=== PATIENT | male | born 1955 | race Caucasian/White ===

== ENCOUNTER → 2016-12-24 | Outpatient (CLI) | payer OTHER | END | disposition home or self-care (01) | LOC: RADECHMAIN 12:26 | PROVIDERS: ATTEND Internal Medicine | DX: I49.3 Ventricular premature depolarization (principal); I47.1 Supraventricular tachycardia | CPT/HCPCS: 93225; 93226 ==

== ENCOUNTER 2017-03-15 09:31 | Day surgery (SDC) | payer OTHER ==
[2017-03-10 15:21] VITALS: BMI 36.6
[~2017-03-15 09:31] MED LIST: LACTATED RINGERS 1,000 ML IV SCH; LIDOCAINE 1% 20 ML VIAL (10MG/ML) FOR IV START INTRADERMA PRN
[2017-03-15 09:58] VITALS: TEMP 99.8
[2017-03-15] MEDS ORDERED: LIDOCAINE 1% INJ 10MG/ML (20 ML MDV) ONE (11:00)
[2017-03-15] MEDS ORDERED: PROPOFOL 10 MG/ML 20 ML VIAL IV ONE (11:00)
[2017-03-15] MEDS ORDERED: GLYCOPYRROLATE 0.2 MG/ML 2 ML VIAL ONE (11:00)
--- NOTE | 2017-03-15 11:32 | P.PCN ---
Date of Procedure: 03/15/17 Preoperative Diagnosis: Postoperative Diagnosis: Procedure(s) Performed: Procedure: Esophagogastroduodenoscopy and biopsy. Preoperative diagnosis: Indigestion, reflux symptoms and dysphagia. Postoperative diagnosis: Small hiatal hernia with no obvious esophagitis or complicated reflux disease. Mild antral gastritis. Multiple biopsies obtained. Preparation and sedation: Was provided by anesthesia. Brief clinical history: The patient is a 61-year-old male who is referred for this evaluation because of reflux and indigestion type symptoms as well as intermittent dysphagia. Apparently, he is symptomatic at night and the reflux is interfering with his CPAP treatment which he wears for obstructive sleep apnea. No other alarm symptoms or anemia. This evaluation was requested to assess for peptic ulcer disease, complicated reflux disease or other pathology. Procedure: With the patient on his left lateral decubitus position and after informed consent and adequate sedation, I passed the Olympus-GIF 160 video upper endoscope through the cricopharyngeus down the esophagus. GE junction was around 38-39 cm from the incisors and there was a small sliding hiatal hernia. The esophagus did not show any erosions or ulcers. There were no strictures or Morris's esophagus. The stomach was then insufflated with air and inspected in detail including the retroflex view in the cardia. There was some mottling and erythema in the antrum but no ulcers or erosions. Pyloric channel, duodenal bulb, post bulbar area and descending duodenum appeared within normal limits. I obtained multiple biopsies from the antrum and esophagus then the endoscope was withdrawn. Disposition: The patient tolerated the procedure well. Plan: The patient was reassured. Will await pathology results. He will follow up with you as planned and further plans can be made based on his course. We would be happy to see in the office of his symptoms persist. Implants: Indications for Procedure: Operative Findings: Description of Procedure:
[2017-03-15 11:51] VITALS: BP 125/86; PULSE 70; RESP 18
== END 2017-03-15 12:02 | disposition home or self-care (01) ==
LOC: ORWHC2ENDO 09:31
DX: K21.0 Gastro-esophageal reflux disease with esophagitis (principal); K29.50 Unspecified chronic gastritis without bleeding; K44.9 Diaphragmatic hernia without obstruction or gangrene; I25.10 Atherosclerotic heart disease of native coronary artery without angina pectoris; I10 Essential (primary) hypertension; Z87.891 Personal history of nicotine dependence; E78.5 Hyperlipidemia, unspecified; G47.33 Obstructive sleep apnea (adult) (pediatric); Z99.89 Dependence on other enabling machines and devices; M19.90 Unspecified osteoarthritis, unspecified site; Z79.82 Long term (current) use of aspirin; Z79.899 Other long term (current) drug therapy; Z91.09 Other allergy status, other than to drugs and biological substances
CPT/HCPCS: 88305; 88342; 43239; J2001; J2704

== ENCOUNTER 2017-06-08 12:42 | Emergency (ER) | payer OTHER ==
[2017-06-08 13:01] VITALS: BP 120/66; PULSE 82; RESP 16; TEMP 98.7
--- NOTE | 2017-06-08 13:22 | ED ---
General Adult HPI - General Chief complaint: Extremity Injury, Upper Stated complaint: LEFT SHOULDER AND RIGHT HIP INJURY Time Seen by Provider: 06/08/17 13:06 Source: patient, RN notes reviewed, old records reviewed Mode of arrival: ambulatory Limitations: no limitations - History of Present Illness Initial comments: 61-year-old male presents emergency Department after a slip, and trying to catch himself. He reports he try to grab the wall and cause some pain over his left shoulder. He felt a ripping sensation. Patient also complains of some right hip pain. Recently had right hip replacement surgery, and requests an MRI further evaluation. He has been able to ambulate and bear weight on it. His orthopedically impaired teacher is working. Him, in [place]. Patient reports is also seeing orthopedically impaired teacher and [facility] Associates in this area. Patient states that he has occasional numbness and tingling down left hand. Denies any neck pain. Denies any head injuries associated with the fall. Patient reports this occurred while he was in a car wash, and slipped over the water at the car wash. - Related Data Home Medications Medication Instructions Recorded Confirmed Spironolactone [Aldactone] 25 mg PO DAILY 09/26/14 06/08/17 Atorvastatin [Lipitor] 40 mg PO HS 07/24/15 06/08/17 Aspirin [Adult Low Dose Aspirin EC] 81 mg PO DAILY 09/19/15 06/08/17 Ranitidine HCl [Zantac] 300 mg PO DAILY PRN 09/19/15 06/08/17 Celecoxib [CeleBREX] 200 mg PO DAILY 03/10/17 06/08/17 Lisinopril [Prinivil] 20 mg PO QAM 03/10/17 06/08/17 Magnesium 200 mg PO DAILY 03/10/17 06/08/17 Metoprolol Succinate (ER) [Toprol 25 mg PO QAM 03/10/17 06/08/17 Xl] [place]-3 Fatty Acids [[place]-3] 1,000 mg PO DAILY 03/10/17 06/08/17 Omeprazole [PriLOSEC] 40 mg PO DAILY 03/10/17 06/08/17 Vitamin K1 And Vitamin D3 1 tab PO DAILY 03/10/17 06/08/17 Vitamin Mk7 1 tab PO DAILY 03/10/17 06/08/17 Previous Rx's Medication Instructions Recorded traMADol HCl [Ultram] 50 mg PO Q6H PRN #15 tab 06/08/17 Allergies Allergy/AdvReac Type Severity Reaction Status Date / Time adhesive Allergy Rash/Hives Verified 06/08/17 13:00 Review of Systems ROS Statement: Those systems with pertinent positive or pertinent negative responses have been documented in the HPI. ROS Other: All systems not noted in ROS Statement are negative. Past Medical History Past Medical History: Coronary Artery Disease (CAD), Eye Disorder, GERD/Reflux, Hyperlipidemia, Hypertension, Osteoarthritis (OA), Skin Disorder, Sleep Apnea/ CPAP/BIPAP Additional Past Medical History / Comment(s): slight glaucoma janet eyes, no CPAP use, HX kidney stones, R great toe bunion, psoriasis, cervical disc ruptured, pt also needs a total L knee. left elbow sx History of Any Multi-Drug Resistant Organisms: None Reported Past Surgical History: Appendectomy, Back Surgery, Heart Catheterization With Stent, Orthopedic Surgery Additional Past Surgical History / Comment(s): PTCA with one stent in 2011, EGD and colonoscopy, L knee arthroscopy, lithrotripsy, SX TO REMOVE KIDNEY STONE, laminectomy low back 1984, has had laser sx to janet eyes Past Anesthesia/Blood Transfusion Reactions: No Reported Reaction Additional Past Anesthesia/Blood Transfusion Reaction / Comment(s): Pt has not recieved any blood transfusion. Date of Last Stent Placement:: 2011 Past Psychological History: Depression Smoking Status: Former smoker Past Alcohol Use History: None Reported Past Drug Use History: Marijuana - Past Family History Father Family Medical History: COPD, Coronary Artery Disease (CAD), Myocardial Infarction (IA) Mother Family Medical History: Coronary Artery Disease (CAD) General Exam - General Exam Comments Initial Comments: 61-year-old male. No distress. Limitations: no limitations General appearance: alert, in no apparent distress Head exam: Present: atraumatic, normocephalic, normal inspection Eye exam: Present: normal appearance, PERRL, EOMI. Absent: scleral icterus, conjunctival injection, periorbital swelling ENT exam: Present: normal exam, mucous membranes moist Neck exam: Present: normal inspection. Absent: tenderness, meningismus, lymphadenopathy Respiratory exam: Present: normal lung sounds bilaterally. Absent: respiratory distress, wheezes, rales, rhonchi, stridor Cardiovascular Exam: Present: regular rate, normal rhythm, normal heart sounds. Absent: systolic murmur, diastolic murmur, rubs, gallop, clicks GI/Abdominal exam: Present: soft, normal bowel sounds. Absent: distended, tenderness, guarding, rebound, rigid Extremities exam: Present: normal inspection, full ROM, normal capillary refill. Absent: tenderness, pedal edema, joint swelling, calf tenderness Left Shoulder Exam: Present: normal inspection, tenderness. Absent: full ROM ( Patient presented limited abduction and flexion and extension of the shoulder. He is wearing a arm sling.), swelling Upper Arm exam: Present: normal inspection, full ROM Elbow exam: Present: normal inspection, full ROM Forearm Wrist exam: Present: normal inspection, full ROM Hand Wrist exam: Present: normal inspection, full ROM Neuro motor exam: Present: wrist extension intact, thumb opposition intact, thumb IP flexion intact, thumb adduction intact, fingers 2-5 abduction intact Vascular: Present: normal capillary refill Back exam: Present: normal inspection Neurological exam: Present: alert, oriented X3, CN II-XII intact Psychiatric exam: Present: normal affect, normal mood Skin exam: Present: warm, dry, intact, normal color. Absent: rash Course Vital Signs 06/08/17 12:56 Temperature 98.7 F Pulse Rate 82 Respiratory 16 Rate Blood Pressure 120/66 O2 Sat by Pulse 99 Oximetry Medical Decision Making - Medical Decision Making 61-year-old male presents emergency Department complaining of left shoulder pain and right hip pain. Request an MRI of the shoulder and hip, we will complete x-rays at this time, follow-up with orthopedically impaired teacher. X-rays obtained show no acute abnormalities. Patient does have some limited range of motion of his left shoulder, pain with abduction, flexion. Normal pulse and normal sensation distally. He also has no shortening of his leg, no tenderness to palpation over the right hip. He does have full range of motion. X-rays of hip should not milliseconds hardware. Patient will be discharged at this time with a shoulder sling, as well as pain medicine. Discussed following up with orthopedically impaired teacher call them. Patient is history plan will comply. Return parameters were discussed. - Radiology Data Radiology results: report reviewed No acute fracture dislocation is evident. Total right hip prosthesis intact. Oropharynx soft tissue appears unremarkable. No fracture dislocation of the right hip. Left shoulder x-ray shows no acute abdomen including she dislocation or fractures. Disposition Clinical Impression: Left shoulder strain, Strain of right hip Disposition: HOME SELF-CARE Condition: Good Instructions: Rotator Cuff Injury (ED) Additional Instructions: Patient has a follow-up with orthopedically impaired teacher. He'll take the pain medicine as directed as well as anti-inflammatory medicine. Patient should return to emergency department if any alarming signs or symptoms occur. Prescriptions: traMADol HCl [Ultram] 50 mg PO Q6H PRN #15 tab PRN Reason: Pain Referrals: Jenny Perez MD [Primary Care Provider] - 1-2 days Madhav Livingston MD [STAFF PHYSICIAN] - 1-2 days Time of Disposition: 13:57
--- NOTE | 2017-06-08 13:38 | XR ---
EXAMINATION TYPE: XR Hip Complete RT DATE OF EXAM: 06/08/2017 CLINICAL HISTORY: pain TECHNIQUE: AP and frogleg views of the right hip are obtained. COMPARISON: None. FINDINGS: There is no acute fracture/dislocation evident. Total right hip prosthesis is intact. The overlying soft tissue appears unremarkable. IMPRESSION: 1. There is no acute fracture or dislocation. ICD 10 NO FRACTURE, INITIAL EVALUATION
--- NOTE | 2017-06-08 13:38 | XR ---
EXAMINATION TYPE: XR shoulder complete LT DATE OF EXAM: 06/08/2017 CLINICAL HISTORY: Pain after injury last night. TECHNIQUE: Three views of the left shoulder are obtained. COMPARISON: Prior left shoulder x-ray September 26, 2014. FINDINGS: Osseous structures are demineralized. There is no acute fracture/dislocation evident in th e left shoulder. The there is joint space loss glenohumeral and acromioclavicular joints. There is h igh riding left humeral head suggesting chronic rotator cuff tear. The visualized ribs are intact an d unremarkable. IMPRESSION: There is no acute fracture or dislocation in the left shoulder. No significant change fr om prior.
== END 2017-06-08 14:12 | disposition home or self-care (01) ==
LOC: EC 12:42
DX: S46.912A Strain of unspecified muscle, fascia and tendon at shoulder and upper arm level, left arm, initial encounter (principal); S76.011A Strain of muscle, fascia and tendon of right hip, initial encounter; I25.10 Atherosclerotic heart disease of native coronary artery without angina pectoris; K21.9 Gastro-esophageal reflux disease without esophagitis; E78.5 Hyperlipidemia, unspecified; I10 Essential (primary) hypertension; M19.90 Unspecified osteoarthritis, unspecified site; G47.30 Sleep apnea, unspecified; Z99.89 Dependence on other enabling machines and devices; F32.9 Major depressive disorder, single episode, unspecified; Z87.891 Personal history of nicotine dependence; Z79.82 Long term (current) use of aspirin; Z79.899 Other long term (current) drug therapy; Z91.048 Other nonmedicinal substance allergy status; Z98.890 Other specified postprocedural states; W01.0XXA Fall on same level from slipping, tripping and stumbling without subsequent striking against object, initial encounter
CPT/HCPCS: 73502; 99284

== ENCOUNTER → 2017-07-25 | Outpatient (CLI) | payer OTHER ==
--- NOTE | 2017-07-25 13:45 | XR ---
EXAMINATION TYPE: XR shoulder limited LT DATE OF EXAM: 07/25/2017 CLINICAL HISTORY: pain COMPARISON: 06/08/2017 TECHNIQUE: Three views of the left shoulder are obtained. FINDINGS: There is no acute fracture/dislocation evident. The acromioclavicular and glenohumeral dave int spaces appear mildly narrowed. Lateral downsloping of the acromion may result in impingement. Co rrelate clinically. The visualized ribs are intact and unremarkable. IMPRESSION: 1. There is no acute fracture or dislocation. ICD 10 NO FRACTURE, INITIAL EVALUATION
== END | disposition home or self-care (01) ==
LOC: RADXRMAIN 13:25
PROVIDERS: ATTEND Family Medicine
DX: M75.42 Impingement syndrome of left shoulder (principal)

== ENCOUNTER → 2017-08-15 | Outpatient (CLI) | payer OTHER ==
--- NOTE | 2017-08-15 19:48 | XR ---
EXAMINATION TYPE: XR Hip Complete RT DATE OF EXAM: 08/15/2017 CLINICAL HISTORY: Right hip pain TECHNIQUE: AP and frogleg views of the right hip are obtained. COMPARISON: None. FINDINGS: Right hip prosthesis is intact without evidence of dislocation. Overall this appears simila r to the prior exam of 06/08/2017. No periprosthetic lucency is seen. No malalignment. No focal soft tissue swelling. [place] osseous structures appear intact. IMPRESSION: No evidence of hardware fracture, [place] bone fracture, or surrounding lucency to suggest loosening.
== END | disposition home or self-care (01) ==
LOC: RADXRMAIN 15:50
PROVIDERS: ATTEND Family Medicine
DX: M25.551 Pain in right hip (principal)
CPT/HCPCS: 73502

== ENCOUNTER → 2017-08-23 | Outpatient (CLI) | payer OTHER ==
--- NOTE | 2017-08-23 11:20 | MR ---
EXAMINATION TYPE: MR shoulder LT wo con DATE OF EXAM: 08/23/2017 COMPARISON: Plain film 07/25/2017 HISTORY: Left shoulder pain TECHNIQUE: Multiplanar, multisequence imaging of the left shoulder is performed without contrast. FINDINGS: There are foci of susceptibility artifact suggestive of prior surgery or instrumentation ab out the humeral head. Rotator Cuff: There is a tear of the supraspinatus and infraspinatus tendon with retraction of the leary praspinatus tendon to the level of the bony glenoid. Some minimal residual fibers of the infraspinatu s tendon are markedly attenuated towards the insertion on the humeral head. Acromioclavicular Joint: Hypertrophic changes present at the acromioclavicular joint. Glenohumeral Joint: There is arthropathy change, spurring present in the humeral head. Labrum: Some increased signal present within the labrum could be related to degenerative change, diff icult to exclude fraying or partial tear Biceps Tendon: Long head of biceps tendon shows abnormal increased signal and thickening, some fluid signal is present along the tendon, difficult to exclude a tear Bone marrow signal: Pseudocysts are present within the humeral head as well as some probable reactive marrow signal change. Other: There is a distal acromial spur. There is a joint effusion. There may be ganglion cyst along t he subscapularis tendon. Difficult to exclude some small loose bodies. IMPRESSION: Rotator cuff tear with retraction. Osteoarthritic changes. Findings suggest long head of biceps tendo n tear. Additional findings above.
== END | disposition home or self-care (01) ==
LOC: RADMRIMAIN 09:04
PROVIDERS: ATTEND Family Medicine
DX: M75.102 Unspecified rotator cuff tear or rupture of left shoulder, not specified as traumatic (principal); M19.012 Primary osteoarthritis, left shoulder

== ENCOUNTER → 2017-11-11 | Outpatient (CLI) | payer OTHER ==
--- NOTE | 2017-11-12 11:08 | XR ---
EXAMINATION TYPE: XR abdomen 2V DATE OF EXAM: 11/11/2017 HISTORY: Pain. Technique: 4 views of the abdomen are submitted. Comparison: None. Findings: There is no convincing evidence of pneumoperitoneum. The Bowel gas pattern is nonspecific and nonobstructive. No sizable air-fluid levels are seen. No mass effects are noted. No renal calcifications are identified. Severe scoliotic curvature of the lumbar spine. IMPRESSION: 1. Nonspecific nonobstructive bowel gas pattern
== END | disposition home or self-care (01) ==
LOC: RADXRMAIN 17:15
PROVIDERS: ATTEND Family Medicine
DX: K56.41 Fecal impaction (principal)
CPT/HCPCS: 74019

== ENCOUNTER → 2018-01-09 | Outpatient (CLI) | payer OTHER ==
--- NOTE | 2018-01-09 08:40 | US ---
EXAMINATION TYPE: US kidneys/renal and bladder DATE OF EXAM: 01/09/2018 COMPARISON: NONE CLINICAL HISTORY: 62-year-old male I72.3 Iliac Aneurysm,M54.5 Low back pain. TECHNIQUE: Multiple sonographic images of the kidneys and bladder are obtained. FINDINGS: EXAM MEASUREMENTS: Right Kidney: 13.4 x 6.9 x 6.5 cm without hydronephrosis. Left Kidney: 11.6 x 7.2 x 7.2 cm with mild pelvicaliectasis. Post Void Residual Volume: 26.0 mL Right Kidney: 2 cysts seen: Medial, upper = 2.5 x 2.2 x 2.2 cm Lower pole = 5.6 x 3.5 x 4.0 cm Left Kidney: Cyst with internal septation Mid pole = 7.4 x 7.1 x 7.1 cm. There is an 8 mm echogenic f ocus in the lower pole, possible renal calculus. Bladder: No gross abnormality. Bilateral Jets seen: Yes Normal Post Void Residual: Increased but within acceptable limits Dental Professional notes: Sub optimal visualization due to patient's large body habitus and large amounts of bowel gas. IMPRESSION: 1. Limited study due to bowel gas and patient body habitus. 2. Mild left-sided pelvicaliectasis which may be transient. Short interval follow-up can be considere d. 3. Bilateral renal cysts. Largest on the right measures 5.6 cm. Largest on the left is 7.4 cm and con tains an internal septation. This is a Bosniak category 2F cyst and a 6 month follow-up ultrasound ca n be performed. 4. Possibly 8mm nonobstructive left renal calculus. 5. Increased post void bladder volume of 26 mL still falls within acceptable limits.
--- NOTE | 2018-01-09 08:45 | US ---
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 TECHNIQUE: Multiple sonographic images of the abdominal aorta are obtained. FINDINGS: EXHAUST TENDER NOTES: Suboptimal exam overall due to patient's large body habitus and large amounts of bowel gas. EXAM MEASUREMENTS: Abdominal Aorta: Proximal: 2.9 x 2.8 cm Mid: 2.5 x 2.4 cm Distal: 2.2 x 2.1 cm Bifurcation: 2.0 cm 1.9cm IMPRESSION: 1. Suboptimal exam due to patient body habitus and bowel gas. 2. 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
== END | disposition home or self-care (01) ==
LOC: RADUSWWP 06:57
PROVIDERS: ATTEND Family Medicine
DX: I72.3 Aneurysm of iliac artery (principal); N28.1 Cyst of kidney, acquired; N28.89 Other specified disorders of kidney and ureter
CPT/HCPCS: 76770; 93979

== ENCOUNTER 2018-05-31 13:16 | Observation (INO) | payer OTHER ==
[2018-05-31 13:22] VITALS: RESP 18; TEMP 98.5
[2018-05-31] MEDS ORDERED: SODIUM CHLORIDE 0.9% 1,000 ML IV ONE ×2 (14:22→16:39)
--- NOTE | 2018-05-31 14:26 | ED ---
General Adult HPI - General Chief complaint: Recheck/Abnormal Lab/Rx Stated complaint: Low BP Sent by Time Seen by Provider: 05/31/18 13:20 Source: patient, RN notes reviewed Mode of arrival: ambulatory Limitations: no limitations - History of Present Illness Initial comments: This is a 62-year-old male who presents emergency department after having a near syncopal episode. Patient states she was at home felt lightheaded got up and went and looked in the meter and almost passed out at that time. Patient states because of this he decided to go to his doctor's office and be evaluated. Patient went to the doctor's office and they told him his blood pressure was low and his heart and decided he needed to go to the emergency department. Patient denied any chest pain patient stated he felt as though his heart rate was very fast. Patient states the doctor indicated to him his heart rate was very fast and wanted him to take any of his hospital but he refused. She states she was mildly short of breath when he felt like he was going to pass out. Patient states currently is not short of breath. Patient denies any fever chills or cough. Patient does complain of a headache for the last 2 weeks and states he thought was related to his sinuses. Patient states is in the center of his head. Patient denies any lightheadedness dizziness or near syncopal episode. Patient has just got back from [place] be a plane flight. Patient denies any swelling to his legs or calf tenderness. - Related Data Home Medications Medication Instructions Recorded Confirmed Spironolactone [Aldactone] 37.5 mg PO DAILY 09/26/14 05/31/18 Aspirin [Adult Low Dose Aspirin EC] 81 mg PO DAILY 09/19/15 05/31/18 Celecoxib [CeleBREX] 200 mg PO DAILY PRN 03/10/17 05/31/18 Magnesium 200 mg PO DAILY 03/10/17 05/31/18 Metoprolol Succinate (ER) [Toprol 25 mg PO QAM 03/10/17 05/31/18 Xl] [place]-3 Fatty Acids [[place]-3] 1,000 mg PO DAILY 03/10/17 05/31/18 Vitamin K1 And Vitamin D3 1 tab PO DAILY 03/10/17 05/31/18 Vitamin Mk7 1 tab PO DAILY 03/10/17 05/31/18 Atorvastatin [Lipitor] 20 mg PO DAILY 05/31/18 05/31/18 Lisinopril [Zestril] 10 mg PO DAILY 05/31/18 05/31/18 Magnesium l-Lactate [Magbid ER] 84 mg PO DAILY 05/31/18 05/31/18 Multivitamins, Thera [Multivitamin 1 tab PO DAILY 05/31/18 05/31/18 (formulary)] Vitamin B Complex 1 tab PO DAILY 05/31/18 05/31/18 Allergies Allergy/AdvReac Type Severity Reaction Status Date / Time adhesive Allergy Rash/Hives Verified 05/31/18 14:09 Review of Systems ROS Statement: Those systems with pertinent positive or pertinent negative responses have been documented in the HPI. ROS Other: All systems not noted in ROS Statement are negative. Past Medical History Past Medical History: Coronary Artery Disease (CAD), Eye Disorder, GERD/Reflux, Hyperlipidemia, Hypertension, Osteoarthritis (OA), Skin Disorder, Sleep Apnea/ CPAP/BIPAP Additional Past Medical History / Comment(s): slight glaucoma janet eyes, no CPAP use, HX kidney stones, R great toe bunion, psoriasis, cervical disc ruptured, pt also needs a total L knee. left elbow sx History of Any Multi-Drug Resistant Organisms: None Reported Past Surgical History: Appendectomy, Back Surgery, Heart Catheterization With Stent, Orthopedic Surgery Additional Past Surgical History / Comment(s): PTCA with one stent in 2011, EGD and colonoscopy, L knee arthroscopy, lithrotripsy, SX TO REMOVE KIDNEY STONE, laminectomy low back 1984, has had laser sx to janet eyes Past Anesthesia/Blood Transfusion Reactions: No Reported Reaction Additional Past Anesthesia/Blood Transfusion Reaction / Comment(s): Pt has not recieved any blood transfusion. Date of Last Stent Placement:: 2011 Past Psychological History: Depression Smoking Status: Former smoker Past Alcohol Use History: None Reported Past Drug Use History: Marijuana - Past Family History Father Family Medical History: COPD, Coronary Artery Disease (CAD), Myocardial Infarction ([place]) Mother Family Medical History: Coronary Artery Disease (CAD) General Exam - General Exam Comments Initial Comments: GENERAL: Patient is well-developed and well-nourished. Patient is nontoxic and well- hydrated and is in mild distress. ENT: Neck is soft and supple. No significant lymphadenopathy is noted. Oropharynx is clear. Moist mucous membranes. Neck has full range of motion without eliciting any pain. EYES: The sclera were anicteric and conjunctiva were pink and moist. Extraocular movements were intact and pupils were equal round and reactive to light. Eyelids were unremarkable. PULMONARY: Unlabored respirations. Good breath sounds bilaterally. No audible rales rhonchi or wheezing was noted. CARDIOVASCULAR: There is a regular rate and rhythm without any murmurs gallops or rubs. ABDOMEN: Soft and nontender with normal bowel sounds. No palpable organomegaly was noted. There is no palpable pulsatile mass. SKIN: Skin is clear with no lesions or rashes and otherwise unremarkable. NEUROLOGIC: Patient is alert and oriented x3. Cranial nerves II through XII are grossly intact. Motor and sensory are also intact. Normal speech, volume and content. Symmetrical smile. MUSCULOSKELETAL: Normal extremities with adequate strength and full range of motion. No lower extremity swelling or edema. No calf tenderness. LYMPHATICS: No significant lymphadenopathy is noted PSYCHIATRIC: Normal psychiatric evaluation. Limitations: no limitations Course Vital Signs 05/31/18 05/31/18 05/31/18 13:18 14:30 15:30 Temperature 98.5 F Pulse Rate 85 82 73 Respiratory 18 11 L 18 Rate Blood Pressure 110/75 100/74 101/63 O2 Sat by Pulse 98 95 95 Oximetry 05/31/18 16:15 Temperature Pulse Rate 87 Respiratory 18 Rate Blood Pressure 125/83 O2 Sat by Pulse 99 Oximetry Medical Decision Making - Medical Decision Making EKG shows normal sinus rhythm at 81 bpm NV interval is 176 QRS is 90 QT interval 372 QTC is 432. Patient's EKG shows no ST segment elevation or depression or T wave abnormalities are noted. CT of the chest showed no acute abnormality. CT of the head showed no acute abnormality. Patient did have a soft tissue abnormality in the scalp but when I reexamined the patient there was no redness or swelling and no abscess or medication. I spoke with Dr. Francois he agreed to admit the patient admitted the patient I consult cardiology. - Lab Data Result diagrams: 05/31/18 14:12 05/31/18 14:51 Lab Results 05/31/18 05/31/18 05/31/18 Range/Units 14:12 14:51 14:51 WBC 9.6 (3.8-10.6) k/uL RBC 4.71 (4.30-5.90) m/uL Hgb 14.3 (13.0-17.5) gm/dL Hct 44.8 (39.0-53.0) % MCV 95.0 (80.0-100.0) fL MCH 30.4 (25.0-35.0) pg MCHC 32.0 (31.0-37.0) g/dL RDW 13.9 (11.5-15.5) % Plt Count 213 (150-450) k/uL Neutrophils % 77 % Lymphocytes % 15 % Monocytes % 4 % Eosinophils % 2 % Basophils % 0 % Neutrophils # 7.4 (1.3-7.7) k/uL Lymphocytes # 1.5 (1.0-4.8) k/uL Monocytes # 0.4 (0-1.0) k/uL Eosinophils # 0.2 (0-0.7) k/uL Basophils # 0.0 (0-0.2) k/uL PT (9.0-12.0) sec INR (<1.2) APTT (22.0-30.0) sec D-Dimer (<0.60) mg/L FEU Sodium 140 (137-145) mmol/L Potassium 4.4 (3.5-5.1) mmol/L Chloride 110 H (98-107) mmol/L Carbon Dioxide 23 (22-30) mmol/L Anion Gap 7 mmol/L BUN 24 H (9-20) mg/dL Creatinine 0.74 (0.66-1.25) mg/dL Est GFR (CKD-EPI)AfAm >90 (>60 ml/min/1.73 sqM) Est GFR (CKD-EPI)NonAf >90 (>60 ml/min/1.73 sqM) Glucose 80 (74-99) mg/dL Calcium 9.2 (8.4-10.2) mg/dL Total Bilirubin 0.6 (0.2-1.3) mg/dL AST 25 (17-59) U/L ALT 29 (21-72) U/L Alkaline Phosphatase 60 (38-126) U/L Total Creatine Kinase 121 (55-170) U/L CK-MB (CK-2) 2.0 (0.0-2.4) ng/mL CK-MB (CK-2) Rel Index 1.7 Troponin I <0.012 (0.000-0.034) ng/mL Total Protein 6.4 (6.3-8.2) g/dL Albumin 3.7 (3.5-5.0) g/dL 05/31/18 Range/Units 15:22 WBC (3.8-10.6) k/uL RBC (4.30-5.90) m/uL Hgb (13.0-17.5) gm/dL Hct (39.0-53.0) % MCV (80.0-100.0) fL MCH (25.0-35.0) pg MCHC (31.0-37.0) g/dL RDW (11.5-15.5) % Plt Count (150-450) k/uL Neutrophils % % Lymphocytes % % Monocytes % % Eosinophils % % Basophils % % Neutrophils # (1.3-7.7) k/uL Lymphocytes # (1.0-4.8) k/uL Monocytes # (0-1.0) k/uL Eosinophils # (0-0.7) k/uL Basophils # (0-0.2) k/uL PT 9.7 (9.0-12.0) sec INR 1.0 (<1.2) APTT 24.8 (22.0-30.0) sec D-Dimer 1.30 H (<0.60) mg/L FEU Sodium (137-145) mmol/L Potassium (3.5-5.1) mmol/L Chloride (98-107) mmol/L Carbon Dioxide (22-30) mmol/L Anion Gap mmol/L BUN (9-20) mg/dL Creatinine (0.66-1.25) mg/dL Est GFR (CKD-EPI)AfAm (>60 ml/min/1.73 sqM) Est GFR (CKD-EPI)NonAf (>60 ml/min/1.73 sqM) Glucose (74-99) mg/dL Calcium (8.4-10.2) mg/dL Total Bilirubin (0.2-1.3) mg/dL AST (17-59) U/L ALT (21-72) U/L Alkaline Phosphatase (38-126) U/L Total Creatine Kinase (55-170) U/L CK-MB (CK-2) (0.0-2.4) ng/mL CK-MB (CK-2) Rel Index Troponin I (0.000-0.034) ng/mL Total Protein (6.3-8.2) g/dL Albumin (3.5-5.0) g/dL Disposition Clinical Impression: Near syncope, Palpitation, Sinusitis Disposition: ADMITTED IP TO THIS HOSP Referrals: Jenny Perez MD [Primary Care Provider] - 1-2 days Time of Disposition: 16:37
[2018-05-31 14:46] LABS: Basophils % (A) 0 %; Eosinophils # (A) 0.2 k/uL (0-0.7); Eosinophils % (A) 2 %; HCT 44.8 % (39.0-53.0); HGB 14.3 gm/dL (13.0-17.5); Lymphocytes # (A) 1.5 k/uL (1.0-4.8); Lymphocytes % (A) 15 %; MCH 30.4 pg (25.0-35.0); Mean Platelet Volume 7.2; Monocytes # (A) 0.4 k/uL (0-1.0); Monocytes % (A) 4 %; Neutrophils # (A) 7.4 k/uL (1.3-7.7); Neutrophils % (A) 77 %; Platelet Count 213 k/uL (150-450); RBC 4.71 m/uL (4.30-5.90); RDW 13.9 % (11.5-15.5); WBC 9.6 k/uL (3.8-10.6)
[2018-05-31 15:18] LABS: ALT 29 U/L (21-72); AST 25 U/L (17-59); Albumin 3.7 g/dL (3.5-5.0); Alkaline Phosphatase 60 U/L (38-126); Anion Gap 7 mmol/L; Blood Urea Nitrogen 24 mg/dL (9-20); Calcium 9.2 mg/dL (8.4-10.2); Carbon Dioxide 23 mmol/L (22-30); Chloride 110 mmol/L (98-107); Glucose 80 mg/dL (74-99); Potassium 4.4 mmol/L (3.5-5.1); Sodium 140 mmol/L (137-145); Total Bilirubin 0.6 mg/dL (0.2-1.3); Total Protein 6.4 g/dL (6.3-8.2)
[2018-05-31 15:20] LABS: Creatine Kinase 121 U/L (55-170)
[2018-05-31 15:32] LABS: Troponin I <0.012 ng/mL (0.000-0.034)
[2018-05-31 15:37] LABS: Partial Thromboplastin Time 24.8 sec (22.0-30.0); Prothrombin Time 9.7 sec (9.0-12.0)
[2018-05-31 15:53] LABS: D-Dimer 1.3 mg/L FEU (<0.60)
[2018-05-31] MEDS ORDERED: HYDROmorphone 1 MG/ML 1 ML SYRINGE IVP STA (15:57)
[2018-05-31 16:16] VITALS: BP 125/83; PULSE 87
--- NOTE | 2018-05-31 16:26 | CT ---
EXAMINATION TYPE: CT brain wo con DATE OF EXAM: 05/31/2018 COMPARISON: None INDICATION: Low blood pressure, headache x1 week DLP: 1031.4 mGycm, Automated exposure control for dose reduction was used. CONTRAST: None CT of the brain is performed utilizing 3 mm thick sections through the posterior fossa and 3 mm thick sections through the remaining calvarium. Study is performed within 24 hours of arrival to the hosp ital. No abnormal hyperdensity is present to suggest an acute intracranial hemorrhage. No mass lesion is evident. No acute infarcts are evident. Ventricles and sulci are appropriate for the patient age. There is an air-fluid level within the right maxillary sinus. Mucosal thickenings within ethmoid air cells. Remaining paranasal sinuses and mastoid air cells are clear. No fracture is evident. Soft tissue swelling is over the right occipital region. IMPRESSIONS: 1. Soft tissue swelling right occipital region. 2. No acute intracranial process. 3. Clinical correlation recommended for acute right maxillary sinusitis.
--- NOTE | 2018-05-31 16:30 | CT ---
CT CHEST FOR PULMONARY EMBOLISM. EXAMINATION TYPE: CT chest angio for PE DATE OF EXAM: 05/31/2018 INDICATION: low bp, headaches CT DLP: 746.8 mGycm, Automated exposure control for dose reduction was used. CONTRAST: Patient injected with 100 mL of Isovue 370. COMPARISON: None TECHNIQUE: CT of the chest is performed on a spiral scan at 2 mm thick sections. Study is performed with intravenous contrast timed for evaluation for pulmonary embolism. This will limit additional po rtions of the evaluation. 3-D MIP images reconstructed by the technologist are reviewed on the compu ter in the coronal and sagittal planes. Contrast timing is suboptimal. This limits evaluation for pul monary embolism. FINDINGS: No persistent filling defects are evident to suggest a central acute pulmonary embolism. Due to poor contrast timing peripheral smaller emboli may not be visualized. No change suggest right heart strain are evident. No aortic dissection is identified on these images. No mediastinal or hilar adenopathy enlarged by CT criteria is evident. The ascending aorta diameter at the level of the main pulmonary artery is 3.3 cm. The main pulmonary artery diameter at the bifur cation is 2.7 cm. Moderate coronary artery calcification is present. Lung windows are clear. Limited CT section through the upper abdomen are unremarkable. IMPRESSIONS: 1. No acute pulmonary embolism. Study is suboptimal. 2. No acute pulmonary process.
[2018-05-31] MEDS ORDERED: AMPICILLIN-SULBACTAM 3 GM in SODIUM CHLORIDE 0.9% 100 ML IVPB STA (16:48)
[2018-06-01] MEDS ORDERED: AMPICILLIN-SULBACTAM 3 GM in SODIUM CHLORIDE 0.9% 100 ML IVPB SCH ×2
== END 2018-05-31 17:45 | disposition left against medical advice (07) ==
LOC: EC 13:16 → 1SOBS 16:48
PROVIDERS: ADMIT Internal Medicine; ATTEND Internal Medicine
DX: R55 Syncope and collapse (principal); R06.02 Shortness of breath; R00.2 Palpitations; R03.1 Nonspecific low blood-pressure reading; J32.9 Chronic sinusitis, unspecified; Z79.899 Other long term (current) drug therapy; Z79.82 Long term (current) use of aspirin; Z91.048 Other nonmedicinal substance allergy status; I25.10 Atherosclerotic heart disease of native coronary artery without angina pectoris; E78.5 Hyperlipidemia, unspecified; I10 Essential (primary) hypertension; L40.9 Psoriasis, unspecified; M19.90 Unspecified osteoarthritis, unspecified site; G47.30 Sleep apnea, unspecified; Z87.442 Personal history of urinary calculi; Z95.5 Presence of coronary angioplasty implant and graft; Z87.891 Personal history of nicotine dependence; Z82.5 Family history of asthma and other chronic lower respiratory diseases; Z82.49 Family history of ischemic heart disease and other diseases of the circulatory system; Z53.21 Procedure and treatment not carried out due to patient leaving prior to being seen by health care provider
CPT/HCPCS: 96361; 96374; 99284; 36415; 93005; 85379; 80053; 82550; 82553; 84484; 85025; 85610; 85730; 70450; 71275; G0378; J1170; Q9967

== ENCOUNTER 2018-06-03 22:05 | Inpatient (IN) | payer OTHER ==
--- NOTE | 2018-06-03 22:40 | ED ---
Arrhythmia/Palpitations HPI - General Chief Complaint: Chest Pain Stated Complaint: Chest pain Time Seen by Provider: 06/03/18 22:18 Source: patient Mode of arrival: ambulatory Limitations: no limitations - History of Present Illness MD Complaint: "skipped beats", palpitations -: days(s) Context: occurred during rest Associated Symptoms: denies other symptoms - Related Data Home Medications Medication Instructions Recorded Confirmed Spironolactone [Aldactone] 37.5 mg PO DAILY 09/26/14 05/31/18 Aspirin [Adult Low Dose Aspirin EC] 81 mg PO DAILY 09/19/15 05/31/18 Celecoxib [CeleBREX] 200 mg PO DAILY PRN 03/10/17 05/31/18 Magnesium 200 mg PO DAILY 03/10/17 05/31/18 Metoprolol Succinate (ER) [Toprol 25 mg PO QAM 03/10/17 05/31/18 Xl] [place]-3 Fatty Acids [[place]-3] 1,000 mg PO DAILY 03/10/17 05/31/18 Vitamin K1 And Vitamin D3 1 tab PO DAILY 03/10/17 05/31/18 Vitamin Mk7 1 tab PO DAILY 03/10/17 05/31/18 Atorvastatin [Lipitor] 20 mg PO DAILY 05/31/18 05/31/18 Lisinopril [Zestril] 10 mg PO DAILY 05/31/18 05/31/18 Magnesium l-Lactate [Magbid ER] 84 mg PO DAILY 05/31/18 05/31/18 Multivitamins, Thera [Multivitamin 1 tab PO DAILY 05/31/18 05/31/18 (formulary)] Vitamin B Complex 1 tab PO DAILY 05/31/18 05/31/18 Allergies Allergy/AdvReac Type Severity Reaction Status Date / Time adhesive Allergy Rash/Hives Verified 06/03/18 22:18 Review of Systems ROS Statement: Those systems with pertinent positive or pertinent negative responses have been documented in the HPI. ROS Other: All systems not noted in ROS Statement are negative. Constitutional: Denies: fever, chills, weakness Respiratory: Denies: cough, dyspnea Cardiovascular: Reports: palpitations. Denies: chest pain, dyspnea on exertion , orthopnea, edema, syncope Gastrointestinal: Denies: abdominal pain, nausea, vomiting Genitourinary: Denies: dysuria Musculoskeletal: Denies: back pain Skin: Denies: rash Neurological: Denies: headache, weakness, numbness Past Medical History Past Medical History: Coronary Artery Disease (CAD), Eye Disorder, GERD/Reflux, Hyperlipidemia, Hypertension, Osteoarthritis (OA), Skin Disorder, Sleep Apnea/ CPAP/BIPAP Additional Past Medical History / Comment(s): slight glaucoma janet eyes, no CPAP use, HX kidney stones, R great toe bunion, psoriasis, cervical disc ruptured, pt also needs a total L knee. left elbow sx History of Any Multi-Drug Resistant Organisms: None Reported Past Surgical History: Appendectomy, Back Surgery, Heart Catheterization With Stent, Orthopedic Surgery Additional Past Surgical History / Comment(s): PTCA with one stent in 2011, EGD and colonoscopy, L knee arthroscopy, lithrotripsy, SX TO REMOVE KIDNEY STONE, laminectomy low back 1984, has had laser sx to janet eyes Past Anesthesia/Blood Transfusion Reactions: No Reported Reaction Additional Past Anesthesia/Blood Transfusion Reaction / Comment(s): Pt has not recieved any blood transfusion. Date of Last Stent Placement:: 2011 Past Psychological History: Depression Smoking Status: Former smoker Past Alcohol Use History: None Reported Past Drug Use History: Marijuana - Past Family History Father Family Medical History: COPD, Coronary Artery Disease (CAD), Myocardial Infarction ([place]) Mother Family Medical History: Coronary Artery Disease (CAD) General Exam Limitations: no limitations General appearance: alert, in no apparent distress Head exam: Present: atraumatic, normocephalic Eye exam: Present: normal appearance. Absent: scleral icterus, conjunctival injection ENT exam: Present: normal oropharynx Neck exam: Present: normal inspection Respiratory exam: Present: normal lung sounds bilaterally. Absent: respiratory distress, wheezes, rales, rhonchi, stridor Cardiovascular Exam: Present: regular rate, normal rhythm, normal heart sounds. Absent: systolic murmur, diastolic murmur, rubs, gallop GI/Abdominal exam: Present: soft. Absent: distended, tenderness, guarding, rebound, rigid, mass Extremities exam: Present: normal inspection, normal capillary refill. Absent: pedal edema, calf tenderness Back exam: Present: normal inspection. Absent: CVA tenderness (R), CVA tenderness (L) Neurological exam: Present: alert Skin exam: Present: warm, dry, intact, normal color. Absent: rash Course Vital Signs 06/03/18 06/03/18 06/03/18 22:15 22:24 22:30 Temperature 98.5 F Pulse Rate 95 95 Respiratory 20 14 Rate Blood Pressure 113/72 131/81 131/81 O2 Sat by Pulse 97 92 L 96 Oximetry 06/03/18 06/03/18 23:00 23:30 Temperature Pulse Rate 85 81 Respiratory 21 18 Rate Blood Pressure 133/92 112/69 O2 Sat by Pulse 93 L 93 L Oximetry - Reevaluation(s) Reevaluation #1: 06/04/18 01:12 I paged admitting physician EKG Findings - EKG Results: EKG: interpreted by TARIK, WNL, sinus rhythm (Rate 87 bpm, PVC noted), normal axis, normal QRS, normal ST/T, no acute changes Medical Decision Making - Lab Data Result diagrams: 06/03/18 22:37 06/03/18 22:37 Lab Results 06/03/18 06/03/18 06/03/18 Range/Units 22:37 22:37 22:37 WBC 9.9 (3.8-10.6) k/uL RBC 4.61 (4.30-5.90) m/uL Hgb 13.6 (13.0-17.5) gm/dL Hct 43.3 (39.0-53.0) % MCV 93.8 (80.0-100.0) fL MCH 29.5 (25.0-35.0) pg MCHC 31.4 (31.0-37.0) g/dL RDW 13.8 (11.5-15.5) % Plt Count 238 (150-450) k/uL Neutrophils % 62 % Lymphocytes % 27 % Monocytes % 5 % Eosinophils % 4 % Basophils % 0 % Neutrophils # 6.1 (1.3-7.7) k/uL Lymphocytes # 2.7 (1.0-4.8) k/uL Monocytes # 0.5 (0-1.0) k/uL Eosinophils # 0.4 (0-0.7) k/uL Basophils # 0.0 (0-0.2) k/uL Sodium 137 (137-145) mmol/L Potassium 4.4 (3.5-5.1) mmol/L Chloride 103 (98-107) mmol/L Carbon Dioxide 24 (22-30) mmol/L Anion Gap 10 mmol/L BUN 32 H (9-20) mg/dL Creatinine 0.72 (0.66-1.25) mg/dL Est GFR (CKD-EPI)AfAm >90 (>60 ml/min/1.73 sqM) Est GFR (CKD-EPI)NonAf >90 (>60 ml/min/1.73 sqM) Glucose 86 (74-99) mg/dL Calcium 9.8 (8.4-10.2) mg/dL Magnesium 1.7 (1.6-2.3) mg/dL Total Bilirubin 0.3 (0.2-1.3) mg/dL AST 30 (17-59) U/L ALT 38 (21-72) U/L Alkaline Phosphatase 79 (38-126) U/L Troponin I <0.012 (0.000-0.034) ng/mL Total Protein 7.1 (6.3-8.2) g/dL Albumin 4.2 (3.5-5.0) g/dL Disposition Clinical Impression: Palpitation, Chest pain Disposition: ADMITTED IP TO THIS [facility] Condition: Fair
--- NOTE | 2018-06-03 22:52 | XR ---
EXAMINATION TYPE: XR chest 1V portable DATE OF EXAM: 06/03/2018 COMPARISON: 07/24/2015 HISTORY: Chest pain TECHNIQUE: Single frontal view of the chest is obtained. FINDINGS: There is no heart failure. Heart size is normal. Costophrenic angles are clear. There is a 3 cm patch of minimal infiltrate in the right lower lobe. The other lung [place] are clear. There are chest leads. 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 IMPRESSION: New small infiltrate in the right lower lobe compared to old exam. No heart failure. Nor mal heart.
[2018-06-03 22:56] LABS: Basophils % (A) 0 %; Eosinophils # (A) 0.4 k/uL (0-0.7); Eosinophils % (A) 4 %; HCT 43.3 % (39.0-53.0); HGB 13.6 gm/dL (13.0-17.5); Lymphocytes # (A) 2.7 k/uL (1.0-4.8); Lymphocytes % (A) 27 %; MCH 29.5 pg (25.0-35.0); MCHC 31.4 g/dL (31.0-37.0); MCV 93.8 fL (80.0-100.0); Mean Platelet Volume 6.8; Monocytes # (A) 0.5 k/uL (0-1.0); Monocytes % (A) 5 %; Neutrophils # (A) 6.1 k/uL (1.3-7.7); Neutrophils % (A) 62 %; Platelet Count 238 k/uL (150-450); RBC 4.61 m/uL (4.30-5.90); RDW 13.8 % (11.5-15.5); WBC 9.9 k/uL (3.8-10.6)
[2018-06-03 23:05] LABS: ALT 38 U/L (21-72); AST 30 U/L (17-59); Albumin 4.2 g/dL (3.5-5.0); Alkaline Phosphatase 79 U/L (38-126); Anion Gap 10 mmol/L; Blood Urea Nitrogen 32 mg/dL (9-20); Calcium 9.8 mg/dL (8.4-10.2); Carbon Dioxide 24 mmol/L (22-30); Chloride 103 mmol/L (98-107); Glucose 86 mg/dL (74-99); Magnesium 1.7 mg/dL (1.6-2.3); Potassium 4.4 mmol/L (3.5-5.1); Sodium 137 mmol/L (137-145); Total Bilirubin 0.3 mg/dL (0.2-1.3); Total Protein 7.1 g/dL (6.3-8.2)
[2018-06-03] MEDS ORDERED: IBUPROFEN 400 MG TAB PO STA (23:14)
--- NOTE | 2018-06-04 00:42 | CT ---
EXAMINATION TYPE: CT chest angio for PE DATE OF EXAM: 06/04/2018 COMPARISON: 05/31/2018 HISTORY: EUGEN[place] CT DLP: 624.3 mGycm Automated exposure control for dose reduction was used. CONTRAST: CT Chest for pulmonary embolism performed with with IV Contrast, patient injected with 100 mL of Isov ue 370. There are 3-D post processed images. FINDINGS: There is some patchy subsegmental atelectasis in the lower lung [place]. There is no evidence of a pul monary mass. There is no pleural effusion. There is no mediastinal adenopathy. There are no hilar mas ses. There is normal contrast opacification of the pulmonary arteries. There are no filling defects. Thoracic aorta shows no evidence of aneurysm or dissection. There is no pericardial effusion. There are multiple cysts on both kidneys there is a large left renal cyst that measures 7 cm. There i s spurring in the thoracic spine.. IMPRESSION: No evidence of pulmonary embolism. Mild subsegmental atelectasis at the lung bases. This appears incr eased compared to old exam.
[2018-06-04] MEDS ORDERED: NITROGLYCERIN SL TABS 0.4 MG TAB SUBLINGUAL PRN (00:53)
[2018-06-04] MEDS ORDERED: METOCLOPRAMIDE 5 MG/ML 2 ML VIAL IVP STA (00:57)
[2018-06-04 01:51] VITALS: BMI 34.2
[2018-06-04 07:04] LABS: Creatine Kinase 92 U/L (55-170)
[2018-06-04 07:15] LABS: Creatine Kinase MB 1.7 ng/mL (0.0-2.4); Troponin I <0.012 ng/mL (0.000-0.034)
--- NOTE | 2018-06-04 08:23 | CONS ---
CONSULTATION HISTORY: Mr. Hdez is a 62-year-old male with a known history of coronary artery disease, hypertension, hyperlipidemia, and a history of smoking which he stopped 2 years ago, who presented with symptoms of palpitation. He underwent percutaneous revascularization with stenting about [address] [facility]. He follows on a regular basis by Dr. Coats at [facility]. For the last week or so he has been having palpitations with symptoms of dizziness but no associated chest discomfort. He has not been very active physically because of recent hip surgery. He denies any syncope. No chest pain. He has occasional peripheral edema. He has no PND, no orthopnea. His breathing is stable. He has not had any recent cardiac workup. His coronary risk factors are remarkable for hypertension and hyperlipidemia and a prior history of smoking. MEDICATION: 1. Aldactone 37.5 mg daily. 2. Metoprolol succinate 25 mg daily. 3. Lisinopril 10 mg daily. 4. Lipitor 20 mg daily. 5. Magnesium. 6. Aspirin once a day. PHYSICAL EXAMINATION: Blood pressure 100/60 with a heart in the 70s. LUNGS: Clear. HEART: Regular rhythm S1, S2. No S3. No rub or gallop. ABDOMEN: Soft nontender. EXTREMITIES: No edema. LAB DATA: Troponin less than 0.012 for 2 samples. BUN and creatinine 38 and 1.72. Potassium 4.4, hemoglobin 13.6. EKG revealed a sinus mechanism, normal axis, rare PVCs. On the monitor he is in sinus mechanism. IMPRESSION: 1. Palpitations with single PVCs on the monitor. No evidence of malignant arrhythmia. 2. History of coronary artery disease with prior percutaneous revascularization. 3. History off reported poor LV function according to the patient. He is not quite sure about the ejection fraction, but he was not told that it was severely impaired. 4. Hypertension. 5. Hyperlipidemia. 6. Prior history of smoking. RECOMMENDATIONS: I will obtain echocardiogram with Doppler to evaluate left ventricular systolic function. I will also schedule him to undergo a Lexiscan Cardiolite tomorrow. The patient has underwent a CT angiogram of the chest revealed no evidence of pulmonary embolism. I have discussed with the patient those findings and he is in full understanding and agreement. Thank you for this consult. We will follow with you. MMODL / IJN: [id number] /
[2018-06-04] MEDS ORDERED: LACTATE PO SCH (09:00)
[2018-06-04] MEDS ORDERED: MAGNESIUM PO SCH (09:00)
[2018-06-04] MEDS ORDERED: ATORVASTATIN 20 MG TAB PO SCH (09:00)
[2018-06-04] MEDS ORDERED: METOPROLOL SUCCINATE (ER) 25 MG TAB.ER.24H PO SCH (09:00)
[2018-06-04] MEDS: ATORVASTATIN 20 MG TAB PO SCH (09:14)
[2018-06-04] MEDS: LISINOPRIL 10 MG TAB PO SCH (09:15)
[2018-06-04] MEDS: METOPROLOL SUCCINATE (ER) 25 MG TAB.ER.24H PO SCH ×2 (09:19→19:58)
[2018-06-04] MEDS: MAGNESIUM OXIDE 400 MG TAB PO SCH (09:20)
[2018-06-04] MEDS: SPIRONOLACTONE 25 MG TAB PO SCH (09:20)
[2018-06-04] MEDS: HEPARIN SODIUM,PORCINE 5,000 UNIT/ML 1 ML VIAL SQ SCH ×3 (09:22→23:54)
[2018-06-04 12:07] LABS: Creatine Kinase 93 U/L (55-170)
[2018-06-04 12:20] LABS: Creatine Kinase MB 1.7 ng/mL (0.0-2.4); Troponin I <0.012 ng/mL (0.000-0.034)
--- NOTE | 2018-06-04 12:54 | P.HPIM ---
History of Present Illness H&P Date: 06/04/18 Lasha Hdez is a 62-year-old patient of Dr. Perez who presented to [facility] emergency room was a chief complaint of palpitation, lightheadedness, and chest tightness he was evaluated in emergency room and was admitted to telemetry floor for further evaluation first EKG and first set of cardiac enzymes were negative. Patient stated that his symptoms started 3 days prior to presentation he states he was in [place] on the run out of his blood pressure medication there when he came back he took his blood pressure medications and had lightheadedness and palpitation, he was seen at Dr. Perez' s office on Tuesday and was sent to [facility] emergency room , at that time patient was evaluated and was discharged home, he returned again on Tuesday evening with similar symptoms, now he is admitted for 24-hour observation, cardiology consultation was requested. Patient blood pressure is normal at 118/80, he has refused to take his blood pressure medications since presentation. Patient was evaluated in the emergency room EKG first set of cardiac enzymes and chest CT angiogram were negative. Patient states that he has been on the Keto diet for about 6 months he has lost a significant amount of weight Past Medical History Past Medical History: Coronary Artery Disease (CAD), Eye Disorder, GERD/Reflux, Hyperlipidemia, Hypertension, Osteoarthritis (OA), Skin Disorder, Sleep Apnea/ CPAP/BIPAP Additional Past Medical History / Comment(s): slight glaucoma janet eyes, no CPAP use, HX kidney stones, R great toe bunion, psoriasis, cervical disc ruptured, pt also needs a total L knee. left elbow sx History of Any Multi-Drug Resistant Organisms: None Reported Past Surgical History: Appendectomy, Back Surgery, Heart Catheterization With Stent, Orthopedic Surgery Additional Past Surgical History / Comment(s): PTCA with one stent in 2011, EGD and colonoscopy, L knee arthroscopy, lithrotripsy, SX TO REMOVE KIDNEY STONE, laminectomy low back 1984, has had laser sx to janet eyes Past Anesthesia/Blood Transfusion Reactions: No Reported Reaction Additional Past Anesthesia/Blood Transfusion Reaction / Comment(s): Pt has not recieved any blood transfusion. Date of Last Stent Placement:: 2011 Past Psychological History: Depression Additional Psychological History / Comment(s): STATES SOME R/T HEALTH ISSUES Smoking Status: Former smoker Past Alcohol Use History: None Reported Additional Past Alcohol Use History / Comment(s): QUIT SMOKING CIGARETTES, 2015, SMOKED 1 AND 1/2 PPD Past Drug Use History: Marijuana Additional Drug Use History / Comment(s): DAILY USE, INSTRUCTED TO HOLD 24 HRS PRIOR - Past Family History Father Family Medical History: COPD, Coronary Artery Disease (CAD), Myocardial Infarction ([place]) Mother Family Medical History: Coronary Artery Disease (CAD) Medications and Allergies Home Medications Medication Instructions Recorded Confirmed Type Spironolactone [Aldactone] 37.5 mg PO DAILY 09/26/14 06/04/18 History Aspirin [Adult Low Dose Aspirin EC] 81 mg PO DAILY 09/19/15 06/04/18 History Celecoxib [CeleBREX] 200 mg PO DAILY PRN 03/10/17 06/04/18 History Magnesium 200 mg PO DAILY 03/10/17 06/04/18 History Metoprolol Succinate (ER) [Toprol 25 mg PO QAM 03/10/17 06/04/18 History Xl] Randolph-3 Fatty Acids [Randolph-3] 1,000 mg PO DAILY 03/10/17 06/04/18 History Vitamin K1 And Vitamin D3 1 tab PO DAILY 03/10/17 06/04/18 History Vitamin Mk7 1 tab PO DAILY 03/10/17 06/04/18 History Atorvastatin [Lipitor] 20 mg PO DAILY 05/31/18 06/04/18 History Lisinopril [Zestril] 10 mg PO DAILY 05/31/18 06/04/18 History Magnesium l-Lactate [Magbid ER] 84 mg PO DAILY 05/31/18 06/04/18 History Multivitamins, Thera [Multivitamin 1 tab PO DAILY 05/31/18 06/04/18 History (formulary)] Vitamin B Complex 1 tab PO DAILY 05/31/18 06/04/18 History Allergies Allergy/AdvReac Type Severity Reaction Status Date / Time adhesive Allergy Rash/Hives Verified 06/04/18 08:35 Physical Exam Vitals: Vital Signs Temp Pulse Pulse Resp BP BP Pulse Ox 06/04/18 12:00 98.6 F 74 16 119/74 94 L 06/04/18 08:00 97.8 F 69 16 95/61 94 L 06/04/18 04:00 97.3 F L 79 18 100/61 93 L 06/04/18 03:44 18 06/04/18 01:51 97.6 F 85 18 117/77 94 L 06/03/18 23:30 81 18 112/69 93 L 06/03/18 23:00 85 21 133/92 93 L 06/03/18 22:30 95 14 131/81 96 06/03/18 22:24 131/81 92 L 06/03/18 22:15 98.5 F 95 20 113/72 97 Intake and Output 06/03/18 06/04/18 06/04/18 22:59 06:59 14:59 Other: Voiding Method Toilet # Voids 2 Weight 117.934 kg 117.9 kg In general patient is alert and oriented 3 in no apparent distress HEENT head normocephalic and atraumatic Neck is supple no JVD no goiter no lymphadenopathy Chest exam reveals a few scattered rhonchi no wheezing Cardiac exam is regular heart sounds S1 and S2 no gallops no murmurs Abdomen is soft nontender no organomegaly with normal bowel sounds extremity exam reveals no edema no cyanosis or clubbing Neurological examination reveals no gross focal deficits Results CBC & Chem 7: 06/03/18 22:37 06/03/18 22:37 Labs: Abnormal Lab Results - Last 24 Hours (Table) 06/03/18 Range/Units 22:37 BUN 32 H (9-20) mg/dL Thrombosis Risk Factor Assmnt - Choose All That Apply Each Factor Represents 1 point: Age 41-60 years, Obesity (BMI >25) Thrombosis Risk Factor Assessment Total Risk Factor Score: 2 Thrombosis Risk Factor Assessment Level: Low Risk Assessment and Plan Plan: #1 episodes of palpitations and lightheadedness and chest tightness serial cardiac enzymes are negative patient was evaluated by cardiology and plan for stress test and echocardiogram in a.m. #2 underlying history of hypertension patient is maintained on lisinopril and Toprol however he has lost significant amount of weight in the last 6 months his blood pressure is on the low side despite not taking any of his medications will monitor closely and adjust medications during this admission #3 underlying history of hyperlipidemia maintained on Lipitor #4 underlying history of coronary artery disease. Patient had a previous history of cardiac catheterization with stent placement in 2011 #5 underlying history of sleep apnea patient is maintained on CPAP at home At this time will continue to monitor on telemetry patient will have a stress test and an echocardiogram in a.m. tomorrow Further treatment steps will depend on test results and clinical picture
[2018-06-04] MEDS: ACETAMINOPHEN TAB 500 MG TAB PO PRN (16:10)
[2018-06-05] MEDS ORDERED: REGADENOSON 0.4 MG/5 ML SYRINGE IV ONE (07:00)
[2018-06-05 07:56] LABS: Cholesterol 161 mg/dL (<200); HDL Cholesterol 41 mg/dL (40-60); LDL Cholesterol,Calculated 101 mg/dL (0-99); Triglycerides 95 mg/dL (<150)
[2018-06-05] MEDS ORDERED: CAFFEINE CITRATE 60 MG/3 ML VIAL IV PRN (08:00)
[2018-06-05] MEDS ORDERED: ASPIRIN 81 MG PO SCH (09:00)
[2018-06-05] MEDS ORDERED: ASPIRIN 325 MG TAB PO SCH (09:00)
[2018-06-05 09:07] LABS: ALT 36 U/L (21-72); AST 23 U/L (17-59); Alkaline Phosphatase 66 U/L (38-126); Anion Gap 6 mmol/L; Blood Urea Nitrogen 25 mg/dL (9-20); Calcium 9.2 mg/dL (8.4-10.2); Carbon Dioxide 27 mmol/L (22-30); Chloride 109 mmol/L (98-107); Glucose 101 mg/dL (74-99); Potassium 4.4 mmol/L (3.5-5.1); Sodium 142 mmol/L (137-145); Total Bilirubin 0.3 mg/dL (0.2-1.3); Total Protein 7.2 g/dL (6.3-8.2)
[2018-06-05 09:14] LABS: Basophils % (A) 1 %; Eosinophils # (A) 0.3 k/uL (0-0.7); Eosinophils % (A) 4 %; HCT 43.1 % (39.0-53.0); HGB 14.3 gm/dL (13.0-17.5); Lymphocytes # (A) 1.8 k/uL (1.0-4.8); Lymphocytes % (A) 27 %; MCHC 33.1 g/dL (31.0-37.0); MCV 93.7 fL (80.0-100.0); Mean Platelet Volume 7.1; Monocytes # (A) 0.3 k/uL (0-1.0); Monocytes % (A) 5 %; Neutrophils # (A) 4.1 k/uL (1.3-7.7); Neutrophils % (A) 61 %; Platelet Count 235 k/uL (150-450); RDW 13.8 % (11.5-15.5); WBC 6.8 k/uL (3.8-10.6)
--- NOTE | 2018-06-05 09:37 | PN ---
PROGRESS NOTE Mr. Hdez is a 62-year-old male, history of coronary artery disease, who presented with symptoms of palpitations. He is doing well this morning. He has no chest pain. His breathing has been stable. He denies any dizziness or palpitation. He denies any nausea. On the monitor, he is in sinus mechanism. He is ambulating without difficulty. He continues to be at this time on aspirin once a day, Lipitor 40 mg daily, lisinopril 10 mg daily, metoprolol succinate 25 mg twice a day and spironolactone 37.5 mg daily. PHYSICAL EXAMINATION: Blood pressure 120/70 with the heart rate in the 70s. LUNGS: Clear. HEART: Regular rate and rhythm. S1, S2. No S3. No rub. ABDOMEN: Soft, nontender. EXTREMITIES: No edema. LAB DATA: Lab data revealed troponin less than 0.012. LDL of 101. IMPRESSION: 1. Palpitation in a patient with history of coronary artery disease and cardiomyopathy. 2. Status post stenting. 3. History of hyperlipidemia. 4. Hypertension. RECOMMENDATION: I will proceed with an echocardiogram and myocardial perfusion imaging today. 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 MMODL / IJN: [id number] /
--- NOTE | 2018-06-05 09:59 | ECHOF ---
Referral Reason:cad MEASUREMENTS -------- HEIGHT: 180.3 cm WEIGHT: 117.5 kg BP: 120/78 IVSd: 1.3 cm (0.6 - 1.1) LVIDd: 4.0 cm (3.9 - 5.3) LVPWd: 1.2 cm (0.6 - 1.1) IVSs: 1.9 cm LVIDs: 2.6 cm LVPWs: 2.0 cm Ao Diam: 3.8 cm (2.0 - 3.7) AV Cusp: 1.7 cm (1.5 - 2.6) LA Diam: 3.7 cm (2.7 - 3.8) MV EXCURSION: 16.074 mm (> 18.000) MV EF SLOPE: 107 mm/s (70 - 150) EPSS: 1.5 cm MV E Jese: 0.55 m/s MV DecT: 182 ms MV A Jese: 0.61 m/s MV E/A Ratio: 0.89 RAP: 5.00 mmHg RVSP: 14.10 mmHg FINDINGS -------- Sinus rhythm. This was a technically difficult study with suboptimal views. The left ventricular size is normal. There is mild concentric left ventricular hypertrophy. Overa ll left ventricular systolic function is normal with, an EF between 55 - 60 %. The right ventricle is normal in size and function. The left atrium is normal in size. The right atrium is normal in size. Lumason used The aortic valve is trileaflet, and appears structurally normal. No aortic stenosis or regurgitation. The mitral valve is normal. Mild mitral regurgitation is present. Mild tricuspid regurgitation present. There is no evidence of pulmonary hypertension. The right v entricular systolic pressure, as measured by Doppler, is 14.10mmHg. There is no pulmonic regurgitation present. The aortic root size is normal. Normal inferior vena cava with normal inspiratory collapse consistent with estimated right atrial pre ssure of 5 mmHg. There is no pericardial effusion. CONCLUSIONS -------- 1. Sinus rhythm. 2. This was a technically difficult study with suboptimal views. 3. The left ventricular size is normal. 4. There is mild concentric left ventricular hypertrophy. 5. Overall left ventricular systolic function is normal with, an EF between 55 - 60 %. 6. The left atrium is normal in size. 7. Lumason used 8. The aortic valve is trileaflet, and appears structurally normal. No aortic stenosis or regurgitati on. 9. Mild mitral regurgitation is present. 10. Mild tricuspid regurgitation present. 11. There is no evidence of pulmonary hypertension. 12. There is no pulmonic regurgitation present. 13. The aortic root size is normal. 14. Normal inferior vena cava with normal inspiratory collapse consistent with estimated right atrial pressure of 5 mmHg. 15. There is no pericardial effusion. BUSINESS LIAISON MANAGER: Tasha Michaud RDCS
--- NOTE | 2018-06-05 12:49 | EST ---
EXERCISE STRESS DATE OF SERVICE: 06/05/2018 AGE: 62 SEX: Male HT: 6'1" WT: 259 PROTOCOL: Lexiscan Cardiolite STAGE: DURATION OF EXERCISE: HEART RATE REST: 68 BLOOD PRESSURE REST: 118/74 MAXIMUM HEART RATE ACHIEVED: 96 MAXIMUM BLOOD PRESSURE: 118/74 85% MPHR: 100% MPHR: METS: INDICATIONS: Chest pain. CLINICAL INFORMATION: Baseline rhythm sinus mechanism, rate 68, normal axis and intervals, poor R progression. Baseline blood pressure 118/74 mmHg. Patient received injection of Lexiscan. Electrocardiographic monitoring revealed no evidence of diagnostic ischemic ST deviation. Cardiolite was injected per protocol. CONCLUSION: 1. Nondiagnostic electrocardiograph stress testing. 2. Nuclear images will be reported separately. MMODL / IJN: [id number] /
--- NOTE | 2018-06-05 13:21 | NM ---
EXAMINATION TYPE: NM stress lexiscan cardiolite DATE OF EXAM: 06/05/2018 COMPARISON: 09/12/2014 HISTORY: 62-year-old male with chest pain TECHNIQUE: After the intravenous administration of 9.49 mCi Tc 99m Sestamibi - Cardiolite resting SP ECT images acquired 50 minutes post injection. The patient received 0.4mg Lexiscan, 25 mCi Tc 99m Sestamibi - Stress images obtained 30 minutes post injection FINDINGS: Review of stress and rest SPECT images demonstrates an area of reversibility along the mid inferior a nd inferoseptal mcwilliams. Some attenuation artifact along the anteroseptal wall given that the abnormali ty is only seen on rest imaging. No distinct perfusion abnormality. Gated analysis shows estimated l eft ventricular ejection fraction of 55 %.TID is elevated at 1.21. IMPRESSION: 1. Unable to exclude an area of reversibility along the mid inferior and inferoseptal mcwilliams. 2. In addition, TID is elevated at 1.21. This can be seen in the setting of multivessel balanced isch emia. Further clinical correlation and workup recommended. 3. LVEF estimated at 55%.
[2018-06-05] MEDS: HEPARIN SODIUM,PORCINE 5,000 UNIT/ML 1 ML VIAL SQ SCH ×2 (13:22→17:14)
[2018-06-05] MEDS: SPIRONOLACTONE 25 MG TAB PO SCH (13:22)
[2018-06-05] MEDS: MAGNESIUM OXIDE 400 MG TAB PO SCH (13:37)
[2018-06-05] MEDS: LISINOPRIL 10 MG TAB PO SCH (13:37)
[2018-06-05] MEDS: METOPROLOL SUCCINATE (ER) 25 MG TAB.ER.24H PO SCH ×2 (13:37→20:23)
[2018-06-05] MEDS ORDERED: ALPRAZolam 0.25 MG TAB PO PRN (14:13)
[2018-06-05] MEDS ORDERED: ALPRAZolam 0.5 MG TAB PO PRN (14:13)
[2018-06-05] MEDS ORDERED: SODIUM CHLORIDE 0.9% 1,000 ML in EMPTY BAG 1 BAG IV ONE (14:13)
--- NOTE | 2018-06-05 14:15 | P.PN ---
Progress Note - Text Stress test reveals possibility of small area of reversibility. Recommend proceeding with cardiac catheterization to further assess his coronary arteries. I have discussed the risks, benefits and alternative therapies for the above-mentioned procedure and for both sedation/analgesia as well as necessary blood product administration, if indicated, as they pertain to this patient. The patient has indicated understanding and acceptance of the risks and procedures discussed. Questions have been answered appropriately and he is agreeable to move forward with the above stated procedure. This has been boarded for tomorrow morning. Orders have been placed and he will be nothing by mouth after midnight tonight.
--- NOTE | 2018-06-05 14:38 | P.PN ---
Subjective Progress Note Date: 06/05/18 Lasha Hdez is a 62-year-old patient of Dr. Perez who presented to [facility] emergency room was a chief complaint of palpitation, lightheadedness, and chest tightness he was evaluated in emergency room and was admitted to telemetry floor for further evaluation first EKG and first set of cardiac enzymes were negative. Patient stated that his symptoms started 3 days prior to presentation he states he was in [place] on the run out of his blood pressure medication there when he came back he took his blood pressure medications and had lightheadedness and palpitation, he was seen at Dr. Perez' s office on Tuesday and was sent to [facility] emergency room , at that time patient was evaluated and was discharged home, he returned again on Tuesday evening with similar symptoms, now he is admitted for 24-hour observation, cardiology consultation was requested. Patient blood pressure is normal at 118/80, he has refused to take his blood pressure medications since presentation. Patient was evaluated in the emergency room EKG first set of cardiac enzymes and chest CT angiogram were negative. Patient states that he has been on the Keto diet for about 6 months he has lost a significant amount of weight On 06/05/2018 patient is currently resting in bed. Patient is undergoing stress test today per cardiology. At this time patient denies chest pain or shortness of breath. Patient denies nausea vomiting or diarrhea. Patient denies any urinary burning or frequency Objective - Vital Signs Vital signs: Vital Signs Temp 98.0 F 06/05/18 11:11 Pulse 65 06/05/18 12:00 Resp 14 06/05/18 12:00 BP 129/86 06/05/18 11:11 Pulse Ox 96 06/05/18 11:11 Intake & Output 06/04/18 06/05/18 06/05/18 18:59 06:59 18:59 Intake Total 0 Balance 0 Weight 117.9 kg Intake: Oral 0 Other: Voiding Method Toilet Toilet # Voids 1 2 - Exam In general patient is alert and oriented 3 in no apparent distress HEENT head normocephalic and atraumatic Neck is supple no JVD no goiter no lymphadenopathy Chest exam reveals a few scattered rhonchi no wheezing Cardiac exam is regular heart sounds S1 and S2 no gallops no murmurs Abdomen is soft nontender no organomegaly with normal bowel sounds extremity exam reveals no edema no cyanosis or clubbing Neurological examination reveals no gross focal deficits - Labs CBC & Chem 7: 06/05/18 08:29 06/05/18 08:29 Labs: Abnormal Lab Results - Last 24 Hours (Table) 06/04/18 06/05/18 Range/Units 11:02 08:29 Chloride 109 H (98-107) mmol/L BUN 25 H (9-20) mg/dL Glucose 101 H (74-99) mg/dL LDL Cholesterol, Calc 101 H (0-99) mg/dL Assessment and Plan Assessment: #1 episodes of palpitations and lightheadedness and chest tightness serial cardiac enzymes are negative patient was evaluated by cardiology and plan for stress test and echocardiogram in a.m. 2-D echo completed showing an EF between 55 and 60%. Stress test completed showing inability to exclude an area of reversibility along the mid inferior and 18. Dr. mcwilliams. In addition, 3 times a day is elevated at 1.21 year this can be seen in the setting of multivessel balanced ischemia. Discussed case with Debo AGUILERA per cardiology services decision was made for patient to receive cardiac catheterization here tomorrow with Dr. Olivera #2 underlying history of hypertension patient is maintained on lisinopril and Toprol however he has lost significant amount of weight in the last 6 months his blood pressure is on the low side despite not taking any of his medications will monitor closely and adjust medications during this admission #3 underlying history of hyperlipidemia maintained on Lipitor #4 underlying history of coronary artery disease. Patient had a previous history of cardiac catheterization with stent placement in 2011 #5 underlying history of sleep apnea patient is maintained on CPAP at home #6 chest x-ray completed showing new small infiltrate in the right lower lobe compared to old exam. Normal heart failure. Normal heart. Patient currently on Rocephin DVT prophylaxis heparin. GI prophylaxis Pepcid I performed an examination of the patient and discussed their management with the Nurse Practitioner. I have reviewed the Nurse Practitioner's notes and agree with the documented findings and plan of care
[2018-06-05 16:07] VITALS: RESP 18
[2018-06-05] MEDS: ATORVASTATIN 20 MG TAB PO SCH (16:30)
[2018-06-05] MEDS: ACETAMINOPHEN TAB 500 MG TAB PO PRN (18:35)
[2018-06-06] MEDS: MORPHINE SULFATE 2 MG/ML SYRINGE IVP PRN ×2 (00:22→14:04)
[2018-06-06] MEDS: HEPARIN SODIUM,PORCINE 5,000 UNIT/ML 1 ML VIAL SQ SCH ×3 (00:22→17:11)
[2018-06-06] MEDS ORDERED: ASPIRIN 325 MG TAB PO ONE (06:00)
[2018-06-06] MEDS: LISINOPRIL 10 MG TAB PO SCH (06:51)
[2018-06-06] MEDS: METOPROLOL SUCCINATE (ER) 25 MG TAB.ER.24H PO SCH (06:51)
[2018-06-06] MEDS: MAGNESIUM OXIDE 400 MG TAB PO SCH (06:52)
[2018-06-06] MEDS: SPIRONOLACTONE 25 MG TAB PO SCH (06:52)
[2018-06-06 07:54] VITALS: TEMP 98.5
[2018-06-06] MEDS ORDERED: FAMOTIDINE 20 MG TAB PO SCH (09:00)
[2018-06-06] MEDS ORDERED: ATORVASTATIN 80 MG TAB PO SCH (09:00)
[2018-06-06 09:33] LABS: Basophils % (A) 0 %; Eosinophils # (A) 0.2 k/uL (0-0.7); Eosinophils % (A) 3 %; HGB 13.9 gm/dL (13.0-17.5); Lymphocytes % (A) 32 %; MCH 31.1 pg (25.0-35.0); Mean Platelet Volume 7.1; Monocytes # (A) 0.3 k/uL (0-1.0); Monocytes % (A) 5 %; Neutrophils # (A) 3.7 k/uL (1.3-7.7); Neutrophils % (A) 57 %; Platelet Count 229 k/uL (150-450); RBC 4.46 m/uL (4.30-5.90); RDW 13.9 % (11.5-15.5); WBC 6.4 k/uL (3.8-10.6)
[2018-06-06 09:45] LABS: ALT 36 U/L (21-72); AST 22 U/L (17-59); Albumin 3.7 g/dL (3.5-5.0); Alkaline Phosphatase 64 U/L (38-126); Anion Gap 6 mmol/L; Blood Urea Nitrogen 25 mg/dL (9-20); Calcium 9.1 mg/dL (8.4-10.2); Carbon Dioxide 25 mmol/L (22-30); Chloride 109 mmol/L (98-107); Glucose 90 mg/dL (74-99); Potassium 4.7 mmol/L (3.5-5.1); Sodium 140 mmol/L (137-145); Total Bilirubin 0.3 mg/dL (0.2-1.3); Total Protein 6.6 g/dL (6.3-8.2)
--- NOTE | 2018-06-06 09:52 | P.PN ---
Subjective Progress Note Date: 06/06/18 Lasha Hdez is a 62-year-old patient of Dr. Perez who presented to [facility] emergency room was a chief complaint of palpitation, lightheadedness, and chest tightness he was evaluated in emergency room and was admitted to telemetry floor for further evaluation first EKG and first set of cardiac enzymes were negative. Patient stated that his symptoms started 3 days prior to presentation he states he was in [place] on the run out of his blood pressure medication there when he came back he took his blood pressure medications and had lightheadedness and palpitation, he was seen at Dr. Perez' s office on Tuesday and was sent to [facility] emergency room , at that time patient was evaluated and was discharged home, he returned again on Tuesday evening with similar symptoms, now he is admitted for 24-hour observation, cardiology consultation was requested. Patient blood pressure is normal at 118/80, he has refused to take his blood pressure medications since presentation. Patient was evaluated in the emergency room EKG first set of cardiac enzymes and chest CT angiogram were negative. Patient states that he has been on the Keto diet for about 6 months he has lost a significant amount of weight On 06/05/2018 patient is currently resting in bed. Patient is undergoing stress test today per cardiology. At this time patient denies chest pain or shortness of breath. Patient denies nausea vomiting or diarrhea. Patient denies any urinary burning or frequency On 06/06/2018 patient is currently resting comfortably bed. Patient is having cardiac catheterization today. At this time patient denies chest pain or shortness breath. Patient denies nausea vomiting or diarrhea. Denies any urinary burning or frequency. Objective - Vital Signs Vital signs: Vital Signs Temp 98.5 F 06/06/18 07:53 Pulse 73 06/06/18 07:53 Resp 18 06/06/18 07:53 BP 113/65 06/06/18 07:53 Pulse Ox 95 06/06/18 07:53 Intake & Output 06/05/18 06/06/18 06/06/18 18:59 06:59 18:59 Weight 117.9 kg Other: Voiding Method Toilet Toilet Toilet # Voids 2 1 - Exam In general patient is alert and oriented 3 in no apparent distress HEENT head normocephalic and atraumatic Neck is supple no JVD no goiter no lymphadenopathy Chest exam reveals a few scattered rhonchi no wheezing Cardiac exam is regular heart sounds S1 and S2 no gallops no murmurs Abdomen is soft nontender no organomegaly with normal bowel sounds extremity exam reveals no edema no cyanosis or clubbing Neurological examination reveals no gross focal deficits - Labs CBC & Chem 7: 06/06/18 08:50 06/06/18 08:50 Labs: Abnormal Lab Results - Last 24 Hours (Table) 06/06/18 Range/Units 08:50 Chloride 109 H (98-107) mmol/L BUN 25 H (9-20) mg/dL Assessment and Plan Assessment: #1 episodes of palpitations and lightheadedness and chest tightness serial cardiac enzymes are negative patient was evaluated by cardiology and plan for stress test and echocardiogram in a.m. 2-D echo completed showing an EF between 55 and 60%. Stress test completed showing inability to exclude an area of reversibility along the mid inferior and 18. Dr. mcwilliams. In addition, 3 times a day is elevated at 1.21 year this can be seen in the setting of multivessel balanced ischemia. Discussed case with Debo AGUILERA per cardiology services decision was made for patient to receive cardiac catheterization here today with Dr. Olivera #2 underlying history of hypertension patient is maintained on lisinopril and Toprol however he has lost significant amount of weight in the last 6 months his blood pressure is on the low side despite not taking any of his medications will monitor closely and adjust medications during this admission #3 underlying history of hyperlipidemia maintained on Lipitor #4 underlying history of coronary artery disease. Patient had a previous history of cardiac catheterization with stent placement in 2011 #5 underlying history of sleep apnea patient is maintained on CPAP at home #6 chest x-ray completed showing new small infiltrate in the right lower lobe compared to old exam. Normal heart failure. Normal heart. Patient currently on Rocephin DVT prophylaxis heparin. GI prophylaxis Pepcid I performed an examination of the patient and discussed their management with the Nurse Practitioner. I have reviewed the Nurse Practitioner's notes and agree with the documented findings and plan of care
[2018-06-06] MEDS ORDERED: LIDOCAINE 1% INJ 10MG/ML (20 ML MDV) ONE (11:38)
[2018-06-06] MEDS ORDERED: VERAPAMIL 2.5 MG/ML 2 ML AMP ONE (11:38)
[2018-06-06] MEDS ORDERED: HEPARIN SODIUM 1,000 UN/ML (10ML VL) ONE (11:39)
[2018-06-06] MEDS ORDERED: fentaNYL (PF) 50 MCG/ML 2 ML AMP ONE (11:39)
[2018-06-06] MEDS ORDERED: IV FLUID CONTINUATION 800 ML IV ONE (11:47)
[2018-06-06] MEDS ORDERED: fentaNYL (PF) 50 MCG/ML 2 ML AMP IV ONE (11:47)
[2018-06-06] MEDS ORDERED: MIDAZOLAM 2 MG/2 ML VIAL ONE (11:49)
[2018-06-06] MEDS ORDERED: LIDOCAINE 1% INJ 10MG/ML (20 ML MDV) SQ ONE (11:51)
[2018-06-06] MEDS ORDERED: VERAPAMIL SYRINGE (5 MG/10 ML) INTRAARTER ONE (11:53)
[2018-06-06] MEDS ORDERED: MIDAZOLAM 2 MG/2 ML VIAL IV ONE (11:55)
[2018-06-06] MEDS ORDERED: SODIUM CHLORIDE 0.9% 500 ML 500 ML IV ONE (12:00)
[2018-06-06] MEDS ORDERED: IOPAMIDOL-370 125ML BTL INJ ONE (12:07)
[2018-06-06] MEDS ORDERED: RX INFO: IV CONTRAST WAS GIVEN 1 EACH MISC MISCELLANE PRN (12:18)
[2018-06-06] MEDS ORDERED: SODIUM CHLORIDE 0.9% 1,000 ML IV SCH (12:30)
[2018-06-06] MEDS: ACETAMINOPHEN TAB 500 MG TAB PO PRN (12:55)
--- NOTE | 2018-06-06 13:23 | CC ---
CARDIAC CATHETERIZATION REPORT Mr. Hdez is a 62-year-old male with a known history of coronary artery disease status post percutaneous revascularization done 7 years ago in [facility], who presented with symptoms of palpitation and chest discomfort, had no evidence of myocardial infarction, underwent a myocardial perfusion imaging that was reported showing evidence of stress-induced ischemia. In view of that, recommendation was made regarding cardiac catheterization. The procedure as well as the risks and complications were discussed with the patient who is in full understanding and agreement. 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 Using Xylocaine anesthesia in the Seldinger technique, a 6-Senegalese sheath was introduced in the right radial artery. Selective right and left coronary angiography was performed using 5- Senegalese 3.5 bend right and left Heri catheter. Multiple views of the coronary artery including hemiaxial views obtained. Following that 5-Senegalese tight pigtail catheter was introduced in the left ventricle and a 30-degree MCMAHAN view of the left ventricle was obtained. Following that, catheter and sheaths were removed hemostasis was obtained with deployment of TR band. There was no immediate complication. Patient was returned to his room in stable condition. Of note, the patient received 5000 units of intravenous heparin as well as intra-arterial verapamil. FINDINGS: LEFT MAIN: This is a large-sized vessel, trifurcates in the left circumflex, left anterior descending artery, left main coronary artery has no evidence of high-grade stenosis. LEFT ANTERIOR DESCENDING ARTERY: This is a large-sized vessel reaching toward the apex with a wraparound apex segment tapering the distal third. The stent is [ proximal LAD is patent. There is a 20% to 30% plaque in the mid segment. The rest of the vessel has no high-grade stenosis. LEFT CIRCUMFLEX: This is a nondominant vessel giving rise to a large obtuse marginal branch that has mild intimal disease of 10% to 20% without any evidence of high-grade stenosis. RAMUS INTERMEDIUS: This is a large-sized vessel reaching to the apical lateral wall that has no evidence of high-grade stenosis. RIGHT CORONARY ARTERY: This is a large dominant vessel bifurcating distally in PDA and posterolateral segment and branches. The right coronary artery throughout its course has mild intimal disease of 20% to 30% without any evidence of high-grade stenosis. LEFT VENTRICULOGRAM: Left ventriculogram was performed in 30-degree MCMAHAN view and revealed normal left ventricular size and systolic function. There was no significant mitral regurgitation. HEMODYNAMICS: There was no gradient across the aortic valve. The left ventricular end- diastolic pressure was 16 to 20 mmHg. CONCLUSION: 1. Mild triple-vessel coronary artery disease. 2. Patent stent in the left anterior descending artery. 3. Normal left ventricular size and systolic function. RECOMMENDATION: In view of finding anatomy, I recommend continue medical therapy with the aggressive coronary risk modifications that have been initiated. Those findings and recommendations were discussed with the patient and he is in full understanding and agreement. DURATION OF PROCEDURE: 21 minutes. MMVERÓNICAL / HILARYN: [id number] /
--- NOTE | 2018-06-06 13:33 | P.DS ---
<Karishma Wang P - Last Filed: 06/06/18 13:29> Providers Date of admission: 06/05/18 21:05 Expected date of discharge: 06/06/18 Attending physician: Aleisha Francois Consults: 06/04/18 00:53 Consult Physician Routine Consulting Provider: Frank Loera Consult Reason/Comments: chest pain Do you want consulting provider notified?: Yes Primary care physician: Jenny Perez Hospital Course: Discharge diagnosis #1 episodes of palpitations and lightheadedness and chest tightness serial cardiac enzymes are negative patient was evaluated by cardiology and plan for stress test and echocardiogram in a.m. 2-D echo completed showing an EF between 55 and 60%. Stress test completed showing inability to exclude an area of reversibility along the mid inferior and anteroseptal wall. In addition,TID is elevated at 1.21 year this can be seen in the setting of multivessel balanced ischemia. Cardiac Complete showing mild triple-vessel coronary artery disease. Patent stent in the left anterior descending artery. Normal left ventricular size and systolic function Discussed case with Debo AGUILERA per cardiology services patient is cleared for discharge from cardiology standpoint. #2 underlying history of hypertension patient is maintained on lisinopril and Toprol however he has lost significant amount of weight in the last 6 months his blood pressure is on the low side despite not taking any of his medications will monitor closely and adjust medications during this admission. Patient's blood pressure remains on the higher side at 150s. Discussed case with Debo per cardiology patient's Lopressor has been increased to twice a day #3 underlying history of hyperlipidemia maintained on Lipitor #4 underlying history of coronary artery disease. Patient had a previous history of cardiac catheterization with stent placement in 2011 #5 underlying history of sleep apnea patient is maintained on CPAP at home #6 chest x-ray completed showing new small infiltrate in the right lower lobe compared to old exam. Normal heart failure. Normal heart. Patient currently on Rocephin. Patient will be DC'd home on Ceftin 500 twice a day for 10 days. Recommend follow-up chest x-ray with PCP. Hospital course Lasha Hdez is a 62-year-old patient of Dr. Perez who presented to [facility] emergency room was a chief complaint of palpitation, lightheadedness, and chest tightness he was evaluated in emergency room and was admitted to telemetry floor for further evaluation first EKG and first set of cardiac enzymes were negative. Patient stated that his symptoms started 3 days prior to presentation he states he was in [place] on the run out of his blood pressure medication there when he came back he took his blood pressure medications and had lightheadedness and palpitation, he was seen at Dr. Perez' s office on Tuesday and was sent to [facility] emergency room , at that time patient was evaluated and was discharged home, he returned again on Tuesday evening with similar symptoms, now he is admitted for 24-hour observation, cardiology consultation was requested. Patient blood pressure is normal at 118/80, he has refused to take his blood pressure medications since presentation. Patient was evaluated in the emergency room EKG first set of cardiac enzymes and chest CT angiogram were negative. Patient states that he has been on the Keto diet for about 6 months he has lost a significant amount of weight On 06/05/2018 patient is currently resting in bed. Patient is undergoing stress test today per cardiology. At this time patient denies chest pain or shortness of breath. Patient denies nausea vomiting or diarrhea. Patient denies any urinary burning or frequency On 06/06/2018 patient is currently resting comfortably bed. Patient is having cardiac catheterization today. At this time patient denies chest pain or shortness breath. Patient denies nausea vomiting or diarrhea. Denies any urinary burning or frequency. Discussed case with Debo AGUILERA per cardiology services. Patient did have clean cardiac catheterization today. Patient has been cleared for discharge from cardiology standpoint. Patient denies any chest pain or shortness of breath. Patient denies nausea vomiting or diarrhea. Patient denies any urinary burning or frequency. Initial chest x-ray on admission did show small infiltrate in right lower lobe. Patient will be DC'd home on Ceftin 500 twice a day for 10 days. Recommend follow-up chest x-ray recommended with PCP. I performed an examination of the patient and discussed their management with the Nurse Practitioner. I have reviewed the Nurse Practitioner's notes and agree with the documented findings and plan of care Patient Condition at Discharge: Stable Plan - Discharge Summary New Discharge Prescriptions: New Cefuroxime Axetil [Ceftin] 500 mg PO BID 10 Days #20 tab Metoprolol Succinate (ER) [Toprol XL] 25 mg PO BID 30 Days #60 tab.er.24h Continue Spironolactone [Aldactone] 37.5 mg PO DAILY Aspirin [Adult Low Dose Aspirin EC] 81 mg PO DAILY Celecoxib [CeleBREX] 200 mg PO DAILY PRN PRN Reason: Pain Vitamin Mk7 1 tab PO DAILY Vitamin K1 And Vitamin D3 1 tab PO DAILY [place]-3 Fatty Acids [[place]-3] 1,000 mg PO DAILY Magnesium 200 mg PO DAILY Vitamin B Complex 1 tab PO DAILY Multivitamins, Thera [Multivitamin (formulary)] 1 tab PO DAILY Lisinopril [Zestril] 10 mg PO DAILY Atorvastatin [Lipitor] 20 mg PO DAILY Magnesium l-Lactate [Magbid ER] 84 mg PO DAILY Discontinued Metoprolol Succinate (ER) [Toprol Xl] 25 mg PO QAM Discharge Medication List Spironolactone [Aldactone] 37.5 mg PO DAILY 09/26/14 [History] Aspirin [Adult Low Dose Aspirin EC] 81 mg PO DAILY 09/19/15 [History] Celecoxib [CeleBREX] 200 mg PO DAILY PRN 03/10/17 [History] Magnesium 200 mg PO DAILY 03/10/17 [History] [place]-3 Fatty Acids [[place]-3] 1,000 mg PO DAILY 03/10/17 [History] Vitamin K1 And Vitamin D3 1 tab PO DAILY 03/10/17 [History] Vitamin Mk7 1 tab PO DAILY 03/10/17 [History] Atorvastatin [Lipitor] 20 mg PO DAILY 05/31/18 [History] Lisinopril [Zestril] 10 mg PO DAILY 05/31/18 [History] Magnesium l-Lactate [Magbid ER] 84 mg PO DAILY 05/31/18 [History] Multivitamins, Thera [Multivitamin (formulary)] 1 tab PO DAILY 05/31/18 [History ] Vitamin B Complex 1 tab PO DAILY 05/31/18 [History] Cefuroxime Axetil [Ceftin] 500 mg PO BID 10 Days #20 tab 06/06/18 [Rx] Metoprolol Succinate (ER) [Toprol XL] 25 mg PO BID 30 Days #60 tab.er.24h [Rx] Follow up Appointment(s)/Referral(s): Abby Olivera MD [STAFF PHYSICIAN] - 1 Week (Office will call you with appointment.) Jenny Perez MD [Primary Care Provider] - 1-2 days Patient Instructions/Handouts: *Surgery [facility] - After Heart Catheterization - Early Childhood Associate Instructions Activity/Diet/Wound Care/Special Instructions: Diet heart healthy Activity as tolerated Patient discharged on Ceftin antibiotic recommend follow-up chest x-ray per PCP See Activity Restriction Instructions Discharge Disposition: HOME SELF-CARE <Aleisha Francois - Last Filed: 06/16/18 15:55> Hospital Course: Possible community acquired pneumonia of the Right lower lobe. discharge on ceftin
[2018-06-06 14:24] VITALS: BP 116/68; PULSE 83
[2018-06-07] MEDS ORDERED: ASPIRIN 81 MG PO SCH (09:00)
--- NOTE | 2018-06-07 16:26 | CDI ---
Documentation Clarification Form Date: 06/07/18 From: VICK Rockwell Phone: If you have question, contact Elsie Garcia at [phone] M-F 8:30 am to 6pm Admit Date: 06/05/2018 9:05:00 PM Patient Name: Lasha Hdez Visit Number: [id number] Discharge Date: 06/06/18 ATTENTION: The Clinical Documentation Specialists (CDI) and [facility] Coding Staff appreciate your assistance in clarifying documentation. Please respond to the clarification below the line at the bottom and electronically sign. The CDI & [facility] Coding staff will review the response and follow-up if needed. Please note: Queries are made part of the Legal Health Record. If you have any questions, please contact the author of this message via ITS. Aleisha Pradhan MD According to the discharge summary the initial chest X-ray on admission showed a small infiltrate in the right lower lobe. The patient was discharged on Ceftin 500 BID for 10 days with a recommendation for a follow up chest X-ray. Further clarification regarding this infiltrate is needed for proper reporting purposes. Please clarify if RLL infiltrate can be clarified. *RLL pneumonia *unknown etiology of infiltrate *Other (please specify right lower lobe pneumonia, likely community aquired MTDD
== END 2018-06-06 16:47 | disposition home or self-care (01) | DRG 286 ==
LOC: EC 22:05 → 1SOBS 06-04 00:58 → OBSVTOIN 06-05 21:05
PROVIDERS: ADMIT Internal Medicine; ATTEND Internal Medicine
PROC: 4A023N7 Measurement of Cardiac Sampling and Pressure, Left Heart, Percutaneous Approach (ICD-10-PCS; principal; 2018-06-05)
PROC: B2111ZZ Fluoroscopy of Multiple Coronary Arteries using Low Osmolar Contrast (ICD-10-PCS; 2018-06-05)
PROC: B2151ZZ Fluoroscopy of Left Heart using Low Osmolar Contrast (ICD-10-PCS; 2018-06-05)
DX: R00.2 Palpitations (principal); J18.9 Pneumonia, unspecified organism; I49.3 Ventricular premature depolarization; K21.9 Gastro-esophageal reflux disease without esophagitis; G47.30 Sleep apnea, unspecified; F32.9 Major depressive disorder, single episode, unspecified; E78.5 Hyperlipidemia, unspecified; I10 Essential (primary) hypertension; I25.10 Atherosclerotic heart disease of native coronary artery without angina pectoris; Z87.891 Personal history of nicotine dependence; Z82.49 Family history of ischemic heart disease and other diseases of the circulatory system; Z95.5 Presence of coronary angioplasty implant and graft; Z87.442 Personal history of urinary calculi; Z79.82 Long term (current) use of aspirin; Z79.899 Other long term (current) drug therapy; Z82.5 Family history of asthma and other chronic lower respiratory diseases
CPT/HCPCS: 36415; 71045; 71275; 78452; 80053; 80061; 82550; 82553; 83735; 84484; 85025; 93005; 93017; 93306; 93458; 96374; 99285

== ENCOUNTER → 2018-07-12 | Outpatient (CLI) | payer OTHER ==
--- NOTE | 2018-07-12 10:19 | US ---
EXAMINATION TYPE: US duplex aorta DATE OF EXAM: 07/12/2018 COMPARISON: NONE CLINICAL HISTORY: 62-year-old male I72.3 ANEURYSM, M54.5 LOW BACK PAIN. Patient states iliac aneurys m TECHNIQUE: Multiple sonographic images of the abdominal aorta are obtained. FINDINGS: EXAM MEASUREMENTS: Abdominal Aorta: Proximal: 2.2 x 2.4cm Mid: 2.4 x 2.6cm, ectatic Distal: 2.2 x 2.7cm, ectatic Bifurcation: Rt = 2.2cm, aneurysmal; Lt = 1.3cm Atherosclerotic changes seen. Increase in diameter seem mid, dist and extending into right iliac riri ry. IMPRESSION: Current ultrasound imaging suggests ectatic mid and distal abdominal aorta measuring up to 2.7 cm and aneurysmal right common iliac artery at 2.2 cm.
== END ==
LOC: RADUSWWP 08:55
PROVIDERS: ATTEND Family Medicine
DX: M54.5 Low back pain (principal); I72.3 Aneurysm of iliac artery
CPT/HCPCS: 93979

== ENCOUNTER 2018-10-19 14:45 | Emergency (ER) | payer OTHER ==
--- NOTE | 2018-10-19 17:11 | ED ---
Extremity Problem HPI - General Chief complaint: Extremity Problem,Nontraumatic Stated complaint: poss blood clot in leg, foot pain Time Seen by Provider: 10/19/18 16:23 Source: patient, RN notes reviewed, old records reviewed Mode of arrival: ambulatory Limitations: no limitations - History of Present Illness Initial comments: Patient is a 63-year-old male who presents or urgency department today with complaints of left posterior leg pain. Symptoms started 2 days ago. Patient denies any fevers or chills. Denies any shortness breath or chest pain. He was sent in by piece P to rule out blood clot. Patient states that he's had no other symptoms. - Related Data Home Medications Medication Instructions Recorded Confirmed Spironolactone [Aldactone] 37.5 mg PO DAILY 09/26/14 10/19/18 Aspirin [Adult Low Dose Aspirin EC] 81 mg PO DAILY 09/19/15 10/19/18 Celecoxib [CeleBREX] 200 mg PO DAILY PRN 03/10/17 10/19/18 Magnesium 200 mg PO DAILY 03/10/17 10/19/18 [place]-3 Fatty Acids [[place]-3] 1,000 mg PO DAILY 03/10/17 10/19/18 Atorvastatin [Lipitor] 20 mg PO DAILY 05/31/18 10/19/18 Lisinopril [Zestril] 10 mg PO DAILY 05/31/18 10/19/18 Magnesium l-Lactate [Magbid ER] 84 mg PO DAILY 05/31/18 10/19/18 Multivitamins, Thera [Multivitamin 1 tab PO DAILY 05/31/18 10/19/18 (formulary)] Vitamin B Complex 1 tab PO DAILY 05/31/18 10/19/18 Calcium/Potassium/Magnesium 1 tab PO DAILY 10/19/18 10/19/18 Collagen 1 tab PO DAILY 10/19/18 10/19/18 Loratadine 10 mg PO DAILY 10/19/18 10/19/18 Metoprolol Succinate (ER) [Toprol 50 mg PO DAILY 10/19/18 10/19/18 Xl] Allergies Allergy/AdvReac Type Severity Reaction Status Date / Time adhesive Allergy Rash/Hives Verified 10/19/18 17:31 Review of Systems ROS Statement: Those systems with pertinent positive or pertinent negative responses have been documented in the HPI. ROS Other: All systems not noted in ROS Statement are negative. Past Medical History Past Medical History: Coronary Artery Disease (CAD), Eye Disorder, GERD/Reflux, Hyperlipidemia, Hypertension, Osteoarthritis (OA), Skin Disorder, Sleep Apnea/CPAP/BIPAP Additional Past Medical History / Comment(s): slight glaucoma janet eyes, no CPAP use, HX kidney stones, R great toe bunion, psoriasis, cervical disc ruptured, pt also needs a total L knee. left elbow sx History of Any Multi-Drug Resistant Organisms: None Reported Past Surgical History: Appendectomy, Back Surgery, Heart Catheterization With Stent, Orthopedic Surgery Additional Past Surgical History / Comment(s): PTCA with one stent in 2011, EGD and colonoscopy, L knee arthroscopy, lithrotripsy, SX TO REMOVE KIDNEY STONE, laminectomy low back 1984, has had laser sx to janet eyes Past Anesthesia/Blood Transfusion Reactions: No Reported Reaction Additional Past Anesthesia/Blood Transfusion Reaction / Comment(s): Pt has not recieved any blood transfusion. Date of Last Stent Placement:: 2011 Past Psychological History: Depression Smoking Status: Former smoker Past Alcohol Use History: None Reported Past Drug Use History: Marijuana - Past Family History Father Family Medical History: COPD, Coronary Artery Disease (CAD), Myocardial Infarction ([place]) Mother Family Medical History: Coronary Artery Disease (CAD) General Exam - General Exam Comments Initial Comments: 63-year-old male. Alert and oriented 3. No significant distress. Limitations: no limitations General appearance: alert, in no apparent distress Head exam: Present: atraumatic, normocephalic, normal inspection Eye exam: Present: normal appearance, PERRL, EOMI. Absent: scleral icterus, conjunctival injection, periorbital swelling ENT exam: Present: normal exam, mucous membranes moist Neck exam: Present: normal inspection. Absent: tenderness, meningismus, lymphadenopathy Respiratory exam: Present: normal lung sounds bilaterally. Absent: respiratory distress, wheezes, rales, rhonchi, stridor Cardiovascular Exam: Present: regular rate, normal rhythm, normal heart sounds. Absent: systolic murmur, diastolic murmur, rubs, gallop, clicks GI/Abdominal exam: Present: soft, normal bowel sounds. Absent: distended, tenderness, guarding, rebound, rigid Extremities exam: Present: normal inspection, full ROM, normal capillary refill, calf tenderness (L calf tenderness ). Absent: tenderness, pedal edema, joint swelling Back exam: Present: normal inspection Neurological exam: Present: alert, oriented X3, CN II-XII intact Psychiatric exam: Present: normal affect, normal mood Course Vital Signs 10/19/18 10/19/18 14:50 19:13 Temperature 99.4 F 98.1 F Pulse Rate 86 87 Respiratory 20 18 Rate Blood Pressure 127/76 124/87 O2 Sat by Pulse 96 Oximetry Medical Decision Making - Medical Decision Making Patient's a 63-year-old male presents raise or stiff of posterior calf pain for the past 2 days. Patient was sent in by PCP to rule out blood clot. Patient had ER stay due to long wait times any alarming capacity. On examination he does have some tenderness to the calf. No palpable cord. No surrounding erythema. Full range of motion of the leg and knee. He denies any trauma to the leg. Peripheral pulses and sensation were noted distally. Ultrasound was completed today and is negative for DVT. I discussed with Patient that make sure follow- up with her primary care doctor. Discussed applying warm compresses over the area. Discussed with the leg was red and swollen or any worsening symptoms to return for reevaluation. All questions answered. - Radiology Data Radiology results: report reviewed Ultrasound is negative for DVT. Disposition Clinical Impression: Posterior left knee pain Disposition: HOME SELF-CARE Condition: Good Instructions (If sedation given, give patient instructions): Knee Pain (ED) Additional Instructions: Follow-up with primary care doctor. Return to emergency department if any alarming signs or symptoms occur. Is patient prescribed a controlled substance at d/c from ED?: No Referrals: Jenny Perez MD [Primary Care Provider] - 1-2 days Time of Disposition: 18:58
--- NOTE | 2018-10-19 18:50 | US ---
EXAMINATION TYPE: US venous doppler duplex LE LT DATE OF EXAM: 10/19/2018 6:40 PM COMPARISON: NONE CLINICAL HISTORY: Pain. Left leg pain. SIDE PERFORMED: TECHNIQUE: The lower extremity deep venous system is examined utilizing real time linear array sonog ke with graded compression, doppler sonography and color-flow sonography. VESSELS IMAGED: External Iliac Vein (EIV) Common Femoral Vein Deep Femoral Vein Greater Saphenous Vein * Femoral Vein Popliteal Vein Small Saphenous Vein * Proximal Calf Veins (* superficial vessels) Left Leg: Negative for DVT No evidence of DVT left leg. IMPRESSION: Normal left leg duplex venous sonogram.
[2018-10-19 19:15] VITALS: BP 124/87; PULSE 87; RESP 18; TEMP 98.1
== END 2018-10-19 19:14 | disposition home or self-care (01) ==
LOC: EC 14:45
DX: M25.562 Pain in left knee (principal); I25.10 Atherosclerotic heart disease of native coronary artery without angina pectoris; E78.5 Hyperlipidemia, unspecified; I10 Essential (primary) hypertension; G47.30 Sleep apnea, unspecified; M19.90 Unspecified osteoarthritis, unspecified site; Z79.1 Long term (current) use of non-steroidal anti-inflammatories (NSAID); Z79.899 Other long term (current) drug therapy; Z91.048 Other nonmedicinal substance allergy status; Z87.891 Personal history of nicotine dependence; Z95.5 Presence of coronary angioplasty implant and graft
CPT/HCPCS: 99284

== ENCOUNTER 2019-01-13 20:20 | Observation (INO) | payer OTHER ==
[2019-01-13 21:03] LABS: Basophils % (A) 0 %; Eosinophils # (A) 0.3 k/uL (0-0.7); Eosinophils % (A) 4 %; HCT 40.8 % (39.0-53.0); HGB 13.4 gm/dL (13.0-17.5); Lymphocytes # (A) 2.1 k/uL (1.0-4.8); Lymphocytes % (A) 27 %; MCH 30.8 pg (25.0-35.0); MCHC 32.9 g/dL (31.0-37.0); MCV 93.7 fL (80.0-100.0); Mean Platelet Volume 7.1; Monocytes # (A) 0.4 k/uL (0-1.0); Monocytes % (A) 5 %; Neutrophils # (A) 4.9 k/uL (1.3-7.7); Neutrophils % (A) 62 %; Platelet Count 188 k/uL (150-450); RBC 4.35 m/uL (4.30-5.90); RDW 13.7 % (11.5-15.5); WBC 7.9 k/uL (3.8-10.6)
--- NOTE | 2019-01-13 21:07 | XR ---
EXAMINATION TYPE: XR chest 2V DATE OF EXAM: 01/13/2019 COMPARISON: 06/03/2018 HISTORY: Chest pain TECHNIQUE: Frontal and lateral views of the chest are obtained. FINDINGS: Heart is normal. Lungs are clear of consolidation. There is no pleural effusion. Bony thor ax is intact. There is spurring in the thoracic spine. IMPRESSION: No active cardiopulmonary disease. No change.
[2019-01-13 21:11] LABS: INR 0.9 (<1.2); Partial Thromboplastin Time 25.3 sec (22.0-30.0); Prothrombin Time 9.8 sec (9.0-12.0)
[2019-01-13 21:12] LABS: ALT 32 U/L (21-72); AST 27 U/L (17-59); African American GFR (CKD) >90 (>60 ml/min/1.73 sqM); Albumin 4.3 g/dL (3.5-5.0); Alkaline Phosphatase 57 U/L (38-126); Anion Gap 9 mmol/L; Blood Urea Nitrogen 29 mg/dL (9-20); Calcium 9.4 mg/dL (8.4-10.2); Carbon Dioxide 25 mmol/L (22-30); Chloride 108 mmol/L (98-107); Glucose 71 mg/dL (74-99); Magnesium 1.9 mg/dL (1.6-2.3); Potassium 4.5 mmol/L (3.5-5.1); Sodium 142 mmol/L (137-145); Total Bilirubin 0.3 mg/dL (0.2-1.3); Total Protein 6.9 g/dL (6.3-8.2)
--- NOTE | 2019-01-13 21:43 | ED ---
General Adult HPI - General Chief complaint: Chest Pain Stated complaint: Chest pain Time Seen by Provider: 01/13/19 20:42 Source: patient, RN notes reviewed, old records reviewed Mode of arrival: ambulatory - History of Present Illness Initial comments: 63-year-old male presented for evaluation of palpitations and chest pain. Patient has had intermittent episodic chest pain over the past 3 days. He has previous history of palpitations and is currently wearing a Holter monitor. He states he has been dealing with some issues with his CPAP machine which is for sleep apnea. He's had episodes of dyspnea associated with this. He has no central radiating chest pain. His chest pain is episodic left-sided chest that lasts seconds. No vomiting. No abdominal pain. Mild dyspnea and fatigue. - Related Data Home Medications Medication Instructions Recorded Confirmed Spironolactone [Aldactone] 37.5 mg PO DAILY 09/26/14 01/13/19 Aspirin [Adult Low Dose Aspirin EC] 81 mg PO DAILY 09/19/15 01/13/19 Celecoxib [CeleBREX] 200 mg PO DAILY PRN 03/10/17 01/13/19 [place]-3 Fatty Acids [[place]-3] 1,000 mg PO DAILY 03/10/17 01/13/19 Atorvastatin [Lipitor] 20 mg PO DAILY 05/31/18 01/13/19 Lisinopril [Zestril] 10 mg PO DAILY 05/31/18 01/13/19 Multivitamins, Thera [Multivitamin 1 tab PO DAILY 05/31/18 01/13/19 (formulary)] Loratadine 10 mg PO DAILY 10/19/18 01/13/19 Metoprolol Succinate (ER) [Toprol 50 mg PO DAILY 10/19/18 01/13/19 Xl] Magnesium/Potassium/Calcium 1 tab PO DAILY 01/13/19 01/13/19 Vitamin D3(Unknown Dose) 1 tab PO DAILY 01/13/19 01/13/19 Allergies Allergy/AdvReac Type Severity Reaction Status Date / Time adhesive Allergy Rash/Hives Verified 01/13/19 21:00 Review of Systems ROS Statement: Those systems with pertinent positive or pertinent negative responses have been documented in the HPI. ROS Other: All systems not noted in ROS Statement are negative. Past Medical History Past Medical History: Coronary Artery Disease (CAD), Eye Disorder, GERD/Reflux, Hyperlipidemia, Hypertension, Osteoarthritis (OA), Skin Disorder, Sleep Apnea/CPAP/BIPAP Additional Past Medical History / Comment(s): slight glaucoma janet eyes, no CPAP use, HX kidney stones, R great toe bunion, psoriasis, cervical disc ruptured, pt also needs a total L knee. left elbow sx History of Any Multi-Drug Resistant Organisms: None Reported Past Surgical History: Appendectomy, Back Surgery, Heart Catheterization With Stent, Orthopedic Surgery Additional Past Surgical History / Comment(s): PTCA with one stent in 2011, EGD and colonoscopy, L knee arthroscopy, lithrotripsy, SX TO REMOVE KIDNEY STONE, laminectomy low back 1984, has had laser sx to janet eyes Past Anesthesia/Blood Transfusion Reactions: No Reported Reaction Additional Past Anesthesia/Blood Transfusion Reaction / Comment(s): Pt has not recieved any blood transfusion. Date of Last Stent Placement:: 2011 Past Psychological History: Depression Smoking Status: Former smoker Past Alcohol Use History: None Reported Past Drug Use History: Marijuana - Past Family History Father Family Medical History: COPD, Coronary Artery Disease (CAD), Myocardial Infarction ([place]) Mother Family Medical History: Coronary Artery Disease (CAD) General Exam General appearance: alert, in no apparent distress Head exam: Present: atraumatic, normocephalic Eye exam: Present: normal appearance, PERRL ENT exam: Present: normal exam Neck exam: Present: normal inspection. Absent: tenderness, meningismus Respiratory exam: Present: normal lung sounds bilaterally. Absent: respiratory distress, wheezes Cardiovascular Exam: Present: regular rate, normal rhythm GI/Abdominal exam: Present: soft. Absent: distended, tenderness Extremities exam: Present: normal inspection, normal capillary refill. Absent: pedal edema, calf tenderness Neurological exam: Present: alert, oriented X3, CN II-XII intact. Absent: motor sensory deficit Psychiatric exam: Present: normal affect, normal mood Skin exam: Present: warm, dry, intact. Absent: cyanosis, diaphoretic Course Vital Signs 01/13/19 01/13/19 01/13/19 20:27 20:39 20:50 Temperature 98.7 F Pulse Rate 80 82 80 Respiratory 19 11 L 11 L Rate Blood Pressure 131/74 108/65 O2 Sat by Pulse 95 96 97 Oximetry 01/13/19 21:10 Temperature Pulse Rate 77 Respiratory 18 Rate Blood Pressure 103/59 O2 Sat by Pulse 99 Oximetry EKG Findings - EKG Comments: EKG Findings:: EKG: Normal sinus rhythm, rate 78, LA interval 184, QRS duration 74, QTC 392, no ST segment elevation or depression. Medical Decision Making - Medical Decision Making 63-year-old male with chest pain and palpitations. Initial workup reveals EKG sinus rhythm with no ST segment elevation. He has normal CBC, normal CMP, initial troponin is negative. Chest x-ray negative for acute cortical varices. Patient will be placed in observation for serial cardiac enzymes, telemetry, and cardiology consultation. Case is discussed with admitting physician Dr. Francois - Lab Data Result diagrams: 01/13/19 20:45 01/13/19 20:45 Lab Results 01/13/19 01/13/19 01/13/19 Range/Units 20:45 20:45 20:45 WBC 7.9 (3.8-10.6) k/uL RBC 4.35 (4.30-5.90) m/uL Hgb 13.4 (13.0-17.5) gm/dL Hct 40.8 (39.0-53.0) % MCV 93.7 (80.0-100.0) fL MCH 30.8 (25.0-35.0) pg MCHC 32.9 (31.0-37.0) g/dL RDW 13.7 (11.5-15.5) % Plt Count 188 (150-450) k/uL Neutrophils % 62 % Lymphocytes % 27 % Monocytes % 5 % Eosinophils % 4 % Basophils % 0 % Neutrophils # 4.9 (1.3-7.7) k/uL Lymphocytes # 2.1 (1.0-4.8) k/uL Monocytes # 0.4 (0-1.0) k/uL Eosinophils # 0.3 (0-0.7) k/uL Basophils # 0.0 (0-0.2) k/uL PT (9.0-12.0) sec INR (<1.2) APTT (22.0-30.0) sec Sodium 142 (137-145) mmol/L Potassium 4.5 (3.5-5.1) mmol/L Chloride 108 H (98-107) mmol/L Carbon Dioxide 25 (22-30) mmol/L Anion Gap 9 mmol/L BUN 29 H (9-20) mg/dL Creatinine 0.99 (0.66-1.25) mg/dL Est GFR (CKD-EPI)AfAm >90 (>60 ml/min/1.73 sqM) Est GFR (CKD-EPI)NonAf 82 (>60 ml/min/1.73 sqM) Glucose 71 L (74-99) mg/dL Calcium 9.4 (8.4-10.2) mg/dL Magnesium 1.9 (1.6-2.3) mg/dL Total Bilirubin 0.3 (0.2-1.3) mg/dL AST 27 (17-59) U/L ALT 32 (21-72) U/L Alkaline Phosphatase 57 (38-126) U/L Troponin I (0.000-0.034) ng/mL NT-Pro-B Natriuret Pep 95 pg/mL Total Protein 6.9 (6.3-8.2) g/dL Albumin 4.3 (3.5-5.0) g/dL 01/13/19 01/13/19 Range/Units 20:45 20:45 WBC (3.8-10.6) k/uL RBC (4.30-5.90) m/uL Hgb (13.0-17.5) gm/dL Hct (39.0-53.0) % MCV (80.0-100.0) fL MCH (25.0-35.0) pg MCHC (31.0-37.0) g/dL RDW (11.5-15.5) % Plt Count (150-450) k/uL Neutrophils % % Lymphocytes % % Monocytes % % Eosinophils % % Basophils % % Neutrophils # (1.3-7.7) k/uL Lymphocytes # (1.0-4.8) k/uL Monocytes # (0-1.0) k/uL Eosinophils # (0-0.7) k/uL Basophils # (0-0.2) k/uL PT 9.8 (9.0-12.0) sec INR 0.9 (<1.2) APTT 25.3 (22.0-30.0) sec Sodium (137-145) mmol/L Potassium (3.5-5.1) mmol/L Chloride (98-107) mmol/L Carbon Dioxide (22-30) mmol/L Anion Gap mmol/L BUN (9-20) mg/dL Creatinine (0.66-1.25) mg/dL Est GFR (CKD-EPI)AfAm (>60 ml/min/1.73 sqM) Est GFR (CKD-EPI)NonAf (>60 ml/min/1.73 sqM) Glucose (74-99) mg/dL Calcium (8.4-10.2) mg/dL Magnesium (1.6-2.3) mg/dL Total Bilirubin (0.2-1.3) mg/dL AST (17-59) U/L ALT (21-72) U/L Alkaline Phosphatase (38-126) U/L Troponin I <0.012 (0.000-0.034) ng/mL NT-Pro-B Natriuret Pep pg/mL Total Protein (6.3-8.2) g/dL Albumin (3.5-5.0) g/dL Disposition Clinical Impression: Chest pain Disposition: ADMITTED IP TO THIS HOSP Condition: Stable Is patient prescribed a controlled substance at d/c from ED?: No Referrals: Jenny Perez MD [Primary Care Provider] - 1-2 days Decision to Admit Reason: Admit from EC Decision Date: 01/13/19 Decision Time: 22:53
[2019-01-13] MEDS ORDERED: ASPIRIN 325 MG TAB PO STA (22:48)
[2019-01-13] MEDS ORDERED: NALOXONE 0.4 MG/ML 1 ML VIAL IV PRN (22:49)
[2019-01-13] MEDS ORDERED: SODIUM CHLORIDE 0.9% 1,000 ML IV SCH (23:00)
[2019-01-14] MEDS ORDERED: MELOXICAM 7.5 MG TAB PO PRN (00:09)
[2019-01-14] MEDS ORDERED: HYDROcodone/APAP 5-325MG 1 EACH TAB PO PRN (00:09)
[2019-01-14 08:10] VITALS: PULSE 60
--- NOTE | 2019-01-14 08:13 | P.CRDCN ---
History of Present Illness Consult date: 01/14/19 History of present illness: This is a 63-year-old gentleman with history of ischemic heart disease with a previous stent placement of the left anterior descending coronary artery done several years ago. He follows with Dr. Coats at [facility] and also with the Dr. Olivera locally. He was seen by Dr. Olivera, about 10 days ago. He was complaining of palpitations and the patient was put on event monitor. Apparently he was noted to have short runs of cardiac arrhythmia either SVT or nonsustained V. tach consisting of about 3 to 4 beats. Continued observation is recommended. Patient came to the hospital with complaints of chest pains, palpitations and weakness and fatigue and not feeling well. The chest pains are felt in the upper chest and sharp in nature, lasting only a few seconds. The pains are nonexertional and not associated with any nausea vomiting or sweating. Since admission patient hasn't been noted to have any cardiac arrhythmias of significance. His cardiac enzymes have been negative. He had a admission in May 2018 for chest pains and palpitations. Patient had a stress test which was suggestive of ischemia. Patient had a cardiac catheterization and was found to have patent stent in the LAD and mild diffuse disease. Patient was advised maximum medical therapy. At this point the chest pains appear to be atypical and patient hasn't been noted to have any significant arrhythmias. From Cardec standpoint patient could be discharged home and be followed with the Dr. Olivera as an outpatient. If necessary outpatient stress test could be considered by Dr. Olivera. Review of Systems As per the chart Past Medical History Past Medical History: Coronary Artery Disease (CAD), Eye Disorder, GERD/Reflux, Hyperlipidemia, Hypertension, Osteoarthritis (OA), Skin Disorder, Sleep Apnea/CPAP/BIPAP Additional Past Medical History / Comment(s): slight glaucoma janet eyes, HX kidney stones, R great toe bunion, psoriasis, cervical disc ruptured, pt also needs a total L knee. left elbow sx History of Any Multi-Drug Resistant Organisms: None Reported Past Surgical History: Appendectomy, Back Surgery, Heart Catheterization With Stent, Orthopedic Surgery Additional Past Surgical History / Comment(s): PTCA with one stent in 2011, EGD and colonoscopy, L knee arthroscopy, lithrotripsy, SX TO REMOVE KIDNEY STONE, laminectomy low back 1984, has had laser sx to janet eyes Past Anesthesia/Blood Transfusion Reactions: No Reported Reaction Additional Past Anesthesia/Blood Transfusion Reaction / Comment(s): Pt has not recieved any blood transfusion. Date of Last Stent Placement:: 2011 Past Psychological History: No Psychological Hx Reported Smoking Status: Former smoker Past Alcohol Use History: None Reported Past Drug Use History: Marijuana - Past Family History Father Family Medical History: COPD, Coronary Artery Disease (CAD), Myocardial Infarction ([place]) Mother Family Medical History: Coronary Artery Disease (CAD) Medications and Allergies Home Medications Medication Instructions Recorded Confirmed Type Spironolactone [Aldactone] 37.5 mg PO DAILY 09/26/14 01/13/19 History Aspirin [Adult Low Dose Aspirin EC] 81 mg PO DAILY 09/19/15 01/13/19 History Celecoxib [CeleBREX] 200 mg PO DAILY PRN 03/10/17 01/13/19 History [place]-3 Fatty Acids [[place]-3] 1,000 mg PO DAILY 03/10/17 01/13/19 History Atorvastatin [Lipitor] 20 mg PO DAILY 05/31/18 01/13/19 History Lisinopril [Zestril] 10 mg PO DAILY 05/31/18 01/13/19 History Multivitamins, Thera [Multivitamin 1 tab PO DAILY 05/31/18 01/13/19 History (formulary)] Loratadine 10 mg PO DAILY 10/19/18 01/13/19 History Metoprolol Succinate (ER) [Toprol 50 mg PO DAILY 10/19/18 01/13/19 History Xl] Magnesium/Potassium/Calcium 1 tab PO DAILY 01/13/19 01/13/19 History Vitamin D3(Unknown Dose) 1 tab PO DAILY 01/13/19 01/13/19 History HYDROcodone/APAP 5-325MG [[place] 1 tab PO Q6HR PRN 01/14/19 01/14/19 History 5-325] Allergies Allergy/AdvReac Type Severity Reaction Status Date / Time adhesive Allergy Rash/Hives Verified 01/13/19 23:34 Physical Exam Vitals: Vital Signs Temp Pulse Pulse Resp BP BP Pulse Ox 01/14/19 03:29 98.2 F 72 18 101/61 94 L 01/13/19 23:35 98.6 F 74 16 115/72 95 01/13/19 22:30 67 19 107/63 98 01/13/19 22:00 72 15 97/61 97 01/13/19 21:30 71 18 103/59 99 01/13/19 21:10 77 18 103/59 99 01/13/19 20:50 80 11 L 108/65 97 01/13/19 20:39 82 11 L 96 01/13/19 20:27 98.7 F 80 19 131/74 95 Intake and Output 01/13/19 01/14/19 01/14/19 22:59 06:59 14:59 Other: Voiding Method Toilet Weight 118.841 kg GENERAL EXAM: Patient is alert and oriented and doesn't appear to be in any acute distress HEENT: Normocephalic. Normal reaction of pupils, equal size, normal range of extraocular motion. No erythema or exudates in the throat. NECK: No masses, no nuchal rigidity. CHEST: No chest wall deformity. LUNGS: Equal air entry with no crackles or wheeze. HEART: S1 and S2 normal with no audible mumurs or gallops. Regular rhythm, femorals equal on both sides.. ABDOMEN: No hepatosplenomegaly, normal bowel sounds, no guarding or rigidity. SKIN: No rashes CENTRAL NERVOUS SYSTEM: No focal deficits. EXTREMITIES: No cyanosis, clubbing or edema. Results 01/13/19 20:45 01/13/19 20:45 Cardiac Enzymes 01/13/19 01/13/19 01/14/19 Range/Units 20:45 20:45 03:13 AST 27 (17-59) U/L Troponin I <0.012 <0.012 (0.000-0.034) ng/mL Coagulation 01/13/19 Range/Units 20:45 PT 9.8 (9.0-12.0) sec APTT 25.3 (22.0-30.0) sec CBC 01/13/19 Range/Units 20:45 WBC 7.9 (3.8-10.6) k/uL RBC 4.35 (4.30-5.90) m/uL Hgb 13.4 (13.0-17.5) gm/dL Hct 40.8 (39.0-53.0) % Plt Count 188 (150-450) k/uL Comprehensive Metabolic Panel 01/13/19 Range/Units 20:45 Sodium 142 (137-145) mmol/L Potassium 4.5 (3.5-5.1) mmol/L Chloride 108 H (98-107) mmol/L Carbon Dioxide 25 (22-30) mmol/L BUN 29 H (9-20) mg/dL Creatinine 0.99 (0.66-1.25) mg/dL Glucose 71 L (74-99) mg/dL Calcium 9.4 (8.4-10.2) mg/dL AST 27 (17-59) U/L ALT 32 (21-72) U/L Alkaline Phosphatase 57 (38-126) U/L Total Protein 6.9 (6.3-8.2) g/dL Albumin 4.3 (3.5-5.0) g/dL Current Medications Generic Name Dose Route Start Last Admin Trade Name Freq PRN Reason Stop Dose Admin Hydrocodone Bitart/Acetaminophen 1 each 01/14/19 00:09 01/14/19 00:39 [place] 5-325 PO 1 each Q6HR PRN Administration Pain Aspirin 325 mg 01/14/19 09:00 Aspirin PO DAILY [facility] Atorvastatin Calcium 20 mg 01/14/19 09:00 Lipitor PO DAILY GENA Sodium Chloride 1,000 mls @ 20 mls/hr 01/13/19 23:00 01/13/19 23:12 Saline 0.9% IV 20 mls/hr .Q24H GENA Administration Lisinopril 10 mg 01/14/19 09:00 Zestril PO DAILY GENA Loratadine 10 mg 01/14/19 09:00 Claritin PO DAILY GENA Meloxicam 7.5 mg 01/14/19 00:09 Mobic PO DAILY PRN Pain Metoprolol Succinate 50 mg 01/14/19 09:00 Toprol Xl PO DAILY GENA Multivitamins 1 each 01/14/19 09:00 Theragran PO DAILY GENA Naloxone HCl 0.2 mg 01/13/19 22:49 Narcan IV Q2M PRN Opioid Reversal Spironolactone 37.5 mg 01/14/19 09:00 Aldactone PO DAILY GNEA Intake and Output 01/13/19 01/14/19 01/14/19 22:59 06:59 14:59 Other: Voiding Method Toilet Weight 118.841 kg 01/13/19 20:45 01/13/19 20:45 EKG Interpretations (text) Sinus rhythm Assessment and Plan (1) Chest pain Current Visit: Yes Status: Acute Code(s): R07.9 - CHEST PAIN, UNSPECIFIED SNOMED Code(s): 85385019 (2) Coronary artery disease Current Visit: No Status: Acute Code(s): I25.10 - ATHSCL HEART DISEASE OF [place] CORONARY ARTERY W/O ANG PCTRS SNOMED Code(s): 83949374 (3) History of coronary artery stent placement Current Visit: No Status: Acute Code(s): Z95.5 - PRESENCE OF CORONARY ANGIOPLASTY IMPLANT AND GRAFT SNOMED Code(s): 731214898 (4) Palpitation Current Visit: No Status: Acute Code(s): R00.2 - PALPITATIONS SNOMED Code(s): 88882401 Plan: No significant arrhythmias are documented so far. Patient has had event monitor on. His cardiac enzymes are negative and a recent cardiac catheterization in May of last year did not reveal any Sigmund obstructive disease. From cardiac standpoint, patient could be discharged home. He could follow with the Dr. Olivera as an outpatient for further evaluation
[2019-01-14] MEDS ORDERED: NON-FORMULARY DRUG (Omega-3 Fatty Acids [Omega-3] 1,000 MG) PO SCH (09:00)
[2019-01-14] MEDS ORDERED: CALCIUM PO SCH (09:00)
[2019-01-14] MEDS ORDERED: LISINOPRIL 10 MG TAB PO SCH (09:00)
[2019-01-14] MEDS ORDERED: MAGNESIUM PO SCH (09:00)
[2019-01-14] MEDS ORDERED: MULTIVITAMINS, THERA 1 EACH TAB PO SCH (09:00)
[2019-01-14] MEDS ORDERED: POTASSIUM PO SCH (09:00)
[2019-01-14] MEDS ORDERED: METOPROLOL SUCCINATE (ER) 50 MG TAB.ER.24H PO SCH (09:00)
[2019-01-14] MEDS ORDERED: ASPIRIN 325 MG TAB PO SCH (09:00)
[2019-01-14] MEDS ORDERED: LORATADINE 10 MG TAB PO SCH (09:00)
[2019-01-14] MEDS ORDERED: SPIRONOLACTONE 25 MG TAB PO SCH (09:00)
[2019-01-14] MEDS ORDERED: ATORVASTATIN 20 MG TAB PO SCH (09:00)
[2019-01-14] MEDS ORDERED: VITAMIN D3 PO SCH (09:00)
[2019-01-14] MEDS ORDERED: SODIUM CHLORIDE 0.9% 1,000 ML IV STA (10:52)
[2019-01-14 12:02] VITALS: BP 161/74; RESP 18; TEMP 98.4
--- NOTE | 2019-01-14 12:04 | CT ---
EXAMINATION TYPE: CT angio thor/abd pel aorta DATE OF EXAM: 01/14/2019 COMPARISON: 06/03/2018 HISTORY: chest pain, known aortic aneurysm CT DLP: 2180.8 mGycm. Automated Exposure Control for Dose Reduction was Utilized. CONTRAST: CT scan of the thorax, abdomen and pelvis is performed without and with IV Contrast, patient injected with 100 mL of Isovue 370. FINDINGS: LUNGS: Subsegmental changes are seen bilaterally most typical of atelectasis. Pleural-based nodule ri ght lower lobe measures 5 mm likely postinflammatory. No pneumothorax or sizable pleural effusion. Mi ld changes of COPD. MEDIASTINUM: There are no greater than 1 cm hilar or mediastinal lymph nodes. No pericardial effusi on is seen. Coronary artery calcification is noted. Thoracic aorta of normal caliber. There is ather osclerotic change. LIVER/GB: No significant abnormality is appreciated. PANCREAS: No significant abnormality is seen. SPLEEN: No significant abnormality is seen. ADRENALS: Stable 8 mm right adrenal nodule.. KIDNEYS: Bilateral simple appearing renal cysts are noted.. There are multiple punctate calcification s overlying the right kidney single punctate calcification overlying the left kidney. No hydronephros is. Previous surgery is seen along the inferior margin of the left kidney should be correlated clinic ally BOWEL: No significant abnormality is seen. LYMPH NODES: No greater than 1cm abdominal or pelvic lymph nodes are appreciated. OSSEOUS STRUCTURES: Multilevel severe degenerative disc disease noted. OTHER: There is a 3.2 x 3 point cm infrarenal abdominal aortic aneurysm extending into the proximal i liac vasculature bilaterally greater on the right. Largest dimension iliac artery measures 2.5 cm. Note is made there is limited assessment of the pelvis due to artifact from bilateral hip prostheses. . IMPRESSION: 1. Infrarenal abdominal aortic aneurysm measuring 3.2 x 3.2 cm with extension into the proximal iliac vasculature. 2. Coronary artery calcification. 3. Multiple less than 5 mm bilateral renal calculi with no evidence of obstruction. 4. COPD. 5. benign-appearing simple bilateral renal cysts. 6. Stable right adrenal nodule measuring 8 mm too small to characterize.
--- NOTE | 2019-01-14 14:20 | P.HPIM ---
History of Present Illness H&P Date: 01/14/19 Lasha Hdez is a 63-year-old male who presented to [facility] emergency room with a chief complaint of chest pain and palpitation. Patient was describing episodes of acute sharp pain in the upper part of the chest lasting a few seconds patient stated that in the last 2 days he had about 20 of those episodes, he was complaining of palpitations and he was put on event monitor as outpatient. He was noted to have short runs of cardiac arrhythmia either SVT or nonsustained V. tach consisting of about 3 to 4 beats. Continued observation is recommended. He was evaluated in the emergency room first EKG and first set of cardiac enzymes were negative he was admitted to the observation unit etiology consultation was requested. Patient has a known history of abdominal aortic aneurysm. Past Medical History Past Medical History: Coronary Artery Disease (CAD), Eye Disorder, GERD/Reflux, Hyperlipidemia, Hypertension, Osteoarthritis (OA), Skin Disorder, Sleep Apnea/CPAP/BIPAP Additional Past Medical History / Comment(s): slight glaucoma janet eyes, HX kidney stones, R great toe bunion, psoriasis, cervical disc ruptured, pt also needs a total L knee. left elbow sx History of Any Multi-Drug Resistant Organisms: None Reported Past Surgical History: Appendectomy, Back Surgery, Heart Catheterization With Stent, Orthopedic Surgery Additional Past Surgical History / Comment(s): PTCA with one stent in 2011, EGD and colonoscopy, L knee arthroscopy, lithrotripsy, SX TO REMOVE KIDNEY STONE, laminectomy low back 1984, has had laser sx to janet eyes Past Anesthesia/Blood Transfusion Reactions: No Reported Reaction Additional Past Anesthesia/Blood Transfusion Reaction / Comment(s): Pt has not recieved any blood transfusion. Date of Last Stent Placement:: 2011 Past Psychological History: No Psychological Hx Reported Smoking Status: Former smoker Past Alcohol Use History: None Reported Past Drug Use History: Marijuana - Past Family History Father Family Medical History: COPD, Coronary Artery Disease (CAD), Myocardial Infarction ([place]) Mother Family Medical History: Coronary Artery Disease (CAD) Medications and Allergies Home Medications Medication Instructions Recorded Confirmed Type Spironolactone [Aldactone] 37.5 mg PO DAILY 09/26/14 01/13/19 History Aspirin [Adult Low Dose Aspirin EC] 81 mg PO DAILY 09/19/15 01/13/19 History Celecoxib [CeleBREX] 200 mg PO DAILY PRN 03/10/17 01/13/19 History [place]-3 Fatty Acids [[place]-3] 1,000 mg PO DAILY 03/10/17 01/13/19 History Atorvastatin [Lipitor] 20 mg PO DAILY 05/31/18 01/13/19 History Lisinopril [Zestril] 10 mg PO DAILY 05/31/18 01/13/19 History Multivitamins, Thera [Multivitamin 1 tab PO DAILY 05/31/18 01/13/19 History (formulary)] Loratadine 10 mg PO DAILY 10/19/18 01/13/19 History Metoprolol Succinate (ER) [Toprol 50 mg PO DAILY 10/19/18 01/13/19 History XL] Magnesium/Potassium/Calcium 1 tab PO DAILY 01/13/19 01/13/19 History Vitamin D3(Unknown Dose) 1 tab PO DAILY 01/13/19 01/13/19 History HYDROcodone/APAP 5-325MG [[place] 1 tab PO Q6HR PRN 01/14/19 01/14/19 History 5-325] Allergies Allergy/AdvReac Type Severity Reaction Status Date / Time adhesive Allergy Rash/Hives Verified 01/13/19 23:34 Physical Exam Vitals: Vital Signs Temp Pulse Pulse Resp BP BP BP 01/14/19 12:00 98.4 F 60 18 161/74 01/14/19 08:00 98.3 F 60 16 94/58 01/14/19 03:29 98.2 F 72 18 101/61 01/13/19 23:35 98.6 F 74 16 115/72 01/13/19 22:30 67 19 107/63 01/13/19 22:00 72 15 97/61 01/13/19 21:30 71 18 103/59 01/13/19 21:10 77 18 103/59 01/13/19 20:50 80 11 L 108/65 01/13/19 20:39 82 11 L 01/13/19 20:27 98.7 F 80 19 131/74 Pulse Ox 01/14/19 12:00 97 01/14/19 08:00 97 01/14/19 03:29 94 L 01/13/19 23:35 95 01/13/19 22:30 98 01/13/19 22:00 97 01/13/19 21:30 99 01/13/19 21:10 99 01/13/19 20:50 97 01/13/19 20:39 96 01/13/19 20:27 95 Intake and Output 01/13/19 01/14/19 01/14/19 22:59 06:59 14:59 Other: Voiding Method Toilet Toilet Weight 118.841 kg HEENT head normocephalic and atraumatic Neck is supple no JVD no goiter no lymphadenopathy Chest exam reveals a few scattered rhonchi no wheezing Cardiac exam reveals regular heart sounds S1 and S2 no gallops no murmurs Abdomen is soft nontender no organomegaly with normal bowel sounds Extremity exam reveals no edema no cyanosis or clubbing Neurological examination reveals no gross focal deficit Results CBC & Chem 7: 01/13/19 20:45 01/13/19 20:45 Labs: Abnormal Lab Results - Last 24 Hours (Table) 01/13/19 Range/Units 20:45 Chloride 108 H (98-107) mmol/L BUN 29 H (9-20) mg/dL Glucose 71 L (74-99) mg/dL Thrombosis Risk Factor Assmnt - Choose All That Apply Any of the Below Risk Factors Present?: Yes Each Factor Represents 1 point: Obesity (BMI >25) Other Risk Factors: Yes Each Risk Factor Represents 2 Points: Age 61-74 years Other congenital or acquired thrombophilia - If yes, enter type in comment: No Thrombosis Risk Factor Assessment Total Risk Factor Score: 3 Thrombosis Risk Factor Assessment Level: Moderate Risk Assessment and Plan Plan: #1 recurrent episodes of chest pain #2 palpitation with evidence of cardiac arrhythmia #3 underlying history of coronary artery disease with previous history of stent placement in the LAD #4 underlying history of abdominal aortic aneurysm #5 underlying history of hypertension #6 underlying history of hyperlipidemia #7 underlying history of osteoarthritis At this point patient is admitted to observation unit serial EKG and cardiac enzymes are negative patient was evaluated by cardiology Patient has a known history of abdominal aortic aneurysm and was worried because his mother of an aneurysm Computed tomography scan angiogram of the chest abdomen and pelvis, was ordered if negative patient will be discharged home.
--- NOTE | 2019-01-14 14:24 | P.DS ---
Providers Date of admission: 01/13/19 22:50 Expected date of discharge: 01/14/19 Attending physician: Aleisha Francois Consults: 01/13/19 22:50 Consult Physician Routine Consulting Provider: Abby Olivera Consult Reason/Comments: CP Do you want consulting provider notified?: Yes Primary care physician: Jenny Perez Hospital Course: Diagnosis on discharge: #1 recurrent episodes of chest pain #2 palpitation with evidence of cardiac arrhythmia #3 underlying history of coronary artery disease with previous history of stent placement in the LAD #4 underlying history of abdominal aortic aneurysm #5 underlying history of hypertension #6 underlying history of hyperlipidemia #7 underlying history of osteoarthritis Hospital course: Lasha Hdez is a 63-year-old male who presented to [facility] emergency room with a chief complaint of chest pain and palpitation. Patient was describing episodes of acute sharp pain in the upper part of the chest lasting a few seconds patient stated that in the last 2 days he had about 20 of those episodes, he was complaining of palpitations and he was put on jesu nt monitor as outpatient. He was noted to have short runs of cardiac arrhythmia either SVT or nonsustained V. tach consisting of about 3 to 4 beats. Continued observation is recommended. He was evaluated in the emergency room first EKG and first set of cardiac enzymes were negative he was admitted to the observation unit etiology consultation was requested. Patient has a known history of abdominal aortic aneurysm. Patient was seen and examined in the observation unit, 3 sets of troponins were negative EKG was negative, due to history of abdominal aortic aneurysm and history of mother dying with an aneurysm, patient underwent CT angiogram of the chest abdomen and pelvis, there was no evidence of thoracic involvement in the aneurysm. Patient had an infrarenal abdominal aortic aneurysm measuring 3.2 cm extending into the proximal iliac arteries bilaterally and greater on the right. Patient was discharged home on 01/14/2019 he will follow-up with his primary care physician Dr. Perez he will also follow-up with his honey producer Dr. Olivera Patient Condition at Discharge: Stable Plan - Discharge Summary Discharge Rx Participant: No New Discharge Prescriptions: Continue Spironolactone [Aldactone] 37.5 mg PO DAILY Aspirin [Adult Low Dose Aspirin EC] 81 mg PO DAILY Celecoxib [CeleBREX] 200 mg PO DAILY PRN PRN Reason: Pain [place]-3 Fatty Acids [[place]-3] 1,000 mg PO DAILY Multivitamins, Thera [Multivitamin (formulary)] 1 tab PO DAILY Lisinopril [Zestril] 10 mg PO DAILY Atorvastatin [Lipitor] 20 mg PO DAILY Metoprolol Succinate (ER) [Toprol XL] 50 mg PO DAILY Loratadine 10 mg PO DAILY Vitamin D3(Unknown Dose) 1 tab PO DAILY Magnesium/Potassium/Calcium 1 tab PO DAILY HYDROcodone/APAP 5-325MG [[place] 5-325] 1 tab PO Q6HR PRN PRN Reason: Pain Discharge Medication List Spironolactone [Aldactone] 37.5 mg PO DAILY 09/26/14 [History] Aspirin [Adult Low Dose Aspirin EC] 81 mg PO DAILY 09/19/15 [History] Celecoxib [CeleBREX] 200 mg PO DAILY PRN 03/10/17 [History] [place]-3 Fatty Acids [[place]-3] 1,000 mg PO DAILY 03/10/17 [History] Atorvastatin [Lipitor] 20 mg PO DAILY 05/31/18 [History] Lisinopril [Zestril] 10 mg PO DAILY 05/31/18 [History] Multivitamins, Thera [Multivitamin (formulary)] 1 tab PO DAILY 05/31/18 [His tory] Loratadine 10 mg PO DAILY 10/19/18 [History] Metoprolol Succinate (ER) [Toprol XL] 50 mg PO DAILY 10/19/18 [History] Magnesium/Potassium/Calcium 1 tab PO DAILY 01/13/19 [History] Vitamin D3(Unknown Dose) 1 tab PO DAILY 01/13/19 [History] HYDROcodone/APAP 5-325MG [[place] 5-325] 1 tab PO Q6HR PRN 01/14/19 [History] Follow up Appointment(s)/Referral(s): Abby Olivera MD [STAFF PHYSICIAN] - 1 Week Jenny Perez MD [Primary Care Provider] - 1-2 days
== END 2019-01-14 13:52 | disposition home or self-care (01) ==
LOC: EC 20:20 → 1SOBS 22:50
PROVIDERS: ADMIT Internal Medicine; ATTEND Internal Medicine
DX: R07.9 Chest pain, unspecified (principal); R00.2 Palpitations; R53.1 Weakness; I49.9 Cardiac arrhythmia, unspecified; R53.83 Other fatigue; R06.00 Dyspnea, unspecified; I25.10 Atherosclerotic heart disease of native coronary artery without angina pectoris; Z95.5 Presence of coronary angioplasty implant and graft; I10 Essential (primary) hypertension; E78.5 Hyperlipidemia, unspecified; M19.90 Unspecified osteoarthritis, unspecified site; I71.4 Abdominal aortic aneurysm, without rupture; K21.9 Gastro-esophageal reflux disease without esophagitis; G47.30 Sleep apnea, unspecified; Z99.89 Dependence on other enabling machines and devices; E66.9 Obesity, unspecified; Z68.33 Body mass index [BMI] 33.0-33.9, adult; H40.9 Unspecified glaucoma; L40.9 Psoriasis, unspecified; Z87.442 Personal history of urinary calculi; Z87.891 Personal history of nicotine dependence; Z79.82 Long term (current) use of aspirin; Z79.1 Long term (current) use of non-steroidal anti-inflammatories (NSAID); Z79.899 Other long term (current) drug therapy; Z91.048 Other nonmedicinal substance allergy status; Z79.891 Long term (current) use of opiate analgesic; Z82.49 Family history of ischemic heart disease and other diseases of the circulatory system; Z82.5 Family history of asthma and other chronic lower respiratory diseases
CPT/HCPCS: 99285; 36415; 83880; 80053; 83735; 84484 ×2; 85025; 85610; 85730; 71046; 71275; 74174; G0378 ×2; Q9967

== ENCOUNTER 2019-06-04 20:32 | Observation (INO) | payer OTHER ==
--- NOTE | 2019-06-04 21:10 | ED ---
Chest Pain HPI - General Chief Complaint: Chest Pain Stated Complaint: Chest Pain Time Seen by Provider: 06/04/19 21:01 Source: patient, RN notes reviewed, old records reviewed Mode of arrival: wheelchair Limitations: no limitations - History of Present Illness Initial Comments: This is a 63-year-old here for evaluation of multiple complaints and 1 chest pain. Patient also complains of developing leukemia of recurrent effusions and hernia mild nausea no vomiting. No trauma no adrenal recent travel history. No fevers. No diarrhea. Patient has had history of similar pain both in his chest and his abdomen. MD Complaint: chest pain, other (Abdominal pain LLQ) -: days(s) Onset: during rest, during exertion Pain Location: epigastric Severity: moderate Severity scale (1-10): 4 Quality: tightness, aching Consistency: intermittent Improves With: nothing Worsens With: nothing Anginal Symptoms: nausea, vomiting Treatments Prior to Arrival: none - Related Data Home Medications Medication Instructions Recorded Confirmed Spironolactone [Aldactone] 37.5 mg PO DAILY 09/26/14 06/05/19 Aspirin [Adult Low Dose Aspirin EC] 81 mg PO DAILY 09/19/15 06/05/19 Celecoxib [CeleBREX] 200 mg PO DAILY PRN 03/10/17 06/05/19 [place]-3 Fatty Acids [[place]-3] 1,000 mg PO DAILY 03/10/17 06/05/19 Atorvastatin [Lipitor] 20 mg PO HS 05/31/18 06/05/19 Lisinopril [Zestril] 10 mg PO HS 05/31/18 06/05/19 Multivitamins, Thera [Multivitamin 1 tab PO DAILY 05/31/18 06/05/19 (formulary)] Loratadine 10 mg PO DAILY 10/19/18 06/05/19 Metoprolol Succinate (ER) [Toprol 50 mg PO BID 10/19/18 06/05/19 XL] Vitamin D3(Unknown Dose) 1 tab PO DAILY 01/13/19 06/05/19 Amoxic-Pot Clav 875-125Mg 1 tab PO Q12HR 06/05/19 06/05/19 [Augmentin 875-125] Calcium Carbonate [Calcium] 600 mg PO DAILY 06/05/19 06/05/19 Fluticasone Nasal [place] [Flonase 2 spr EA NOSTRIL DAILY 06/05/19 06/05/19 Nasal Felt] Ipratropium [place] 0.06%Nasal 1 - 2 sprays EA NOSTRIL TID PRN 06/05/19 06/05/19 [Atrovent Nasal 0.06%] Vitamin Mk7 1 tab PO DAILY 06/05/19 06/05/19 Previous Rx's Medication Instructions Recorded Pantoprazole Sodium [Protonix] 40 mg PO DAILY 30 Days #30 06/05/19 tablet. Allergies Allergy/AdvReac Type Severity Reaction Status Date / Time adhesive Allergy Rash/Hives Verified 06/04/19 20:36 Review of Systems ROS Statement: Those systems with pertinent positive or pertinent negative responses have been documented in the HPI. ROS Other: All systems not noted in ROS Statement are negative. EKG Findings - EKG Comments: EKG Findings:: EKG shows nsr rate of 80 [place] 176 QRS 90 QTc 417 Past Medical History Past Medical History: Coronary Artery Disease (CAD), Eye Disorder, GERD/Reflux, Hyperlipidemia, Hypertension, Osteoarthritis (OA), Skin Disorder, Sleep Apnea/CPAP/BIPAP Additional Past Medical History / Comment(s): slight glaucoma janet eyes, HX kidney stones, R great toe bunion, psoriasis, cervical disc ruptured, pt also needs a total L knee. left elbow sx History of Any Multi-Drug Resistant Organisms: None Reported Past Surgical History: Appendectomy, Back Surgery, Heart Catheterization With Stent, Orthopedic Surgery Additional Past Surgical History / Comment(s): PTCA with one stent in 2011, EGD and colonoscopy, L knee arthroscopy, lithrotripsy, SX TO REMOVE KIDNEY STONE, laminectomy low back 1984, has had laser sx to janet eyes Past Anesthesia/Blood Transfusion Reactions: No Reported Reaction Additional Past Anesthesia/Blood Transfusion Reaction / Comment(s): Pt has not recieved any blood transfusion. Date of Last Stent Placement:: 2011 Past Psychological History: No Psychological Hx Reported Smoking Status: Former smoker Past Alcohol Use History: None Reported Past Drug Use History: Marijuana - Past Family History Father Family Medical History: COPD, Coronary Artery Disease (CAD), Myocardial Infar ction ([place]) Mother Family Medical History: Coronary Artery Disease (CAD) General Exam Limitations: no limitations General appearance: alert, in no apparent distress Head exam: Present: atraumatic, normocephalic, normal inspection Eye exam: Present: normal appearance, PERRL, EOMI. Absent: scleral icterus, conjunctival injection, periorbital swelling ENT exam: Present: normal exam, mucous membranes moist Neck exam: Present: normal inspection. Absent: tenderness, meningismus, lymphadenopathy Respiratory exam: Present: normal lung sounds bilaterally. Absent: respiratory distress, wheezes, rales, rhonchi, stridor Cardiovascular Exam: Present: regular rate, normal rhythm, normal heart sounds. Absent: systolic murmur, diastolic murmur, rubs, gallop, clicks GI/Abdominal exam: Present: soft, normal bowel sounds, other (Left lower quadrant tenderness). Absent: distended, tenderness, guarding, rebound, rigid Extremities exam: Present: normal inspection, full ROM, normal capillary refill. Absent: tenderness, pedal edema, joint swelling, calf tenderness Back exam: Present: normal inspection Neurological exam: Present: alert, oriented X3, CN II-XII intact Psychiatric exam: Present: normal affect, normal mood Skin exam: Present: warm, dry, intact, normal color. Absent: rash Course Vital Signs 06/04/19 06/04/19 06/04/19 20:33 20:51 22:11 Temperature 98.7 F 98.6 F Pulse Rate 87 80 72 Respiratory 20 18 18 Rate Blood Pressure 120/71 123/80 118/72 O2 Sat by Pulse 96 96 97 Oximetry 06/04/19 22:58 Temperature 98.4 F Pulse Rate 76 Respiratory 18 Rate Blood Pressure 121/72 O2 Sat by Pulse 100 Oximetry - Reevaluation(s) Reevaluation #1: 06/04/19 22:42 Medical records reviewed Reevaluation #2: 06/04/19 22:42 Patient with both chest pain and current abdominal pain [facility] 63 [facility] seen for chest pain, history of heart disease, patient be admitted for chest pain observation treatment, chest x-ray is negative for acute disease Critical Care Time Critical Care Time: Yes Total Critical Care Time: 31 Disposition Clinical Impression: Chest pain, Atypical chest pain Disposition: ADMITTED IP TO THIS [facility] Condition: Stable Is patient prescribed a controlled substance at d/c from ED?: No
--- NOTE | 2019-06-04 21:26 | XR ---
EXAMINATION TYPE: XR chest 2V DATE OF EXAM: 06/04/2019 COMPARISON: 01/13/2019 HISTORY: Chest pain TECHNIQUE: Frontal and lateral views of the chest are obtained. FINDINGS: Heart and mediastinum are normal. Lungs are clear. Diaphragm is normal. Bony thorax appear s normal. IMPRESSION: Normal chest. No change.
[2019-06-04 21:51] LABS: Basophils % (A) 1 %; Eosinophils # (A) 0.4 k/uL (0-0.7); Eosinophils % (A) 5 %; HGB 13.1 gm/dL (13.0-17.5); Lymphocytes # (A) 2.6 k/uL (1.0-4.8); Lymphocytes % (A) 30 %; MCH 32.2 pg (25.0-35.0); MCHC 33.7 g/dL (31.0-37.0); MCV 95.5 fL (80.0-100.0); Mean Platelet Volume 6.5; Monocytes # (A) 0.4 k/uL (0-1.0); Monocytes % (A) 5 %; Neutrophils # (A) 4.9 k/uL (1.3-7.7); Neutrophils % (A) 58 %; Platelet Count 204 k/uL (150-450); RBC 4.08 m/uL (4.30-5.90); RDW 12.8 % (11.5-15.5); WBC 8.5 k/uL (3.8-10.6)
[2019-06-04 21:55] LABS: ALT 31 U/L (21-72); AST 29 U/L (17-59); African American GFR (CKD) >90 (>60 ml/min/1.73 sqM); Albumin 4.4 g/dL (3.5-5.0); Alkaline Phosphatase 61 U/L (38-126); Anion Gap 11 mmol/L; Blood Urea Nitrogen 28 mg/dL (9-20); Calcium 9.5 mg/dL (8.4-10.2); Carbon Dioxide 24 mmol/L (22-30); Chloride 103 mmol/L (98-107); Creatine Kinase 204 U/L (55-170); Glucose 132 mg/dL (74-99); Magnesium 1.7 mg/dL (1.6-2.3); Non-African American GFR(CKD) 90 (>60 ml/min/1.73 sqM); Potassium 3.9 mmol/L (3.5-5.1); Sodium 138 mmol/L (137-145); Total Bilirubin 0.3 mg/dL (0.2-1.3)
[2019-06-04 22:00] LABS: INR 0.9 (<1.2); Partial Thromboplastin Time 24.1 sec (22.0-30.0); Prothrombin Time 9.5 sec (9.0-12.0)
[2019-06-04] MEDS ORDERED: ASPIRIN 81 MG PO STA (22:41)
[2019-06-04] MEDS ORDERED: NITROGLYCERIN SL TABS 0.4 MG TAB SUBLINGUAL PRN (22:41)
--- NOTE | 2019-06-05 05:10 | CT ---
EXAM: CT Angiography Chest With Intravenous Contrast CLINICAL HISTORY: pain TECHNIQUE: Axial computed tomographic angiography images of the chest with intravenous contrast. CTDI is 30.5 mGy and DLP is 3374.3 mGy-cm. This CT exam was performed using one or more of the following dose reduction techniques: automated exposure control, adjustment of the mA and/or kV according to patient size, and/or use of iterative reconstruction technique. MIP reconstructed images were created and reviewed. COMPARISON: 01/14/19 FINDINGS: Pulmonary arteries: No pulmonary embolism. Aorta: Aortic plaque. No dissection or other acute syndrome.. No thoracic aortic aneurysm. Lungs: Mild upper lobe-predominant emphysema. Mild bronchial wall thickening. Pleural space: Unremarkable. No significant effusion. No pneumothorax. Heart: Coronary atherosclerosis. Bones/joints: No acute fracture. No dislocation. Soft tissues: Unremarkable. Lymph nodes: Unremarkable. No enlarged lymph nodes. IMPRESSION: No PE or aortic dissection. Mild emphysema and bronchial wall thickening/bronchitis. CAD. EXAM: CT Abdomen and Pelvis With Intravenous Contrast CLINICAL HISTORY: pain TECHNIQUE: Axial computed tomography images of the abdomen and pelvis with intravenous contrast. CTDI is 30.5 mGy and DLP is 3374.3 mGy-cm. This CT exam was performed using one or more of the following dose reduction techniques: automated exposure control, adjustment of the mA and/or kV according to patient size, and/or use of iterative reconstruction technique. COMPARISON: 01/14/19 FINDINGS: Lung bases: Unremarkable. No mass. No consolidation. ABDOMEN: There are bilateral renal cysts. Largest to the left kidney measures 8.3 cm and to the right kidney measures 5.8 cm. There are also bilateral hypodensities that are too small to characterize. Mild left hydronephrosis is a stable finding. Operative changes near the left ureteropelvic junction. Ureter beyond this point is normal caliber. 5 mm lower pole left renal calculus. The liver, biliary tree, pancreas, and spleen are unremarkable. 1.3 cm left adrenal nodule is again noted. Density on prior noncontrast study was consistent with lipid rich adenoma. There is no bowel obstruction or perforation. The appendix is not clearly visualized. No inflammation about the cecal tip. Aortoiliac atherosclerosis. Infrarenal abdominal aortic ectasia, 2.9 cm in maximal diameter, stable. Bilateral common iliac ectasia, unchanged as well. Lumbar levocurvature, apex at L3 with advanced multilevel spondylosis. Bilateral hip prostheses. No acute fracture. IMPRESSION: Mild left hydronephrosis is a stable finding. Redemonstrated operative changes near the UPJ. Lower pole left intrarenal stone. Bilateral renal cysts, some fairly large. Other hypodensities that are too small to characterize. Aortoiliac atherosclerosis with ectasia. Incidental findings as detailed above.
[2019-06-05 05:36] LABS: Cholesterol 110 mg/dL (<200); HDL Cholesterol 39 mg/dL (40-60); LDL Cholesterol,Calculated 55 mg/dL (0-99); Triglycerides 78 mg/dL (<150)
[2019-06-05] MEDS ORDERED: ACETAMINOPHEN TAB 325 MG TAB PO PRN (06:06)
[2019-06-05] MEDS ORDERED: SPIRONOLACTONE 25 MG TAB PO SCH (09:00)
[2019-06-05] MEDS ORDERED: PANTOPRAZOLE 40 MG/10 ML VIAL IVP SCH (09:00)
[2019-06-05] MEDS ORDERED: METOPROLOL SUCCINATE (ER) 50 MG TAB.ER.24H PO SCH (09:00)
[2019-06-05] MEDS ORDERED: ATORVASTATIN 20 MG TAB PO SCH (09:00)
[2019-06-05] MEDS ORDERED: ASPIRIN 325 MG TAB PO SCH (09:00)
[2019-06-05] MEDS ORDERED: LISINOPRIL 10 MG TAB PO SCH (09:00)
[2019-06-05] MEDS ORDERED: ASPIRIN 81 MG PO SCH (09:00)
[2019-06-05] MEDS ORDERED: DOBUTamine DRIP for NUC MED 500 MG in DEXTROSE/WATER 1 250ML.BAG IV ONE (09:46)
[2019-06-05] MEDS ORDERED: IPRATROPIUM BROMIDE 0.06% NASAL SPRAY (15 ML) EA NOSTRIL PRN (10:24)
[2019-06-05] MEDS ORDERED: MELOXICAM 7.5 MG TAB PO PRN (10:24)
--- NOTE | 2019-06-05 10:56 | P.HPIM ---
History of Present Illness H&P Date: 06/05/19 Chief Complaint: Epigastric pain This is 63-year-old male patient of Dr. Perez. Patient presented with complaints of epigastric chest pain. Patient reports that the pain started in the middle of the night and described as a tight aching intermittent pain. Patient states that he does believe this could be related to has known hiatal hernia in which she has an appointment with GI services on 06/14/2019. Patient reports that he has been recently treated for upper respiratory infection by his PCP currently on Augmentin. Additional medical history includes coronary artery disease, high disorder, GERD, hyperlipidemia, hypertension, osteoporosis, sleep apnea, glaucoma, previous heart cath with stents in 2011 and ex-smoker. Chest x-ray completed showing normal chest. No change. EKG showing normal sinus rhythm minimal voltage criteria for LVH may be normal variant. Abdominal pelvis CT completed showing no PE or aortic dissection. Mild left hydronephrosis is a stable finding. Redemonstrated operative changes near the UPJ. . Lower pole left intrarenal stone. Bilateral renal cysts him fairly large other hypodensities are too small to characterize. Aortic iliac atherosclerosis with ectasia. Troponins negative 2. Reality services have been consulted. At this time patient denies chest pain or shortness breath. Patient denies nausea vomiting or diarrhea. Patient denies any urinary burning or frequency. Review of Systems Please refer to HPI otherwise unremarkable Past Medical History Past Medical History: Coronary Artery Disease (CAD), Eye Disorder, GERD/Reflux, Hyperlipidemia, Hypertension, Osteoarthritis (OA), Skin Disorder, Sleep Apnea/CPAP/BIPAP Additional Past Medical History / Comment(s): slight glaucoma janet eyes, HX kidney stones, R great toe bunion, psoriasis, cervical disc ruptured, pt also needs a total L knee. left elbow sx History of Any Multi-Drug Resistant Organisms: None Reported Past Surgical History: Appendectomy, Back Surgery, Heart Catheterization With Stent, Orthopedic Surgery Additional Past Surgical History / Comment(s): PTCA with one stent in 2011, EGD and colonoscopy, L knee arthroscopy, lithrotripsy, SX TO REMOVE KIDNEY STONE, laminectomy low back 1984, has had laser sx to janet eyes Past Anesthesia/Blood Transfusion Reactions: No Reported Reaction Additional Past Anesthesia/Blood Transfusion Reaction / Comment(s): Pt has not recieved any blood transfusion. Date of Last Stent Placement:: 2011 Past Psychological History: No Psychological Hx Reported Smoking Status: Former smoker Past Alcohol Use History: None Reported Past Drug Use History: Marijuana - Past Family History Father Family Medical History: COPD, Coronary Artery Disease (CAD), Myocardial Infarction ([place]) Mother Family Medical History: Coronary Artery Disease (CAD) Medications and Allergies Home Medications Medication Instructions Recorded Confirmed Type Spironolactone [Aldactone] 37.5 mg PO DAILY 09/26/14 06/05/19 History Aspirin [Adult Low Dose Aspirin EC] 81 mg PO DAILY 09/19/15 06/05/19 History Celecoxib [CeleBREX] 200 mg PO DAILY PRN 03/10/17 06/05/19 History [place]-3 Fatty Acids [[place]-3] 1,000 mg PO DAILY 03/10/17 06/05/19 History Atorvastatin [Lipitor] 20 mg PO HS 05/31/18 06/05/19 History Lisinopril [Zestril] 10 mg PO HS 05/31/18 06/05/19 History Multivitamins, Thera [Multivitamin 1 tab PO DAILY 05/31/18 06/05/19 History (formulary)] Loratadine 10 mg PO DAILY 10/19/18 06/05/19 History Metoprolol Succinate (ER) [Toprol 50 mg PO BID 10/19/18 06/05/19 History XL] Vitamin D3(Unknown Dose) 1 tab PO DAILY 01/13/19 06/05/19 History Amoxic-Pot Clav 875-125Mg 1 tab PO Q12HR 06/05/19 06/05/19 History [Augmentin 875-125] Calcium Carbonate [Calcium] 600 mg PO DAILY 06/05/19 06/05/19 History Fluticasone Nasal [place] [Flonase 2 spr EA NOSTRIL DAILY 06/05/19 06/05/19 History Nasal [place]] Ipratropium [place] 0.06%Nasal 1 - 2 sprays EA NOSTRIL TID PRN 06/05/19 06/05/19 History [Atrovent Nasal 0.06%] Vitamin Mk7 1 tab PO DAILY 06/05/19 06/05/19 History Allergies Allergy/AdvReac Type Severity Reaction Status Date / Time adhesive Allergy Rash/Hives Verified 06/04/19 20:36 Physical Exam Vitals: Vital Signs Temp Pulse Pulse Resp BP BP Pulse Ox 06/05/19 08:00 80 17 06/05/19 07:21 98.2 F 80 17 92/60 97 06/05/19 04:30 18 06/05/19 04:00 98 F 67 18 128/79 96 06/04/19 22:58 98.4 F 76 18 121/72 100 06/04/19 22:11 98.6 F 72 18 118/72 97 06/04/19 20:51 80 18 123/80 96 06/04/19 20:33 98.7 F 87 20 120/71 96 Intake and Output 06/04/19 06/05/19 06/05/19 22:59 06:59 14:59 Other: Voiding Method Toilet Weight 122.47 kg Head normocephalic Neck supple Lungs clear to auscultation bilaterally no wheezing or crackles Heart regular rate and rhythm S1-S2, no rub or gallop Abdomen is soft nontender nondistended positive bowel sounds no hepatosplenomegaly Extremities no edema Neuro alert and orientated to 3 Results CBC & Chem 7: 06/04/19 21:09 06/04/19 21:09 Labs: Abnormal Lab Results - Last 24 Hours (Table) 06/04/19 06/04/19 06/05/19 Range/Units 21:09 21:09 04:00 RBC 4.08 L (4.30-5.90) m/uL BUN 28 H (9-20) mg/dL Glucose 132 H (74-99) mg/dL Creatine Kinase 204 H (55-170) U/L HDL Cholesterol 39 L (40-60) mg/dL Assessment and Plan Assessment: 1. Epigastric chest pain. Troponins negative. Chest x-ray completed showing normal chest no change. CT of chest and abdomen and pelvis completed showing mild left hydronephrosis is a stable finding redemonstrated operative changes near the UPJ. Lower pole left intrarenal stone. Bilateral renal cysts in fairly large. Other hypodensities that are too small to characterize. Aortic iliac atherosclerosis with ectasia. No PE or aortic dissection. Cardiology services have been consulted. Planning stress test and 2-D echo ordered 2. History of hital hernia. Patient reports he has a follow-up appointment with GI services on 06/14/2019 3. Recent upper respiratory infection currently on Augmentin per PCP 4. Circumflex coronary artery disease with previous stent placement to the LAD in 2012 5. History of GERD 6. History of essential hypertension 7. History of hyperlipidemia. I performed an examination of the patient and discussed their management with the Nurse Practitioner. I have reviewed the Nurse Practitioner's notes and agree with the documented findings and plan of care 8. History of sleep apnea maintained on CPAP machine DVT prophylaxis Lovenox. GI prophylaxis Protonix Time with Patient: Greater than 30 (Greater than 60% of the total time spent in counseling and coordination of care. I performed an examination of the patient and discussed their management with the Nurse Practitioner. I have reviewed the Nurse Practitioner's notes and agree with the documented findings and plan of care)
[2019-06-05 11:03] LABS: Basophils % (A) 1 %; Eosinophils # (A) 0.3 k/uL (0-0.7); Eosinophils % (A) 5 %; HGB 14.5 gm/dL (13.0-17.5); Lymphocytes # (A) 1.8 k/uL (1.0-4.8); Lymphocytes % (A) 31 %; MCH 31.6 pg (25.0-35.0); MCHC 33.1 g/dL (31.0-37.0); MCV 95.4 fL (80.0-100.0); Mean Platelet Volume 6.9; Monocytes # (A) 0.4 k/uL (0-1.0); Monocytes % (A) 7 %; Neutrophils % (A) 54 %; Platelet Count 209 k/uL (150-450); RBC 4.61 m/uL (4.30-5.90); RDW 12.9 % (11.5-15.5); WBC 5.7 k/uL (3.8-10.6)
--- NOTE | 2019-06-05 11:16 | ECHOF ---
Referral Reason:cp MEASUREMENTS -------- HEIGHT: 182.9 cm WEIGHT: 122.5 kg BP: RVIDd: 3.8 cm (< 3.3) IVSd: 1.4 cm (0.6 - 1.1) LVIDd: 3.4 cm (3.9 - 5.3) LVPWd: 1.5 cm (0.6 - 1.1) IVSs: 1.8 cm LVIDs: 2.7 cm LVPWs: 1.3 cm LA Diam: 3.7 cm (2.7 - 3.8) Ao Diam: 3.8 cm (2.0 - 3.7) AV Cusp: 2.1 cm (1.5 - 2.6) LA Diam: 3.9 cm (2.7 - 3.8) MV EXCURSION: 12.104 mm (> 18.000) MV EF SLOPE: 58 mm/s (70 - 150) EPSS: 1.2 cm MV E Jese: 0.40 m/s MV DecT: 191 ms MV A Jese: 0.69 m/s MV E/A Ratio: 0.58 RAP: 5.00 mmHg RVSP: 13.83 mmHg FINDINGS -------- Sinus rhythm. This was a technically adequate study. The left ventricular size is normal. There is mild concentric left ventricular hypertrophy. Overa ll left ventricular systolic function is normal with, an EF between 55 - 60 %. The diastolic fillin g pattern is normal for the age of the patient 6.55. The right ventricle is normal in size. The left atrial size is normal. The right atrial size is normal. There is mild aortic valve sclerosis. There is no evidence of aortic regurgitation. Mild mitral annular calcification present. Mild mitral regurgitation is present. Mild tricuspid regurgitation present. Right ventricular systolic pressure is normal at < 35 mmHg. There is no evidence of pulmonary hypertension. The pulmonic valve was not well visualized. The aortic root size is normal. There is no pericardial effusion. CONCLUSIONS -------- 1. Sinus rhythm. 2. This was a technically adequate study. 3. The left ventricular size is normal. 4. There is mild concentric left ventricular hypertrophy. 5. Overall left ventricular systolic function is normal with, an EF between 55 - 60 %. 6. The diastolic filling pattern is normal for the age of the patient 6.55 7. The right ventricle is normal in size. 8. The left atrial size is normal. 9. The right atrial size is normal. 10. There is mild aortic valve sclerosis. 11. Mild mitral annular calcification present. 12. Mild mitral regurgitation is present. 13. Mild tricuspid regurgitation present. 14. Right ventricular systolic pressure is normal at < 35 mmHg. 15. There is no evidence of pulmonary hypertension. 16. The pulmonic valve was not well visualized. 17. The aortic root size is normal. 18. There is no pericardial effusion. MASTER CARPENTER: Lashon Monge RDCS
[2019-06-05 11:24] LABS: ALT 36 U/L (21-72); AST 27 U/L (17-59); African American GFR (CKD) >90 (>60 ml/min/1.73 sqM); Albumin 4.3 g/dL (3.5-5.0); Alkaline Phosphatase 60 U/L (38-126); Anion Gap 8 mmol/L; Blood Urea Nitrogen 19 mg/dL (9-20); Calcium 9.3 mg/dL (8.4-10.2); Carbon Dioxide 25 mmol/L (22-30); Chloride 106 mmol/L (98-107); Glucose 89 mg/dL (74-99); Non-African American GFR(CKD) >90 (>60 ml/min/1.73 sqM); Potassium 4.4 mmol/L (3.5-5.1); Sodium 139 mmol/L (137-145); Total Bilirubin 0.8 mg/dL (0.2-1.3)
[2019-06-05 11:47] VITALS: BP 122/79; PULSE 64; RESP 18; TEMP 98
--- NOTE | 2019-06-05 12:13 | P.CRDCN ---
History of Present Illness History of present illness: HISTORY OF PRESENTING ILLNESS This is a pleasant 63-year-old male past medical history significant for artery disease status post PCI of the LAD, dyslipidemia, hypertension, obstructive sleep apnea, former nicotine dependence gastroesophageal reflux disease. He presented with chest pain. He follows in the office with Dr. Olivera. We have been asked to see him in consultation for chest pain. He states for the previous one week he has been having intermittent sharp pains in her chest midsternal region sometimes in the right anterior chest wall. There is some ideation at times to the left arm. He denies shortness of breath, dizziness or palpitations. His symptoms are not associated with activity or exertion. Not associated with oral intake. Telemetry tracings have been unremarkable. DIAGNOSTICS EKG reveals sinus mechanism with no acute ST or T wave abnormalities noted. Chest xray negative for an acute cardiopulmonary process. Laboratory reviewed, CBC unremarkable, sodium 139, potassium 4.4, creatinine 0.71, cardiac enzymes negative 2, LDL 55, TSH 1.1. Current cardiac medications include aspirin 81 mg daily, atorvastatin 20 mg daily, lisinopril 10 mg daily, Toprol 50 mg twice a day, Aldactone 37.5 mg daily. Most recent cardiac catheterization performed May 2018 revealed LM - normal; LAD - patent proximal stent, 20-30% mid plague; cx - 10-20% mild intimal ds; RI - normal; RCA - 20-30% mild intimal ds; normal LV. REVIEW OF SYSTEMS At the time of my exam: CONSTITUTIONAL: Denies fever or chills. CARDIOVASCULAR: Denies chest pain, shortness of breath, orthopnea, PND or palpitations. RESPIRATORY: Denies cough. GASTROINTESTINAL: Denies abdominal pain, diarrhea, constipation, nausea or vomiting. MUSCULOSKELETAL: Denies myalgias. NEUROLOGIC: Denies numbness, tingling or weakness. ENDOCRINE: Denies fatigue, weight change, polydipsia or polyurina. GENITOURINARY: Denies burning, hematuria or urgency with micturation. HEMATOLOGIC: Denies history of anemia or bleeding. PHYSICAL EXAMINATION Blood pressure 122/79 heart rate 64 afebrile and maintaining oxygen saturaiton on room air. CONSTITUTIONAL: No apparent distress. HEENT: Head is normocephalic. Pupils are equal, round. Sclerae anicteric. Mucous membranes of the mouth are moist. No JVD. No carotid bruit. CHEST EXAMINATION: Lungs are clear to auscultation. No chest wall tenderness is noted on palpation or with deep breathing. HEART EXAMINATION: Regular rate and rhythm. S1, S2 heard. No murmurs, gallops or rub. ABDOMEN: Soft, nontender. Positive bowel sounds. EXTREMITIES: 2+ peripheral pulses, no lower extremity edema and no calf tenderness. NEUROLOGIC EXAMINATION: Patient is awake, alert and oriented x3. ASSESSMENT Chest pain, atypical for angina. An acute coronary event has been ruled out. Hypertension Dyslipidemia History of coronary artery disease status post PCI Former nicotine dependence Gastroesophageal reflux disease Obstructive sleep apnea Obesity, BMI 35 PLAN An acute coronary event has been ruled out. Obtain 2-D echocardiogram and Doppler study to assess cardiac structure and function. Perform dobutamine stress echocardiogram to assess for stress-induced ischemic changes. If stress test is normal he is stable from a cardiac perspective. Symptoms are atypical to be related to angina, may be related to underlying hiatal hernia. Thank you kindly for this consultation. Nurse Practitioner note has been reviewed, I agree with a documented findings and plan of care. Patient was seen and examined. Past Medical History Past Medical History: Coronary Artery Disease (CAD), Eye Disorder, GERD/Reflux, Hyperlipidemia, Hypertension, Osteoarthritis (OA), Skin Disorder, Sleep Apnea/CPAP/BIPAP Additional Past Medical History / Comment(s): slight glaucoma janet eyes, HX kidney stones, R great toe bunion, psoriasis, cervical disc ruptured, pt also needs a total L knee. left elbow sx History of Any Multi-Drug Resistant Organisms: None Reported Past Surgical History: Appendectomy, Back Surgery, Heart Catheterization With Stent, Orthopedic Surgery Additional Past Surgical History / Comment(s): PTCA with one stent in 2011, EGD and colonoscopy, L knee arthroscopy, lithrotripsy, SX TO REMOVE KIDNEY STONE, laminectomy low back 1984, has had laser sx to janet eyes Past Anesthesia/Blood Transfusion Reactions: No Reported Reaction Additional Past Anesthesia/Blood Transfusion Reaction / Comment(s): Pt has not recieved any blood transfusion. Date of Last Stent Placement:: 2011 Past Psychological History: No Psychological Hx Reported Smoking Status: Former smoker Past Alcohol Use History: None Reported Past Drug Use History: Marijuana - Past Family History Father Family Medical History: COPD, Coronary Artery Disease (CAD), Myocardial Infarction ([place]) Mother Family Medical History: Coronary Artery Disease (CAD) Medications and Allergies Home Medications Medication Instructions Recorded Confirmed Type Spironolactone [Aldactone] 37.5 mg PO DAILY 09/26/14 06/05/19 History Aspirin [Adult Low Dose Aspirin EC] 81 mg PO DAILY 09/19/15 06/05/19 History Celecoxib [CeleBREX] 200 mg PO DAILY PRN 03/10/17 06/05/19 History [place]-3 Fatty Acids [[place]-3] 1,000 mg PO DAILY 03/10/17 06/05/19 History Atorvastatin [Lipitor] 20 mg PO HS 05/31/18 06/05/19 History Lisinopril [Zestril] 10 mg PO HS 05/31/18 06/05/19 History Multivitamins, Thera [Multivitamin 1 tab PO DAILY 05/31/18 06/05/19 History (formulary)] Loratadine 10 mg PO DAILY 10/19/18 06/05/19 History Metoprolol Succinate (ER) [Toprol 50 mg PO BID 10/19/18 06/05/19 History XL] Vitamin D3(Unknown Dose) 1 tab PO DAILY 01/13/19 06/05/19 History Amoxic-Pot Clav 875-125Mg 1 tab PO Q12HR 06/05/19 06/05/19 History [Augmentin 875-125] Calcium Carbonate [Calcium] 600 mg PO DAILY 06/05/19 06/05/19 History Fluticasone Nasal [place] [Flonase 2 spr EA NOSTRIL DAILY 06/05/19 06/05/19 History Nasal [place]] Ipratropium [place] 0.06%Nasal 1 - 2 sprays EA NOSTRIL TID PRN 06/05/19 06/05/19 History [Atrovent Nasal 0.06%] Vitamin Mk7 1 tab PO DAILY 06/05/19 06/05/19 History Allergies Allergy/AdvReac Type Severity Reaction Status Date / Time adhesive Allergy Rash/Hives Verified 06/04/19 20:36 Physical Exam Vitals: Vital Signs Temp Pulse Pulse Resp BP BP Pulse Ox 06/05/19 07:21 98.2 F 80 17 92/60 97 06/05/19 04:30 18 06/05/19 04:00 98 F 67 18 128/79 96 06/04/19 22:58 98.4 F 76 18 121/72 100 06/04/19 22:11 98.6 F 72 18 118/72 97 06/04/19 20:51 80 18 123/80 96 06/04/19 20:33 98.7 F 87 20 120/71 96 Intake and Output 06/04/19 06/05/19 06/05/19 22:59 06:59 14:59 Other: Weight 122.47 kg Results 06/05/19 10:12 06/05/19 10:12 Cardiac Enzymes 06/04/19 06/04/19 06/05/19 Range/Units 21:09 21:09 04:00 AST 29 (17-59) U/L Troponin I <0.012 <0.012 (0.000-0.034) ng/mL Coagulation 06/04/19 Range/Units 21:09 PT 9.5 (9.0-12.0) sec APTT 24.1 (22.0-30.0) sec Lipids 06/05/19 Range/Units 04:00 Triglycerides 78 (<150) mg/dL Cholesterol 110 (<200) mg/dL HDL Cholesterol 39 L (40-60) mg/dL CBC 06/04/19 Range/Units 21:09 WBC 8.5 (3.8-10.6) k/uL RBC 4.08 L (4.30-5.90) m/uL Hgb 13.1 (13.0-17.5) gm/dL Hct 39.0 (39.0-53.0) % Plt Count 204 (150-450) k/uL Comprehensive Metabolic Panel 06/04/19 Range/Units 21:09 Sodium 138 (137-145) mmol/L Potassium 3.9 (3.5-5.1) mmol/L Chloride 103 (98-107) mmol/L Carbon Dioxide 24 (22-30) mmol/L BUN 28 H (9-20) mg/dL Creatinine 0.92 (0.66-1.25) mg/dL Glucose 132 H (74-99) mg/dL Calcium 9.5 (8.4-10.2) mg/dL AST 29 (17-59) U/L ALT 31 (21-72) U/L Alkaline Phosphatase 61 (38-126) U/L Total Protein 7.0 (6.3-8.2) g/dL Albumin 4.4 (3.5-5.0) g/dL Current Medications Generic Name Dose Route Start Last Admin Trade Name Freq PRN Reason Stop Dose Admin Acetaminophen 650 mg 06/05/19 06:06 Tylenol Tab PO Q6HR PRN Fever and/ or Pain Aspirin 325 mg 06/05/19 09:00 Aspirin PO DAILY GENA Nitroglycerin 0.4 mg 06/04/19 22:41 Nitrostat SUBLINGUAL Q5M PRN Chest Pain Pantoprazole Sodium 40 mg 06/05/19 09:00 06/05/19 06:26 Protonix IVP 40 mg DAILY [facility] Administration Intake and Output 06/04/19 06/05/19 06/05/19 22:59 06:59 14:59 Other: Weight 122.47 kg 06/04/19 21:09 06/04/19 21:09
--- NOTE | 2019-06-05 13:19 | P.DS ---
Providers Date of admission: 06/04/19 22:41 Expected date of discharge: 06/05/19 Attending physician: Aleisha Francois Consults: 06/04/19 22:41 Consult Physician Urgent Consulting Provider: Abby Olivera Consult Reason/Comments: cp Do you want consulting provider notified?: Yes Primary care physician: Jenny Perez Hospital Course: Discharge diagnosis 1. Epigastric chest pain. Troponins negative. Chest x-ray completed showing normal chest no change. CT of chest and abdomen and pelvis completed showing mild left hydronephrosis is a stable finding redemonstrated operative changes near the UPJ. Lower pole left intrarenal stone. Bilateral renal cysts in fairly large. Other hypodensities that are too small to characterize. Aortic iliac atherosclerosis with ectasia. No PE or aortic dissection. 2-D echo completed showing an EF of 55-60%. Per cardiology stress test completed which showed normal with no evidence of stress-induced ischemia. Patient has been cleared for discharge from cardiology standpoint 2. History of hital hernia. Patient reports he has a follow-up appointment with GI services on 06/14/2019. Patient to follow-up with planned outpatient appointment with GI services 3. Recent upper respiratory infection currently on Augmentin per PCP 4. Circumflex coronary artery disease with previous stent placement to the LAD in 2011 5. History of GERD 6. History of essential hypertension 7. History of hyperlipidemia. I performed an examination of the patient and discussed their management with the Nurse Practitioner. I have reviewed the Nurse Practitioner's notes and agree with the documented findings and plan of care 8. History of sleep apnea maintained on CPAP machine Hospital course This is 63-year-old male patient of Dr. Perez. Patient presented with complaints of epigastric chest pain. Patient reports that the pain started in the middle of the night and described as a tight aching intermittent pain. Patient states that he does believe this could be related to has known hiatal hernia in which she has an appointment with GI services on 06/14/2019. Patient reports that he has been recently treated for upper respiratory infection by his PCP currently on Augmentin. Additional medical history includes coronary artery disease, high disorder, GERD, hyperlipidemia, hypertension, osteoporosis, sleep apnea, glaucoma, previous heart cath with stents in 2011 and ex-smoker. Chest x-ray completed showing normal chest. No change. EKG showing normal sinus rhythm minimal voltage criteria for LVH may be normal variant. Abdominal pelvis CT completed showing no PE or aortic dissection. Mild left hydronephrosis is a stable finding. Redemonstrated operative changes near the UPJ. . Lower pole left intrarenal stone. Bilateral renal cysts him fairly large other hypodensities are too small to characterize. Aortic iliac atherosclerosis with ectasia. Troponins negative 2. [facility] services have been consulted. At this time patient denies chest pain or shortness breath. Patient denies nausea vomiting or diarrhea. Patient denies any urinary burning or frequency. On 06/05/2019 patient's alert and oriented 3. Patient underwent stress test and 2-D echo. Stress test completed showing no evidence of the induced ischemia. Patient has been cleared for discharge from cardiology standpoint. Patient to follow-up with GI services for planned follow-up appointment for hiatal hernia. At this time patient denies chest pain or shortness breath. Denies nausea vomiting or diarrhea. Neck denies any urinary burning or frequency. Patient follow-up with PCP for further management. We'll discharge patient on Protonix I performed an examination of the patient and discussed their management with the Nurse Practitioner. I have reviewed the Nurse Practitioner's notes and agree with the documented findings and plan of care Patient Condition at Discharge: Stable Plan - Discharge Summary New Discharge Prescriptions: New Pantoprazole Sodium [Protonix] 40 mg PO DAILY 30 Days #30 tablet. Continue Spironolactone [Aldactone] 37.5 mg PO DAILY Aspirin [Adult Low Dose Aspirin EC] 81 mg PO DAILY Celecoxib [CeleBREX] 200 mg PO DAILY PRN PRN Reason: Pain [place]-3 Fatty Acids [[place]-3] 1,000 mg PO DAILY Multivitamins, Thera [Multivitamin (formulary)] 1 tab PO DAILY Lisinopril [Zestril] 10 mg PO HS Atorvastatin [Lipitor] 20 mg PO HS Metoprolol Succinate (ER) [Toprol XL] 50 mg PO BID Loratadine 10 mg PO DAILY Vitamin D3(Unknown Dose) 1 tab PO DAILY Calcium Carbonate [Calcium] 600 mg PO DAILY Amoxic-Pot Clav 875-125Mg [Augmentin 875-125] 1 tab PO Q12HR Vitamin Mk7 1 tab PO DAILY Fluticasone Nasal [place] [Flonase Nasal [place]] 2 spr EA NOSTRIL DAILY Ipratropium [place] 0.06%Nasal [Atrovent Nasal 0.06%] 1 - 2 sprays EA NOSTRIL TID PRN PRN Reason: Allergy Symptoms Discharge Medication List Spironolactone [Aldactone] 37.5 mg PO DAILY 09/26/14 [History] Aspirin [Adult Low Dose Aspirin EC] 81 mg PO DAILY 09/19/15 [History] Celecoxib [CeleBREX] 200 mg PO DAILY PRN 03/10/17 [History] [place]-3 Fatty Acids [[place]-3] 1,000 mg PO DAILY 03/10/17 [History] Atorvastatin [Lipitor] 20 mg PO HS 05/31/18 [History] Lisinopril [Zestril] 10 mg PO HS 05/31/18 [History] Multivitamins, Thera [Multivitamin (formulary)] 1 tab PO DAILY 05/31/18 [History] Loratadine 10 mg PO DAILY 10/19/18 [History] Metoprolol Succinate (ER) [Toprol XL] 50 mg PO BID 10/19/18 [History] Vitamin D3(Unknown Dose) 1 tab PO DAILY 01/13/19 [History] Amoxic-Pot Clav 875-125Mg [Augmentin 875-125] 1 tab PO Q12HR 06/05/19 [History] Calcium Carbonate [Calcium] 600 mg PO DAILY 06/05/19 [History] Fluticasone Nasal [place] [Flonase Nasal [place]] 2 spr EA NOSTRIL DAILY 06/05/19 [History] Ipratropium [place] 0.06%Nasal [Atrovent Nasal 0.06%] 1 - 2 sprays EA NOSTRIL TID PRN 06/05/19 [History] Pantoprazole Sodium [Protonix] 40 mg PO DAILY 30 Days #30 tablet. 06/05/19 [Rx] Vitamin Mk7 1 tab PO DAILY 06/05/19 [History] Follow up Appointment(s)/Referral(s): Jenny Perez MD [Primary Care Provider] - 1-2 days Activity/Diet/Wound Care/Special Instructions: Activity as tolerated Diet heart healthy Discharge Disposition: HOME SELF-CARE
--- NOTE | 2019-06-05 18:30 | ECHOS ---
STRESS ECHOCARDIOGRAM INDICATIONS: Chest pain. MEDICATIONS: BASELINE HEART RATE: 66 BASELINE BLOOD PRESSURE: 95/51 MAXIMUM HEART RATE: 150 MAXIMUM BLOOD PRESSURE: 134/59 85% MPHR: 135 100% MPHR: 159 METS: MAXIMUM STAGE REACHED: TOTAL EXERCISE TIME: CLINICAL INFORMATION: Baseline EKG shows sinus rhythm, normal axis, normal intervals. Patient was given intravenous dobutamine for 9 minutes as per protocol, did not have chest pain or diagnostic ST-segment depression. Frequent PVCs were noted throughout the study. Baseline echo shows normal left ventricular size, wall motion, systolic function. Post dobutamine infusion, there is normal hyperdynamic response of all segments of myocardium noted. The patient had poor echo windows and endocardial visualization was enhanced by contrast. CONCLUSIONS: 1. Negative stress test by EKG criteria. 2. Negative dobutamine echo. MMODL / IJN: [id number] /
[2019-06-06] MEDS ORDERED: LORATADINE 10 MG TAB PO SCH (09:00)
[2019-06-06] MEDS ORDERED: ENOXAPARIN 40 MG/0.4 ML SYRINGE SQ SCH (09:00)
[2019-06-06] MEDS ORDERED: FLUTICASONE 50MCG/SPRAY NASAL 16GM EA NOSTRIL SCH (09:00)
== END 2019-06-05 14:16 | disposition home or self-care (01) ==
LOC: EC 20:32 → 1SOBS 22:41
PROVIDERS: ADMIT Internal Medicine; ATTEND Internal Medicine
DX: R07.89 Other chest pain (principal); R10.13 Epigastric pain; K44.9 Diaphragmatic hernia without obstruction or gangrene; J06.9 Acute upper respiratory infection, unspecified; I25.10 Atherosclerotic heart disease of native coronary artery without angina pectoris; K21.9 Gastro-esophageal reflux disease without esophagitis; I10 Essential (primary) hypertension; E78.5 Hyperlipidemia, unspecified; G47.33 Obstructive sleep apnea (adult) (pediatric); N13.2 Hydronephrosis with renal and ureteral calculous obstruction; N28.1 Cyst of kidney, acquired; I77.811 Abdominal aortic ectasia; I70.0 Atherosclerosis of aorta; I70.8 Atherosclerosis of other arteries; I77.89 Other specified disorders of arteries and arterioles; C95.90 Leukemia, unspecified not having achieved remission; K46.9 Unspecified abdominal hernia without obstruction or gangrene; R11.0 Nausea; H40.9 Unspecified glaucoma; M19.90 Unspecified osteoarthritis, unspecified site; L40.9 Psoriasis, unspecified; M81.0 Age-related osteoporosis without current pathological fracture; E66.9 Obesity, unspecified; Z68.35 Body mass index [BMI] 35.0-35.9, adult; Z79.899 Other long term (current) drug therapy; Z79.82 Long term (current) use of aspirin; Z91.09 Other allergy status, other than to drugs and biological substances; Z87.39 Personal history of other diseases of the musculoskeletal system and connective tissue; Z98.890 Other specified postprocedural states; Z90.49 Acquired absence of other specified parts of digestive tract; Z95.5 Presence of coronary angioplasty implant and graft; Z87.891 Personal history of nicotine dependence; Z82.5 Family history of asthma and other chronic lower respiratory diseases; Z99.89 Dependence on other enabling machines and devices; Z82.49 Family history of ischemic heart disease and other diseases of the circulatory system
CPT/HCPCS: 93005 ×2; 96374; 99291; 36415; 93306; 83880; 80061; 80053 ×2; 84443; 82550; 83690; 83735; 84484 ×2; 85025 ×2; 85610; 85730; 71046; 71275; 74177; G0378 ×2; C8930; J1250; C9113; Q9950; Q9967; 93351

== ENCOUNTER 2019-06-19 16:53 | Emergency (ER) | payer OTHER ==
[2019-06-19] MEDS ORDERED: HYDROcodone/APAP 5-325MG 1 EACH TAB PO STA (19:09)
--- NOTE | 2019-06-19 19:13 | ED ---
Extremity Problem HPI - General Chief complaint: Extremity Problem,Nontraumatic Stated complaint: Leg pain/swelling Time Seen by Provider: 06/19/19 18:49 Source: patient Mode of arrival: wheelchair Limitations: no limitations - History of Present Illness Initial comments: 63-year-old male patient presents to the emergency department today for evaluation of left leg pain and swelling. Patient states her last week he has been having discomfort to the left posterior thigh and to the posterior proximal calf. Patient states he's had generalized swelling to the leg. He states he has been doing physical therapy for strengthening prior to surgery. States that this pain in his leg is unusual for him. Patient states that occasionally the foot or become discolored, he describes it as a purple color. Pain worsens with walking. Denies numbness or tingling to the lower extremity. Denies any known injury. Denies history of DVT. Patient denies any recent rash, fever, chills, shortness breath, chest pain, abdominal pain, nausea, vomiting, diarrhea, constipation, back pain, dizziness, weakness, hematuria, dysuria, urinary urgency, urinary frequency, headache, visual changes, or any other complaints. - Related Data Home Medications Medication Instructions Recorded Confirmed Spironolactone [Aldactone] 37.5 mg PO DAILY 09/26/14 06/05/19 Aspirin [Adult Low Dose Aspirin EC] 81 mg PO DAILY 09/19/15 06/05/19 Celecoxib [CeleBREX] 200 mg PO DAILY PRN 03/10/17 06/05/19 [place]-3 Fatty Acids [[place]-3] 1,000 mg PO DAILY 03/10/17 06/05/19 Atorvastatin [Lipitor] 20 mg PO HS 05/31/18 06/05/19 Lisinopril [Zestril] 10 mg PO HS 05/31/18 06/05/19 Multivitamins, Thera [Multivitamin 1 tab PO DAILY 05/31/18 06/05/19 (formulary)] Loratadine 10 mg PO DAILY 10/19/18 06/05/19 Metoprolol Succinate (ER) [Toprol 50 mg PO BID 10/19/18 06/05/19 XL] Vitamin D3(Unknown Dose) 1 tab PO DAILY 01/13/19 06/05/19 Amoxic-Pot Clav 875-125Mg 1 tab PO Q12HR 06/05/19 06/05/19 [Augmentin 523-555] Calcium Carbonate [Calcium] 600 mg PO DAILY 06/05/19 06/05/19 Fluticasone Nasal [place] [Flonase 2 spr EA NOSTRIL DAILY 06/05/19 06/05/19 Nasal [place]] Ipratropium [place] 0.06%Nasal 1 - 2 sprays EA NOSTRIL TID PRN 06/05/19 06/05/19 [Atrovent Nasal 0.06%] Vitamin Mk7 1 tab PO DAILY 06/05/19 06/05/19 Previous Rx's Medication Instructions Recorded Pantoprazole Sodium [Protonix] 40 mg PO DAILY 30 Days #30 06/05/19 tablet. Hydrocodone/Acetaminophen [[place] 1 tab PO Q6HR PRN #12 tab 06/19/19 5-325] Hydrocortisone Cream 1 applic TOPICAL TID PRN #15 gm 06/19/19 [Hydrocortisone 1% Cream] Hydrocortisone Cream 1 applic TOPICAL TID PRN #15 gm 06/19/19 [Hydrocortisone 1% Cream] Allergies Allergy/AdvReac Type Severity Reaction Status Date / Time adhesive Allergy Rash/Hives Verified 06/19/19 17:24 Review of Systems ROS Statement: Those systems with pertinent positive or pertinent negative responses have been documented in the HPI. ROS Other: All systems not noted in ROS Statement are negative. Past Medical History Past Medical History: Coronary Artery Disease (CAD), Eye Disorder, GERD/Reflux, Hyperlipidemia, Hypertension, Osteoarthritis (OA), Skin Disorder, Sleep Apnea/CPAP/BIPAP Additional Past Medical History / Comment(s): slight glaucoma janet eyes, HX kidney stones, R great toe bunion, psoriasis, cervical disc ruptured, pt also needs a total L knee. left elbow sx History of Any Multi-Drug Resistant Organisms: None Reported Past Surgical History: Appendectomy, Back Surgery, Heart Catheterization With Stent, Orthopedic Surgery Additional Past Surgical History / Comment(s): PTCA with one stent in 2011, EGD and colonoscopy, L knee arthroscopy, lithrotripsy, SX TO REMOVE KIDNEY STONE, laminectomy low back 1984, has had laser sx to janet eyes Past Anesthesia/Blood Transfusion Reactions: No Reported Reaction Additional Past Anesthesia/Blood Transfusion Reaction / Comment(s): Pt has not recieved any blood transfusion. Date of Last Stent Placement:: 2012 Past Psychological History: Anxiety, Depression Smoking Status: Former smoker Past Alcohol Use History: None Reported Past Drug Use History: Marijuana - Past Family History Father Family Medical History: COPD, Coronary Artery Disease (CAD), Myocardial Infarction ([place]) Mother Family Medical History: Coronary Artery Disease (CAD) General Exam Limitations: no limitations General appearance: alert, in no apparent distress, other (This is a well- developed, well-nourished adult male patient in no acute distress. Vital signs upon presentation are temperature 98.3F, pulse 86, respirations 18, blood pressure 122/81, pulse ox 97% on room air.) Eye exam: Present: normal appearance, PERRL, EOMI. Absent: scleral icterus, conjunctival injection, periorbital swelling ENT exam: Present: normal exam, normal oropharynx, mucous membranes moist Respiratory exam: Present: normal lung sounds bilaterally. Absent: respiratory distress, wheezes, rales, rhonchi, stridor Cardiovascular Exam: Present: regular rate, normal rhythm, normal heart sounds. Absent: systolic murmur, diastolic murmur, rubs, gallop, clicks GI/Abdominal exam: Present: soft, normal bowel sounds. Absent: distended, tenderness, guarding, rebound, rigid Extremities exam: Present: full ROM, normal capillary refill, other (There is tenderness over the mid posterior thigh and over the posterior proximal calf on the left side. There is general swelling to the leg. Foot is warm and dry. 2+ posttibial pulse.). Absent: normal inspection, tenderness, pedal edema, joint swelling, calf tenderness Neurological exam: Present: alert, oriented X3, CN II-XII intact Psychiatric exam: Present: normal affect, normal mood Skin exam: Present: warm, dry, intact, normal color. Absent: rash Course Vital Signs 06/19/19 06/19/19 06/19/19 17:21 19:58 22:00 Temperature 98.3 F 97.8 F Pulse Rate 86 75 75 Respiratory 18 19 17 Rate Blood Pressure 122/81 116/70 115/67 O2 Sat by Pulse 97 96 97 Oximetry Medical Decision Making - Medical Decision Making 63-year-old male patient presents to the emergency department today for evaluation of left posterior thigh and left posterior knee pain. Physical exa mination did reveal tenderness over the left mid posterior thigh and the proximal posterior calf. There is some generalized swelling. Neurovascular status is intact. Ultrasound was obtained and showed evidence for possible ruptured popliteal cyst. No evidence for DVT. Did discuss findings and results with the patient. Be discharged to follow-up with the public health clinical nurse specialist for further evaluation as soon as possible. He is also instructed to follow-up with vascular surgery for intermittent pain and discoloration to the left foot and dermatology for a rash to the right mid calf. He was given hydrocortisone cream for the rash. He is instructed follow up with his primary care physician for recheck in 1-2 days. Return parameters were discussed in detail. He verbalizes understanding and agrees with this plan. - Radiology Data Radiology results: report reviewed, image reviewed Ultrasound venous Doppler duplex of the left lower extremity was obtained. Report was reviewed in its entirety. Impression by Dr. Alf Stapleton shows no evidence for DVT. There is large ill-defined Hypoechoic finding in the soft tissues of the popliteal fossa which can be further characterized using MRI. Disposition Clinical Impression: Ruptured cyst of left popliteal space Disposition: HOME SELF-CARE Condition: Good Instructions (If sedation given, give patient instructions): Bakers Cyst (ED) Additional Instructions: Use Sang wrap for comfort and support. Follow-up with public health clinical nurse specialist for further evaluation. Return to the emergency department immediately for any new, worsening, or concerning symptoms. Prescriptions: Hydrocortisone Cream [Hydrocortisone 1% Cream] 1 applic TOPICAL TID PRN #15 gm PRN Reason: Itching Hydrocortisone Cream [Hydrocortisone 1% Cream] 1 applic TOPICAL TID PRN #15 gm PRN Reason: Itching Hydrocodone/Acetaminophen [[place] 5-325] 1 tab PO Q6HR PRN #12 tab PRN Reason: Pain Is patient prescribed a controlled substance at d/c from ED?: No Referrals: Jenny Perez MD [Primary Care Provider] - 1-2 days Real Guillen DO [Doctor of Osteopathic Medicine] - 1-2 days Moriah Cronin MD [STAFF PHYSICIAN] - 1-2 days Kurt Myrick DO [Doctor of Osteopathic Medicine] - 1-2 days Time of Disposition: 21:28
[2019-06-19] MEDS ORDERED: MORPHINE SULFATE 4 MG/ML SYRINGE IM STA (19:37)
[2019-06-19 19:59] VITALS: PULSE 75
--- NOTE | 2019-06-19 20:42 | US ---
EXAMINATION TYPE: US venous doppler duplex LE LT DATE OF EXAM: 06/19/2019 8:31 PM COMPARISON: US 2019 CLINICAL HISTORY: Left leg pain/swelling. Left leg pain and swelling x 1 week. No hx of DVT. Patient takes baby aspirin. SIDE PERFORMED: Left TECHNIQUE: The lower extremity deep venous system is examined utilizing real time linear array sonog ke with graded compression, doppler sonography and color-flow sonography. VESSELS IMAGED: External Iliac Vein (EIV) Common Femoral Vein Deep Femoral Vein Greater Saphenous Vein * Femoral Vein Popliteal Vein Small Saphenous Vein * Proximal Calf Veins (* superficial vessels) FINDINGS: No evidence of DVT in veins imaged from prox calf veins to EIV. At patient's area of pain, left posterior knee, there appears to be a large complex area that cannot be accurately measured in one image, extending from the left medial posterior knee to lateral posteri or knee. This may represent atypical popliteal cyst with evidence of recent partial rupture, but susp icion can be proven with MRI. IMPRESSION: 1) Negative for DVT, left lower extremity. 2) Large ill-defined hypoechoic finding in the soft tissues of the popliteal fossa which can be furt her characterized using MRI.
[2019-06-19 22:01] VITALS: BP 115/67; RESP 17; TEMP 97.8
== END 2019-06-19 22:01 | disposition home or self-care (01) ==
LOC: EC 16:53
DX: M71.22 Synovial cyst of popliteal space [Baker], left knee (principal); I25.10 Atherosclerotic heart disease of native coronary artery without angina pectoris; I10 Essential (primary) hypertension; E78.5 Hyperlipidemia, unspecified; Z79.82 Long term (current) use of aspirin; Z79.899 Other long term (current) drug therapy; Z79.51 Long term (current) use of inhaled steroids; Z91.048 Other nonmedicinal substance allergy status; Z87.891 Personal history of nicotine dependence; Z95.5 Presence of coronary angioplasty implant and graft; Z99.89 Dependence on other enabling machines and devices
CPT/HCPCS: 93971; 99283; 96372; J2270

== ENCOUNTER 2020-03-06 13:14 | Emergency (ER) | payer OTHER ==
--- NOTE | 2020-03-06 13:38 | ED ---
General Adult HPI - General Chief complaint: Chest Pain Stated complaint: Chest Pains- Sent by PCP Time Seen by Provider: 03/06/20 13:23 Source: patient, RN notes reviewed, old records reviewed Mode of arrival: wheelchair Limitations: no limitations - History of Present Illness Initial comments: 64-year-old male presenting for evaluation of dyspnea, palpitations. Patient's symptoms have been ongoing for several weeks. He was sent by his primary care physician to the emergency department for evaluation today. He has known history of CAD with previous stenting. He is currently on aspirin, no other antiplatelet or anticoagulants. He denies substernal radiating chest pain but does report some chest discomfort, left upper chest which is been ongoing for the past week or so. Denies lower extremity swelling. Denies cough or fever. Denies orthopnea. - Related Data Home Medications Medication Instructions Recorded Confirmed Spironolactone [Aldactone] 37.5 mg PO DAILY 09/26/14 06/05/19 Aspirin [Adult Low Dose Aspirin EC] 81 mg PO DAILY 09/19/15 06/05/19 Celecoxib [CeleBREX] 200 mg PO DAILY PRN 03/10/17 06/05/19 [place]-3 Fatty Acids [[place]-3] 1,000 mg PO DAILY 03/10/17 06/05/19 Atorvastatin [Lipitor] 20 mg PO HS 05/31/18 06/05/19 Multivitamins, Thera [Multivitamin 1 tab PO DAILY 05/31/18 06/05/19 (formulary)] lisinopriL [Zestril] 10 mg PO HS 05/31/18 06/05/19 Loratadine 10 mg PO DAILY 10/19/18 06/05/19 Metoprolol Succinate (ER) [Toprol 50 mg PO BID 10/19/18 06/05/19 XL] Vitamin D3(Unknown Dose) 1 tab PO DAILY 01/13/19 06/05/19 Amoxic-Pot Clav 875-125Mg 1 tab PO Q12HR 06/05/19 06/05/19 [Augmentin 875-125] Calcium Carbonate [Calcium] 600 mg PO DAILY 06/05/19 06/05/19 Fluticasone Nasal [place] [Flonase 2 spr EA NOSTRIL DAILY 06/05/19 06/05/19 Nasal [place]] Ipratropium [place] 0.06%Nasal 1 - 2 sprays EA NOSTRIL TID PRN 06/05/19 06/05/19 [Atrovent Nasal 0.06%] Vitamin Mk7 1 tab PO DAILY 06/05/19 06/05/19 Previous Rx's Medication Instructions Recorded Pantoprazole Sodium [Protonix] 40 mg PO DAILY 30 Days #30 06/05/19 tablet. Hydrocodone/Acetaminophen [[place] 1 tab PO Q6HR PRN #12 tab 06/19/19 5-325] Hydrocortisone Cream 1 applic TOPICAL TID PRN #15 gm 06/19/19 [Hydrocortisone 1% Cream] Hydrocortisone Cream 1 applic TOPICAL TID PRN #15 gm 06/19/19 [Hydrocortisone 1% Cream] Allergies Allergy/AdvReac Type Severity Reaction Status Date / Time adhesive Allergy Rash/Hives Verified 03/06/20 13:20 Review of Systems ROS Statement: Those systems with pertinent positive or pertinent negative responses have been documented in the HPI. ROS Other: All systems not noted in ROS Statement are negative. Past Medical History Past Medical History: Coronary Artery Disease (CAD), Eye Disorder, GERD/Reflux, Hyperlipidemia, Hypertension, Osteoarthritis (OA), Skin Disorder, Sleep Apnea/CPAP/BIPAP Additional Past Medical History / Comment(s): slight glaucoma janet eyes, HX kidney stones, R great toe bunion, psoriasis, cervical disc ruptured, pt also needs a total L knee. left elbow sx History of Any Multi-Drug Resistant Organisms: None Reported Past Surgical History: Appendectomy, Back Surgery, Heart Catheterization With Stent, Orthopedic Surgery Additional Past Surgical History / Comment(s): PTCA with one stent in 2011, EGD and colonoscopy, L knee arthroscopy, lithrotripsy, SX TO REMOVE KIDNEY STONE, laminectomy low back 1984, has had laser sx to janet eyes Past Anesthesia/Blood Transfusion Reactions: No Reported Reaction Additional Past Anesthesia/Blood Transfusion Reaction / Comment(s): Pt has not recieved any blood transfusion. Date of Last Stent Placement:: 2011 Past Psychological History: Anxiety, Depression Smoking Status: Former smoker Past Alcohol Use History: None Reported Past Drug Use History: Marijuana - Past Family History Father Family Medical History: COPD, Coronary Artery Disease (CAD), Myocardial Infarction ([place]) Mother Family Medical History: Coronary Artery Disease (CAD) General Exam Limitations: no limitations General appearance: alert, in no apparent distress Head exam: Present: atraumatic, normocephalic Eye exam: Present: normal appearance. Absent: PERRL ENT exam: Present: normal exam Neck exam: Present: normal inspection. Absent: tenderness, meningismus Respiratory exam: Present: normal lung sounds bilaterally. Absent: respiratory distress, wheezes Cardiovascular Exam: Present: normal rhythm, tachycardia GI/Abdominal exam: Present: soft. Absent: distended, tenderness, guarding Extremities exam: Present: normal inspection, normal capillary refill. Absent: pedal edema, calf tenderness Back exam: Present: normal inspection, full ROM Neurological exam: Present: alert, oriented X3, CN II-XII intact. Absent: motor sensory deficit Psychiatric exam: Present: normal affect, normal mood Skin exam: Present: warm, dry, intact. Absent: cyanosis, diaphoretic Course Vital Signs 03/06/20 03/06/20 03/06/20 13:18 14:06 14:30 Temperature 99.2 F Pulse Rate 106 H 87 87 Respiratory 16 16 9 L Rate Blood Pressure 121/88 113/68 113/68 O2 Sat by Pulse 96 97 97 Oximetry 03/06/20 15:00 Temperature Pulse Rate 81 Respiratory 18 Rate Blood Pressure 123/68 O2 Sat by Pulse 94 L Oximetry EKG Findings - EKG Comments: EKG Findings:: EKG: Normal sinus rhythm, rate of 96, [place] interval 180, QRS duration 74, QTC 414, no ST segment elevation. Medical Decision Making - Medical Decision Making 64-year-old male presenting with dyspnea palpitations, no typical chest pain. EKG showing sinus rhythm with no ST segment elevation, chest x-ray negative for focal pneumonia or acute findings. Patient has a normal CBC, normal CMP, he has an elevated d-dimer and does receive CT angiography in the emergency department which is negative for pulmonary embolism, showing emphysema. He has a negative troponin, normal BNP. I did prefer that this patient stay in observation for serial cardiac enzymes but the patient's decline. He wishes to follow up as an outpatient. He will return with worsening or changing symptoms. 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 - Lab Data Result diagrams: 03/06/20 13:55 03/06/20 13:55 Lab Results 03/06/20 03/06/20 03/06/20 Range/Units 13:55 13:55 13:55 WBC 9.5 (3.8-10.6) k/uL RBC 4.21 L (4.30-5.90) m/uL Hgb 12.9 L (13.0-17.5) gm/dL Hct 39.5 (39.0-53.0) % MCV 93.8 (80.0-100.0) fL MCH 30.7 (25.0-35.0) pg MCHC 32.8 (31.0-37.0) g/dL RDW 13.4 (11.5-15.5) % Plt Count 199 (150-450) k/uL Neutrophils % 70 % Lymphocytes % 21 % Monocytes % 5 % Eosinophils % 2 % Basophils % 0 % Neutrophils # 6.6 (1.3-7.7) k/uL Lymphocytes # 2.0 (1.0-4.8) k/uL Monocytes # 0.5 (0-1.0) k/uL Eosinophils # 0.2 (0-0.7) k/uL Basophils # 0.0 (0-0.2) k/uL PT 9.8 (9.0-12.0) sec INR 0.9 (<1.2) APTT 24.4 (22.0-30.0) sec D-Dimer 0.78 H (<0.60) mg/L FEU Sodium 138 (137-145) mmol/L Potassium 3.9 (3.5-5.1) mmol/L Chloride 106 (98-107) mmol/L Carbon Dioxide 25 (22-30) mmol/L Anion Gap 7 mmol/L BUN 21 H (9-20) mg/dL Creatinine 0.76 (0.66-1.25) mg/dL Est GFR (CKD-EPI)AfAm >90 (>60 ml/min/1.73 sqM) Est GFR (CKD-EPI)NonAf >90 (>60 ml/min/1.73 sqM) Glucose 117 H (74-99) mg/dL Calcium 9.5 (8.4-10.2) mg/dL Magnesium 1.7 (1.6-2.3) mg/dL Total Bilirubin 0.5 (0.2-1.3) mg/dL AST 27 (17-59) U/L ALT 22 (4-49) U/L Alkaline Phosphatase 69 (38-126) U/L Troponin I (0.000-0.034) ng/mL NT-Pro-B Natriuret Pep pg/mL Total Protein 6.7 (6.3-8.2) g/dL Albumin 4.3 (3.5-5.0) g/dL 03/06/20 03/06/20 Range/Units 13:55 13:55 WBC (3.8-10.6) k/uL RBC (4.30-5.90) m/uL Hgb (13.0-17.5) gm/dL Hct (39.0-53.0) % MCV (80.0-100.0) fL MCH (25.0-35.0) pg MCHC (31.0-37.0) g/dL RDW (11.5-15.5) % Plt Count (150-450) k/uL Neutrophils % % Lymphocytes % % Monocytes % % Eosinophils % % Basophils % % Neutrophils # (1.3-7.7) k/uL Lymphocytes # (1.0-4.8) k/uL Monocytes # (0-1.0) k/uL Eosinophils # (0-0.7) k/uL Basophils # (0-0.2) k/uL PT (9.0-12.0) sec INR (<1.2) APTT (22.0-30.0) sec D-Dimer (<0.60) mg/L FEU Sodium (137-145) mmol/L Potassium (3.5-5.1) mmol/L Chloride (98-107) mmol/L Carbon Dioxide (22-30) mmol/L Anion Gap mmol/L BUN (9-20) mg/dL Creatinine (0.66-1.25) mg/dL Est GFR (CKD-EPI)AfAm (>60 ml/min/1.73 sqM) Est GFR (CKD-EPI)NonAf (>60 ml/min/1.73 sqM) Glucose (74-99) mg/dL Calcium (8.4-10.2) mg/dL Magnesium (1.6-2.3) mg/dL Total Bilirubin (0.2-1.3) mg/dL AST (17-59) U/L ALT (4-49) U/L Alkaline Phosphatase (38-126) U/L Troponin I <0.012 (0.000-0.034) ng/mL NT-Pro-B Natriuret Pep 173 pg/mL Total Protein (6.3-8.2) g/dL Albumin (3.5-5.0) g/dL Disposition Clinical Impression: Palpitation, Atypical chest pain Disposition: HOME SELF-CARE Condition: Good Instructions (If sedation given, give patient instructions): Chest Pain (ED), Heart Palpitations (ED) Is patient prescribed a controlled substance at d/c from ED?: No Referrals: Jenny Perez MD [Primary Care Provider] - 1-2 days Abby Olivera MD [STAFF PHYSICIAN] - 1-2 days Time of Disposition: 15:51
[2020-03-06 14:16] LABS: Basophils % (A) 0 %; Eosinophils # (A) 0.2 k/uL (0-0.7); Eosinophils % (A) 2 %; HCT 39.5 % (39.0-53.0); HGB 12.9 gm/dL (13.0-17.5); Lymphocytes % (A) 21 %; MCH 30.7 pg (25.0-35.0); MCHC 32.8 g/dL (31.0-37.0); MCV 93.8 fL (80.0-100.0); Mean Platelet Volume 7.7; Monocytes # (A) 0.5 k/uL (0-1.0); Monocytes % (A) 5 %; Neutrophils # (A) 6.6 k/uL (1.3-7.7); Neutrophils % (A) 70 %; Platelet Count 199 k/uL (150-450); RBC 4.21 m/uL (4.30-5.90); RDW 13.4 % (11.5-15.5); WBC 9.5 k/uL (3.8-10.6)
--- NOTE | 2020-03-06 14:23 | XR ---
EXAMINATION TYPE: XR chest 2V DATE OF EXAM: 03/06/2020 COMPARISON: Chest x-ray and CTA chest June 04, 2019 HISTORY: Chest pain. TECHNIQUE: Frontal and lateral views of the chest are obtained. FINDINGS: There is background Mild underlying emphysematous change without suspicious new focal air space opacity, pleural effusion, or pneumothorax seen. The cardiac silhouette size remains within no rmal limits. The osseous structures are intact. Overlying EKG leads are redemonstrated. Some demine ralization again seen. IMPRESSION: Chronic changes without acute pulmonary process.
[2020-03-06 14:24] LABS: ALT 22 U/L (4-49); AST 27 U/L (17-59); African American GFR (CKD) >90 (>60 ml/min/1.73 sqM); Albumin 4.3 g/dL (3.5-5.0); Alkaline Phosphatase 69 U/L (38-126); Anion Gap 7 mmol/L; Blood Urea Nitrogen 21 mg/dL (9-20); Calcium 9.5 mg/dL (8.4-10.2); Carbon Dioxide 25 mmol/L (22-30); Chloride 106 mmol/L (98-107); Glucose 117 mg/dL (74-99); Magnesium 1.7 mg/dL (1.6-2.3); Non-African American GFR(CKD) >90 (>60 ml/min/1.73 sqM); Potassium 3.9 mmol/L (3.5-5.1); Sodium 138 mmol/L (137-145); Total Bilirubin 0.5 mg/dL (0.2-1.3); Total Protein 6.7 g/dL (6.3-8.2)
[2020-03-06 14:28] LABS: INR 0.9 (<1.2); Partial Thromboplastin Time 24.4 sec (22.0-30.0); Prothrombin Time 9.8 sec (9.0-12.0)
[2020-03-06 14:39] LABS: D-Dimer 0.78 mg/L FEU (<0.60)
--- NOTE | 2020-03-06 15:27 | CT ---
EXAMINATION TYPE: CT angio chest DATE OF EXAM: 03/06/2020 COMPARISON: CTA chest June 04, 2019 HISTORY: Chest pains. CT DLP: 805.9 mGycm. Automated Exposure Control for Dose Reduction was Utilized. CONTRAST: CTA scan of the thorax is performed with IV Contrast, patient injected with 100 mL of Isovue 370, pul monary embolism protocol. MIP Images are created on CT scanner and reviewed. FINDINGS: LUNGS: Mild underlying emphysematous change redemonstrated. No pleural effusion or pneumothorax seen bilaterally. No suspicious new focal consolidation or groundglass opacity. MEDIASTINUM: There is satisfactory enhancement of the pulmonary artery and its branches, there is no CT evidence for pulmonary embolism. There are no greater than 1 cm hilar or mediastinal lymph nodes. No cardiomegaly or pericardial effusion is seen. Satisfactory enhancement of the aorta without ane urysm or dissection. Millimeters calcification is redemonstrated. OTHER: Large simple appearing thin-walled cyst in the left kidney is partially imaged.. Smaller addit ional renal cysts noted bilaterally. Some underlying scoliosis. Multilevel moderate to severe spurrin g in the mid to lower thoracic spine. IMPRESSION: No CT evidence for acute pulmonary embolism. Mild emphysematous change without new acute pulmonary process.
[2020-03-06 16:01] VITALS: BP 105/66; PULSE 76; RESP 20; TEMP 98
== END 2020-03-06 16:10 | disposition home or self-care (01) ==
LOC: EC 13:14
DX: R07.89 Other chest pain (principal); R00.2 Palpitations; R06.00 Dyspnea, unspecified; I25.10 Atherosclerotic heart disease of native coronary artery without angina pectoris; I10 Essential (primary) hypertension; E78.5 Hyperlipidemia, unspecified; G47.30 Sleep apnea, unspecified; Z79.82 Long term (current) use of aspirin; Z79.51 Long term (current) use of inhaled steroids; Z79.899 Other long term (current) drug therapy; Z91.048 Other nonmedicinal substance allergy status; Z99.89 Dependence on other enabling machines and devices; Z87.891 Personal history of nicotine dependence; Z95.5 Presence of coronary angioplasty implant and graft
CPT/HCPCS: 36415; 93005; 85379; 83880; 80053; 83735; 84484; 85025; 85610; 85730; 71046; 71275; 99285; Q9967

== ENCOUNTER 2020-03-11 14:49 | Observation (INO) | payer OTHER ==
[2020-03-11] MEDS ORDERED: ASPIRIN 81 MG PO STA (15:08)
--- NOTE | 2020-03-11 15:31 | ED ---
Chest Pain [facility] - General Chief Complaint: Chest Pain Stated Complaint: Chest Pain Time Seen by Provider: 03/11/20 15:08 Source: patient Mode of arrival: ambulatory Limitations: no limitations - History of Present Illness Initial Comments: Patient is 64-year-old male with history of hypertension and CAD presenting to the emergency department with chief complaint of chest pain. Patient states he was in emergency department 3 days ago and was offered observation but he decided to go home and follow-up outpatient. Patient reports he developed chest pain since then. Patient states there is chest pain on exertion and it is more of an ache in the right upper and left upper region of the chest with intermittent radiation to the left elbow. Patient also reports some shortness of breath on exertion. Patient denies any diaphoretic episodes, orthopnea, headaches, visual changes, one-sided weakness or paresthesias. Denies any lightheadedness or dizziness. Denies any back pain abdominal pain. - Related Data Home Medications Medication Instructions Recorded Confirmed Spironolactone [Aldactone] 37.5 mg PO DAILY 09/26/14 06/05/19 Aspirin [Adult Low Dose Aspirin EC] 81 mg PO DAILY 09/19/15 06/05/19 Celecoxib [CeleBREX] 200 mg PO DAILY PRN 03/10/17 06/05/19 [place]-3 Fatty Acids [[place]-3] 1,000 mg PO DAILY 03/10/17 06/05/19 Atorvastatin [Lipitor] 20 mg PO HS 05/31/18 06/05/19 Multivitamins, Thera [Multivitamin 1 tab PO DAILY 05/31/18 06/05/19 (formulary)] lisinopriL [Zestril] 10 mg PO HS 05/31/18 06/05/19 Loratadine 10 mg PO DAILY 10/19/18 06/05/19 Metoprolol Succinate (ER) [Toprol 50 mg PO BID 10/19/18 06/05/19 XL] Vitamin D3(Unknown Dose) 1 tab PO DAILY 01/13/19 06/05/19 Amoxic-Pot Clav 875-125Mg 1 tab PO Q12HR 06/05/19 06/05/19 [Augmentin 875-125] Calcium Carbonate [Calcium] 600 mg PO DAILY 06/05/19 06/05/19 Fluticasone Nasal [place] [Flonase 2 spr EA NOSTRIL DAILY 06/05/19 06/05/19 Nasal [place]] Ipratropium [place] 0.06%Nasal 1 - 2 sprays EA NOSTRIL TID PRN 06/05/19 06/05/19 [Atrovent Nasal 0.06%] Vitamin Mk7 1 tab PO DAILY 06/05/19 06/05/19 Previous Rx's Medication Instructions Recorded Pantoprazole Sodium [Protonix] 40 mg PO DAILY 30 Days #30 06/05/19 tablet. Hydrocodone/Acetaminophen [[place] 1 tab PO Q6HR PRN #12 tab 06/19/19 5-325] Hydrocortisone Cream 1 applic TOPICAL TID PRN #15 gm 06/19/19 [Hydrocortisone 1% Cream] Hydrocortisone Cream 1 applic TOPICAL TID PRN #15 gm 06/19/19 [Hydrocortisone 1% Cream] Allergies Allergy/AdvReac Type Severity Reaction Status Date / Time adhesive Allergy Rash/Hives Verified 03/11/20 15:06 Review of Systems ROS Statement: Those systems with pertinent positive or pertinent negative responses have been documented in the HPI. ROS Other: All systems not noted in ROS Statement are negative. EKG Findings - EKG Comments: EKG Findings:: Sinus rhythm with no ST or T-wave changes. Ventricular rate 90, UT 166, QRS 82, QTC 418. Past Medical History Past Medical History: Coronary Artery Disease (CAD), Eye Disorder, GERD/Reflux, Hyperlipidemia, Hypertension, Osteoarthritis (OA), Skin Disorder, Sleep Apnea/CPAP/BIPAP Additional Past Medical History / Comment(s): slight glaucoma janet eyes, HX kidney stones, R great toe bunion, psoriasis, cervical disc ruptured, pt also needs a total L knee. left elbow sx History of Any Multi-Drug Resistant Organisms: None Reported Past Surgical History: Appendectomy, Back Surgery, Heart Catheterization With Stent, Orthopedic Surgery Additional Past Surgical History / Comment(s): PTCA with one stent in 2011, EGD and colonoscopy, L knee arthroscopy, lithrotripsy, SX TO REMOVE KIDNEY STONE, laminectomy low back 1984, has had laser sx to janet eyes Past Anesthesia/Blood Transfusion Reactions: No Reported Reaction Additional Past Anesthesia/Blood Transfusion Reaction / Comment(s): Pt has not recieved any blood transfusion. Date of Last Stent Placement:: 2011 Past Psychological History: Anxiety, Depression Smoking Status: Former smoker Past Alcohol Use History: None Reported Past Drug Use History: Marijuana - Past Family History Father Family Medical History: COPD, Coronary Artery Disease (CAD), Myocardial Infarction ([place]) Mother Family Medical History: Coronary Artery Disease (CAD) General Exam Limitations: no limitations General appearance: alert, in no apparent distress, obese Head exam: Present: atraumatic, normocephalic, normal inspection Eye exam: Present: normal appearance, PERRL, EOMI Pupils: Present: normal accommodation ENT exam: Present: normal exam, normal oropharynx, mucous membranes moist Neck exam: Present: normal inspection, full ROM. Absent: tenderness Respiratory exam: Present: normal lung sounds bilaterally. Absent: respiratory distress, wheezes Cardiovascular Exam: Present: regular rate, normal rhythm, normal heart sounds GI/Abdominal exam: Present: soft. Absent: distended, tenderness, guarding Extremities exam: Present: normal inspection, full ROM, normal capillary refill. Absent: tenderness Back exam: Present: normal inspection, full ROM. Absent: tenderness Neurological exam: Present: alert, oriented X3 Psychiatric exam: Present: normal affect, normal mood Skin exam: Present: warm, dry, intact, normal color Course Vital Signs 03/11/20 15:02 Temperature 99.2 F Pulse Rate 95 Respiratory 20 Rate Blood Pressure 102/68 O2 Sat by Pulse 96 Oximetry - Reevaluation(s) Reevaluation #1: 03/11/20 16:15 Chart reviewed. On 03/03/20 Patient had a CTA secondary to elevated d-dimer. CTA was negative. Chest Pain MDM - Differential Diagnosis ACS - MDM Patient is 64-year-old male presenting to the emergency room with a chief complaint of chest pain. This is an ongoing for the past 4-5 days. Patient was initially offered observation, he declined. EKG shows sinus rhythm currently with no ST or T-wave changes. Initial troponins are negative. X-rays are not showing any acute processes. CBC CMP is unremarkable. Coags within normal limits. Patient will be admitted for cardiac observation. Case discussed with . Admitting is Dr Francois Cadiology consulted Disposition Clinical Impression: Chest pain on exertion Disposition: ADMITTED IP TO THIS HOSP Condition: Good Instructions (If sedation given, give patient instructions): Chest Pain (ED) Additional Instructions: She will be admitted Is patient prescribed a controlled substance at d/c from ED?: No Referrals: Laming,Jenny, MD [Primary Care Provider] - 1-2 days Time of Disposition: 16:49
[2020-03-11 15:51] LABS: Basophils % (A) 0 %; Eosinophils # (A) 0.2 k/uL (0-0.7); Eosinophils % (A) 3 %; HCT 40.7 % (39.0-53.0); HGB 13.2 gm/dL (13.0-17.5); Lymphocytes # (A) 2.2 k/uL (1.0-4.8); Lymphocytes % (A) 30 %; MCH 30.9 pg (25.0-35.0); MCHC 32.5 g/dL (31.0-37.0); MCV 94.9 fL (80.0-100.0); Mean Platelet Volume 7.9; Monocytes # (A) 0.4 k/uL (0-1.0); Monocytes % (A) 5 %; Neutrophils # (A) 4.5 k/uL (1.3-7.7); Neutrophils % (A) 60 %; Platelet Count 190 k/uL (150-450); RBC 4.28 m/uL (4.30-5.90); RDW 13.4 % (11.5-15.5); WBC 7.5 k/uL (3.8-10.6)
[2020-03-11 16:03] LABS: ALT 29 U/L (4-49); AST 39 U/L (17-59); African American GFR (CKD) >90 (>60 ml/min/1.73 sqM); Albumin 4.4 g/dL (3.5-5.0); Alkaline Phosphatase 66 U/L (38-126); Anion Gap 9 mmol/L; Blood Urea Nitrogen 23 mg/dL (9-20); Calcium 9.3 mg/dL (8.4-10.2); Carbon Dioxide 20 mmol/L (22-30); Chloride 107 mmol/L (98-107); Glucose 118 mg/dL (74-99); Magnesium 1.9 mg/dL (1.6-2.3); Non-African American GFR(CKD) >90 (>60 ml/min/1.73 sqM); Partial Thromboplastin Time 25.1 sec (22.0-30.0); Prothrombin Time 9.9 sec (9.0-12.0); Sodium 136 mmol/L (137-145); Total Bilirubin 0.6 mg/dL (0.2-1.3); Total Protein 7.1 g/dL (6.3-8.2)
--- NOTE | 2020-03-11 16:04 | XR ---
EXAMINATION TYPE: XR chest 2V DATE OF EXAM: 03/11/2020 COMPARISON: 03/06/2020. 06/03/2018 HISTORY: 64-year-old male with chest pain and pressure TECHNIQUE: PA and lateral views FINDINGS: Partially visualized patchy sclerosis in the proximal right humerus. Heart normal size. Aorta and pul monary vasculature within normal limits. Mild interstitial prominence. Mild hyperinflation. No consol idation or pleural effusion. IMPRESSION: 1. Correlate for underlying COPD. No acute cardiopulmonary process. 2. Partially visualized patchy sclerosis proximal right humerus, unchanged back to 2018. This could r epresent enchondroma or bone infarct. If new bone pain ever develops in this region, dedicated workup should be considered.
[2020-03-11 16:07] LABS: Potassium 4.8 mmol/L (3.5-5.1)
[2020-03-11] MEDS ORDERED: NITROGLYCERIN SL TABS 0.4 MG TAB SUBLINGUAL PRN (16:45)
[2020-03-11] MEDS ORDERED: FLUTICASONE 50MCG/SPRAY NASAL 16GM EA NOSTRIL PRN (19:23)
[2020-03-11] MEDS ORDERED: IPRATROPIUM BROMIDE 0.06% NASAL SPRAY (15 ML) EA NOSTRIL PRN (19:23)
[2020-03-11] MEDS ORDERED: MELOXICAM 7.5 MG TAB PO PRN (19:23)
[2020-03-11] MEDS ORDERED: lisinopriL 10 MG TAB PO SCH (21:00)
[2020-03-11] MEDS ORDERED: SPIRONOLACTONE 25 MG TAB PO SCH (21:00)
[2020-03-11] MEDS ORDERED: ATORVASTATIN 20 MG TAB PO SCH (21:00)
[2020-03-11] MEDS: HYDROcodone/APAP 5-325MG 1 EACH TAB PO PRN (21:12)
[2020-03-11] MEDS: METOPROLOL SUCCINATE (ER) 50 MG TAB.ER.24H PO SCH (21:12)
[2020-03-11] MEDS: PANTOPRAZOLE 40 MG TABLET PO SCH (21:12)
[2020-03-12] MEDS: HYDROcodone/APAP 5-325MG 1 EACH TAB PO PRN (04:03)
[2020-03-12 06:23] LABS: Cholesterol 119 mg/dL (<200); HDL Cholesterol 41 mg/dL (40-60); LDL Cholesterol,Calculated 57 mg/dL (0-99); Triglycerides 107 mg/dL (<150)
[2020-03-12] MEDS: PANTOPRAZOLE 40 MG TABLET PO SCH (08:12)
[2020-03-12] MEDS: METOPROLOL SUCCINATE (ER) 50 MG TAB.ER.24H PO SCH (08:13)
[2020-03-12 08:18] VITALS: RESP 16
[2020-03-12] MEDS ORDERED: ASCORBIC ACID 500 MG TAB PO SCH (09:00)
[2020-03-12] MEDS ORDERED: CALCIUM CARBONATE 500 MG CHEWABLE PO SCH (09:00)
[2020-03-12] MEDS ORDERED: MAGNESIUM OXIDE 400 MG TAB PO SCH (09:00)
[2020-03-12] MEDS ORDERED: LORATADINE 10 MG TAB PO SCH (09:00)
[2020-03-12] MEDS ORDERED: MULTIVITAMINS, THERA 1 EACH TAB PO SCH (09:00)
[2020-03-12] MEDS ORDERED: ASPIRIN 325 MG TAB PO SCH (09:00)
[2020-03-12] MEDS ORDERED: REGADENOSON 0.4 MG/5 ML SYRINGE IV ONE (10:49)
[2020-03-12] MEDS ORDERED: AMINOPHYLLINE 500 MG/20 ML VIAL IV PRN (10:49)
[2020-03-12] MEDS ORDERED: CAFFEINE CITRATE 60 MG/3 ML VIAL IV PRN (10:49)
--- NOTE | 2020-03-12 11:49 | P.CRDCN ---
History of Present Illness History of present illness: HISTORY OF PRESENTING ILLNESS This is a pleasant 64-year-old male past medical history significant for coronary artery disease status post PCI of the mid LAD, hypertension, dyslipidemia, obstructive sleep apnea, gastroesophageal reflux disease and former nicotine dependence. He follows in the office with Dr. Olivera. We have been asked to see in consultation for chest pain. He states for the previous one week he has been experiencing increased fatigue with activity or exertion. He also has been having a tightness in his chest associated with a fluttering sensation, dizziness and shortness of breath. Typically he notices these symptoms after mild exertion however he also has had them at rest. Telemetry tracings indicate a 24 beat run of monomorphic ventricular tachycardia while he was sleeping last night. Nurse evaluation revealed he continued to sleep and was asymptomatic. According to the patient and his CPAP machine has not been fitting his face recently and he is currently awaiting a new mask. He is seen and examined sitting up in bed in no acute distress. He denies active chest discomfort at this time. DIAGNOSTICS EKG reveals sinus mechanism with no acute ischemic changes. Chest xray underlying COPD with no acute cardiopulmonary process. Laboratory reviewed, CBC unremarkable, sodium 136, potassium 4.8, creatinine 0.81, magnesium 1.9, cardiac enzymes negative 3, LDL 57 and HDL 41. Current cardiac medications include aspirin 81 mg daily, Toprol 50 mg twice a day, atorvastatin 20 mg at bedtime, Aldactone 37.5 mg at bedtime and lisinopril 10 mg at bedtime. Most recent stress test performed in May 2019 with a dobutamine stress echocardiogram and was negative for stress-induced cardiac ischemia. Most recent cardiac catheterization performed in 2017 revealed a patent stent in the proximal LAD, mild 20-30% disease noted in the mid LAD, 10-20% intimal disease of the circumflex in 20-30% intimal disease of the RCA. Most recent echocardiogram obtained May 2019 revealed preserved LV systolic function with ejection fraction 55-60%, mild MR, mild TR noted. REVIEW OF SYSTEMS At the time of my exam: CONSTITUTIONAL: Denies fever or chills. CARDIOVASCULAR: Denies chest pain, shortness of breath, orthopnea, PND or palpitations. RESPIRATORY: Denies cough. GASTROINTESTINAL: Denies abdominal pain, diarrhea, constipation, nausea or vo miting. MUSCULOSKELETAL: Denies myalgias. NEUROLOGIC: Denies numbness, tingling or weakness. ENDOCRINE: Denies fatigue, weight change, polydipsia or polyurina. GENITOURINARY: Denies burning, hematuria or urgency with micturation. HEMATOLOGIC: Denies history of anemia or bleeding. PHYSICAL EXAMINATION Blood pressure 129/72 heart rate 68 afebrile and maintaining oxygen saturation on room air. CONSTITUTIONAL: No apparent distress. HEENT: Head is normocephalic. Pupils are equal, round. Sclerae anicteric. Mucous membranes of the mouth are moist. No JVD. No carotid bruit. CHEST EXAMINATION: Lungs are clear to auscultation. No chest wall tenderness is noted on palpation or with deep breathing. HEART EXAMINATION: Regular rate and rhythm. S1, S2 heard. No murmurs, gallops or rub. ABDOMEN: Soft, nontender. Positive bowel sounds. EXTREMITIES: 2+ peripheral pulses, no lower extremity edema and no calf tenderness. NEUROLOGIC EXAMINATION: Patient is awake, alert and oriented x3. ASSESSMENT Chest pain and palpitations, an acute coronary event has been ruled out. Nonsustained ventricular tachycardia, asymptomatic Coronary artery disease status post PCI 2011 with nonobstructive disease of the circumflex and RCA noted on recent catheterization Hypertension Dyslipidemia Obstructive sleep apnea Former nicotine dependence PLAN An acute coronary event has been ruled out. Obtain 2-D echocardiogram and Doppler study to assess cardiac structure and function. Proceed with Lexiscan stress test to assess for reversible cardiac ischemia. Check TSH. Further recommendations to follow if stress test is abnormal cardiac catheterization will be considered. Thank you kindly for this consultation. Nurse Practitioner note has been reviewed, I agree with a documented findings and plan of care. Patient was seen and examined. Past Medical History Past Medical History: Coronary Artery Disease (CAD), Eye Disorder, GERD/Reflux, Hyperlipidemia, Hypertension, Osteoarthritis (OA), Skin Disorder, Sleep Apnea/CPAP/BIPAP Additional Past Medical History / Comment(s): slight glaucoma janet eyes, HX kidney stones, R great toe bunion, psoriasis, cervical disc ruptured, pt also needs a total L knee. left elbow sx History of Any Multi-Drug Resistant Organisms: None Reported Past Surgical History: Appendectomy, Back Surgery, Heart Catheterization With Stent, Orthopedic Surgery Additional Past Surgical History / Comment(s): PTCA with one stent in 2011, EGD and colonoscopy, L knee arthroscopy, lithrotripsy, SX TO REMOVE KIDNEY STONE, laminectomy low back 1984, has had laser sx to janet eyes Past Anesthesia/Blood Transfusion Reactions: No Reported Reaction Additional Past Anesthesia/Blood Transfusion Reaction / Comment(s): Pt has not recieved any blood transfusion. Date of Last Stent Placement:: 2011 Past Psychological History: Anxiety, Depression Additional Psychological History / Comment(s): STATES SOME R/T HEALTH ISSUES Smoking Status: Former smoker Past Alcohol Use History: None Reported Additional Past Alcohol Use History / Comment(s): QUIT SMOKING CIGARETTES, 01/2016, SMOKED 1 AND 1/2 PPD Past Drug Use History: Marijuana Additional Drug Use History / Comment(s): DAILY USE, INSTRUCTED TO HOLD 24 HRS PRIOR - Past Family History Father Family Medical History: COPD, Coronary Artery Disease (CAD), Myocardial Infarction ([place]) Mother Family Medical History: Coronary Artery Disease (CAD) Medications and Allergies Home Medications Medication Instructions Recorded Confirmed Type Spironolactone [Aldactone] 37.5 mg PO HS 09/26/14 03/11/20 History Aspirin [Adult Low Dose Aspirin EC] 81 mg PO DAILY 09/19/15 03/11/20 History Celecoxib [CeleBREX] 200 mg PO DAILY PRN 03/10/17 03/11/20 History Atorvastatin [Lipitor] 20 mg PO HS 05/31/18 03/11/20 History Multivitamins, Thera [Multivitamin 1 tab PO DAILY 05/31/18 03/11/20 History (formulary)] lisinopriL [Zestril] 10 mg PO HS 05/31/18 03/11/20 History Loratadine 10 mg PO DAILY 10/19/18 03/11/20 History Metoprolol Succinate (ER) [Toprol 50 mg PO BID 10/19/18 03/11/20 History XL] Calcium Carbonate [Calcium] 600 mg PO DAILY 06/05/19 03/11/20 History Fluticasone Nasal [place] [Flonase 2 spr EA NOSTRIL DAILY PRN 06/05/19 03/11/20 History Nasal [place]] Ipratropium [place] 0.06%Nasal 1 - 2 sprays EA NOSTRIL TID PRN 06/05/19 03/11/20 History [Atrovent Nasal 0.06%] Ascorbic Acid [Vitamin C] 250 mg PO DAILY 03/11/20 03/11/20 History Fish Oil/Dha/Epa [Fish Oil 1,200 1 cap PO DAILY 03/11/20 03/11/20 History mg Fish Oil] HYDROcodone/APAP 5-325MG [[place] 1 tab PO Q6HR PRN 03/11/20 03/11/20 History 5-325] Magnesium Oxide 400 mg PO DAILY 03/11/20 03/11/20 History Pantoprazole Sodium [Protonix] 40 mg PO BID 03/11/20 03/11/20 History Allergies Allergy/AdvReac Type Severity Reaction Status Date / Time adhesive Allergy Rash/Hives Verified 03/11/20 16:59 Physical Exam Vitals: Vital Signs Temp Pulse Pulse Resp BP BP Pulse Ox 03/12/20 08:58 68 16 03/12/20 08:11 98.6 F 68 16 129/72 98 03/12/20 03:50 97.4 F L 74 17 102/56 97 03/12/20 01:30 97.6 F 66 16 90/60 94 L 03/11/20 20:09 98.3 F 73 15 98/54 95 03/11/20 20:08 16 03/11/20 18:25 16 03/11/20 18:15 98.8 F 75 16 119/72 96 03/11/20 17:51 99.0 F 83 17 102/71 97 03/11/20 15:02 99.2 F 95 20 102/68 96 Intake and Output 03/11/20 03/12/20 03/12/20 22:59 06:59 14:59 Other: # Voids 2 Weight 124.738 kg Results 03/11/20 15:42 03/11/20 15:42 Cardiac Enzymes 03/11/20 03/11/20 03/11/20 Range/Units 15:42 15:42 18:17 AST 39 (17-59) U/L Troponin I <0.012 <0.012 (0.000-0.034) ng/mL 03/11/20 Range/Units 22:30 AST (17-59) U/L Troponin I <0.012 (0.000-0.034) ng/mL Coagulation 03/11/20 Range/Units 15:42 PT 9.9 (9.0-12.0) sec APTT 25.1 (22.0-30.0) sec Lipids 03/12/20 Range/Units 05:41 Triglycerides 107 (<150) mg/dL Cholesterol 119 (<200) mg/dL HDL Cholesterol 41 (40-60) mg/dL CBC 03/11/20 Range/Units 15:42 WBC 7.5 (3.8-10.6) k/uL RBC 4.28 L (4.30-5.90) m/uL Hgb 13.2 (13.0-17.5) gm/dL Hct 40.7 (39.0-53.0) % Plt Count 190 (150-450) k/uL Comprehensive Metabolic Panel 03/11/20 Range/Units 15:42 Sodium 136 L (137-145) mmol/L Potassium 4.8 (3.5-5.1) mmol/L Chloride 107 (98-107) mmol/L Carbon Dioxide 20 L (22-30) mmol/L BUN 23 H (9-20) mg/dL Creatinine 0.81 (0.66-1.25) mg/dL Glucose 118 H (74-99) mg/dL Calcium 9.3 (8.4-10.2) mg/dL AST 39 (17-59) U/L ALT 29 (4-49) U/L Alkaline Phosphatase 66 (38-126) U/L Total Protein 7.1 (6.3-8.2) g/dL Albumin 4.4 (3.5-5.0) g/dL Current Medications Generic Name Dose Route Start Last Admin Trade Name Freq PRN Reason Stop Dose Admin Hydrocodone Bitart/Acetaminophen 1 each 03/11/20 19:23 03/12/20 04:03 [place] 5-325 PO 1 each Q6HR PRN Administration Pain Aminophylline 100 mg 03/12/20 10:49 Aminophylline IV ONCE PRN Patient Response Ascorbic Acid 250 mg 03/12/20 09:00 03/12/20 08:12 Vitamin C PO Not Given DAILY GENA Aspirin 325 mg 03/12/20 09:00 03/12/20 08:12 Aspirin PO 325 mg DAILY GENA Administration Atorvastatin Calcium 20 mg 03/11/20 21:00 03/11/20 21:12 Lipitor PO 20 mg HS GENA Administration Caffeine Citrate 60 mg 03/12/20 10:49 Cafcit Inj IV ONCE PRN Patient Response Calcium Carbonate/Glycine 500 mg 03/12/20 09:00 03/12/20 08:12 Tums PO Not Given DAILY GENA Fluticasone Propionate 2 spray 03/11/20 19:23 Flonase Nasal [place] EA NOSTRIL DAILY PRN Allergy Symptoms Ipratropium [place] 1 spray 03/11/20 19:23 Atrovent Nasal EA NOSTRIL TID PRN Allergy Symptoms Lisinopril 10 mg 03/11/20 21:00 03/11/20 21:12 Zestril PO Not Given HS GENA Loratadine 10 mg 03/12/20 09:00 03/12/20 08:12 Claritin PO 10 mg DAILY GENA Administration Magnesium Oxide 400 mg 03/12/20 09:00 03/12/20 08:12 Mag-Ox PO 400 mg DAILY GENA Administration Meloxicam 7.5 mg 03/11/20 19:23 Mobic PO DAILY PRN Pain Metoprolol Succinate 50 mg 03/11/20 21:00 03/12/20 08:13 Toprol Xl PO 50 mg BID GENA Administration Multivitamins 1 each 03/12/20 09:00 03/12/20 08:12 Theragran PO Not Given DAILY GENA Nitroglycerin 0.4 mg 03/11/20 16:45 Nitrostat SUBLINGUAL Q5M PRN Chest Pain Pantoprazole Sodium 40 mg 03/11/20 21:00 03/12/20 08:12 Protonix PO 40 mg AC-BID GENA Administration Spironolactone 37.5 mg 03/11/20 21:00 03/11/20 21:12 Aldactone PO Not Given HS GENA Intake and Output 03/11/20 03/12/20 03/12/20 22:59 06:59 14:59 Other: # Voids 2 Weight 124.738 kg 03/11/20 15:42 03/11/20 15:42
--- NOTE | 2020-03-12 13:28 | NM ---
EXAMINATION TYPE: NM stress lexiscan cardiolite DATE OF EXAM: 03/12/2020 COMPARISON: Prior exam 06/05/2018 HISTORY: Chest pain TECHNIQUE: After the intravenous administration of 9.9 mCi Tc 99m Sestamibi - Cardiolite resting SPE CT images acquired 45 minutes post injection. The patient received 0.4mg Lexiscan, 26.9 mCi Tc 99m Sestamibi - Stress images obtained [address] injection FINDINGS: Review of stress and rest SPECT images demonstrates decreased uptake along the inferolateral left patricia tricle greater on rest imaging than on stress images. Gated analysis shows normal wall motion with a n estimated left ventricular ejection fraction of 54 %. IMPRESSION: No scintigraphic evidence for reversible ischemia. Decreased uptake along the inferior wall left vent ricle as described, difficult to exclude previous infarct.
--- NOTE | 2020-03-12 13:40 | P.HPIM ---
History of Present Illness H&P Date: 03/12/20 Lasha Hdez is a 64-year-old male patient of Dr. Perez who presented to [facility] emergency room with a chief complaint of chest pain patient was evaluated in the emergency room, his EKG was normal his first troponin was normal and he was admitted to 24-hour observation cardiology consultation was requested. Patient describes a pressure sensation in the middle of his chest that started on the day prior to admission on and off. There was no shortness of breath no diaphoresis no nausea no radiation of the pain to the neck or the arms. Patient has a known history of coronary artery disease he had angioplasty and stent placement in 2004, he also has a known history of hypertension, hyperlipidemia, gastroesophageal reflux disease, osteoarthritis with bilateral hip replacement, degenerative disc disease with history of lumbar fusion. Patient is on disability due to his degenerative disc disease. Patient used to smoke he quit 5 years ago. Past Medical History Past Medical History: Coronary Artery Disease (CAD), Eye Disorder, GERD/Reflux, Hyperlipidemia, Hypertension, Osteoarthritis (OA), Skin Disorder, Sleep Apnea/CPAP/BIPAP Additional Past Medical History / Comment(s): slight glaucoma janet eyes, HX kidney stones, R great toe bunion, psoriasis, cervical disc ruptured, pt also needs a total L knee. left elbow sx History of Any Multi-Drug Resistant Organisms: None Reported Past Surgical History: Appendectomy, Back Surgery, Heart Catheterization With Stent, Orthopedic Surgery Additional Past Surgical History / Comment(s): PTCA with one stent in 2011, EGD and colonoscopy, L knee arthroscopy, lithrotripsy, SX TO REMOVE KIDNEY STONE, laminectomy low back 1984, has had laser sx to janet eyes Past Anesthesia/Blood Transfusion Reactions: No Reported Reaction Additional Past Anesthesia/Blood Transfusion Reaction / Comment(s): Pt has not recieved any blood transfusion. Date of Last Stent Placement:: 2011 Past Psychological History: Anxiety, Depression Additional Psychological History / Comment(s): STATES SOME R/T HEALTH ISSUES Smoking Status: Former smoker Past Alcohol Use History: None Reported Additional Past Alcohol Use History / Comment(s): QUIT SMOKING CIGARETTES, 01/2016, SMOKED 1 AND 1/2 PPD Past Drug Use History: Marijuana Additional Drug Use History / Comment(s): DAILY USE, INSTRUCTED TO HOLD 24 HRS PRIOR - Past Family History Father Family Medical History: COPD, Coronary Artery Disease (CAD), Myocardial Infarction ([place]) Mother Family Medical History: Coronary Artery Disease (CAD) Medications and Allergies Home Medications Medication Instructions Recorded Confirmed Type Spironolactone [Aldactone] 37.5 mg PO HS 09/26/14 03/11/20 History Aspirin [Adult Low Dose Aspirin EC] 81 mg PO DAILY 09/19/15 03/11/20 History Celecoxib [CeleBREX] 200 mg PO DAILY PRN 03/10/17 03/11/20 History Atorvastatin [Lipitor] 20 mg PO HS 05/31/18 03/11/20 History Multivitamins, Thera [Multivitamin 1 tab PO DAILY 05/31/18 03/11/20 History (formulary)] lisinopriL [Zestril] 10 mg PO HS 05/31/18 03/11/20 History Loratadine 10 mg PO DAILY 10/19/18 03/11/20 History Metoprolol Succinate (ER) [Toprol 50 mg PO BID 10/19/18 03/11/20 History XL] Calcium Carbonate [Calcium] 600 mg PO DAILY 06/05/19 03/11/20 History Fluticasone Nasal [place] [Flonase 2 spr EA NOSTRIL DAILY PRN 06/05/19 03/11/20 History Nasal [place]] Ipratropium [place] 0.06%Nasal 1 - 2 sprays EA NOSTRIL TID PRN 06/05/19 03/11/20 History [Atrovent Nasal 0.06%] Ascorbic Acid [Vitamin C] 250 mg PO DAILY 03/11/20 03/11/20 History Fish Oil/Dha/Epa [Fish Oil 1,200 1 cap PO DAILY 03/11/20 03/11/20 History mg Fish Oil] HYDROcodone/APAP 5-325MG [[place] 1 tab PO Q6HR PRN 03/11/20 03/11/20 History 5-325] Magnesium Oxide 400 mg PO DAILY 03/11/20 03/11/20 History Pantoprazole Sodium [Protonix] 40 mg PO BID 03/11/20 03/11/20 History Allergies Allergy/AdvReac Type Severity Reaction Status Date / Time adhesive Allergy Rash/Hives Verified 03/11/20 16:59 Physical Exam Vitals: Vital Signs Temp Pulse Pulse Resp BP BP Pulse Ox 03/12/20 08:58 68 16 03/12/20 08:11 98.6 F 68 16 129/72 98 03/12/20 03:50 97.4 F L 74 17 102/56 97 03/12/20 01:30 97.6 F 66 16 90/60 94 L 03/11/20 20:09 98.3 F 73 15 98/54 95 03/11/20 20:08 16 03/11/20 18:25 16 03/11/20 18:15 98.8 F 75 16 119/72 96 03/11/20 17:51 99.0 F 83 17 102/71 97 03/11/20 15:02 99.2 F 95 20 102/68 96 Intake and Output 03/11/20 03/12/20 03/12/20 22:59 06:59 14:59 Other: # Voids 2 1 Weight 124.738 kg 124.74 kg In general patient is alert and oriented 3 in no apparent distress HEENT head normocephalic and atraumatic Neck is supple no JVD no goiter no lymphadenopathy Chest exam reveals a few scattered rhonchi no wheezing Cardiac exam reveals regular heart sounds S1 and S2 no gallops no murmurs Abdomen is soft nontender no organomegaly Extremity exam reveals no edema no cyanosis or clubbing Neurological examination reveals no gross focal deficit Results CBC & Chem 7: 03/11/20 15:42 03/11/20 15:42 Labs: Abnormal Lab Results - Last 24 Hours (Table) 03/11/20 03/11/20 Range/Units 15:42 15:42 RBC 4.28 L (4.30-5.90) m/uL Sodium 136 L (137-145) mmol/L Carbon Dioxide 20 L (22-30) mmol/L BUN 23 H (9-20) mg/dL Glucose 118 H (74-99) mg/dL Assessment and Plan Plan: 1. Episode of chest pain, first EKG and cardiac enzymes are negative, patient is admitted to 24-hour observation cardiology consultation was requested 2. Underlying history of coronary artery disease with previous history of angioplasty and stent placement in 2004 3. Underlying history of hypertension 4. Underlying history of hyperlipidemia 5. Underlying history of 2 small nodules in the lungs followed by computed tomography scan at [facility] patient has a 3 mm nodule in the left lower lobe and a 4 mm nodule in the right middle lobe 6. Underlying history of degenerative disc disease and osteoarthritis At this time patient is admitted to 24-hour observation Cardiology consultation is requested Stress test is scheduled for 03/12/2020 Further treatment course will depend on stress test results Will follow closely
--- NOTE | 2020-03-12 14:09 | P.DS ---
Providers Date of admission: 03/11/20 16:57 Expected date of discharge: 03/12/20 Attending physician: Aleisha Francois Consults: 03/11/20 16:46 Consult Physician Urgent Consulting Provider: Preethi Flood Consult Reason/Comments: Chest pain, cardiac rule out Do you want consulting provider notified?: Yes Primary care physician: Jenny Perez [facility] Course: Diagnosis on discharge: 1. Episode of chest pain, first EKG and cardiac enzymes are negative, patient is admitted to 24-hour observation cardiology consultation was requested, patient underwent a stress test which was negative. 2. Underlying history of coronary artery disease with previous history of angioplasty and stent placement in 2004 3. Underlying history of hypertension 4. Underlying history of hyperlipidemia 5. Underlying history of 2 small nodules in the lungs followed by computed tomography scan at [facility] patient has a 3 mm nodule in the left lower lobe and a 4 mm nodule in the right middle lobe 6. Underlying history of degenerative disc disease and osteoarthritis Hospital course: Lasha Hdez is a 64-year-old male patient of Dr. Perez who presented to [facility] emergency room with a chief complaint of chest pain patient was evaluated in the emergency room, his EKG was normal his first troponin was normal and he was admitted to 24-hour observation cardiology consultation was requested. Patient describes a pressure sensation in the middle of his chest that started on the day prior to admission on and off. There was no shortness of breath no diaphoresis no nausea no radiation of the pain to the neck or the arms. Patient has a known history of coronary artery disease he had angioplasty and stent placement in 2004, he also has a known history of hypertension, hyperlipidemia, gastroesophageal reflux disease, osteoarthritis with bilateral hip replacement, degenerative disc disease with history of lumbar fusion. Patient is on disability due to his degenerative disc disease. Patient used to smoke he quit 5 years ago. On 03/12/2020 patient was seen and examined on the medical floor, he is alert and oriented 3 in no apparent distress, serial troponin levels were negative, patient underwent a stress test today which failed to reveal any evidence of stress induced ischemic changes, patient was evaluated by cardiology and was cleared for discharge he will be followed in their office in 1-2 weeks, will arrange also for follow-up with Dr. Perez within one week. Patient was given a prescription for sublingual nitroglycerin, he was instructed to return to emergency room if having any prolonged episode of chest pain. Patient Condition at Discharge: Good Plan - Discharge Summary New Discharge Prescriptions: New Nitroglycerin Sl Tabs [Nitrostat] 0.4 mg SUBLINGUAL Q5M PRN tab PRN Reason: Chest Pain Continue Spironolactone [Aldactone] 37.5 mg PO HS Aspirin [Adult Low Dose Aspirin EC] 81 mg PO DAILY Celecoxib [CeleBREX] 200 mg PO DAILY PRN PRN Reason: Pain Multivitamins, Thera [Multivitamin (formulary)] 1 tab PO DAILY lisinopriL [Zestril] 10 mg PO HS Atorvastatin [Lipitor] 20 mg PO HS Metoprolol Succinate (ER) [Toprol XL] 50 mg PO BID Loratadine 10 mg PO DAILY Calcium Carbonate [Calcium] 600 mg PO DAILY Fluticasone Nasal [place] [Flonase Nasal [place]] 2 spr EA NOSTRIL DAILY PRN PRN Reason: Allergy Symptoms Ipratropium [place] 0.06%Nasal [Atrovent Nasal 0.06%] 1 - 2 sprays EA NOSTRIL TID PRN PRN Reason: Allergy Symptoms Magnesium Oxide 400 mg PO DAILY Ascorbic Acid [Vitamin C] 250 mg PO DAILY Pantoprazole Sodium [Protonix] 40 mg PO BID Fish Oil/Dha/Epa [Fish Oil 1,200 mg Fish Oil] 1 cap PO DAILY HYDROcodone/APAP 5-325MG [[place] 5-325] 1 tab PO Q6HR PRN PRN Reason: Pain Discharge Medication List Spironolactone [Aldactone] 37.5 mg PO HS 09/26/14 [History] Aspirin [Adult Low Dose Aspirin EC] 81 mg PO DAILY 09/19/15 [History] Celecoxib [CeleBREX] 200 mg PO DAILY PRN 03/10/17 [History] Atorvastatin [Lipitor] 20 mg PO HS 05/31/18 [History] Multivitamins, Thera [Multivitamin (formulary)] 1 tab PO DAILY 05/31/18 [History] lisinopriL [Zestril] 10 mg PO HS 05/31/18 [History] Loratadine 10 mg PO DAILY 10/19/18 [History] Metoprolol Succinate (ER) [Toprol XL] 50 mg PO BID 10/19/18 [History] Calcium Carbonate [Calcium] 600 mg PO DAILY 06/05/19 [History] Fluticasone Nasal [place] [Flonase Nasal [place]] 2 spr EA NOSTRIL DAILY PRN 06/05/19 [History] Ipratropium [place] 0.06%Nasal [Atrovent Nasal 0.06%] 1 - 2 sprays EA NOSTRIL TID PRN 06/05/19 [History] Ascorbic Acid [Vitamin C] 250 mg PO DAILY 03/11/20 [History] Fish Oil/Dha/Epa [Fish Oil 1,200 mg Fish Oil] 1 cap PO DAILY 03/11/20 [History] HYDROcodone/APAP 5-325MG [[place] 5-325] 1 tab PO Q6HR PRN 03/11/20 [History] Magnesium Oxide 400 mg PO DAILY 03/11/20 [History] Pantoprazole Sodium [Protonix] 40 mg PO BID 03/11/20 [History] Nitroglycerin Sl Tabs [Nitrostat] 0.4 mg SUBLINGUAL Q5M PRN tab 03/12/20 [Rx] Follow up Appointment(s)/Referral(s): Abby Olivera MD [STAFF PHYSICIAN] - 1 Week Jenny Perez MD [Primary Care Provider] - 1-2 days Patient Instructions/Handouts: Chest Pain (ED) Activity/Diet/Wound Care/Special Instructions: She will be admitted
[2020-03-12 15:08] VITALS: BP 121/72; PULSE 88; TEMP 97.9
--- NOTE | 2020-03-12 18:12 | P.STRESS ---
- Stress Test Note Stress Test Results/Findings: Exam Performed: NM stress lexiscan cardiolite Exam Date: 03/12/20 Reason for Exam: CHEST PAIN Height: 6 ft Weight: 124.74 kg Protocol: LEXISCAN Stage: NA Duration of Exercise: NA Resting Heart Rate: 69 Resting Blood Pressure: 121/71 Maximum Achieved Heart Rate: 98 Maximum Achieved Blood Pressure: 127/80 85% PMHR: 134 100% PMHR: 158 METS: NA Technologist Comment: Stress Test Results/Findings: At baseline EKG showed normal sinus rhythm with a heart rate of 69 bpm, normal a xis, no significant ST or T-wave abnormalities Patient recieved IV infusion of Lexiscan 0.4mg and at peak infusion EKG showed no significant change from baseline without any new ischemic changes. Conclusions: 1. Normal EKG response to Lexiscan infusion 2. Nuclear imaging to be reported separately.
--- NOTE | 2020-03-13 13:51 | EST ---
Stress Test Results/Findings: Exam Performed: NM stress lexiscan cardiolite Exam Date: 03/12/20 Reason for Exam: CHEST PAIN Height: 6 ft Weight: 124.74 kg Protocol: LEXISCAN Stage: NA Duration of Exercise: NA Resting Heart Rate: 69 Resting Blood Pressure: 121/71 Maximum Achieved Heart Rate: 98 Maximum Achieved Blood Pressure: 127/80 85% PMHR: 134 100% PMHR: 158 METS: NA Technologist Comment: Stress Test Results/Findings: At baseline EKG showed normal sinus rhythm with a heart rate of 69 bpm, normal axis, no significant ST or T-wave abnormalities Patient recieved IV infusion of Lexiscan 0.4mg and at peak infusion EKG showed no significant change from baseline without any new ischemic changes. Conclusions: 1. Normal EKG response to Lexiscan infusion 2. Nuclear imaging to be reported separately. MTDD
--- NOTE | 2020-03-18 08:56 | ECHOF ---
Referral Reason:cp, vt MEASUREMENTS -------- HEIGHT: 180.3 cm WEIGHT: 124.7 kg BP: 129/72 IVSd: 1.3* cm (0.6 - 1.1) LVIDd: 4.9 cm (3.9 - 5.3) LVPWd: 1.2* cm (0.6 - 1.1) IVSs: 2.3 cm LVIDs: 3.2 cm LVPWs: 2.0 cm LAESV Index (A-L): 22.35 ml/m Ao Diam: 3.8 cm (2.0 - 3.7) AV Cusp: 2.3 cm (1.5 - 2.6) LA Diam: 3.7 cm (2.7 - 3.8) MV EXCURSION: 21.432 mm (> 18.000) MV EF SLOPE: 112 mm/s (70 - 150) EPSS: 1.0 cm MV E Jese: 0.80 m/s MV DecT: 271 ms MV A Jese: 0.72 m/s MV E/A Ratio: 1.12 RAP: 5.00 mmHg RVSP: 14.31 mmHg FINDINGS -------- This was a technically good study. The left ventricular size is normal. There is mild concentric left ventricular hypertrophy. Overa ll left ventricular systolic function is normal with, an EF between 55 - 60 %. Normal LAP Grade 1 D iastolic Dysfunction. The right ventricle is normal in size. The left atrial size is normal. Normal LA size by volume 22+/-6 ml/m2. The right atrial size is normal. The aortic valve is trileaflet and appears structurally normal. The mitral valve is normal. There is trace mitral regurgitation. The tricuspid valve appears structurally normal. Trace tricuspid regurgitation present. Right patricia tricular systolic pressure is normal at < 35 mmHg. There is no pulmonic regurgitation present. The aortic root size is normal. Normal inferior vena cava with normal inspiratory collapse consistent with estimated right atrial pre ssure of 5 mmHg. There is no pericardial effusion. CONCLUSIONS -------- 1. The left ventricular size is normal. 2. There is mild concentric left ventricular hypertrophy. 3. Overall left ventricular systolic function is normal with, an EF between 55 - 60 %. 4. Normal LAP Grade 1 Diastolic Dysfunction. 5. There is trace mitral regurgitation. 6. Trace tricuspid regurgitation present. EMBEDDED SYSTEMS DEVELOPER: Tasha Michaud RDCS
== END 2020-03-12 15:20 | disposition home or self-care (01) ==
LOC: EC 14:49 → 1SOBS 16:57
PROVIDERS: ADMIT Internal Medicine; ATTEND Internal Medicine
DX: R07.89 Other chest pain (principal); I47.2 Ventricular tachycardia; I25.10 Atherosclerotic heart disease of native coronary artery without angina pectoris; I10 Essential (primary) hypertension; G47.33 Obstructive sleep apnea (adult) (pediatric); R91.8 Other nonspecific abnormal finding of lung field; E78.5 Hyperlipidemia, unspecified; M19.90 Unspecified osteoarthritis, unspecified site; K21.9 Gastro-esophageal reflux disease without esophagitis; H57.9 Unspecified disorder of eye and adnexa; Z99.89 Dependence on other enabling machines and devices; H40.9 Unspecified glaucoma; L40.9 Psoriasis, unspecified; E66.9 Obesity, unspecified; Z68.37 Body mass index [BMI] 37.0-37.9, adult; J44.9 Chronic obstructive pulmonary disease, unspecified; F41.9 Anxiety disorder, unspecified; F32.9 Major depressive disorder, single episode, unspecified; Z79.82 Long term (current) use of aspirin; Z79.899 Other long term (current) drug therapy; Z79.1 Long term (current) use of non-steroidal anti-inflammatories (NSAID); Z91.048 Other nonmedicinal substance allergy status; Z96.643 Presence of artificial hip joint, bilateral; Z98.1 Arthrodesis status; Z95.5 Presence of coronary angioplasty implant and graft; Z87.891 Personal history of nicotine dependence; Z87.442 Personal history of urinary calculi; Z96.652 Presence of left artificial knee joint; Z82.5 Family history of asthma and other chronic lower respiratory diseases; Z82.49 Family history of ischemic heart disease and other diseases of the circulatory system
CPT/HCPCS: 93005 ×2; 99285 ×2; 36415; 93017; 93306; 80061; 80053; 84443; 83735; 84484; 85025; 85610; 85730; 71046; 78452; G0378 ×2; A9500; J2785

== ENCOUNTER → 2020-06-18 | Outpatient (CLI) | payer OTHER | END | disposition home or self-care (01) | LOC: LABWHC1 16:51 | PROVIDERS: ATTEND Family Medicine | DX: Z20.828 Contact with and (suspected) exposure to other viral communicable diseases (principal) | CPT/HCPCS: U0003; C9803 ==

== ENCOUNTER → 2020-09-26 | Outpatient (CLI) | payer OTHER ==
--- NOTE | 2020-09-28 14:35 | CT ---
EXAMINATION TYPE: CT cervical spine wo con DATE OF EXAM: 09/26/2020 COMPARISON: 08/21/[address] neck HISTORY: Cervicalgia CT DLP: 1110 mGycm CONTRAST: None CT of the cervical spine is performed in the axial plane at 2 mm thick sections. Reconstructed image s in the coronal, and sagittal plane are reviewed on the computer. No acute fractures are evident. Postsurgical changes from a laminectomy C4, C5, and C6 is evident. Pedicle screws and fixation rods a re present. No spinal canal stenosis is present. Vertebral body alignment is normal. Is loss of disc height throughout the cervical spine greatest at C5-6 C6-7. Vertebral body heights are preserved. Uncovertebral joint hypertrophy is present with moderate foraminal narrowing bilaterally at C5-6. Unc overtebral joint hypertrophy is also present causing moderate bilateral foraminal stenosis C6-7. No s iam canal stenosis is present. IMPRESSIONS: 1. No acute changes cervical spine. 2. Postsurgical changes. 3. Degenerative disc changes 4.Foraminal stenosis due to uncovertebral joint hypertrophy.
== END | disposition home or self-care (01) ==
LOC: RADCTMAIN 07:12
PROVIDERS: ATTEND Orthopaedic Surgery
DX: M47.812 Spondylosis without myelopathy or radiculopathy, cervical region (principal)
CPT/HCPCS: 72125

== ENCOUNTER 2021-02-23 14:22 | Emergency (ER) | payer OTHER ==
[2021-02-23 14:56] VITALS: RESP 18; TEMP 98.1
--- NOTE | 2021-02-23 16:01 | ED ---
Abdominal Pain HPI - General Chief Complaint: Abdominal Pain Stated Complaint: Abd and back pain Time Seen by Provider: 02/23/21 15:49 Source: patient Mode of arrival: ambulatory Limitations: no limitations - History of Present Illness Initial Comments: 65-year-old white male presents to the emergency room with complaints of abdominal pain for the past 2 weeks. He states he seen his primary care doctor and she put him on Cipro thinking it was diverticulitis. The symptoms did not get better so for the last 10 days they've added Flagyl with the Cipro. He still is not feeling any better and continues to have left lower quadrant pain. He states that his doctor wanted him to have a CT scan of his abdomen at the end of the month however he called and she told him to come to the emergency room for evaluation. He states that he was supposed to have a CT scan of his back also. He does have chronic back problems and does see Dr. Abraham. He has a history of cervical neck fusion and arthritis. He states that his stools have been different and he feels urgency with his bowel movements but has not had any incontinence or saddle anesthesia. He denies any fevers. MD Complaint: abdominal pain -: week(s) (2) Location: diffuse Radiation: none Migration to: no migration Severity scale (1-10): 4 Consistency: constant Associated Symptoms: nausea, other (back pain) Treatments Prior to Arrival: other (flagyl and cipro) - Related Data Home Medications Medication Instructions Recorded Confirmed Spironolactone [Aldactone] 37.5 mg PO HS 09/26/14 03/11/20 Aspirin [Adult Low Dose Aspirin EC] 81 mg PO DAILY 09/19/15 03/11/20 Celecoxib [CeleBREX] 200 mg PO DAILY PRN 03/10/17 03/11/20 Atorvastatin [Lipitor] 20 mg PO HS 05/31/18 03/11/20 Multivitamins, Thera [Multivitamin 1 tab PO DAILY 05/31/18 03/11/20 (formulary)] lisinopriL [Zestril] 10 mg PO HS 05/31/18 03/11/20 Loratadine 10 mg PO DAILY 10/19/18 03/11/20 Metoprolol Succinate (ER) [Toprol 50 mg PO BID 10/19/18 03/11/20 XL] Calcium Carbonate [Calcium] 600 mg PO DAILY 06/05/19 03/11/20 Fluticasone Nasal [place] [Flonase 2 spr EA NOSTRIL DAILY PRN 06/05/19 03/11/20 Nasal [place]] Ipratropium [place] 0.06%Nasal 1 - 2 sprays EA NOSTRIL TID PRN 06/05/19 03/11/20 [Atrovent Nasal 0.06%] Ascorbic Acid [Vitamin C] 250 mg PO DAILY 03/11/20 03/11/20 Fish Oil/Dha/Epa [Fish Oil 1,200 1 cap PO DAILY 03/11/20 03/11/20 mg Fish Oil] HYDROcodone/APAP 5-325MG [[place] 1 tab PO Q6HR PRN 03/11/20 03/11/20 5-325] Magnesium Oxide 400 mg PO DAILY 03/11/20 03/11/20 Pantoprazole Sodium [Protonix] 40 mg PO BID 03/11/20 03/11/20 Previous Rx's Medication Instructions Recorded Nitroglycerin Sl Tabs [Nitrostat] 0.4 mg SUBLINGUAL Q5M PRN tab 03/12/20 Allergies Allergy/AdvReac Type Severity Reaction Status Date / Time adhesive Allergy Rash/Hives Verified 02/23/21 14:55 Review of Systems ROS Statement: Those systems with pertinent positive or pertinent negative responses have been documented in the HPI. ROS Other: All systems not noted in ROS Statement are negative. Past Medical History Past Medical History: Coronary Artery Disease (CAD), Eye Disorder, GERD/Reflux, Hyperlipidemia, Hypertension, Osteoarthritis (OA), Skin Disorder, Sleep Apnea/CPAP/BIPAP Additional Past Medical History / Comment(s): slight glaucoma janet eyes, HX kidney stones, R great toe bunion, psoriasis, cervical disc ruptured, pt also needs a total L knee. left elbow sx History of Any Multi-Drug Resistant Organisms: None Reported Past Surgical History: Appendectomy, Back Surgery, Heart Catheterization With Stent, Orthopedic Surgery Additional Past Surgical History / Comment(s): PTCA with one stent in 2011, EGD and colonoscopy, L knee arthroscopy, lithrotripsy, SX TO REMOVE KIDNEY STONE, laminectomy low back 1984, has had laser sx to janet eyes Past Anesthesia/Blood Transfusion Reactions: No Reported Reaction Additional Past Anesthesia/Blood Transfusion Reaction / Comment(s): Pt has not recieved any blood transfusion. Date of Last Stent Placement:: 2011 Past Psychological History: Anxiety, Depression Smoking Status: Former smoker Past Alcohol Use History: None Reported Past Drug Use History: Marijuana - Past Family History Father Family Medical History: COPD, Coronary Artery Disease (CAD), Myocardial Infarction ([place]) Mother Family Medical History: Coronary Artery Disease (CAD) General Exam Limitations: no limitations General appearance: alert, in no apparent distress Head exam: Present: atraumatic, normocephalic, normal inspection Eye exam: Present: normal appearance, PERRL, EOMI. Absent: scleral icterus, conjunctival injection, periorbital swelling Pupils: Present: normal accommodation ENT exam: Present: normal exam, normal oropharynx, mucous membranes moist Neck exam: Present: normal inspection, full ROM. Absent: tenderness, meningismus, lymphadenopathy Respiratory exam: Present: normal lung sounds bilaterally. Absent: respiratory distress, wheezes, rales, rhonchi, stridor, chest wall tenderness, accessory muscle use, decreased breath sounds Cardiovascular Exam: Present: regular rate, normal rhythm, normal heart sounds. Absent: systolic murmur, diastolic murmur, rubs, gallop, clicks GI/Abdominal exam: Present: soft, distended, tenderness (Left lower quadrant). Absent: hernia Extremities exam: Present: normal inspection, full ROM, normal capillary refill. Absent: tenderness, pedal edema, joint swelling, calf tenderness Back exam: Present: normal inspection, full ROM. Absent: tenderness, CVA tenderness (R), CVA tenderness (L), muscle spasm, paraspinal tenderness, vertebral tenderness Neurological exam: Present: alert, oriented X3, CN II-XII intact Psychiatric exam: Present: normal affect, normal mood Skin exam: Present: warm, dry, intact, normal color. Absent: rash, cyanosis, diaphoretic, erythema, petechiae, pallor, mottled Course Vital Signs 02/23/21 14:51 Temperature 98.1 F Pulse Rate 84 Respiratory 18 Rate Blood Pressure 110/61 O2 Sat by Pulse 98 Oximetry Medical Decision Making - Medical Decision Making CT of the abdomen and pelvis shows an intact liver spleen and stomach with no evidence of a pancreatic mass. There is no hydronephrosis however there are a few right-sided renal calculi in the lower pole of the kidney measuring up to 3 mm and 2 mm calcification in the anterior aspect of the left renal cyst. No evidence of pelvic mass or inguinal hernia. There is no mesenteric edema or free air. No bowel obstruction. No identified diverticulitis. There is severe bony spinal stenosis at L3-L4 which is unchanged from May 2019. Labs are unremarkable with no anemia or leukocytosis. He has not had any fevers. Patient will be directed to follow up with his primary care doctor. Return if any worsening symptoms including fever, abnormal bleeding worsening pain. 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 He does have family history of polyps and needs a colonoscopy. Case discussed with Dr. Hodge. - Lab Data Result diagrams: 02/23/21 16:22 02/23/21 16: Lab Results 02/23/21 02/23/21 02/23/21 Range/Units 16:22 16:22 16:22 WBC 7.3 (3.8-10.6) k/uL RBC 4.29 L (4.30-5.90) m/uL Hgb 13.8 (13.0-17.5) gm/dL Hct 41.7 (39.0-53.0) % MCV 97.3 (80.0-100.0) fL MCH 32.1 (25.0-35.0) pg MCHC 33.0 (31.0-37.0) g/dL RDW 13.9 (11.5-15.5) % Plt Count 219 (150-450) k/uL MPV 8.0 Neutrophils % 66 % Lymphocytes % 26 % Monocytes % 5 % Eosinophils % 2 % Basophils % 0 % Neutrophils # 4.8 (1.3-7.7) k/uL Lymphocytes # 1.9 (1.0-4.8) k/uL Monocytes # 0.3 (0-1.0) k/uL Eosinophils # 0.2 (0-0.7) k/uL Basophils # 0.0 (0-0.2) k/uL Sodium 137 (137-145) mmol/L Potassium 4.1 (3.5-5.1) mmol/L Chloride 107 (98-107) mmol/L Carbon Dioxide 22 (22-30) mmol/L Anion Gap 8 mmol/L BUN 26 H (9-20) mg/dL Creatinine 0.92 (0.66-1.25) mg/dL Est GFR (CKD-EPI)AfAm >90 (>60 ml/min/1.73 sqM) Est GFR (CKD-EPI)NonAf 88 (>60 ml/min/1.73 sqM) Glucose 146 H (74-99) mg/dL Calcium 9.3 (8.4-10.2) mg/dL Total Bilirubin 0.2 (0.2-1.3) mg/dL AST 42 (17-59) U/L ALT 44 (4-49) U/L Alkaline Phosphatase 54 (38-126) U/L Total Protein 6.5 (6.3-8.2) g/dL Albumin 4.2 (3.5-5.0) g/dL Amylase 44 (30-110) U/L Lipase 81 (23-300) U/L Urine Color Yellow Urine Appearance Clear (Clear) Urine pH 6.0 (5.0-8.0) Ur Specific [place] 1.022 (1.001-1.035) Urine Protein Negative (Negative) Urine Glucose (UA) Negative (Negative) Urine Ketones Negative (Negative) Urine Blood Negative (Negative) Urine Nitrite Negative (Negative) Urine Bilirubin Negative (Negative) Urine Urobilinogen <2.0 (<2.0) mg/dL Ur Leukocyte Esterase Negative (Negative) Disposition Clinical Impression: Abdominal pain Disposition: HOME SELF-CARE Condition: Good Instructions (If sedation given, give patient instructions): Abdominal Pain (ED) Additional Instructions: Follow-up with the primary care doctor this week. Also contact your gastroe nterologist for possible colonoscopy. Return if any worsening pain, abnormal bleeding or fevers. Is patient prescribed a controlled substance at d/c from ED?: No Referrals: Jenny Perez MD [Primary Care Provider] - 1-2 days Time of Disposition: 18:01
[2021-02-23] MEDS ORDERED: KETOROLAC 15 MG/ML 1 ML VIAL IVP STA (16:09)
[2021-02-23] MEDS ORDERED: SODIUM CHLORIDE 0.9% 500 ML 500 ML IV STA (16:09)
[2021-02-23 16:33] LABS: Basophils % (A) 0 %; Eosinophils # (A) 0.2 k/uL (0-0.7); Eosinophils % (A) 2 %; HCT 41.7 % (39.0-53.0); HGB 13.8 gm/dL (13.0-17.5); Lymphocytes # (A) 1.9 k/uL (1.0-4.8); Lymphocytes % (A) 26 %; MCH 32.1 pg (25.0-35.0); MCV 97.3 fL (80.0-100.0); Monocytes # (A) 0.3 k/uL (0-1.0); Monocytes % (A) 5 %; Neutrophils # (A) 4.8 k/uL (1.3-7.7); Neutrophils % (A) 66 %; Platelet Count 219 k/uL (150-450); RBC 4.29 m/uL (4.30-5.90); RDW 13.9 % (11.5-15.5); WBC 7.3 k/uL (3.8-10.6)
[2021-02-23 16:50] LABS: ALT 44 U/L (4-49); AST 42 U/L (17-59); African American GFR (CKD) >90 (>60 ml/min/1.73 sqM); Albumin 4.2 g/dL (3.5-5.0); Alkaline Phosphatase 54 U/L (38-126); Amylase 44 U/L (30-110); Anion Gap 8 mmol/L; Blood Urea Nitrogen 26 mg/dL (9-20); Calcium 9.3 mg/dL (8.4-10.2); Carbon Dioxide 22 mmol/L (22-30); Chloride 107 mmol/L (98-107); Glucose 146 mg/dL (74-99); Lipase 81 U/L (23-300); Non-African American GFR(CKD) 88 (>60 ml/min/1.73 sqM); Potassium 4.1 mmol/L (3.5-5.1); Sodium 137 mmol/L (137-145); Total Bilirubin 0.2 mg/dL (0.2-1.3); Total Protein 6.5 g/dL (6.3-8.2)
[2021-02-23 17:35] LABS: Appearance,Urine Clear (Clear); Bilirubin,Urine Negative (Negative); Blood,Urine Negative (Negative); Color,Urine Yellow; Glucose,Urine (UA) Negative (Negative); Ketones,Urine Negative (Negative); Leukocyte Esterase,Urine Negative (Negative); Nitrite,Urine Negative (Negative); Protein,Urine Negative (Negative); Specific Gravity,Urine 1.022 (1.001-1.035); Urobilinogen,Urine <2.0 mg/dL (<2.0)
--- NOTE | 2021-02-23 17:36 | CT ---
EXAMINATION TYPE: CT abdomen pelvis wo con DATE OF EXAM: 02/23/2021 COMPARISON: 06/04/2019 HISTORY: Lower abdominal pain x few weeks. CT DLP: 1688.4 mGycm Automated exposure control for dose reduction was used. Images obtained from the diaphragm to the floor the pelvis with no contrast. Lung bases are clear. There is no pleural effusion. Heart size is normal. There is no pericardial eff usion. Liver spleen stomach appear intact. Bile ducts are not dilated. Bladder is contracted. There is no ev idence of pancreatic mass. There is no adrenal mass. There is large cortical cyst on the posterior left kidney with anterior dis placement of the kidney. Cyst measures 9 cm. There is no hydronephrosis. There are other smaller brice l cortical cysts. There is some amorphous calcification below the lower pole of the left kidney. Ther e are a few right-sided renal calculi in the lower pole of the kidney that measure up to 3 mm. The ur eters are not dilated. There is 2 mm calcification in the anterior aspect of the large left renal cys t. There is no retroperitoneal adenopathy. Bladder distends smoothly. There is metal artifact from bi lateral hip prosthesis. There is no inguinal hernia. There is no free fluid in the pelvis. There is n o evidence of pelvic mass. There is no mesenteric edema. There is no ascites or free air. There is no sign of a bowel obstructio n. Terminal ileum appears normal. Appendix is not seen. There is lumbar levoscoliosis. There is multilevel lumbar spondylotic changes with disc space narrowi ng and osteosclerosis. I see no focal bone destruction. There is severe bony spinal stenosis at L3-4 unchanged. IMPRESSION: Nonobstructing calculi lower pole right kidney. Bilateral multiple renal cortical cysts. Perinephric left side calcification. No suspicious renal mass. Moderate multilevel lumbar spondylotic changes. There is severe spinal stenosis at L3-4. There is clearing of a calculus in the interpolar left kidney compared to old exam. No evidence of re nal obstruction.
[2021-02-23 18:14] VITALS: BP 117/68; PULSE 67
== END 2021-02-23 18:15 | disposition home or self-care (01) ==
LOC: EC 14:22
DX: R10.32 Left lower quadrant pain (principal); M54.9 Dorsalgia, unspecified; R11.0 Nausea; I10 Essential (primary) hypertension; I25.10 Atherosclerotic heart disease of native coronary artery without angina pectoris; E78.5 Hyperlipidemia, unspecified; M19.90 Unspecified osteoarthritis, unspecified site; K21.9 Gastro-esophageal reflux disease without esophagitis; Z87.891 Personal history of nicotine dependence; Z91.09 Other allergy status, other than to drugs and biological substances; Z79.899 Other long term (current) drug therapy; Z79.82 Long term (current) use of aspirin; Z95.5 Presence of coronary angioplasty implant and graft
CPT/HCPCS: 36415; 80053; 82150; 83690; 85025; 81003; 74176; 99284; 96374; 96361; J1885

== ENCOUNTER 2021-02-27 18:39 | Emergency (ER) | payer OTHER ==
[2021-02-27] MEDS ORDERED: MORPHINE SULFATE 4 MG/ML SYRINGE IV STA (20:16)
[2021-02-27] MEDS ORDERED: SODIUM CHLORIDE 0.9% 1,000 ML IV STA (20:16)
[2021-02-27] MEDS ORDERED: ONDANSETRON 4 MG/2 ML VIAL IVP STA (20:16)
[2021-02-27 20:35] VITALS: RESP 18
[2021-02-27 20:56] LABS: Basophils % (A) 0 %; Eosinophils # (A) 0.2 k/uL (0-0.7); Eosinophils % (A) 3 %; HCT 42.3 % (39.0-53.0); HGB 13.9 gm/dL (13.0-17.5); Lymphocytes # (A) 2.1 k/uL (1.0-4.8); Lymphocytes % (A) 25 %; MCH 31.8 pg (25.0-35.0); MCHC 32.9 g/dL (31.0-37.0); MCV 96.6 fL (80.0-100.0); Monocytes # (A) 0.4 k/uL (0-1.0); Monocytes % (A) 5 %; Neutrophils # (A) 5.2 k/uL (1.3-7.7); Neutrophils % (A) 65 %; Platelet Count 224 k/uL (150-450); RBC 4.37 m/uL (4.30-5.90); RDW 13.9 % (11.5-15.5); WBC 8.1 k/uL (3.8-10.6)
[2021-02-27 21:07] LABS: ALT 33 U/L (4-49); AST 32 U/L (17-59); African American GFR (CKD) >90 (>60 ml/min/1.73 sqM); Albumin 4.2 g/dL (3.5-5.0); Alkaline Phosphatase 53 U/L (38-126); Anion Gap 10 mmol/L; Blood Urea Nitrogen 26 mg/dL (9-20); Calcium 9.5 mg/dL (8.4-10.2); Carbon Dioxide 22 mmol/L (22-30); Chloride 105 mmol/L (98-107); Glucose 138 mg/dL (74-99); Lipase 237 U/L (23-300); Non-African American GFR(CKD) >90 (>60 ml/min/1.73 sqM); Potassium 3.7 mmol/L (3.5-5.1); Sodium 137 mmol/L (137-145); Total Bilirubin 0.3 mg/dL (0.2-1.3); Total Protein 6.7 g/dL (6.3-8.2)
[2021-02-27 21:55] LABS: Appearance,Urine Clear (Clear); Bilirubin,Urine Negative (Negative); Blood,Urine Negative (Negative); Color,Urine Dark Yellow; Glucose,Urine (UA) Negative (Negative); Ketones,Urine Negative (Negative); Leukocyte Esterase,Urine Negative (Negative); Nitrite,Urine Negative (Negative); PH, Urine 5.5 (5.0-8.0); Protein,Urine Negative (Negative); Specific Gravity,Urine 1.022 (1.001-1.035); Urobilinogen,Urine <2.0 mg/dL (<2.0)
[2021-02-27] MEDS ORDERED: ACET/COD 300 MG/30 MG STARTER PACK 6 TAB BTL PO STA (22:04)
--- NOTE | 2021-02-27 22:04 | ED ---
General Adult HPI - General Chief complaint: Abdominal Pain Stated complaint: abd pain Time Seen by Provider: 02/27/21 19:47 Source: patient Mode of arrival: ambulatory - History of Present Illness Initial comments: 65 year-old male patient presents to the emergency department for evaluation of lower abdominal pain pain and diarrhea. States he has had symptoms for the last three weeks. Did see his physician who started him on cipro, symptoms continued started him on flagyl. He was seen and evaluated here four days ago had lab work up and CT abdomen and pelvis. CT showed bilateral renal calculi and a large cyst on the kidney. Patient state today he did have some streaking blood in the stool. Reports cramping abdominal pain. Denies nausea or vomiting. States he has been able to eat and drink. Denies any fever or chills. Denies recent travel or sick contacts. No other antibiotic use prior to cipro and flagyl. Patient denies any recent rash, cough, shortness of breath, chest pain, back pain, numbness, tingling, dizziness, weakness, hematuria, dysuria, urinary urgency, urinary frequency, headache, visual changes, or any other complaints. - Related Data Home Medications Medication Instructions Recorded Confirmed Spironolactone [Aldactone] 37.5 mg PO HS 09/26/14 02/23/21 Aspirin [Adult Low Dose Aspirin EC] 81 mg PO DAILY 09/19/15 02/23/21 Celecoxib [CeleBREX] 200 mg PO DAILY 03/10/17 02/23/21 Atorvastatin [Lipitor] 20 mg PO HS 05/31/18 02/23/21 lisinopriL [Zestril] 10 mg PO HS 05/31/18 02/23/21 Metoprolol Succinate (ER) [Toprol 50 mg PO BID 10/19/18 02/23/21 XL] Previous Rx's Medication Instructions Recorded Dicyclomine [Bentyl] 20 mg PO QID #12 tablet 02/27/21 Allergies Allergy/AdvReac Type Severity Reaction Status Date / Time adhesive Allergy Rash/Hives Verified 02/27/21 19:34 Review of Systems ROS Statement: Those systems with pertinent positive or pertinent negative responses have been documented in the HPI. ROS Other: All systems not noted in ROS Statement are negative. Past Medical History Past Medical History: Coronary Artery Disease (CAD), Eye Disorder, GERD/Reflux, Hyperlipidemia, Hypertension, Osteoarthritis (OA), Skin Disorder, Sleep Apnea/CPAP/BIPAP Additional Past Medical History / Comment(s): slight glaucoma janet eyes, HX kidney stones, R great toe bunion, psoriasis, cervical disc ruptured, pt also needs a total L knee. left elbow sx History of Any Multi-Drug Resistant Organisms: None Reported Past Surgical History: Appendectomy, Back Surgery, Heart Catheterization With Stent, Orthopedic Surgery Additional Past Surgical History / Comment(s): PTCA with one stent in 2011, EGD and colonoscopy, L knee arthroscopy, lithrotripsy, SX TO REMOVE KIDNEY STONE, laminectomy low back 1984, has had laser sx to janet eyes Past Anesthesia/Blood Transfusion Reactions: No Reported Reaction Additional Past Anesthesia/Blood Transfusion Reaction / Comment(s): Pt has not recieved any blood transfusion. Date of Last Stent Placement:: 2011 Past Psychological History: Anxiety, Depression Smoking Status: Former smoker Past Alcohol Use History: None Reported Past Drug Use History: Marijuana - Past Family History Father Family Medical History: COPD, Coronary Artery Disease (CAD), Myocardial Infarction ([place]) Mother Family Medical History: Coronary Artery Disease (CAD) General Exam General appearance: alert, in no apparent distress, other (Physical well- developed, well-nourished adult male patient in no acute distress. Vital signs upon presentation are temperature 98.9F, pulse 88, respirations 19, blood pre ssure 139/82, pulse ox 96% on room air.) ENT exam: Present: normal exam, normal oropharynx, mucous membranes moist Respiratory exam: Present: normal lung sounds bilaterally. Absent: respiratory distress, wheezes, rales, rhonchi, stridor Cardiovascular Exam: Present: regular rate, normal rhythm, normal heart sounds. Absent: systolic murmur, diastolic murmur, rubs, gallop, clicks GI/Abdominal exam: Present: soft, normal bowel sounds. Absent: distended, tenderness, guarding, rebound, rigid Neurological exam: Present: alert, oriented X3, CN II-XII intact Psychiatric exam: Present: normal affect, normal mood Skin exam: Present: warm, dry, intact, normal color. Absent: rash Course Vital Signs 02/27/21 02/27/21 02/27/21 19:30 20:30 21:46 Temperature 98.9 F Pulse Rate 88 72 68 Respiratory 19 18 18 Rate Blood Pressure 139/82 117/75 121/92 O2 Sat by Pulse 96 96 97 Oximetry 02/27/21 22:18 Temperature 98.2 F Pulse Rate 77 Respiratory 18 Rate Blood Pressure 115/72 O2 Sat by Pulse 96 Oximetry Medical Decision Making - Medical Decision Making 65-year-old male patient presents to the emergency department today for evaluation of abdominal pain and diarrhea 3 weeks. Physical examination well soft nontender abdomen. Labs reviewed and are unremarkable. Lactic acid norm al. White blood cell count is normal. He is afebrile. He is unable to provide a stool sample here. He is given IV fluids and pain medication. He was here [address] showing bilateral renal calculi and renal cyst but no other abnormalities to account for his pain. He will be discharged follow-up with his primary care physician for recheck in 1-2 days. He is instructed to contact general surgery for possible colonoscopy. He is given Bentyl for symptom relief. Return parameters discussed in detail. He verbalizes understanding and agrees with this plan. Case discussed with my attending Dr. Kendall. - Lab Data Result diagrams: 02/27/21 20:45 02/27/21 20:45 Lab Results 02/27/21 02/27/21 02/27/21 Range/Units 20:45 20:45 20:45 WBC 8.1 (3.8-10.6) k/uL RBC 4.37 (4.30-5.90) m/uL Hgb 13.9 (13.0-17.5) gm/dL Hct 42.3 (39.0-53.0) % MCV 96.6 (80.0-100.0) fL MCH 31.8 (25.0-35.0) pg MCHC 32.9 (31.0-37.0) g/dL RDW 13.9 (11.5-15.5) % Plt Count 224 (150-450) k/uL MPV 8.0 Neutrophils % 65 % Lymphocytes % 25 % Monocytes % 5 % Eosinophils % 3 % Basophils % 0 % Neutrophils # 5.2 (1.3-7.7) k/uL Lymphocytes # 2.1 (1.0-4.8) k/uL Monocytes # 0.4 (0-1.0) k/uL Eosinophils # 0.2 (0-0.7) k/uL Basophils # 0.0 (0-0.2) k/uL Sodium 137 (137-145) mmol/L Potassium 3.7 (3.5-5.1) mmol/L Chloride 105 (98-107) mmol/L Carbon Dioxide 22 (22-30) mmol/L Anion Gap 10 mmol/L BUN 26 H (9-20) mg/dL Creatinine 0.73 (0.66-1.25) mg/dL Est GFR (CKD-EPI)AfAm >90 (>60 ml/min/1.73 sqM) Est GFR (CKD-EPI)NonAf >90 (>60 ml/min/1.73 sqM) Glucose 138 H (74-99) mg/dL Plasma Lactic Acid Chip (0.7-2.0) mmol/L Calcium 9.5 (8.4-10.2) mg/dL Total Bilirubin 0.3 (0.2-1.3) mg/dL AST 32 (17-59) U/L ALT 33 (4-49) U/L Alkaline Phosphatase 53 (38-126) U/L Total Protein 6.7 (6.3-8.2) g/dL Albumin 4.2 (3.5-5.0) g/dL Lipase 237 (23-300) U/L Urine Color Dark Yellow Urine Appearance Clear (Clear) Urine pH 5.5 (5.0-8.0) Ur Specific [place] 1.022 (1.001-1.035) Urine Protein Negative (Negative) Urine Glucose (UA) Negative (Negative) Urine Ketones Negative (Negative) Urine Blood Negative (Negative) Urine Nitrite Negative (Negative) Urine Bilirubin Negative (Negative) Urine Urobilinogen <2.0 (<2.0) mg/dL Ur Leukocyte Esterase Negative (Negative) 02/27/21 Range/Units 20:45 WBC (3.8-10.6) k/uL RBC (4.30-5.90) m/uL Hgb (13.0-17.5) gm/dL Hct (39.0-53.0) % MCV (80.0-100.0) fL MCH (25.0-35.0) pg MCHC (31.0-37.0) g/dL RDW (11.5-15.5) % Plt Count (150-450) k/uL MPV Neutrophils % % Lymphocytes % % Monocytes % % Eosinophils % % Basophils % % Neutrophils # (1.3-7.7) k/uL Lymphocytes # (1.0-4.8) k/uL Monocytes # (0-1.0) k/uL Eosinophils # (0-0.7) k/uL Basophils # (0-0.2) k/uL Sodium (137-145) mmol/L Potassium (3.5-5.1) mmol/L Chloride (98-107) mmol/L Carbon Dioxide (22-30) mmol/L Anion Gap mmol/L BUN (9-20) mg/dL Creatinine (0.66-1.25) mg/dL Est GFR (CKD-EPI)AfAm (>60 ml/min/1.73 sqM) Est GFR (CKD-EPI)NonAf (>60 ml/min/1.73 sqM) Glucose (74-99) mg/dL Plasma Lactic Acid Chip 2.0 (0.7-2.0) mmol/L Calcium (8.4-10.2) mg/dL Total Bilirubin (0.2-1.3) mg/dL AST (17-59) U/L ALT (4-49) U/L Alkaline Phosphatase (38-126) U/L Total Protein (6.3-8.2) g/dL Albumin (3.5-5.0) g/dL Lipase (23-300) U/L Urine Color Urine Appearance (Clear) Urine pH (5.0-8.0) Ur Specific [place] (1.001-1.035) Urine Protein (Negative) Urine Glucose (UA) (Negative) Urine Ketones (Negative) Urine Blood (Negative) Urine Nitrite (Negative) Urine Bilirubin (Negative) Urine Urobilinogen (<2.0) mg/dL Ur Leukocyte Esterase (Negative) Disposition Clinical Impression: Abdominal pain, Diarrhea Disposition: HOME SELF-CARE Condition: Good Instructions (If sedation given, give patient instructions): Acute Diarrhea (ED), Abdominal Pain (ED) Additional Instructions: Bring stool sample back to the emergency department for evaluation. Take medications as directed. Follow-up with primary care physician for recheck in 1-2 days. Call Gen. surgery to see Eber Wang colonoscopy. Return for any new, worsening, or concerning symptoms. Prescriptions: Dicyclomine [Bentyl] 20 mg PO QID #12 tablet Is patient prescribed a controlled substance at d/c from ED?: No Referrals: Jenny Perez MD [Primary Care Provider] - 1-2 days Time of Disposition: 22:04
[2021-02-27 22:21] VITALS: BP 115/72; PULSE 77; TEMP 98.2
== END 2021-02-27 22:18 | disposition home or self-care (01) ==
LOC: EC 18:39
DX: R10.30 Lower abdominal pain, unspecified (principal); R19.7 Diarrhea, unspecified; I10 Essential (primary) hypertension; E78.5 Hyperlipidemia, unspecified; M19.90 Unspecified osteoarthritis, unspecified site; I25.10 Atherosclerotic heart disease of native coronary artery without angina pectoris; Z79.82 Long term (current) use of aspirin; Z91.09 Other allergy status, other than to drugs and biological substances; Z79.899 Other long term (current) drug therapy; Z87.891 Personal history of nicotine dependence; Z95.5 Presence of coronary angioplasty implant and graft; Z90.49 Acquired absence of other specified parts of digestive tract
CPT/HCPCS: 36415; 80053; 83605; 83690; 85025; 81003; 99284; 96374; 96375; 96361; J2270; J2405

== ENCOUNTER 2021-04-11 00:49 | Observation (INO) | payer OTHER ==
[2021-04-11] MEDS ORDERED: ASPIRIN 81 MG PO STA (01:08)
--- NOTE | 2021-04-11 01:14 | ED ---
Chest Pain HPI - General Source: patient, RN notes reviewed, old records reviewed Mode of arrival: wheelchair Limitations: no limitations <Roselyn Lyle - Last Filed: 04/11/21 02:24> <Ha Kendall - Last Filed: 04/11/21 05:55> - General Chief Complaint: Chest Pain Stated Complaint: Chest pain Time Seen by Provider: 04/11/21 00:59 - History of Present Illness Initial Comments: Patient is a 65-year-old male with history of heart disease, hypertension, presenting to emergency Department with complaints of chest pain over the past 2 days. He states that the chest pain is anterior, with some radiation to left arm. He feels like he has been sweating more over the past 2 days as well with exertion. Patient states he did take a baby aspirin this morning, currently the pain is about a 4/10. He states it's pretty constant. Denies any recent fevers or chills, no cough or congestion. Denies any shortness of breath. Does have some mild nausea but no vomiting, no diarrhea or abdominal pain. No further complaints at this time. His vital signs are stable upon arrival. (Marian Lyle) - Related Data Home Medications Medication Instructions Recorded Confirmed Spironolactone [Aldactone] 37.5 mg PO HS 09/26/14 02/23/21 Aspirin [Adult Low Dose Aspirin EC] 81 mg PO DAILY 09/19/15 02/23/21 Celecoxib [CeleBREX] 200 mg PO DAILY 03/10/17 02/23/21 Atorvastatin [Lipitor] 20 mg PO HS 05/31/18 02/23/21 lisinopriL [Zestril] 10 mg PO HS 05/31/18 02/23/21 Metoprolol Succinate (ER) [Toprol 50 mg PO BID 10/19/18 02/23/21 XL] Previous Rx's Medication Instructions Recorded Dicyclomine [Bentyl] 20 mg PO QID #12 tablet 02/27/21 Allergies Allergy/AdvReac Type Severity Reaction Status Date / Time adhesive Allergy Rash/Hives Verified 04/11/21 00:55 Review of Systems ROS Other: All systems not noted in ROS Statement are negative. <Roselyn Lyle - Last Filed: 04/11/21 02:24> ROS Other: All systems not noted in ROS Statement are negative. <Ha Kendall Johnny - Last Filed: 04/11/21 05:55> ROS Statement: Those systems with pertinent positive or pertinent negative responses have been documented in the HPI. EKG Findings - EKG Comments: EKG Findings:: Normal sinus rhythm, normal ECG, no signs of acute ST segment elevation. Similar to previous on 03/11/2020. Ventricular rate 78, MD interval 174, QT 364. <Roselyn Lyle - Last Filed: 04/11/21 02:24> Past Medical History Past Medical History: Coronary Artery Disease (CAD), Eye Disorder, GERD/Reflux, Hyperlipidemia, Hypertension, Osteoarthritis (OA), Skin Disorder, Sleep Apnea/CPAP/BIPAP Additional Past Medical History / Comment(s): slight glaucoma janet eyes, HX kidney stones, R great toe bunion, psoriasis, cervical disc ruptured, pt also needs a total L knee. left elbow sx History of Any Multi-Drug Resistant Organisms: None Reported Past Surgical History: Appendectomy, Back Surgery, Heart Catheterization With Stent, Orthopedic Surgery Additional Past Surgical History / Comment(s): PTCA with one stent in 2011, EGD and colonoscopy, L knee arthroscopy, lithrotripsy, SX TO REMOVE KIDNEY STONE, laminectomy low back 1984, has had laser sx to janet eyes Past Anesthesia/Blood Transfusion Reactions: No Reported Reaction Additional Past Anesthesia/Blood Transfusion Reaction / Comment(s): Pt has not recieved any blood transfusion. Date of Last Stent Placement:: 2011 Past Psychological History: Anxiety, Depression Smoking Status: Former smoker Past Alcohol Use History: None Reported Past Drug Use History: Marijuana - Past Family History Father Family Medical History: COPD, Coronary Artery Disease (CAD), Myocardial Infarction ([place]) Mother Family Medical History: Coronary Artery Disease (CAD) <Roselyn Lyle - Last Filed: 04/11/21 02:24> General Exam <Roselyn Lyle - Last Filed: 04/11/21 02:24> General appearance: alert, in no apparent distress Head exam: Present: atraumatic, normocephalic, normal inspection Eye exam: Present: normal appearance, PERRL, EOMI. Absent: scleral icterus, conjunctival injection, periorbital swelling ENT exam: Present: normal exam, mucous membranes moist Neck exam: Present: normal inspection. Absent: tenderness, meningismus, lymphadenopathy Respiratory exam: Present: normal lung sounds bilaterally. Absent: respiratory distress, wheezes, rales, rhonchi, stridor Cardiovascular Exam: Present: regular rate, normal rhythm, normal heart sounds. Absent: systolic murmur, diastolic murmur, rubs, gallop, clicks GI/Abdominal exam: Present: soft, normal bowel sounds. Absent: distended, tenderness, guarding, rebound, rigid Extremities exam: Present: normal inspection, full ROM, normal capillary refill. Absent: tenderness, pedal edema, joint swelling, calf tenderness Back exam: Present: normal inspection Neurological exam: Present: alert, oriented X3, CN II-XII intact Psychiatric exam: Present: normal affect, normal mood Skin exam: Present: warm, dry, intact, normal color. Absent: rash <Ha Kendall - Last Filed: 04/11/21 05:55> - General Exam Comments Initial Comments: GENERAL: Patient is well-developed and well-nourished. Patient is nontoxic and in no acute distress. HEAD: Atraumatic, normocephalic. EYES: Pupils equal round and reactive to light, extraocular movements intact, sclera anicteric, conjunctiva are normal. Eyelids were unremarkable. ENT: Nares patent, oropharynx clear without exudates. Moist mucous membranes. NECK: Normal range of motion, supple without lymphadenopathy or JVD. LUNGS: Unlabored respirations. Breath sounds clear to auscultation bilaterally and equal. No wheezes rales or rhonchi. HEART: Regular rate and rhythm without murmurs, rubs or gallops. ABDOMEN: Soft, nontender, normoactive bowel sounds. No guarding, no rebound. No masses appreciated. : Deferred MUSCULOSKELETAL: Normal extremities with adequate strength and normal range of motion, no pitting or edema. No clubbing or cyanosis. NEUROLOGICAL: Patient is alert and oriented x 3. Motor and sensory are also intact. Cranial nerves II through XII grossly intact. Symmetrical smile. Normal speech, normal gait. PSYCH: Normal mood, normal affect. SKIN: Warm, Dry, normal turgor, no rashes or lesions noted. (Roselyn Lyle) Course Vital Signs 04/11/21 04/11/21 04/11/21 00:51 01:34 03:00 Temperature 98.4 F Pulse Rate 83 75 76 Respiratory 19 18 18 Rate Blood Pressure 131/81 107/60 O2 Sat by Pulse 98 98 98 Oximetry 04/11/21 05:00 Temperature Pulse Rate 72 Respiratory 18 Rate Blood Pressure 129/88 O2 Sat by Pulse 99 Oximetry Chest Pain MDM <Roselyn Lyle - Last Filed: 04/11/21 02:24> <Ha Kendall - Last Filed: 04/11/21 05:55> - [facility] Patient is a 65-year-old male with history of heart disease, presenting with chest pain over the past 2 days. Does have some radiation to left arm occasionally. His pain currently is a 4/10, his vital signs are stable. His EKG is reading normal sinus rhythm, no signs of acute ischemic event. Patient was given aspirin. His labs are unremarkable at this time including normal troponin. He is resting currently. Patient will be admitted for cardiac rule out, serial troponins. Case discussed with Dr. Kendall. (Roselyn Lyle) 65 male to the emergency department for evaluation, history of heart disease, will admit for cardiac observation and treatment (Ha Kendall) Disposition Decision Date: 04/11/21 Decision Time: 02:25 <Roselyn Lyle - Last Filed: 04/11/21 02:24> <Ha Kendall - Last Filed: 04/11/21 05:55> Clinical Impression: Chest pain Disposition: ADMITTED IP TO THIS HOSP Condition: Stable
[2021-04-11 01:27] LABS: Basophils % (A) 0 %; Eosinophils # (A) 0.3 k/uL (0-0.7); Eosinophils % (A) 5 %; HCT 42.4 % (39.0-53.0); HGB 13.7 gm/dL (13.0-17.5); Lymphocytes # (A) 2.2 k/uL (1.0-4.8); Lymphocytes % (A) 30 %; MCH 31.2 pg (25.0-35.0); MCHC 32.4 g/dL (31.0-37.0); MCV 96.3 fL (80.0-100.0); Mean Platelet Volume 7.7; Monocytes # (A) 0.5 k/uL (0-1.0); Monocytes % (A) 6 %; Neutrophils % (A) 55 %; Platelet Count 185 k/uL (150-450); RDW 13.3 % (11.5-15.5); WBC 7.3 k/uL (3.8-10.6)
--- NOTE | 2021-04-11 01:49 | XR ---
EXAMINATION TYPE: XR chest 2V DATE OF EXAM: 04/11/2021 COMPARISON: 03/11/2020 HISTORY: Chest pain TECHNIQUE: FINDINGS: Heart and mediastinum are normal. Lungs are clear. Diaphragm is normal. Bony thorax appears intact. There are chest leads. IMPRESSION: Normal chest. No change.
[2021-04-11 01:54] LABS: ALT 32 U/L (4-49); AST 33 U/L (17-59); African American GFR (CKD) >90 (>60 ml/min/1.73 sqM); Albumin 4.4 g/dL (3.5-5.0); Alkaline Phosphatase 67 U/L (38-126); Anion Gap 8 mmol/L; Blood Urea Nitrogen 27 mg/dL (9-20); Calcium 9.5 mg/dL (8.4-10.2); Carbon Dioxide 23 mmol/L (22-30); Chloride 107 mmol/L (98-107); Glucose 91 mg/dL (74-99); Magnesium 1.9 mg/dL (1.6-2.3); Non-African American GFR(CKD) >90 (>60 ml/min/1.73 sqM); Potassium 4.2 mmol/L (3.5-5.1); Sodium 138 mmol/L (137-145); Total Bilirubin 0.3 mg/dL (0.2-1.3); Total Protein 7.2 g/dL (6.3-8.2)
[2021-04-11 02:22] LABS: INR 0.9 (<1.2); Partial Thromboplastin Time 23.9 sec (22.0-30.0); Prothrombin Time 9.4 sec (9.0-12.0)
[2021-04-11] MEDS ORDERED: NITROGLYCERIN SL TABS 0.4 MG TAB SUBLINGUAL PRN (02:26)
[2021-04-11] MEDS ORDERED: HEPARIN SODIUM 1,000 UN/ML (10ML VL) IV PRN (06:04)
[2021-04-11] MEDS ORDERED: HEPARIN SODIUM 1,000 UN/ML (10ML VL) IV ONE (06:04)
[2021-04-11] MEDS: HEPARIN SOD,PORK IN 0.45% NACL 25,000 UNIT in 0.45% NACL 1 250ML.BAG IV SCH (06:32)
[2021-04-11] MEDS: SODIUM CHLORIDE 0.9% 1,000 ML IV SCH ×2 (06:33→19:35)
[2021-04-11] MEDS: METOPROLOL SUCCINATE (ER) 50 MG TAB.ER.24H PO SCH (08:21)
[2021-04-11] MEDS: ATORVASTATIN 20 MG TAB PO SCH (08:21)
[2021-04-11] MEDS: lisinopriL 10 MG TAB PO SCH (08:21)
--- NOTE | 2021-04-11 11:55 | CONS ---
CONSULTATION Lasha Hdez is a 65-year-old gentleman with a known history of CAD, prior stenting of LAD performed more than 8-9 years ago in [facility]. He underwent cardiac cath performed by Dr. Olivera in 2017, when he was found to have a patent stent with noncritical disease in his RCA and circumflex. He also had a Lexiscan stress test in March 2020 which did not reveal any ischemia. There was a question of inferior wall fixed defect, but ejection fraction was 54%. He has done well since then, but came into the hospital complaining of dull ache in the chest. He is resting comfortably without symptoms at the time of my evaluation. EKG revealed a sinus mechanism, no acute changes. Laboratory data suggest that the two troponins are normal. He is asymptomatic. Apparently he had a recent evaluation in the office, also. Pain is atypical. He is resting comfortably without symptoms. PAST MEDICAL HISTORY: 1. CAD with a previous history of LAD PCI more than 8-9 years ago; patent in 2018. Catheterization by Dr. Olivera. 2. History of hypertension. 3. History of hyperlipidemia. No evidence of any documented prior myocardial infarction. MEDICATIONS: Medications at home include metoprolol succinate 50 mg daily, aspirin 81 mg daily, atorvastatin 20 mg daily, lisinopril 10 mg daily, Aldactone 25 mg daily. ALLERGIES: NO KNOWN DRUG ALLERGIES. PHYSICAL EXAMINATION: On examination, blood pressure is 130/80, pulse rate 70 per minute, regular. HEENT unremarkable. Fundus was not examined by me. Neck is supple. No JVD. I do not hear a carotid bruit. There is no thyromegaly. Heart exam reveals S1, S2 heard normally without a rub, murmur or gallop. Lungs are clear. Abdomen is soft, nontender. Lower extremities reveal normal pulses. No edema. Central nervous system is normal. IMPRESSION: 1. Atypical chest pain in a patient with known prior PCI. 2. Hypertension. 3. Hyperlipidemia. 4. Past history of smoking. RECOMMENDATIONS: I am recommending that we check additional troponin, give him some heparin, and if he has no further symptoms and the third troponin is normal, we can increase activity and discharge the patient and advise to see Dr. Olivera in the office in one week. If he has any recurrence of symptoms, I will consider cardiac cath. I explained this to the patient in detail. Thank you very much for the consult. MMODL / IJN: [id number] /
--- NOTE | 2021-04-11 12:44 | ECHOF ---
Referral Reason:chest pain MEASUREMENTS -------- HEIGHT: 182.9 cm WEIGHT: 127.0 kg BP: RVIDd: 3.3 cm (< 3.3) IVSd: 1.4 cm (0.6 - 1.1) LVIDd: 4.5 cm (3.9 - 5.3) LVPWd: 2.1 cm (0.6 - 1.1) IVSs: 1.7 cm LVIDs: 3.3 cm LVPWs: 1.8 cm LA Diam: 4.0 cm (2.7 - 3.8) Ao Diam: 3.0 cm (2.0 - 3.7) LA Diam: 4.4 cm (2.7 - 3.8) MV EXCURSION: 17.310 mm (> 18.000) MV EF SLOPE: 80 mm/s (70 - 150) EPSS: 0.7 cm MV E Jese: 0.53 m/s MV DecT: 137 ms MV A Jese: 0.62 m/s MV E/A Ratio: 0.85 RAP: 5.00 mmHg RVSP: 22.51 mmHg FINDINGS -------- Sinus rhythm. This was a technically good study. Morbid Obesity The left ventricular size is normal. There is moderate concentric left ventricular hypertrophy. O verall left ventricular systolic function is normal with, an EF between 55 - 60 %. The right ventricle is normal in size. The left atrial size is normal. The right atrial size is normal. There is mild aortic valve sclerosis. There is no evidence of aortic regurgitation. Mild mitral regurgitation is present. Mild tricuspid regurgitation present. Right ventricular systolic pressure is normal at < 35 mmHg. The pulmonic valve was not well visualized. Echo free space represents a pericardial fat pad. CONCLUSIONS -------- 1. The left ventricular size is normal. 2. There is moderate concentric left ventricular hypertrophy. 3. Overall left ventricular systolic function is normal with, an EF between 55 - 60 %. 4. The right ventricle is normal in size. 5. The left atrial size is normal. 6. The right atrial size is normal. 7. There is mild aortic valve sclerosis. 8. Mild tricuspid regurgitation present. 9. The pulmonic valve was not well visualized. 10. Echo free space represents a pericardial fat pad. CUT PRESSMAN: Lashon Monge RDCS
--- NOTE | 2021-04-11 13:40 | P.HPIM ---
History of Present Illness H&P Date: 04/11/21 Lasha Hdez, is a 65-year-old male who presented to [facility] emergency room with a chief complaint of chest pain, patient describes a pressure sensation in the middle of his chest radiating to the left side of his chest and to the left arm, patient was also complaining of excessive sweating, he denies any shortness of breath or palpitation, he has a previous history of coronary artery disease with history of angioplasty and stent placement to the LAD about 10 years ago, his last catheterization was 3 years ago, and his last stress test was 2 months ago per patient. He was evaluated in the emergency room vital examination on presentation revealed a temperature of 98.4 pulse 83 respiration 19 and blood pressure 131/81 pulse ox 98% on room air Laboratory data revealed a white blood count of 7.3 hemoglobin 13.7 platelet count 185 sodium 138 potassium 4.2 chloride 107 CO2 23 BUN 27 creatinine 0.78 troponin level was normal at less then 0.012 Coronavirus PCR was negative Testing in the emergency room revealed normal EKG and normal chest x-ray Patient was admitted to medical floor for further evaluation and treatment, cardiology consultation was requested and echocardiogram was ordered Past Medical History Past Medical History: Coronary Artery Disease (CAD), Eye Disorder, GERD/Reflux, Hyperlipidemia, Hypertension, Osteoarthritis (OA), Skin Disorder, Sleep Apnea/CPAP/BIPAP Additional Past Medical History / Comment(s): slight glaucoma janet eyes, HX kidney stones, R great toe bunion, psoriasis, cervical disc ruptured, pt also needs a total L knee. left elbow sx History of Any Multi-Drug Resistant Organisms: None Reported Past Surgical History: Appendectomy, Back Surgery, Heart Catheterization With Stent, Orthopedic Surgery Additional Past Surgical History / Comment(s): PTCA with one stent in 2011, EGD and colonoscopy, L knee arthroscopy, lithrotripsy, SX TO REMOVE KIDNEY STONE, laminectomy low back 1984, has had laser sx to janet eyes Past Anesthesia/Blood Transfusion Reactions: No Reported Reaction Additional Past Anesthesia/Blood Transfusion Reaction / Comment(s): Pt has not recieved any blood transfusion. Date of Last Stent Placement:: 2011 Past Psychological History: Anxiety, Depression Additional Psychological History / Comment(s): STATES SOME R/T HEALTH ISSUES Smoking Status: Former smoker Past Alcohol Use History: None Reported Additional Past Alcohol Use History / Comment(s): QUIT SMOKING CIGARETTES, 01/2016, SMOKED 1 AND 1/2 PPD Past Drug Use History: Marijuana Additional Drug Use History / Comment(s): DAILY USE, INSTRUCTED TO HOLD 24 HRS PRIOR - Past Family History Father Family Medical History: COPD, Coronary Artery Disease (CAD), Myocardial Infarction ([place]) Mother Family Medical History: Coronary Artery Disease (CAD) Medications and Allergies Home Medications Medication Instructions Recorded Confirmed Type Spironolactone [Aldactone] 25 mg PO HS 09/26/14 04/11/21 History Aspirin [Adult Low Dose Aspirin EC] 81 mg PO DAILY 09/19/15 04/11/21 History Celecoxib [CeleBREX] 200 mg PO DAILY 03/10/17 04/11/21 History Atorvastatin [Lipitor] 20 mg PO HS 05/31/18 04/11/21 History lisinopriL [Zestril] 10 mg PO HS 05/31/18 04/11/21 History Metoprolol Succinate (ER) [Toprol 50 mg PO HS 10/19/18 04/11/21 History XL] Loratadine 10 mg PO DAILY 04/11/21 04/11/21 History Allergies Allergy/AdvReac Type Severity Reaction Status Date / Time adhesive Allergy Rash/Hives Verified 04/11/21 08:01 Physical Exam Vitals: Vital Signs Temp Pulse Pulse Resp BP BP Pulse Ox 04/11/21 07:00 98.2 F 61 17 125/79 98 04/11/21 06:34 66 18 102/60 98 04/11/21 05:00 72 18 129/88 99 04/11/21 03:00 76 18 107/60 98 04/11/21 01:34 75 18 98 04/11/21 00:51 98.4 F 83 19 131/81 98 Intake and Output 04/10/21 04/11/21 04/11/21 22:59 06:59 14:59 Other: Weight 127.006 kg In general patient is alert and oriented x 3 in no distress HEENT head normocephalic and atraumatic Neck is supple no JVD no goiter no lymphadenopathy no carotid bruit Chest examination is clear to auscultation no crackles no wheezing Cardiac exam reveals regular heart sounds S1 and S2 no gallops no murmurs Abdomen is soft nontender no organomegaly with normal bowel sounds Extremity exam reveals no edema no cyanosis or clubbing Neurological examination reveals no gross focal deficits Results CBC & Chem 7: 04/11/21 01:15 04/11/21 01:15 Labs: Abnormal Lab Results - Last 24 Hours (Table) 04/11/21 Range/Units 01:15 BUN 27 H (9-20) mg/dL Thrombosis Risk Factor Assmnt - Choose All That Apply Any of the Below Risk Factors Present?: Yes Each Factor Represents 1 point: Age 41-60 years Other Risk Factors: Yes Each Risk Factor Represents 2 Points: Age 61-74 years Thrombosis Risk Factor Assessment Total Risk Factor Score: 3 Thrombosis Risk Factor Assessment Level: Moderate Risk Assessment and Plan Plan: Episodes of chest pain over the last 4-5 days worsening in the last 24 hours History of coronary artery disease with angioplasty and stent placement to the LAD 10 years ago. Underlying history of hypertension Underlying history of hyperlipidemia At this time patient is admitted to telemetry floor serial EKG and cardiac enz ymes were ordered Echocardiogram was ordered Cardiology consultation was requested Will follow closely
[2021-04-11] MEDS ORDERED: HYDROcodone/APAP 10-325MG 1 EACH TAB PO PRN (13:55)
[2021-04-11] MEDS ORDERED: HYDROmorphone 0.5 MG/0.5 ML SYRINGE IVP PRN (20:31)
[2021-04-11] MEDS ORDERED: SPIRONOLACTONE 25 MG TAB PO SCH (21:00)
[2021-04-11] MEDS ORDERED: ATORVASTATIN 20 MG TAB PO SCH (21:00)
[2021-04-11] MEDS ORDERED: METOPROLOL SUCCINATE (ER) 50 MG TAB.ER.24H PO SCH (21:00)
[2021-04-11] MEDS ORDERED: lisinopriL 10 MG TAB PO SCH (21:00)
[2021-04-11] MEDS ORDERED: HYDROcodone/APAP 10-325MG 1 EACH TAB ONE (23:59)
[2021-04-11] MEDS ORDERED: HEPARIN SODIUM 1,000 UN/ML (10ML VL) ONE (23:59)
[2021-04-12] MEDS: HEPARIN SOD,PORK IN 0.45% NACL 25,000 UNIT in 0.45% NACL 1 250ML.BAG IV SCH (03:56)
[2021-04-12 05:38] LABS: INR 0.9 (<1.2); Partial Thromboplastin Time 28.5 sec (22.0-30.0); Prothrombin Time 9.7 sec (9.0-12.0)
[2021-04-12] MEDS: ATORVASTATIN 20 MG TAB PO SCH (07:01)
[2021-04-12] MEDS: lisinopriL 10 MG TAB PO SCH (07:01)
[2021-04-12] MEDS: METOPROLOL SUCCINATE (ER) 50 MG TAB.ER.24H PO SCH (07:01)
[2021-04-12 07:28] VITALS: BP 110/65; PULSE 73; RESP 16; TEMP 98.4
[2021-04-12 08:58] LABS: Basophils # (A) 0.03 X 10*3/uL (0.00-0.10); Basophils % (A) 0.5 %; Eosinophils # (A) 0.32 X 10*3/uL (0.04-0.35); Eosinophils % (A) 5.2 %; HGB 13.2 g/dL (13.0-17.0); Lymphocytes # (A) 2.08 X 10*3/uL (0.90-5.00); Lymphocytes % (A) 33.7 %; MCV 97.1 fL (80.0-97.0); Mean Platelet Volume 11.1 fL (9.5-12.2); Monocytes # (A) 0.44 X 10*3/uL (0.20-1.00); Monocytes % (A) 7.1 %; Neutrophils % (A) 53.3 %; Platelet Count 195 X 10*3/uL (140-440); RBC 4.12 X 10*6/uL (4.40-5.60); RDW 13.9 % (11.5-14.5); WBC 6.18 X 10*3/uL (4.50-10.00)
[2021-04-12] MEDS: SODIUM CHLORIDE 0.9% 1,000 ML IV SCH (08:59)
[2021-04-12] MEDS ORDERED: LORATADINE 10 MG TAB PO SCH (09:00)
[2021-04-12] MEDS ORDERED: ASPIRIN 81 MG PO SCH ×2 (09:00)
[2021-04-12] MEDS ORDERED: MELOXICAM 7.5 MG TAB PO SCH (09:00)
[2021-04-12] MEDS ORDERED: ASPIRIN 325 MG TAB PO SCH (09:00)
--- NOTE | 2021-04-12 10:19 | P.DS ---
Providers Date of admission: 04/11/21 03:26 Expected date of discharge: 04/12/21 Attending physician: Aleisha Francois Consults: 04/11/21 02:27 Consult Physician Urgent Consulting Provider: [facility] Consult Reason/Comments: chest pain Do you want consulting provider notified?: Yes, Notify in am Primary care physician: eJnny Perez Hospital Course: Discharge diagnosis Episodes of chest pain over the last 4-5 days worsening in the last 24 hours History of coronary artery disease with angioplasty and stent placement to the LAD 10 years ago. Underlying history of hypertension Underlying history of hyperlipidemia Hospital course Lasha Hdez, is a 65-year-old male who presented to [facility] emergency room with a chief complaint of chest pain, patient describes a pressure sensation in the middle of his chest radiating to the left side of his chest and to the left arm, patient was also complaining of excessive sweating, he denies any shortness of breath or palpitation, he has a previous history of coronary artery disease with history of angioplasty and stent placement to the LAD about 10 years ago, his last catheterization was 3 years ago, and his last stress test was 2 months ago per patient. He was evaluated in the emergency room vital examination on presentation revealed a temperature of 98.4 pulse 83 respiration 19 and blood pressure 131/81 pulse ox 98% on room air Laboratory data revealed a white blood count of 7.3 hemoglobin 13.7 platelet count 185 sodium 138 potassium 4.2 chloride 107 CO2 23 BUN 27 creatinine 0.78 troponin level was normal at less then 0.012 Coronavirus PCR was negative Testing in the emergency room revealed normal EKG and normal chest x-ray Patient was admitted to medical floor for further evaluation and treatment, cardiology consultation was requested and echocardiogram was ordered On 04/12/2021 2-D echo was completed showing an EF of 55-60%. Troponins negative 3. Patient was evaluated by cardiology services. Per nursing staff patient has been cleared for discharge from cardiology standpoint. Patient denies any further episodes of chest pain. Patient denies shortness breath. Patient denies nausea vomiting or diarrhea. Per cardiology patient follow-up with his manager change Dr. Olivera for further management Patient Condition at Discharge: Stable Plan - Discharge Summary New Discharge Prescriptions: Continue Spironolactone [Aldactone] 25 mg PO HS Aspirin [Adult Low Dose Aspirin EC] 81 mg PO DAILY Celecoxib [CeleBREX] 200 mg PO DAILY lisinopriL [Zestril] 10 mg PO HS Atorvastatin [Lipitor] 20 mg PO HS Metoprolol Succinate (ER) [Toprol XL] 50 mg PO HS Loratadine 10 mg PO DAILY Discharge Medication List Spironolactone [Aldactone] 25 mg PO HS 09/26/14 [History] Aspirin [Adult Low Dose Aspirin EC] 81 mg PO DAILY 09/19/15 [History] Celecoxib [CeleBREX] 200 mg PO DAILY 03/10/17 [History] Atorvastatin [Lipitor] 20 mg PO HS 05/31/18 [History] lisinopriL [Zestril] 10 mg PO HS 05/31/18 [History] Metoprolol Succinate (ER) [Toprol XL] 50 mg PO HS 10/19/18 [History] Loratadine 10 mg PO DAILY 04/11/21 [History] Follow up Appointment(s)/Referral(s): Jenny Perez MD [Primary Care Provider] - 1-2 days
[2021-04-12 12:09] LABS: Chol/HDL Ratio 3.06 Ratio; HDL Cholesterol 41.2 mg/dL (40.00-60.00); LDL Cholesterol,Calculated 47.4 mg/dL (0.0-131.0); VLDL Calculation 37.4 mg/dL (5.00-40.00)
--- NOTE | 2021-04-12 12:37 | PN ---
PROGRESS NOTE Mr. Hdez is a gentleman with history of CAD, known stenting of LAD, presented to the hospital with chest pain. Pain was atypical. No recurrence of chest pain. Troponins are normal. EKG is unremarkable. He is ambulating the hallways without symptoms. Vitals are stable. No JVD. S1, S2 heard normally. No significant murmurs. Lungs are clear. Abdomen and lower extremity exam unchanged. Plan is to discharge him today and see Dr. Olivera in a week or two. To call for questions. Same medical regimen. MMODL / IJN: [id number] /
== END 2021-04-12 11:04 | disposition home or self-care (01) ==
LOC: EC 00:49 → 6NMEDSUR 03:26
PROVIDERS: ADMIT Internal Medicine; ATTEND Internal Medicine
DX: R07.89 Other chest pain (principal); R11.0 Nausea; R61 Generalized hyperhidrosis; I25.10 Atherosclerotic heart disease of native coronary artery without angina pectoris; Z95.5 Presence of coronary angioplasty implant and graft; I10 Essential (primary) hypertension; E78.5 Hyperlipidemia, unspecified; K21.9 Gastro-esophageal reflux disease without esophagitis; M19.90 Unspecified osteoarthritis, unspecified site; G47.30 Sleep apnea, unspecified; E66.01 Morbid (severe) obesity due to excess calories; Z68.36 Body mass index [BMI] 36.0-36.9, adult; I08.1 Rheumatic disorders of both mitral and tricuspid valves; H40.9 Unspecified glaucoma; L40.9 Psoriasis, unspecified; M50.20 Other cervical disc displacement, unspecified cervical region; F41.9 Anxiety disorder, unspecified; F32.9 Major depressive disorder, single episode, unspecified; Z20.822 Contact with and (suspected) exposure to COVID-19; Z87.442 Personal history of urinary calculi; Z98.890 Other specified postprocedural states; Z87.891 Personal history of nicotine dependence; Z79.82 Long term (current) use of aspirin; Z79.1 Long term (current) use of non-steroidal anti-inflammatories (NSAID); Z79.899 Other long term (current) drug therapy; Z91.048 Other nonmedicinal substance allergy status; Z82.49 Family history of ischemic heart disease and other diseases of the circulatory system; Z82.5 Family history of asthma and other chronic lower respiratory diseases
CPT/HCPCS: 96376 ×2; 96361; 96366 ×2; 96375; 96365; 99285; 36415; 93005; 93306; 83880; 80061; 80053; 83735; 84484; 85025 ×2; 85610 ×2; 85730 ×2; 87635; 71046; G0378 ×2; J1644 ×3; J1170

== ENCOUNTER 2021-05-21 11:12 | Emergency (ER) | payer OTHER ==
[2021-05-21 12:26] VITALS: BP 116/67; PULSE 70; RESP 18; TEMP 100.1
--- NOTE | 2021-05-21 12:58 | ED ---
Fall HPI - General Chief Complaint: Fall Stated Complaint: Fall/shoulder/shoulder pain Time Seen by Provider: 05/21/21 12:27 Source: patient, RN notes reviewed Mode of arrival: wheelchair Limitations: no limitations - History of Present Illness Initial Comments: 65-year-old male presents emergency Department with chief complaint of a trip and fall. Patient states he caught his foot on the edge of a rug. Patient fell forward attempted to miss a wall he did strike his head he is uncertain if he typically loss conscious. He states he just feels sore glands right shoulder pain and right hip pain since her prior right hip surgery. - Related Data Home Medications Medication Instructions Recorded Confirmed Spironolactone [Aldactone] 25 mg PO HS 09/26/14 04/11/21 Aspirin [Adult Low Dose Aspirin EC] 81 mg PO DAILY 09/19/15 04/11/21 Celecoxib [CeleBREX] 200 mg PO DAILY 03/10/17 04/11/21 Atorvastatin [Lipitor] 20 mg PO HS 05/31/18 04/11/21 lisinopriL [Zestril] 10 mg PO HS 05/31/18 04/11/21 Metoprolol Succinate (ER) [Toprol 50 mg PO HS 10/19/18 04/11/21 XL] Loratadine 10 mg PO DAILY 04/11/21 04/11/21 Allergies Allergy/AdvReac Type Severity Reaction Status Date / Time adhesive Allergy Rash/Hives Verified 05/21/21 12:19 Review of Systems ROS Statement: Those systems with pertinent positive or pertinent negative responses have been documented in the HPI. ROS Other: All systems not noted in ROS Statement are negative. Past Medical History Past Medical History: Coronary Artery Disease (CAD), Eye Disorder, GERD/Reflux, Hyperlipidemia, Hypertension, Osteoarthritis (OA), Skin Disorder, Sleep Apnea/CPAP/BIPAP Additional Past Medical History / Comment(s): slight glaucoma janet eyes, HX kidney stones, R great toe bunion, psoriasis, cervical disc ruptured, pt also needs a total L knee. left elbow sx History of Any Multi-Drug Resistant Organisms: None Reported Past Surgical History: Appendectomy, Back Surgery, Heart Catheterization With Stent, Orthopedic Surgery Additional Past Surgical History / Comment(s): PTCA with one stent in 2011, EGD and colonoscopy, L knee arthroscopy, lithrotripsy, SX TO REMOVE KIDNEY STONE, laminectomy low back 1984, has had laser sx to janet eyes Past Anesthesia/Blood Transfusion Reactions: No Reported Reaction Additional Past Anesthesia/Blood Transfusion Reaction / Comment(s): Pt has not recieved any blood transfusion. Date of Last Stent Placement:: 2011 Past Psychological History: Anxiety, Depression Smoking Status: Former smoker Past Alcohol Use History: None Reported Past Drug Use History: Marijuana - Past Family History Father Family Medical History: COPD, Coronary Artery Disease (CAD), Myocardial Infarction ([place]) Mother Family Medical History: Coronary Artery Disease (CAD) General Exam Limitations: no limitations General appearance: alert, in no apparent distress Head exam: Present: atraumatic, normocephalic, normal inspection Eye exam: Present: normal appearance, PERRL, EOMI. Absent: scleral icterus, conjunctival injection, periorbital swelling ENT exam: Present: normal exam, mucous membranes moist Neck exam: Present: normal inspection, full ROM. Absent: tenderness, meningismus, lymphadenopathy Respiratory exam: Present: normal lung sounds bilaterally. Absent: respiratory distress, wheezes, rales, rhonchi, stridor Cardiovascular Exam: Present: regular rate, normal rhythm, normal heart sounds. Absent: systolic murmur, diastolic murmur, rubs, gallop, clicks Extremities exam: Present: other (Right shoulder tenderness, guarding or tenderness) Back exam: Present: normal inspection, full ROM. Absent: tenderness Neurological exam: Present: alert, oriented X3, CN II-XII intact, reflexes normal. Absent: motor sensory deficit Course Vital Signs 05/21/21 12:19 Temperature 100.1 F H Pulse Rate 70 Respiratory 18 Rate Blood Pressure 116/67 O2 Sat by Pulse 99 Oximetry Medical Decision Making - Medical Decision Making X-rays, CTs were reviewed no acute abnormality. Patient's right shoulder contusion, right hip contusion patient was discharged in stable condition return parameters discussed. Disposition Clinical Impression: Fall, Head contusion, Contusion of right shoulder, Contusion of right hip Disposition: HOME SELF-CARE Condition: Stable Instructions (If sedation given, give patient instructions): Contusion in Adults (ED) Additional Instructions: Please return to the Emergency Department if symptoms worsen or any other concerns. Is patient prescribed a controlled substance at d/c from ED?: No Referrals: Jenny Perez MD [Primary Care Provider] - 1-2 days Time of Disposition: 13:32
--- NOTE | 2021-05-21 13:19 | XR ---
EXAMINATION TYPE: XR shoulder complete RT DATE OF EXAM: 05/21/2021 CLINICAL HISTORY: Fall injury with pain TECHNIQUE: Three views of the right shoulder are obtained. COMPARISON: None. FINDINGS: Osseous structures are demineralized. Mild to moderate narrowing glenohumeral joint. Modera te to severe narrowing acromioclavicular joint. Mild to moderate spurring from the acromion. Moderate calcified capsular hypertrophy. Sclerotic intramedullary lesion proximal humeral metaphysis consiste nt with chondroid lesion favors bone infarct. This was partially imaged March 11, 2020 x-ray. The visualized ribs are intact . IMPRESSION: There is no acute fracture or dislocation in the right shoulder.
--- NOTE | 2021-05-21 13:26 | CT ---
EXAMINATION TYPE: CT brain cspine wo con DATE OF EXAM: 05/21/2021 COMPARISON: CT cervical spine September 26, 2020. CT brain May 31, 2018 HISTORY: Fall injury with headache and neck pain CT DLP: 2006.2 mGycm. Automated Exposure Control for Dose Reduction was Utilized. TECHNIQUE: CT scan of the head and cervical spine are performed without contrast. FINDINGS: There is no acute intracranial hemorrhage or midline shift identified. There is mild patricia tricular and sulcal prominence. Arredondo-white matter differentiation is maintained. Patchy dependent flu id right maxillary sinus current study. Remainder of visualized paranasal sinuses are clear. The calv arium is intact. There is new small to tiny right parietal occipital acute scalp hematoma axial image 41. This is less prominent than prior. Tiny focal scalp hemorrhage left frontal region axial image 4 6 noted. Cervical spine is visualized in its entirety from C1 through upper thoracic levels and demonstrates l evoconvex scoliosis centered upper thoracic spine without evidence of acute fracture or dislocation. Prevertebral soft tissue appears within normal limits. The C1-C2 articulation is stable and within normal limits on the coronal images. Vertebral body heights are maintained. There is moderate disc sp guru narrowing C5-C6 through C7-T1 levels redemonstrated with moderate multilevel anterior spurring ex tending into the upper thoracic spine. Posterior decompression changes C4-C6 level redemonstrated wit h interpedicular rods and screws transfixing C3-C7 levels bilaterally. Review of axial images shows multilevel uncovertebral facet degenerative changes contributing to mult ilevel bilateral neural foraminal narrowing. Thyroid gland appears within normal limits. Lung apices show no pneumothorax. IMPRESSION: 1. There is no acute fracture or dislocation evident in the cervical spine. Postsurgical and degenera tive changes as detailed above without significant change from prior 2. No acute intracranial hemorrhage or midline shift is seen. Small to tiny left frontal and right pa rietal occipital acute scalp hematomas noted.
--- NOTE | 2021-05-21 13:28 | XR ---
EXAMINATION TYPE: XR Hip RT and AP Pelvis DATE OF EXAM: 05/21/2021 COMPARISON: CT abdomen and pelvis February 23, 2021 HISTORY: Fall injury with pelvic and right hip pain TECHNIQUE: A single AP view of the pelvis is obtained. Two views of the right hip are obtained. FINDINGS: There is no acute fracture/dislocation evident in the pelvis. Metallic hardware from bilat eral hip arthroplasty is redemonstrated. Pubic symphysis is intact. Sacroiliac joints are preserved. Fgceegau-te-ulllyn disc space narrowing and spurring L4-L5 level redemonstrated. Two views of right hip show no acute fracture or dislocation. The overlying soft tissue is unremarkab le. IMPRESSION: There is no acute fracture or dislocation in the pelvis or right hip.
[2021-05-21] MEDS ORDERED: HYDROcodone/APAP 5-325MG 1 EACH TAB PO STA (13:44)
== END 2021-05-21 13:55 | disposition home or self-care (01) ==
LOC: EC 11:12
DX: S40.011A Contusion of right shoulder, initial encounter (principal); S70.01XA Contusion of right hip, initial encounter; S00.93XA Contusion of unspecified part of head, initial encounter; I25.10 Atherosclerotic heart disease of native coronary artery without angina pectoris; I10 Essential (primary) hypertension; M19.90 Unspecified osteoarthritis, unspecified site; Z79.82 Long term (current) use of aspirin; E78.5 Hyperlipidemia, unspecified; Z79.899 Other long term (current) drug therapy; Z91.09 Other allergy status, other than to drugs and biological substances; Z95.5 Presence of coronary angioplasty implant and graft; W01.0XXA Fall on same level from slipping, tripping and stumbling without subsequent striking against object, initial encounter; Y92.89 Other specified places as the place of occurrence of the external cause
CPT/HCPCS: 70450; 72125; 73502; 99284

== ENCOUNTER 2022-04-25 20:56 | Emergency (ER) | payer OTHER ==
[2022-04-25] MEDS ORDERED: MORPHINE SULFATE 4 MG/ML SYRINGE IV STA (23:01)
--- NOTE | 2022-04-25 23:06 | ED ---
Abdominal Pain HPI - General Chief Complaint: Abdominal Pain Stated Complaint: Kidney Pain, Shoulder Injury Time Seen by Provider: 04/25/22 22:32 Source: patient Mode of arrival: ambulatory Limitations: physical limitation - History of Present Illness Initial Comments: Patient is a 66-year-old man who presents requesting to have relief from to sources of pain. The patient states that he has had left flank pains going back 2-3 months. He states that he was concerned that there was a hernia to his left flank. He states that he was sent for computed tomography scan at [facility] near the end of February and that it did not show a hernia. He has become concerned that there may be a kidney stone. He has not had urinary symptoms. He indicates pain to the left flank. It is aching, constant, moderate intensity. He has not had worsening or relieving factors. Patient also complains of pain to the midportion of the upper arm on the left side. He states "I was wiping my ass yesterday and felt the muscle tear." Agent states that there is moderately severe pain that gets worse if he attempts to lift his left arm. He is able to rotate. He can move the elbow, wrist and hand without pain or weakness. There is no loss of sensation. MD Complaint: flank pain -: month(s) Location: L flank Radiation: none Migration to: no migration Severity: moderate Quality: stabbing Consistency: constant Improves With: nothing Worsens With: movement Associated Symptoms: denies other symptoms - Related Data Home Medications Medication Instructions Recorded Confirmed Spironolactone [Aldactone] 25 mg PO HS 09/26/14 07/08/21 Aspirin [Adult Low Dose Aspirin EC] 81 mg PO DAILY 09/19/15 07/08/21 Celecoxib [CeleBREX] 200 mg PO DAILY 03/10/17 07/08/21 Atorvastatin [Lipitor] 20 mg PO HS 05/31/18 07/08/21 lisinopriL [Zestril] 10 mg PO HS 05/31/18 07/08/21 Metoprolol Succinate (ER) [Toprol 50 mg PO HS 10/19/18 07/08/21 XL] Loratadine 10 mg PO DAILY 04/11/21 07/08/21 Calcium/Magnesium/Zinc 1 each PO DAILY 07/08/21 07/08/21 [Zdtusbr-Ujnjkojee-Cngh Tablet] Multivit-Min/FA/Lycopen/Lutein 1 each PO DAILY 07/08/21 07/08/21 [Centrum Silver Tablet] [place]-3 Fatty Acids/Fish Oil [Fish 1 each PO DAILY 07/08/21 07/08/21 Oil 1,000 mg Softgel] Protonix (Unknown Dose) 1 tab PO DAILY PRN 07/08/21 Vitamin B Complex 1 each PO DAILY 07/08/21 07/08/21 Vitamin D3 (Unknown Dose) 1 tab PO DAILY 07/08/21 Previous Rx's Medication Instructions Recorded HYDROcodone/APAP 5-325MG [[place] 1 tab PO Q4HR PRN 3 Days #18 tab 04/26/22 5-325] Allergies Allergy/AdvReac Type Severity Reaction Status Date / Time adhesive Allergy Rash/Hives Verified 04/25/22 21:36 adhesive tape Allergy blisters Verified 04/25/22 21:36 Review of Systems ROS Statement: Those systems with pertinent positive or pertinent negative responses have been documented in the HPI. ROS Other: All systems not noted in ROS Statement are negative. Constitutional: Denies: fever, chills, weakness Respiratory: Denies: cough, dyspnea Cardiovascular: Denies: chest pain, palpitations, edema Gastrointestinal: Reports: abdominal pain. Denies: nausea, vomiting, diarrhea Genitourinary: Denies: dysuria, hematuria Musculoskeletal: Denies: back pain Skin: Denies: rash Neurological: Denies: headache, weakness, numbness Past Medical History Past Medical History: Coronary Artery Disease (CAD), Eye Disorder, GERD/Reflux, Hyperlipidemia, Hypertension, Musculoskeletal Disorder, Osteoarthritis (OA), Skin Disorder, Sleep Apnea/CPAP/BIPAP Additional Past Medical History / Comment(s): slight glaucoma janet eyes, Hx kidney stones, R great toe bunion, psoriasis, uses CPAP. pt also needs a total L knee. History of Any Multi-Drug Resistant Organisms: None Reported Past Surgical History: Appendectomy, Back Surgery, Heart Catheterization With Stent, Joint Replacement, Orthopedic Surgery Additional Past Surgical History / Comment(s): PTCA with stent x1, EGD and colonoscopy, L knee arthroscopy, lithrotripsy, Surg to remove kidney stone, laminectomy low back 1984, has had laser sx to janet eyes, cervical fusion. Lt elbow surg. Bilat Total hips. Past Anesthesia/Blood Transfusion Reactions: No Reported Reaction Additional Past Anesthesia/Blood Transfusion Reaction / Comment(s): Pt has not recieved any blood transfusion. Date of Last Stent Placement:: 2011 Past Psychological History: Anxiety, Depression Smoking Status: Former smoker - Past Family History Father Family Medical History: COPD, Coronary Artery Disease (CAD), Myocardial Infarction ([place]) Mother Family Medical History: Coronary Artery Disease (CAD) General Exam Limitations: physical limitation General appearance: alert, in no apparent distress Head exam: Present: atraumatic, normocephalic Eye exam: Present: normal appearance. Absent: scleral icterus, conjunctival injection Neck exam: Present: normal inspection Respiratory exam: Present: normal lung sounds bilaterally. Absent: respiratory distress, wheezes, rales, rhonchi, stridor Cardiovascular Exam: Present: regular rate, normal rhythm, normal heart sounds. Absent: systolic murmur, diastolic murmur, rubs, gallop GI/Abdominal exam: Present: soft. Absent: distended, tenderness, guarding, rebound, rigid, mass Extremities exam: Present: normal inspection, tenderness, normal capillary refill. Absent: pedal edema, calf tenderness Back exam: Present: normal inspection. Absent: CVA tenderness (R), CVA tenderness (L) Neurological exam: Present: alert Skin exam: Present: warm, dry, intact, normal color. Absent: rash Course Vital Signs 04/25/22 04/26/22 21:28 01:03 Temperature 98.4 F 97.3 F L Pulse Rate 102 H 83 Respiratory 18 20 Rate Blood Pressure 110/74 140/96 O2 Sat by Pulse 97 96 Oximetry Medical Decision Making - Lab Data Result diagrams: 04/25/22 23:11 04/25/22 23:11 Lab Results 04/25/22 04/25/22 04/26/22 Range/Units 23:11 23:11 01:20 WBC 8.6 (3.8-10.6) k/uL RBC 4.30 (4.30-5.90) m/uL Hgb 13.5 (13.0-17.5) gm/dL Hct 40.6 (39.0-53.0) % MCV 94.4 (80.0-100.0) fL MCH 31.3 (25.0-35.0) pg MCHC 33.2 (31.0-37.0) g/dL RDW 13.4 (11.5-15.5) % Plt Count 202 (150-450) k/uL MPV 7.7 Neutrophils % 62 % Lymphocytes % 25 % Monocytes % 7 % Eosinophils % 4 % Basophils % 0 % Neutrophils # 5.3 (1.3-7.7) k/uL Lymphocytes # 2.2 (1.0-4.8) k/uL Monocytes # 0.6 (0-1.0) k/uL Eosinophils # 0.3 (0-0.7) k/uL Basophils # 0.0 (0-0.2) k/uL Sodium 138 (137-145) mmol/L Potassium 3.8 (3.5-5.1) mmol/L Chloride 103 (98-107) mmol/L Carbon Dioxide 23 (22-30) mmol/L Anion Gap 12 mmol/L BUN 31 H (9-20) mg/dL Creatinine 0.75 (0.66-1.25) mg/dL Est GFR (CKD-EPI)AfAm >90 (>60 ml/min/1.73 sqM) Est GFR (CKD-EPI)NonAf >90 (>60 ml/min/1.73 sqM) Glucose 122 H (74-99) mg/dL Calcium 9.2 (8.4-10.2) mg/dL Total Bilirubin 0.3 (0.2-1.3) mg/dL AST 27 (17-59) U/L ALT 29 (4-49) U/L Alkaline Phosphatase 70 (38-126) U/L Total Protein 6.9 (6.3-8.2) g/dL Albumin 4.5 (3.5-5.0) g/dL Amylase 63 (30-110) U/L Lipase 95 (23-300) U/L Urine Color Yellow Urine Appearance Clear (Clear) Urine pH 5.5 (5.0-8.0) Ur Specific [place] 1.024 (1.001-1.035) Urine Protein Negative (Negative) Urine Glucose (UA) Negative (Negative) Urine Ketones Negative (Negative) Urine Blood Negative (Negative) Urine Nitrite Negative (Negative) Urine Bilirubin Negative (Negative) Urine Urobilinogen <2.0 (<2.0) mg/dL Ur Leukocyte Esterase Negative (Negative) Disposition Clinical Impression: Flank pain Disposition: HOME SELF-CARE Condition: Good Instructions (If sedation given, give patient instructions): Flank Pain (ED) Prescriptions: HYDROcodone/APAP 5-325MG [[place] 5-325] 1 tab PO Q4HR PRN 3 Days #18 tab PRN Reason: Pain Is patient prescribed a controlled substance at d/c from ED?: Yes Referrals: Jenny Perez MD [Primary Care Provider] - 1-2 days Madhav Livingston MD [STAFF PHYSICIAN] - 1-2 days
[2022-04-25 23:22] LABS: Basophils % (A) 0 %; Eosinophils # (A) 0.3 k/uL (0-0.7); Eosinophils % (A) 4 %; HCT 40.6 % (39.0-53.0); HGB 13.5 gm/dL (13.0-17.5); Lymphocytes # (A) 2.2 k/uL (1.0-4.8); Lymphocytes % (A) 25 %; MCH 31.3 pg (25.0-35.0); MCHC 33.2 g/dL (31.0-37.0); MCV 94.4 fL (80.0-100.0); Mean Platelet Volume 7.7; Monocytes # (A) 0.6 k/uL (0-1.0); Monocytes % (A) 7 %; Neutrophils # (A) 5.3 k/uL (1.3-7.7); Neutrophils % (A) 62 %; Platelet Count 202 k/uL (150-450); RDW 13.4 % (11.5-15.5); WBC 8.6 k/uL (3.8-10.6)
[2022-04-25 23:32] LABS: ALT 29 U/L (4-49); AST 27 U/L (17-59); African American GFR (CKD) >90 (>60 ml/min/1.73 sqM); Albumin 4.5 g/dL (3.5-5.0); Alkaline Phosphatase 70 U/L (38-126); Amylase 63 U/L (30-110); Anion Gap 12 mmol/L; Blood Urea Nitrogen 31 mg/dL (9-20); Calcium 9.2 mg/dL (8.4-10.2); Carbon Dioxide 23 mmol/L (22-30); Chloride 103 mmol/L (98-107); Glucose 122 mg/dL (74-99); Lipase 95 U/L (23-300); Non-African American GFR(CKD) >90 (>60 ml/min/1.73 sqM); Potassium 3.8 mmol/L (3.5-5.1); Sodium 138 mmol/L (137-145); Total Bilirubin 0.3 mg/dL (0.2-1.3); Total Protein 6.9 g/dL (6.3-8.2)
[2022-04-26] MEDS ORDERED: MORPHINE SULFATE 4 MG/ML SYRINGE IV STA (01:26)
[2022-04-26 01:31] LABS: Appearance,Urine Clear (Clear); Bilirubin,Urine Negative (Negative); Blood,Urine Negative (Negative); Color,Urine Yellow; Glucose,Urine (UA) Negative (Negative); Ketones,Urine Negative (Negative); Leukocyte Esterase,Urine Negative (Negative); Nitrite,Urine Negative (Negative); PH, Urine 5.5 (5.0-8.0); Protein,Urine Negative (Negative); Specific Gravity,Urine 1.024 (1.001-1.035); Urobilinogen,Urine <2.0 mg/dL (<2.0)
[2022-04-26] MEDS ORDERED: fentaNYL (PF) 50 MCG/ML 2 ML AMP IVP STA (03:30)
[2022-04-26 03:48] VITALS: BP 135/86; PULSE 86; RESP 16; TEMP 98
== END 2022-04-26 03:48 | disposition home or self-care (01) ==
LOC: EC 20:56
DX: R10.9 Unspecified abdominal pain (principal); I25.10 Atherosclerotic heart disease of native coronary artery without angina pectoris; K21.9 Gastro-esophageal reflux disease without esophagitis; I10 Essential (primary) hypertension; E78.5 Hyperlipidemia, unspecified; Z99.89 Dependence on other enabling machines and devices; Z87.891 Personal history of nicotine dependence; Z91.048 Other nonmedicinal substance allergy status
CPT/HCPCS: 36415; 80053; 82150; 83690; 85025; 81003; 96374; 96376; 99284; J2270 ×2; 96372

== ENCOUNTER → 2022-05-25 | Outpatient (CLI) | payer OTHER ==
[2022-05-25 11:50] LABS: African American GFR (CKD) 111.9 (60.0-200.0); Anion Gap 9.6 mmol/L (10.00-18.00); BUN/Creat Ratio 26.78 Ratio (12.00-20.00); Blood Urea Nitrogen 20.3 mg/dL (9.0-27.0); Calcium 9.3 mg/dL (8.7-10.3); Non-African American GFR(CKD) 96.5 (60.0-200.0); Potassium 5.1 mmol/L (3.5-5.5)
== END | disposition home or self-care (01) ==
LOC: LABWHC1 07:36
PROVIDERS: ATTEND Urology
DX: N28.1 Cyst of kidney, acquired (principal)
CPT/HCPCS: 36415; 80048; 82533; 83835

== ENCOUNTER → 2022-06-21 | Outpatient (CLI) | payer OTHER ==
--- NOTE | 2022-06-22 04:29 | MR ---
EXAMINATION TYPE: MR foot LT wo con DATE OF EXAM: 06/21/2022 COMPARISON: None HISTORY: Pain on top of left foot. Multiplanar multiecho imaging of the left foot with no contrast. There is subcutaneous edema around the forefoot. There is more noticeable edema on the dorsum of the forefoot. There is subcutaneous edema around the ankle. The metatarsals are intact. The toes appear i ntact. No fracture seen. Tarsal bones are intact. Calcaneus is intact. Achilles tendon is normal. The re is an intact medial and lateral flexor tendons of the foot. No evidence of focal bone destruction. There is soft tissue edema extending into the second and third toes. No evidence of a soft tissue ma ss. IMPRESSION: Subcutaneous edema of the forefoot and ankle as above. No fracture seen. No evidence of ligamentous o r tendon tear.
== END | disposition home or self-care (01) ==
LOC: RADMRIMAIN 16:41
PROVIDERS: ATTEND Podiatrist Foot & Ankle Surgery
DX: S92.242D Displaced fracture of medial cuneiform of left foot, subsequent encounter for fracture with routine healing (principal); R60.0 Localized edema

== ENCOUNTER → 2022-06-21 | Outpatient (CLI) | payer OTHER ==
--- NOTE | 2022-06-22 11:52 | MR ---
EXAMINATION TYPE: MR abdomen wo/w con DATE OF EXAM: 06/21/2022 7:12 PM INDICATION: Patient age:Male; 66 years old; Reason for study: N28.1 CYST OF KIDNEY. Evaluate for kidney/adrenal abnormality. COMPARISON: CT scan abdomen from 02/23/2021 TECHNIQUE: Multiplanar multi-sequence imaging was performed without contrast. Post contrast imaging was performed. IV Contrast: 13 cc Gadavist FINDINGS: LOWER CHEST: No gross irregularity. ABDOMEN Liver: Signal dropout of the hepatic parenchyma on out of phase chemical shift imaging. Gallbladder and Bile ducts: Nondistended. No evidence for ductal dilation. No evidence for choledocho lithiasis or cholelithiasis. Pancreas: Unremarkable. Spleen: Unremarkable. Adrenal glands: Right adrenal gland nodule which demonstrates loss of signal on chemical shift imagin g out of phase sequences measuring 10 mm. The left adrenal gland is unremarkable. Kidneys: Right: High T1/low T2 signal renal cysts the largest measuring up to 6.6 cm. Additional smaller cysts are present some of which have thin septations including a 3.4 cm cyst medially. Additional medial l eft right upper pole renal cyst with intrinsic high T1 signal measuring 9 mm without postcontrast enh ancement definitively visualized. Left: high T1/low T2 signal renal cysts the largest measuring up to 9.0 cm. There is no evidence of hydronephrosis. The prior nonobstructing calculi seen on the right in 2020 ar e well-visualized on this exam likely secondary to MRI modality. Suspected postsurgical changes left retroperitoneum suspected with scarring as seen on prior CT in 2020 is not changed given differences in technique. Stomach and Bowel: Unremarkable as visualized. Peritoneum: No evidence of pneumoperitoneum, free fluid, or adenopathy. Vasculature: Unremarkable. No aortic aneurysm. Abdominal wall: Unremarkable. Musculoskeletal: Scoliosis changes to the spine with levoscoliosis apex L2-L3. Multilevel disc degene ration changes are less well appreciated. IMPRESSION: 1. Bosniak type I and II equivalent cysts bilaterally. 2. Right adrenal gland lipid rich adenoma. 3. No acute abdominal process. 4. Hepatic steatosis.
== END | disposition home or self-care (01) ==
LOC: RADMRIMAIN 16:48
PROVIDERS: ATTEND Urology
DX: D35.01 Benign neoplasm of right adrenal gland (principal); N28.1 Cyst of kidney, acquired; K76.0 Fatty (change of) liver, not elsewhere classified
CPT/HCPCS: 74183; A9585

== ENCOUNTER → 2022-06-25 | Outpatient (CLI) | payer OTHER ==
--- NOTE | 2022-06-25 16:43 | US ---
EXAMINATION TYPE: US venous doppler duplex LE LT DATE OF EXAM: 06/25/2022 3:26 PM COMPARISON: NONE CLINICAL HISTORY: O22.30 DVT. SIDE PERFORMED: Left TECHNIQUE: The lower extremity deep venous system is examined utilizing real time linear array sonog ke with graded compression, doppler sonography and color-flow sonography. VESSELS IMAGED: Common Femoral Vein Deep Femoral Vein Greater Saphenous Vein * Femoral Vein Popliteal Vein Small Saphenous Vein * Proximal Calf Veins (* superficial vessels) Left Leg: Negative for DVT Grayscale, color doppler, spectral doppler imaging performed of the deep veins of the lower extremiti es. There is normal flow, compressibility, vascular waveforms. IMPRESSION: No evidence of deep vein thrombosis of the left lower extremity.
== END | disposition home or self-care (01) ==
LOC: RADUSWWP 15:24
PROVIDERS: ATTEND Podiatrist Foot & Ankle Surgery
DX: Z04.9 Encounter for examination and observation for unspecified reason (principal)

== ENCOUNTER → 2022-07-22 | Outpatient (CLI) | payer OTHER ==
--- NOTE | 2022-07-22 10:08 | XR ---
EXAMINATION TYPE: XR abdomen 1V DATE OF EXAM: 07/22/2022 8:53 AM CLINICAL HISTORY: Left-sided flank pain. Possible kidney stone. TECHNIQUE: Two Upright KUB images of the abdomen are obtained. COMPARISON: CT abdomen and pelvis February 23, 2021. FINDINGS: Surgical clips left mid abdomen correspond to level below the left kidney in the retroperit oneum on prior CT. Some dystrophic calcifications lateral to this are redemonstrated. There is at omer st one 3 mm calculus in the lower pole right kidney on plain film redemonstrated corresponding to CT. Overall nonobstructive bowel gas pattern. Underlying levoconvex scoliosis centered at L3 level is red emonstrated. Lung bases are clear. No free air. Multilevel spurring and disc space narrowing in the t horacolumbar spine. Metallic hardware from bilateral hip surgery is partially imaged. IMPRESSION: As above. Overall nonobstructive bowel gas pattern. No definitive new left sided nephrol ithiasis.
--- NOTE | 2022-07-22 10:46 | US ---
EXAMINATION TYPE: US scrotum with doppler. DATE OF EXAM: 07/22/2022 COMPARISON: 09/23/2015 CLINICAL HISTORY: 67-year-old male Left scrotal lump TECHNIQUE: Grayscale and color Doppler Duplex imaging performed of the scrotum. FINDINGS: EXAM MEASUREMENTS: TESTICLES: Right Testicle: 4.8 x 2.2 x 3.0 cm Left Testicle: 3.8 x 3.0 x 2.6 cm EPIDIDYMIS HEAD: Right Epididymis: 0.6 cm Left Epididymis: 0.8 cm Doppler performed to assess for testicular vascularity; good bilateral color flow and waveforms are s een. Some superimposed arterial and venous flow is present bilaterally. There is no evidence of test icular torsion. Presence of hydroceles: Yes, left Presence of varicoceles: No Forensics Analyst notes: In area of palpable mass, left scrotum, a hydrocele is present. Bilateral epididy mis have appearance of vasectomy changes, confirmed with patient. IMPRESSION: 1. No sonographic evidence for testicular torsion or mass. 2. A moderate sized left scrotal hydrocele.
== END | disposition home or self-care (01) ==
LOC: RADUSWWP 07:58
PROVIDERS: ATTEND Urology
DX: N43.3 Hydrocele, unspecified (principal); N20.0 Calculus of kidney; N50.819 Testicular pain, unspecified
CPT/HCPCS: 74018; 76870; 93975

== ENCOUNTER 2022-10-22 21:22 | Emergency (ER) | payer MEDICARE, OTHER ==
[2022-10-22 21:53] VITALS: TEMP 97.7
[2022-10-22 23:11] VITALS: BP 116/61
[2022-10-23] MEDS ORDERED: DICYCLOMINE 10 MG/ML 2 ML AMP IM STA (00:14)
[2022-10-23] MEDS ORDERED: ONDANSETRON 4 MG/2 ML VIAL IVP STA (00:14)
[2022-10-23 01:42] LABS: Basophils % (A) 0 %; Eosinophils # (A) 0.2 k/uL (0-0.7); Eosinophils % (A) 3 %; HCT 39.7 % (39.0-53.0); HGB 13.6 gm/dL (13.0-17.5); Lymphocytes # (A) 2.4 k/uL (1.0-4.8); Lymphocytes % (A) 32 %; MCH 32.1 pg (25.0-35.0); MCHC 34.2 g/dL (31.0-37.0); MCV 93.8 fL (80.0-100.0); Mean Platelet Volume 8.3; Monocytes # (A) 0.4 k/uL (0-1.0); Monocytes % (A) 6 %; Neutrophils # (A) 4.2 k/uL (1.3-7.7); Neutrophils % (A) 56 %; Platelet Count 187 k/uL (150-450); RBC 4.23 m/uL (4.30-5.90); RDW 13.6 % (11.5-15.5); WBC 7.5 k/uL (3.8-10.6)
[2022-10-23 02:03] LABS: ALT 36 U/L (4-49); AST 36 U/L (17-59); African American GFR (CKD) >90 (>60 ml/min/1.73 sqM); Albumin 4.4 g/dL (3.5-5.0); Alkaline Phosphatase 76 U/L (38-126); Anion Gap 6 mmol/L; Blood Urea Nitrogen 26 mg/dL (9-20); Calcium 9.1 mg/dL (8.4-10.2); Carbon Dioxide 29 mmol/L (22-30); Chloride 105 mmol/L (98-107); Glucose 88 mg/dL (74-99); Lipase 85 U/L (23-300); Magnesium 2.1 mg/dL (1.6-2.3); Non-African American GFR(CKD) >90 (>60 ml/min/1.73 sqM); Potassium 4.7 mmol/L (3.5-5.1); Sodium 140 mmol/L (137-145); Total Bilirubin 0.3 mg/dL (0.2-1.3); Total Protein 7.2 g/dL (6.3-8.2)
--- NOTE | 2022-10-23 02:20 | ED ---
General Adult HPI - General Chief complaint: Abdominal Pain Stated complaint: Pancreatitis Time Seen by Provider: 10/22/22 22:25 Source: patient Mode of arrival: wheelchair Limitations: no limitations - History of Present Illness Initial comments: This is a 67-year-old male with a past medical history including hypertension presents emergency department for chronic abdominal pain. The patient stated that he had continued abdominal pain the left side of his abdomen over the last 1 year and stated that it was consistent so he called his primary care physician who recommended that he come to the emergency department for further evaluation. The patient denied this abdominal pain is been consistent and is not new compared to the last 1 year. The patient denied any nausea and vomiting. The patient also denied any radiation of this abdominal pain. The patient had normal bowel movements and denied any other acute complaints at this time. The patient denied fevers, chills as well as any nausea and vomiting. - Related Data Home Medications Medication Instructions Recorded Confirmed Spironolactone [Aldactone] 25 mg PO HS 09/26/14 07/08/21 Aspirin [Adult Low Dose Aspirin EC] 81 mg PO DAILY 09/19/15 07/08/21 Celecoxib [CeleBREX] 200 mg PO DAILY 03/10/17 07/08/21 Atorvastatin [Lipitor] 20 mg PO HS 05/31/18 07/08/21 lisinopriL [Zestril] 10 mg PO HS 05/31/18 07/08/21 Metoprolol Succinate (ER) [Toprol 50 mg PO HS 10/19/18 07/08/21 XL] Loratadine 10 mg PO DAILY 04/11/21 07/08/21 Calcium/Magnesium/Zinc 1 each PO DAILY 07/08/21 07/08/21 [Ttzzjag-Uwhoanfdb-Rokc Tablet] Multivit-Min/FA/Lycopen/Lutein 1 each PO DAILY 07/08/21 07/08/21 [Centrum Silver Tablet] [place]-3 Fatty Acids/Fish Oil [Fish 1 each PO DAILY 07/08/21 07/08/21 Oil 1,000 mg Softgel] Protonix (Unknown Dose) 1 tab PO DAILY PRN 07/08/21 Vitamin B Complex 1 each PO DAILY 07/08/21 07/08/21 Vitamin D3 (Unknown Dose) 1 tab PO DAILY 07/08/21 Previous Rx's Medication Instructions Recorded HYDROcodone/APAP 5-325MG [Glade 1 tab PO Q4HR PRN 3 Days #18 tab 04/26/22 5-325] Allergies Allergy/AdvReac Type Severity Reaction Status Date / Time adhesive Allergy Rash/Hives Verified 10/22/22 21:51 adhesive tape Allergy blisters Verified 10/22/22 21:51 Review of Systems ROS Statement: Those systems with pertinent positive or pertinent negative responses have been documented in the HPI. ROS Other: All systems not noted in ROS Statement are negative. Past Medical History Past Medical History: Coronary Artery Disease (CAD), Eye Disorder, GERD/Reflux, Hyperlipidemia, Hypertension, Musculoskeletal Disorder, Osteoarthritis (OA), Skin Disorder, Sleep Apnea/CPAP/BIPAP Additional Past Medical History / Comment(s): slight glaucoma janet eyes, Hx kidney stones, R great toe bunion, psoriasis, uses CPAP. pt also needs a total L knee. History of Any Multi-Drug Resistant Organisms: None Reported Past Surgical History: Appendectomy, Back Surgery, Heart Catheterization With Stent, Joint Replacement, Orthopedic Surgery Additional Past Surgical History / Comment(s): PTCA with stent x1, EGD and colonoscopy, L knee arthroscopy, lithrotripsy, Surg to remove kidney stone, laminectomy low back 1984, has had laser sx to janet eyes, cervical fusion. Lt elbow surg. Bilat Total hips. Past Anesthesia/Blood Transfusion Reactions: No Reported Reaction Additional Past Anesthesia/Blood Transfusion Reaction / Comment(s): Pt has not recieved any blood transfusion. Date of Last Stent Placement:: 2011 Past Psychological History: Anxiety, Depression Smoking Status: Former smoker Past Alcohol Use History: None Reported Past Drug Use History: Marijuana - Past Family History Father Family Medical History: COPD, Coronary Artery Disease (CAD), Myocardial Infarction ([place]) Mother Family Medical History: Coronary Artery Disease (CAD) General Exam Limitations: no limitations General appearance: alert, in no apparent distress, obese Head exam: Present: atraumatic, normocephalic, normal inspection Eye exam: Present: normal appearance, PERRL Pupils: Present: normal accommodation ENT exam: Present: normal exam, normal oropharynx, mucous membranes moist Neck exam: Present: normal inspection, full ROM Respiratory exam: Present: normal lung sounds bilaterally Cardiovascular Exam: Present: regular rate, normal rhythm, normal heart sounds GI/Abdominal exam: Present: soft, tenderness (Mild TTP over the left side of the abdomen), normal bowel sounds Extremities exam: Present: normal inspection, full ROM Back exam: Present: normal inspection, full ROM Neurological exam: Present: alert, oriented X3, CN II-XII intact Psychiatric exam: Present: normal affect, normal mood Skin exam: Present: warm, dry Course Vital Signs 10/22/22 10/22/22 10/23/22 21:51 23:08 02:42 Temperature 97.7 F Pulse Rate 89 79 80 Respiratory 16 18 20 Rate Blood Pressure 117/65 116/61 O2 Sat by Pulse 96 95 95 Oximetry Medical Decision Making - Medical Decision Making Was pt. sent in by a medical professional or institution (, PA, PIPE PROCESSOR, urgent care, hospital, or halfway...) When possible be specific @ -Yes, patient was sent in by Dr. Perez's office for evaluation Did you speak to anyone other than the patient for history (EMS, parent, family, police, friend...)? What history was obtained from this source @ -No Did you review nursing and triage notes (agree or disagree)? Why? @ -I reviewed and agree with nursing and triage notes Were old charts reviewed (outside hosp., previous admission, EMS record, old EKG, old radiological studies, urgent care reports/EKG's, halfway records)? Report findings @ -No old charts were reviewed Differential Diagnosis (chest pain, altered mental status, abdominal pain women, abdominal pain men, vaginal bleeding, weakness, fever, dyspnea, syncope, headac he, dizziness, GI bleed, back pain, seizure, CVA, palpatations, mental health)? @ -Chronic abdominal pain, pancreatitis, gastroenteritis EKG interpreted by me (3pts min.). @ -None X-rays interpreted by me (1pt min.). @ -None done CT interpreted by me (1pt min.). @ -None done U/S interpreted by me (1pt. min.). @ -None done What testing was considered but not performed or refused? (CT, X-rays, U/S, labs)? Why? @ -CT abdomen and pelvis was considered however the patient had chronic abdom inal pain he did state that this pain was consistent over the last 1 year therefore no imaging was needed at this time. What meds were considered but not given or refused? Why? @ -None Did you discuss the management of the patient with other professionals (professionals i.e. , PA, PIPE PROCESSOR, lab, RT, psych nurse, high school social science teacher, civil rights attorney, teacher, truant officer, case consultant)? Give summary @ -No Was smoking cessation discussed for >3mins.? @ -No Was critical care preformed (if so, how long)? @ -No Were there social determinants of health that impacted care today? How? (Homelessness, low income, unemployed, alcoholism, drug addiction, transportation, low edu. Level, literacy, decrease access to med. care, retirement, rehab)? @ -No Was there de-escalation of care discussed even if they declined (Discuss DNR or withdrawal of care, Hospice)? DNR status @ -No What co-morbidities impacted this encounter? (DM, HTN, Smoking, COPD, CAD, Cancer, CVA, ARF, Chemo, Hep., AIDS, mental health diagnosis, sleep apnea, morbid obesity)? @ -Chronic abdominal pain, hypertension Was patient admitted / discharged? Hospital course, mention meds given and route, prescriptions, significant lab abnormalities, going to OR and other pert inent info. @ -The patient was seen and evaluated emergency department. Physical exam, the patient was resting in bed without any acute distress. Vital signs admission were stable. All laboratory workup was within normal limits and the patient had consistent chronic abdominal pain without any new symptoms. The patient was deemed stable for discharge and told to follow-up with his private care physician once again and was given follow-up instructions to the gastroenterolog ist. The patient was advised to follow-up and to report back to the emergency department. The pain became acutely worse or different. The patient was agreeable to this and all his questions were answered. The patient was discharged home in stable condition. Undiagnosed new problem with uncertain prognosis? @ -No Drug Therapy requiring intensive monitoring for toxicity (Heparin, Nitro, Insulin, Cardizem)? @ -No Were any procedures done? @ -No Diagnosis/symptom? @ -Chronic abdominal pain, NOS Acute, or Chronic, or Acute on Chronic? @ -Chronic Uncomplicated (without systemic symptoms) or Complicated (systemic symptoms)? @ -Uncomplicated Side effects of treatment? @ -No Exacerbation, Progression, or Severe Exacerbation? @ -No Poses a threat to life or bodily function? How? (Chest pain, [place], [place], pneumonia, PE, COPD, DKA, ARF, appy, cholecystitis, CVA, Diverticulitis, Homicidal, Suicidal, threat to staff... and all critical care pts) @ -No - Lab Data Result diagrams: 10/23/22 00:19 10/23/22 00:19 Lab Results 10/23/22 10/23/22 Range/Units 00:19 00:19 WBC 7.5 (3.8-10.6) k/uL RBC 4.23 L (4.30-5.90) m/uL Hgb 13.6 (13.0-17.5) gm/dL Hct 39.7 (39.0-53.0) % MCV 93.8 (80.0-100.0) fL MCH 32.1 (25.0-35.0) pg MCHC 34.2 (31.0-37.0) g/dL RDW 13.6 (11.5-15.5) % Plt Count 187 (150-450) k/uL MPV 8.3 Neutrophils % 56 % Lymphocytes % 32 % Monocytes % 6 % Eosinophils % 3 % Basophils % 0 % Neutrophils # 4.2 (1.3-7.7) k/uL Lymphocytes # 2.4 (1.0-4.8) k/uL Monocytes # 0.4 (0-1.0) k/uL Eosinophils # 0.2 (0-0.7) k/uL Basophils # 0.0 (0-0.2) k/uL Sodium 140 (137-145) mmol/L Potassium 4.7 (3.5-5.1) mmol/L Chloride 105 (98-107) mmol/L Carbon Dioxide 29 (22-30) mmol/L Anion Gap 6 mmol/L BUN 26 H (9-20) mg/dL Creatinine 0.84 (0.66-1.25) mg/dL Est GFR (CKD-EPI)AfAm >90 (>60 ml/min/1.73 sqM) Est GFR (CKD-EPI)NonAf >90 (>60 ml/min/1.73 sqM) Glucose 88 (74-99) mg/dL Calcium 9.1 (8.4-10.2) mg/dL Magnesium 2.1 (1.6-2.3) mg/dL Total Bilirubin 0.3 (0.2-1.3) mg/dL AST 36 (17-59) U/L ALT 36 (4-49) U/L Alkaline Phosphatase 76 (38-126) U/L Total Protein 7.2 (6.3-8.2) g/dL Albumin 4.4 (3.5-5.0) g/dL Lipase 85 (23-300) U/L Disposition Clinical Impression: Abdominal pain Disposition: HOME SELF-CARE Condition: Stable Instructions (If sedation given, give patient instructions): Abdominal Pain (ED) Is patient prescribed a controlled substance at d/c from ED?: No Referrals: Jenny Perez MD [Primary Care Provider] - 1-2 days Anna Loera MD [STAFF PHYSICIAN] - 1-2 days Time of Disposition: 02:00
[2022-10-23 02:44] VITALS: PULSE 80; RESP 20
== END 2022-10-23 02:45 | disposition home or self-care (01) ==
LOC: EC 21:22
DX: R10.9 Unspecified abdominal pain (principal); I25.10 Atherosclerotic heart disease of native coronary artery without angina pectoris; I10 Essential (primary) hypertension; M19.90 Unspecified osteoarthritis, unspecified site; E78.5 Hyperlipidemia, unspecified; F41.9 Anxiety disorder, unspecified; F32.A Depression, unspecified; Z87.891 Personal history of nicotine dependence; F12.90 Cannabis use, unspecified, uncomplicated; Z91.09 Other allergy status, other than to drugs and biological substances; Z79.82 Long term (current) use of aspirin; Z79.899 Other long term (current) drug therapy
CPT/HCPCS: 36415; 80053; 83690; 83735; 85025; 99284; 96374; 96372; J0500; J2405

== ENCOUNTER → 2022-10-25 | Outpatient (CLI) | payer MEDICARE, OTHER ==
--- NOTE | 2022-10-25 19:19 | MR ---
EXAMINATION TYPE: MR lumbar spine wo/w con DATE OF EXAM: 10/25/2022 COMPARISON: 10/31/2015 HISTORY: Pain, prior surgery, post op infection suspected CONTRAST: 12 mL intravenous Gadavist. TECHNIQUE: Multiplanar, multisequence images of the lumbar spine were acquired. FINDINGS: L5-S1: Mild left paracentral disc bulging is present with anterior thecal sac contact. There may be d isplacement of the left exiting S1 nerve root. No spinal canal stenosis is evident. There is moderate to severe right foraminal stenosis. Severe left foraminal stenosis is present.. L4-L5: There is loss of disc height at this level. Residual disc bulge is present with anterior theca l sac flattening. This is slightly greater in the left paracentral region. No AP spinal canal stenosi s is present Severe bilateral foraminal stenosis is present. L3-L4: Facet hypertrophy of ligamentum flavum laxity has posterior lateral thecal sac compression. Th ere is a right paracentral intermediate signal on T2-weighted sequences with hyperintense signal on T 1-weighted images in the right paracentral region. This has moderate anterior thecal sac compression. No AP spinal canal stenosis. There is lateral canal stenosis. Severe bilateral foraminal stenosis i s present. L2-L3: Endplate spurring is present. There is loss of disc height at this level. No spinal canal sten osis is present. Moderate bilateral foraminal stenosis is present. L1-L2: There is loss of disc height is level. Mild facet hypertrophy of ligamentum flavum laxity is p resent. No spinal canal stenosis or neural foraminal stenosis is present. T12-L1: Minimal disc bulge is present with anterior thecal sac contact. No AP spinal canal stenosis i s present. Facet hypertrophy is present foramen are patent. Scoliosis is present with the convexity to the left. Following contrast administration no suspicious enhancement is evident. There is increased signal within the endplates of T12-L1 and L1-2 mild increa sed endplate signal on T2-weighted sequences in the elbow for 5 level. Findings are nonspecific but c ould be related to Modic type I degenerative changes. Residual disc material appears diminished adilene red to 2016. IMPRESSION: 1. Extensive degenerative disc changes throughout the scoliotic lumbar spine. Some residual disc bulg ing is present with anterior thecal sac contact. This appears most focal in the right paracentral reg ion at L3-4. 2. Multilevel moderate to severe bilateral foraminal stenosis. 3. No suspicious focal collection or enhancement to suggest infection. Follow-up can be performed as clinically indicated.
== END | disposition home or self-care (01) ==
LOC: RADMRIMAIN 17:44
PROVIDERS: ATTEND Orthopaedic Surgery Orthopaedic Surgery of the Spine
DX: M51.36 Other intervertebral disc degeneration, lumbar region (principal); M41.86 Other forms of scoliosis, lumbar region; M99.73 Connective tissue and disc stenosis of intervertebral foramina of lumbar region; Z98.890 Other specified postprocedural states; Z98.1 Arthrodesis status
CPT/HCPCS: 72158

== ENCOUNTER → 2022-10-27 | Outpatient (CLI) | payer MEDICARE, OTHER ==
--- NOTE | 2022-10-28 09:13 | MR ---
EXAMINATION TYPE: MR thoracic spine wo/w con DATE OF EXAM: 10/27/2022 COMPARISON: None HISTORY: Mid back pain and weakness in arms. CONTRAST: Performed utilizing 12 mL intravenous Gadavist gadolinium contrast. TECHNIQUE: Multiplanar, multiecho imaging on a 3.0 Juliana magnet is performed through the thoracic spi ne. Spinal cord maintains normal signal through its visualized course. There is slight exaggeration of thoracic kyphosis. Vertebral body heights are preserved. Mild mid thoracic spine degenerative loss of disc height is present. Disc desiccation is present thro ughout the thoracic spine. C7-T1: No focal disc herniation or significant disc bulge is evident. No spinal canal stenosis or norma ral foraminal stenosis at T1-T2: There is broad-based disc bulge. This may be slightly greater density left and right paracentr al regions. Comes in close approximation of the spinal cord. No cord contact or deformity is evident. No spinal canal stenosis is present. Foraminal stenosis may be present. T2-3: Broad-based disc bulge is present. This has cord contact. Cord deformity is not evident. No spi nal canal stenosis present. Moderate left and severe right foraminal stenosis appears to be present. T3-4: Disc bulge is present slightly greater to the left paracentral region. This is cord contact. So me mild cord flattening may be present. Spinal canal narrowing posterior to the disc bulging measures 0.6 cm. Neural foramen appear patent. Some posterior ligament prominence is present on the right. T4-5: Right and left paracentral disc bulge has moderate anterior thecal sac compression. No Cord con tact. No AP spinal canal stenosis present. Neural foramen appear patent. T5-6: Broad-based disc bulge is present, slightly greater to the right and left paracentral regions. No cord contact is evident. No spinal canal stenosis present. Some facet degenerative change and liga ment hypertrophy is present with minimal posterior lateral thecal sac compression on the left. No spi nal canal stenosis or neural foraminal stenosis present. T6-7: There is subligamentous disc herniation. This has moderate anterior thecal sac compression. Bul ge is slightly greater to the right paracentral region. No cord contact centrally. No spinal canal st enosis. Neural foramen appear patent. T7-8: There is some right paracentral endplate spurring with moderate anterior thecal sac compression . This comes in close approximation of the spinal cord. No cord contact is evident. Neural foramen ar e widely patent. Some facet degenerative changes present. T8-9: Minimal disc bulge is present with anterior thecal sac contact. No cord contact is evident. No spinal canal stenosis present. T9-T10: There is a large right central and paracentral disc herniation this is moderate anterior thec al sac compression. Cord contact is evident. Some cord deformity is present. AP spinal canal stenosis is not present with an AP diameter of 0.9 cm. T10-11: Facet hypertrophy is present with some ligamentum flavum laxity. This has moderate posterior lateral thecal sac compression. Some cord contact on the left may be present. Endplate spurring is pr esent into the left paracentral region with moderate anterior thecal sac compression. Cord contact is present. Some cord deformity is present. T11-12: Broad based disc bulge is present with mild anterior thecal sac compression slightly greater than left paracentral region. Some facet hypertrophy is present. No cord contact is evident. No spina l canal stenosis or neural foraminal stenosis. T12-L1: Facet hypertrophy has posterior lateral thecal sac compression. This is cord contact on the l eft. Broad-based disc bulge is present with moderate anterior thecal sac compression. This comes in c lose approximation with the spinal cord. No cord deformity is evident. This appears greater in the ri ght paracentral region. Vertebral body heights are preserved. Some Modic type I endplate changes are present at T5-6. Following contrast administration, no abnormal enhancement is evident. IMPRESSIONS: 1. Multilevel disc bulges, endplate changes with some facet hypertrophy of posterior lateral thecal s ac compression discussed above. 2. More significant areas of change include T3-4 with left paracentral disc bulging with cord contact and some cord flattening. Spinal canal stenosis is present and 0.6 cm. T6-7 with subligamentous disc herniation and moderate anterior thecal sac compression somewhat greater to the right paracentral re gion. T9-T10 large central and right paracentral disc herniation with cord contact and cord deformity . T10-11 mild facet hypertrophy with left posterior lateral thecal sac impression and some cord conta ct with mild cord deformity. Some lateral canal narrowing may be present at this level.
== END | disposition home or self-care (01) ==
LOC: RADMRIMAIN 15:53
PROVIDERS: ATTEND Orthopaedic Surgery Orthopaedic Surgery of the Spine
DX: M51.24 Other intervertebral disc displacement, thoracic region (principal); Z98.1 Arthrodesis status; M99.72 Connective tissue and disc stenosis of intervertebral foramina of thoracic region
CPT/HCPCS: 72157; A9585

== ENCOUNTER → 2023-05-23 | Outpatient (CLI) | payer MEDICARE, OTHER ==
--- NOTE | 2023-05-27 08:41 | MR ---
EXAMINATION TYPE: MR ankle LT wo/w con DATE OF EXAM: 05/23/2023 COMPARISON: No radiographic correlation available. Previous left foot MRI 06/21/2022 HISTORY: 67-year-old male Left ankle pain, swelling and redness. M86.9 OSTEOMYELITIS, UNSPECIFIED Technique: Multiplanar, multisequence images of the left ankle were obtained before and after adminis tration of 12.5 mL intravenous Gadavist gadolinium contrast. FINDINGS: There is pronounced generalized soft tissue swelling present The tibiotalar and subtalar joints appear intact. Some mild osteoarthritic change along the mid media l talar dome. Mild capsular swelling along the dorsal talonavicular joint. Mild effusion in the posterior tibiotalar joint communicating with the flexor hallucis longus tendon sheath. Along the plantar aspect of the hindfoot prior to the knot of Rohan, axial image 17 and sagit ivy image 20, there appears to be some focal tenosynovial fluid and possible synovial thickening or l oose body. Medial flexor tendons otherwise appear intact. There is some inhomogeneity of the deep posterior delt oid ligament fibers suggesting old injury. There are multiple split tears involving the malleolar and inframalleolar peroneus brevis for length of approximately 3 cm. Lateral ligamentous complex appears intact. Minimal thickening of the Achilles tendon without tear. Findings suggest mild tendinosis. There is a small plantar heel spur present. Moderate osteoarthritic change at the intercuneiform joint as well as the second through fifth TMT dave ints. Greatest at the second TMT joint where a 7 mm ganglion cyst is present dorsally. The syndesmosis and anterior extensor tendons appear intact. No acute or healing fracture is seen. No suspicious bone marrow replacement identified. IMPRESSION: 1. Diffuse subcutaneous soft tissue swelling throughout. No underlying acute or healing fracture or f indings of osteomyelitis at this time. 2. Moderate osteoarthritic change along the intercuneiform joints and second through fifth TMT joints . Greatest at the second TMT joint where a small dorsal 7 mm ganglion cyst is present. 3. Multiple split tears involving a 3 cm long segment of the malleolar and inframalleolar peroneus br nuris. 4. Mild tenosynovitis along the plantar aspect of the flexor hallucis longus prior to the knot of Rasheed ry. Some associated focal synovitis or loose body within the tendon sheath here.
== END | disposition home or self-care (01) ==
LOC: RADMRIMAIN 17:40
PROVIDERS: ATTEND Internal Medicine
DX: M19.072 Primary osteoarthritis, left ankle and foot (principal); M86.9 Osteomyelitis, unspecified; L03.90 Cellulitis, unspecified; M67.472 Ganglion, left ankle and foot; M65.872 Other synovitis and tenosynovitis, left ankle and foot; M66.372 Spontaneous rupture of flexor tendons, left ankle and foot; M79.89 Other specified soft tissue disorders
CPT/HCPCS: 73723; A9585

== ENCOUNTER → 2023-05-24 | Outpatient (CLI) | payer MEDICARE, OTHER ==
--- NOTE | 2023-05-24 11:35 | CA ---
Transthoracic Echo Report Name: Lasha Hdez Age: 67 Gender: M : 1955 Exam Date: 05/24/2023 10:48 Exam Location: [facility] Ht (in): 73 Wt (lb): 270 Ordering Physician: Abby Olivera MD ([id number]) Attending/Referring Phys: Rose Bolanos [facility] Vacuum Tank Tender Makenna Jackson [facility] Procedure CPT: Indications: I25.[address] [place] CORONARY ART Cardiac Hx: Technical Quality: Fair Contrast 1: Total Dose (mL): Contrast 2: Total Dose (mL): MEASUREMENTS (Male / Female) Normal Values 2D ECHO LV Diastolic Diameter PLAX 4.5 cm 4.2 - 5.9 / 3.9 - 5.3 cm LV Systolic Diameter PLAX 3.5 cm IVS Diastolic Thickness 1.2 cm 0.6 - 1.0 / 0.6 - 0.9 cm LVPW Diastolic Thickness 1.1 cm 0.6 - 1.0 / 0.6 - 0.9 cm LV Relative Wall Thickness 0.5 LVOT Diameter 2.2 cm Ascending Aorta Diameter 3.4 cm M-MODE Aortic Root Diameter MM 3.2 cm LA Systolic Diameter MM 4.0 cm LA Ao Ratio MM 1.3 AV Cusp Separation MM 2.6 cm DOPPLER AV Peak Velocity 101.8 cm/s AV Peak Gradient 4.1 mmHg AV Mean Velocity 74.7 cm/s AV Mean Gradient 2.5 mmHg AV Velocity Time Integral 20.3 cm LVOT Peak Velocity 89.2 cm/s LVOT Peak Gradient 3.2 mmHg LVOT Velocity Time Integral 19.1 cm LVOT Stroke Volume 73.0 cm??? LVOT Stroke Volume Index 29.9 ml/m??? LVOT Cardiac Index 2058.4 cm???/min???m??? AV Area Cont Eq vti 3.6 cm??? AV Area Cont Eq pk 3.4 cm??? Mitral E Point Velocity 67.5 cm/s Mitral A Point Velocity 76.5 cm/s Mitral E to A Ratio 0.9 MV Deceleration Time 229.3 ms FINDINGS Left Ventricle Mildly increased left ventricular wall thickness. Left ventricular cavity size normal. Low normal left ventricular systolic function with no obvious regional wall motion abnormalities. Left ventricular ejection fraction is estimated at 50-55%. Right Ventricle Mild right ventricular dilatation. Right Atrium Upper normal right atrial size. Left Atrium Normal left atrial size. Mitral Valve Structurally normal mitral valve. Trace mitral regurgitation. Aortic Valve Trileaflet aortic valve. No aortic valve stenosis or regurgitation. Tricuspid Valve Structurally normal tricuspid valve. No tricuspid regurgitation. Pulmonic Valve Structurally normal pulmonic valve. Trace pulmonic regurgitation. Pericardium No pericardial effusion. Echo free space anterior to the right ventricle likely represents a fat pad. Aorta Normal size aortic root and proximal ascending aorta. CONCLUSIONS Normal LV size with fairly well-preserved systolic function. Mild mitral and tricuspid regurgitation. No pericardial effusion, probable fat pad. Right- sided pressures are not well quantified Previewed by: Dr. Keyla Salmeron MD (Electronically Signed) Final Date: 24 May 2023 11:35
== END | disposition home or self-care (01) ==
LOC: RADECHMAIN 10:36
PROVIDERS: ATTEND Internal Medicine Interventional Cardiology
DX: I08.1 Rheumatic disorders of both mitral and tricuspid valves (principal); I25.10 Atherosclerotic heart disease of native coronary artery without angina pectoris
CPT/HCPCS: 93306

== ENCOUNTER → 2023-05-25 | Outpatient (CLI) | payer MEDICARE, OTHER ==
[2023-05-25 10:14] LABS: African American GFR (CKD) >90 (>60 ml/min/1.73 sqM); Blood Urea Nitrogen 21 mg/dL (9-20); Non-African American GFR(CKD) 81 (>60 ml/min/1.73 sqM)
--- NOTE | 2023-05-25 13:55 | CT ---
EXAMINATION TYPE: CT angio abdomen pelvis DATE OF EXAM: 05/25/2023 COMPARISON: 02/23/2021 HISTORY: 67-year-old male I71.40, abdominal aortic and iliac aneurysm. TECHNIQUE: Contiguous axial scanning of the abdomen and pelvis before and after administration of 100 ml Isovue 370 IV contrast. Coronal/sagittal reconstructions performed. 3-D reconstructions generate d on a dedicated independent workstation. CT DLP: 2410.30 mGycm Automated exposure control for dose reduction was used. FINDINGS: Heart normal size without pericardial effusion. Some dependent strandy and atelectasis in l ower lungs. No pleural effusion. Tiny hiatal hernia. Noncontrast and arterial phase imaging of the liver, gallbladder, adrenal glands, spleen, pancreas an d no gross abnormality. Right-sided renal calculi measuring up to 9 mm. There are a number of bilateral renal cysts measuring up to 9.7 cm on the left and 7.0 cm on the righ t. No hydronephrosis on either side. Moderate atherosclerotic calcifications infrarenal abdominal aorta and iliac arteries. Mild fusiform aneurysm infrarenal abdominal aorta to 3.2 cm, unchanged. Similar aneurysm right common iliac artery 2.3 cm and left common iliac artery at 2.0 cm. Celiac axis is patent. There appears to be a separate origin of the left gastric artery directly from the aorta. There is an accessory right renal artery. AMITA is patent. No dilated small bowel, free fluid, or free air. No mesenteric or retroperitoneal lymphadenopathy. Mild to moderate stool burden. No pericolic inflammatory change. Bladder urine distended. Streak and beam hardening artifact from the patient's bilateral total hip arthroplasties limiting vis ualization of the pelvis. Prostate gland appears to be enlarged up to 5.2 cm wide. Allowing for the b eam Vizcarra artifact, there appears to be a prominent left extra iliac chain lymph node, increased fr om prior now measuring 1.9 cm. Bones: Osteopenia. Bilateral total hip arthroplasties. Advanced spondylotic changes throughout the visualized spine. IMPRESSION: 1. FUSIFORM INFRARENAL AAA STABLE AT 2.2 CM. ADDITIONAL STABLE ANEURYSM RIGHT AND LEFT COMMON ILIAC A RTERIES AT 2.3 CM AND 2.0 CM, RESPECTIVELY. 2. RIGHT-SIDED NEPHROLITHIASIS MEASURING UP TO 9 MM. ADDITIONAL BILATERAL RENAL CYSTS MEASURING UP TO 9.7 CM. 3. PROSTATE GLAND APPEARS ENLARGED AT 5.2 CM WIDE. EXTENSIVE METAL ARTIFACT FROM THE PATIENT'S TOTAL HIP ARTHROPLASTIES LIMITS DETAILED ASSESSMENT. CORRELATE WITH SYMPTOMS AND PSA VALUES. 4. A 1.9 CM LEFT EXTERNAL ILIAC CHAIN LYMPH NODE APPEARS NEW/ENLARGED FROM 2020. THIS MAY BE REACTIVE /POST INFLAMMATORY. AGAIN, CORRELATE WITH PSA VALUES. 2-[address] FOLLOW-UP CT TO ENSURE STABILITY/RES OLUTION.
== END | disposition home or self-care (01) ==
LOC: RADCTMAIN 09:39
PROVIDERS: ATTEND Internal Medicine Interventional Cardiology
DX: I71.40 Abdominal aortic aneurysm, without rupture, unspecified (principal); I71.43 Infrarenal abdominal aortic aneurysm, without rupture; I72.3 Aneurysm of iliac artery; N28.1 Cyst of kidney, acquired; N20.0 Calculus of kidney; N40.0 Benign prostatic hyperplasia without lower urinary tract symptoms; R59.0 Localized enlarged lymph nodes
CPT/HCPCS: 82565; 84520; 36415; 74174; Q9967

== ENCOUNTER → 2023-05-26 | Outpatient (CLI) | payer MEDICARE, OTHER ==
--- NOTE | 2023-05-26 22:34 | MR ---
EXAMINATION TYPE: MR tib fib LT wo/w con DATE OF EXAM: 05/26/2023 COMPARISON: None available. HISTORY: Pain, swelling, redness anterior aspect of mid to lower tibia. CONTRAST: Standard multiplanar, multisequence MRI departmental protocol images were obtained without contrast and with 12.5 mL intravenous Gadavist gadolinium contrast. FINDINGS: SOFT TISSUES: There is no focal fluid collection or evidence of soft tissue emphysema. OSSEOUS STRUCTURES: Examination of the tibia and fibula shows a proximal tibial 12 cm segment of T1 a nd T2 hypointense signal consistent with intramedullary cavity. The tibia and fibula are negative for focal cortical destruction or trabecular destruction. The mid and lower tibia have unremarkable appearance on the precontrast and postcontrast sequences. IMPRESSION: Negative for soft tissue abscess or osteomyelitis.
== END | disposition home or self-care (01) ==
LOC: RADMRIMAIN 21:00
PROVIDERS: ATTEND Internal Medicine
DX: L03.116 Cellulitis of left lower limb (principal); M86.8X6 Other osteomyelitis, lower leg
CPT/HCPCS: 73720; A9585

== ENCOUNTER → 2023-06-03 | Outpatient (CLI) | payer MEDICARE, OTHER ==
[2023-06-03 16:01] LABS: African American GFR (CKD) 77 (>60 ml/min/1.73 sqM); Blood Urea Nitrogen 24 mg/dL (9-20); Non-African American GFR(CKD) 66 (>60 ml/min/1.73 sqM)
--- NOTE | 2023-06-07 09:32 | CT ---
EXAMINATION TYPE: CT pelvis w con DATE OF EXAM: 06/03/2023 COMPARISON: 05/25/2023 HISTORY: enlarged lymph nodes CT DLP: 1558.4 mGycm CONTRAST: CT scan of the pelvis is performed with Oral Contrast and with IV Contrast, patient injected with 100 mL of Isovue 300. Evaluation is limited by extensive streak artifact from bilateral hip prosthesis. FINDINGS: KIDNEYS/BLADDER: Partially imaged kidneys demonstrate multiple cystic change lower poles of the kidne ys. BOWEL: Visualized bowel loops are of normal caliber without evidence for inflammatory process or abn ormal thickening. GENITAL ORGANS: Prostate gland enlargement although evaluation of prostate gland is limited by streak artifact. LYMPH NODES: Left external iliac chain lymph node previously measured 1.9 cm versus 1.6 cm previously . The seen on image 37 of 75. No additional enlarged lymph nodes are appreciated within the pelvis at this time. AORTA: Atheromatous and ectatic change distal abdominal aorta. 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 OSSEOUS STRUCTURES: Postoperative changes bilateral hips. Degenerative changes lumbar spine. OTHER: No significant additional abnormality is seen. IMPRESSION: 1. Left iliac chain enlarged lymph node is slightly smaller in size however continues to be mildly en larged. Continued follow-up at 6 months is advised. 2. Prostate gland enlargement. Correlate with PSA. 3. Additional findings as noted above.
== END | disposition home or self-care (01) ==
LOC: RADCTMAIN 15:23
PROVIDERS: ATTEND Family Medicine
DX: I88.8 Other nonspecific lymphadenitis (principal); N40.0 Benign prostatic hyperplasia without lower urinary tract symptoms
CPT/HCPCS: 82565; 84520; 72193; 36415; Q9967

== ENCOUNTER → 2023-07-06 | Day surgery (SDC) | payer MEDICARE, OTHER ==
[2023-06-30 11:19] VITALS: BMI 35.7
[~2023-07-06] MED LIST changes: +ALPRAZolam 0.25 MG TAB PO PRN; +ALPRAZolam 0.5 MG TAB PO PRN; +ASPIRIN 325 MG TAB PO STA; +ATORVASTATIN 20 MG TAB PO SCH; +FAMOTIDINE 20 MG TAB PO SCH; +HEPARIN SODIUM 1,000 UN/ML (10ML VL) IV ONE; +HEPARIN SODIUM 1,000 UN/ML (10ML VL) ONE; +HEPARIN SODIUM,PORCINE (1 ML) 2,500 UNIT in SODIUM CHLORIDE 0.9% 250 ML IRRIGATION PRN; +HEPARIN SODIUM,PORCINE 10,000 UNIT in SODIUM CHLORIDE 0.9% 1,000 ML IRRIGATION PRN; +IOPAMIDOL-370 100ML BTL INJ ONE; -LACTATED RINGERS 1,000 ML IV SCH; -LIDOCAINE 1% 20 ML VIAL (10MG/ML) FOR IV START INTRADERMA PRN; +LIDOCAINE 1% INJ 10MG/ML (30 ML VIAL-PF) SQ ONE; +METOPROLOL SUCCINATE (ER) 50 MG TAB.ER.24H PO SCH; +NITROGLYCERIN SL TABS 0.4 MG TAB SUBLINGUAL PRN; +NON FORMULARY DRUG (Aspirin [Adult Low Dose Aspirin Ec] 81 MG Tablet.Dr) PO SCH; +RX INFO: IV CONTRAST WAS GIVEN 1 EACH MISC MISCELLANE PRN; +SODIUM CHLORIDE 0.9% 1,000 ML IV SCH; +SODIUM CHLORIDE 0.9% 1,000 ML in EMPTY BAG 1 BAG IV SCH; +SPIRONOLACTONE 25 MG TAB PO SCH; +TAMSULOSIN 0.4 MG CAP.ER.24H PO SCH; +VERAPAMIL SYRINGE (5 MG/10 ML) INTRAARTER ONE; +VITAMIN B12 PO SCH; +fentaNYL (PF) 50 MCG/1 ML VIAL IVP ONE; +fentaNYL (PF) 50 MCG/ML 2 ML AMP ONE; +lisinopriL 10 MG TAB PO SCH
[2023-07-06 07:33] VITALS: TEMP 98.9
[2023-07-06] MEDS: MIDAZOLAM 2 MG/2 ML VIAL IVP ONE ×2 (07:59→08:03)
--- NOTE | 2023-07-06 08:25 | P.CARDCATH ---
Date of Procedure: 07/06/23 Description of Procedure: Cardiac Catheterization: The patient is a 67-year-old male with a known history of CAD, status post stenting of the LAD in 2012, history of hypertension and hyperlipidemia who has been complaining of symptoms of chest discomfort and had an abnormal MPI. Recommendations were made regarding cardiac catheterization, the risks and the complications were discussed with the patient who is in full understanding and agreement. Procedure Description: Patient was brought to geotechnical laboratory technician in fasting semi-sedated state after receiving Fentanyl and Benadryl achieiving moderate conscious sedated state. Using Xylocaine Anesthesia and modified Seldinger technique, a 6-Chilean sheath was introduced in the right radial artery . Subsequently, selective coronary angiography was performed using a 5-Chilean 3.5 bend Heri catheter. Multiple views of the coronary artery including hemiaxial views were obtained. The 5-Chilean pigtail catheter was used to cross the aortic valve and LVEDP was calculated. Following that, catheter and sheath were removed. Hemostasis was obtained with deployment of vascular band . There was no immediate complication. Patient was returned to room in stable condition. Of note, the patient received a total of 5000 units of intravenous heparin as well as intra-arterial verapamil. Findings: Left main: This is a large size vessel, trifurcating into LAD, left circumflex and ramus intermedius, left main has no obstructive disease. LAD: This is a large size vessel, reaching to the apex. The stented segment proximally is patent with no significant in-stent restenosis. There is mild intimal disease in the midsegment of 10-20% with no high-grade stenosis. Left circumflex: This is a large nondominant vessel, giving rise to 3 obtuse marginal branch, the third one is the largest. The left circumflex has mild intimal disease in the midsegment of 10-20% with no high-grade stenosis. RCA: This is a large dominant vessel, bifurcating into PDA and PLV. The mid RCA has mild intimal disease of 10-20% with no high-grade stenosis Ramus intermedius: this is a large size vessel patient with the apical lateral wall. The left circumflex has no evidence of high-grade stenosis Left Ventriculogram: Not performed Hemodynamics: There was no gradient across the aortic valve , LVEDP was 10-15 mmHg Conclusion: 1. Mild triple vessel disease 2. Patent stent in the LAD 3. Right dominance 4. Normal LVEDP Recommendations: I have recommended to continue present medical regimen. I see no progression of disease compared to 2018. The findings and the recommendations were discussed with the patient and the family and they were in full understanding and agreemen t. Duration of sedation is 12 minutes.
[2023-07-06 10:36] VITALS: RESP 14
[2023-07-06 11:01] VITALS: BP 124/56; PULSE 77
== END | disposition home or self-care (01) ==
LOC: CATHCVL 05:58
PROVIDERS: ATTEND Internal Medicine Interventional Cardiology
DX: I25.10 Atherosclerotic heart disease of native coronary artery without angina pectoris (principal); I10 Essential (primary) hypertension; E78.5 Hyperlipidemia, unspecified; J44.9 Chronic obstructive pulmonary disease, unspecified; Z95.5 Presence of coronary angioplasty implant and graft; Z79.82 Long term (current) use of aspirin; Z79.899 Other long term (current) drug therapy
CPT/HCPCS: 93458; C1769 ×2; C1894; J2250; J2001; J1644; Q9967; J3010

== ENCOUNTER → 2023-07-08 | Outpatient (CLI) | payer MEDICARE, OTHER ==
--- NOTE | 2023-07-08 11:33 | US ---
EXAMINATION TYPE: US arterial LE single level DATE OF EXAM: 07/08/2023 10:44 AM CLINICAL INDICATION: Male, 67 years old with history of R60.0 LOCALIZED EDEMA Z87.891 PERSONAL HX OF NICOTINE; Nonhealing blisters on left anterior calf. Hx left knee replacement x 6 months ago History of: Smoker: Previous Hypertension: Takes medication Diabetic: No Hyperlipidemia: No TIA/CVA: No Previous Vascular Surgery: No CAD: Yes IN: No Vascular Ulcers: Left Claudication: No Gangrene: No Doppler Waveforms: Right: Multiphasic Left: Multiphasic Right Brachial Pressure: 125 Left Brachial Pressure: 134 Ankle-Brachial Indices: Right: 1.2 Left: 1.2 Toe Brachial Indices: Right: 0.7 Left: 0.5 IMPRESSION:
== END | disposition home or self-care (01) ==
LOC: RADUSWWP 10:15
PROVIDERS: ATTEND Surgery
DX: R60.0 Localized edema (principal); Z87.891 Personal history of nicotine dependence; Z96.652 Presence of left artificial knee joint
CPT/HCPCS: 93922

== ENCOUNTER → 2023-12-02 | Outpatient (CLI) | payer MEDICARE, OTHER ==
[2023-12-02 10:06] LABS: African American GFR (CKD) >90 (>60 ml/min/1.73 sqM); Blood Urea Nitrogen 26 mg/dL (9-20); Non-African American GFR(CKD) >90 (>60 ml/min/1.73 sqM)
--- NOTE | 2023-12-02 12:25 | CT ---
EXAMINATION TYPE: CT pelvis w con CT DLP: 1992.40 mGycm, Automated exposure control for dose reduction was used. DATE OF EXAM: 12/02/2023 11:25 AM COMPARISON: CT abdomen pelvis most recent from CLINICAL INDICATION:Male, 68 years old with history of R93.89 ABNORMAL FINDINGS ON IMAGING; iliac ane urysm and iliac lymph node swelling TECHNIQUE: Axial CT pelvis w con;Sagittal and coronal reformats were created on a separate workstati on. Contrast used:100ml mL of Isovue 300 with IV Contrast, (none if empty) Oral contrast used: with Oral Contrast (none if empty) FINDINGS: LOWER CHEST: Unremarkable ABDOMEN LIVER: Unremarkable GALLBLADDER AND BILE DUCTS: Unremarkable. PANCREAS: Unremarkable. SPLEEN: Unremarkable. ADRENAL GLANDS: Unremarkable. KIDNEYS AND URETERS: Nonobstructing right renal 3 mm calculus. No right hydronephrosis. No left renal calculi. Bilateral simple appearing renal cysts. PELVIS BLADDER: Unremarkable REPRODUCTIVE: Unremarkable. ABDOMEN & PELVIS STOMACH AND BOWEL: No evidence of bowel obstruction. PERITONEUM/RETROPERITONEUM: No evidence of pneumoperitoneum or free fluid. VASCULATURE: Right common iliac artery dilation up to 18 mm. Left common iliac artery dilation up to 17 mm. Dilation of the distal aorta 4.0 cm. No evidence for dissection. MUSCULOSKELETAL: No acute osseous abnormalities, bilateral hip arthroplasties with fixation hardware. Hardware appears intact. LYMPH NODES: No gross evidence for lymphadenopathy. SOFT TISSUE/ABDOMINAL WALL: Umbilical hernia. IMPRESSION: 1. Overall findings not significantly changed from 05/25/2023 with fusiform dilation of the common i liac arteries and distal aorta. No evidence for dissection. 2. Not certain right renal cocci. 3. Bilateral simple appearing renal cysts.
== END | disposition home or self-care (01) ==
LOC: RADCTMAIN 09:07
PROVIDERS: ATTEND Family Medicine
DX: N28.1 Cyst of kidney, acquired (principal); R93.89 Abnormal findings on diagnostic imaging of other specified body structures
CPT/HCPCS: 82565; 84520; 72193; 36415; Q9967

== ENCOUNTER → 2024-09-05 | Outpatient (CLI) | payer MEDICARE, OTHER ==
[2024-09-05 15:02] VITALS: BP 110/68; PULSE 84; RESP 16; TEMP 98.1
--- NOTE | 2024-09-05 16:57 | P.SLEEP ---
History of Present Illness DATE: 09/05/2024 CONSULTATION/NEW PATIENT EVALUATION HISTORY OF PRESENT ILLNESS/SLEEP-WAKE EVALUATION: 69-year-old gentleman had b een evaluated in the sleep center for obstructive sleep apnea hypopnea syndrome. Patient has history of obstructive sleep apnea since 2008. He continued to use his CPAP equipment. SLEEP SCHEDULE: Usually sleep schedule 10 PM to 7 AM. FALLING ASLEEP: No problems with falling asleep. DURING SLEEP: Patient wakes up from sleep 2 times with nocturia, toss and turn, gasping for air. Positive history of dry mouth, palpitations, restless legs. No history of hypnogogical hallucinations, sleep paralysis, or cataplexy. DURING THE DAY/WAKE STATE: In the morning patient wake up tired, has difficult ies to pay attention, has problems with memory, concentration, irritability and anxiety. [place] sleepiness scale is significantly increased to 15. Usually patient does not take naps. PAST MEDICAL HISTORY: Coronary artery disease, hyperlipidemia, arthritis. PAST SURGICAL HISTORY: Knee surgery, shoulder surgery, stent insertion. MEDICATIONS: Celebrex, metoprolol, lisinopril, Lipitor, spironolactone, baby aspirin. SOCIAL HISTORY: Please see below. FAMILY HISTORY: Please see below. REVIEW OF SYSTEMS: []. No fevers. No double vision. No recent chest pain. No shortness of breath. No abdominal pain. No bleeding episodes. No blood in urine. No seizure episodes. PHYSICAL EXAMINATION: GENERAL: A pleasant patient without any distress. VITAL SIGNS: Have been reviewed, please see below, weight 279.6 pounds, BMI 39.4. HEENT: PERRLA, EOMI. Evaluation of oropharynx showed tongue protrudes midline, low position of soft palate Mallampati 4. NECK: Supple. No JVD. Thyroid is not palpable. 21 inches in circumference. LUNGS: Clear to percussion and to auscultation. Good air exchange. No wheezing or rhonchi. HEART: S1, S2 regular. No murmurs, gallops or rubs. ABDOMEN: Soft and nontender. Bowel sounds are present. No organomegaly appreciated. EXTREMITIES: No clubbing or cyanosis. BRAKE LINING MAKER: Awake, alert, and oriented x3. Cranial nerves 2 to 7 intact. There is no fasciculation or atrophy noted. No focal deficits observed. ASSESSMENT: 1. Obstructive sleep apnea hypopnea syndrome for many years. Extremely low position of soft palate Mallampati 4, extremely wide neck 21 inches, sleepiness [place] Sleepiness Scale increased to 15. Patient is on treatment with CPAP but still wakes up from sleep and possibly has episodes of stop breathing. 2. Obesity, BMI 39.4. 3. Coronary artery disease, status post stent insertion. 4. Hypertension. 5 hyperlipidemia. 6 . Status post left knee replaced. 7. Status post bilateral hip replacement. 8. Status post shoulder surgery. 9 . Status post cervical spine fusion. PLAN: 1. PAP titration to check effective pressure at the present time. 2. Following plan after reading sleep study. 3. Preferable position during sleep on the side. 4. No driving if patient feels any sleepiness. Patient is aware of civil and criminal liability for unsafe driving. 5. Sleep hygiene with regular sleep time for at least 7.5-8 hours. 6. Watching and losing weight. Thank you very much for referring this patient for consultation. Sincerely, Gerry Rincon MD, PhD, FAASM. Diplomat of [place] [employer], Sleep Medicine Board by [place] [employer] [place] [employer] [facility] [place] cc: Jenny Perez MD Past Medical History Past Medical History: Coronary Artery Disease (CAD), Eye Disorder, GERD/Reflux, Hyperlipidemia, Hypertension, Musculoskeletal Disorder, Osteoarthritis (OA), Skin Disorder, Sleep Apnea/CPAP/BIPAP Additional Past Medical History / Comment(s): slight glaucoma janet eyes, Hx kidney stones, R great toe bunion, psoriasis, uses CPAP. Restless legs - not diagnosed. Snoring, arthritis. History of Any Multi-Drug Resistant Organisms: None Reported Past Surgical History: Appendectomy, Back Surgery, Heart Catheterization With Stent, Joint Replacement, Orthopedic Surgery Additional Past Surgical History / Comment(s): PTCA with stent x1, EGD and colonoscopy, L knee arthroscopy, lithrotripsy, Surg to remove kidney stone, laminectomy low back 1984, has had laser sx to janet eyes, cervical fusion. Lt elbow surg. Bilat Total hips. 2 ANEURYSMS - 1 IN ILIAC AREA AND 1 IN STOMACH - NOT SURE WHERE. Past Anesthesia/Blood Transfusion Reactions: No Reported Reaction Additional Past Anesthesia/Blood Transfusion Reaction / Comment(s): Pt has not recieved any blood transfusion. Date of Last Stent Placement:: 2011 Past Psychological History: Anxiety, Depression Additional Psychological History / Comment(s): STATES SOME R/T HEALTH ISSUES, SOMETIMES PATIENT FEELS LIKE HAS ADHD TYPE ISSUES - OR CONCENTRATION ISSUES. Smoking Status: Former smoker Past Alcohol Use History: None Reported Additional Past Alcohol Use History / Comment(s): QUIT SMOKING CIGARETTES 01/2016, SMOKED 1 AND 1/2 PPD Past Drug Use History: Marijuana Additional Drug Use History / Comment(s): DAILY USE, INSTRUCTED TO HOLD 24 HRS PRIOR 09/05/24 USES MARIJUANA PRN FOR PAIN. - Past Family History Father Family Medical History: COPD, Coronary Artery Disease (CAD), Myocardial Infarction ([place]) Mother Family Medical History: COPD, Coronary Artery Disease (CAD) Additional Family Medical History / Comment(s): ADRENAL ANEURYSM Medications and Allergies Home Medications Medication Instructions Recorded Confirmed Type Spironolactone [Aldactone] 25 mg PO DAILY 09/26/14 07/06/23 History Aspirin [Adult Low Dose Aspirin EC] 81 mg PO DAILY 09/19/15 07/06/23 History Celecoxib [CeleBREX] 200 mg PO DAILY 03/10/17 07/06/23 History Atorvastatin [Lipitor] 20 mg PO HS 05/31/18 07/06/23 History lisinopriL [Zestril] 10 mg PO HS 05/31/18 07/06/23 History Metoprolol Succinate (ER) [Toprol 50 mg PO BID 10/19/18 07/06/23 History XL] Loratadine 10 mg PO DAILY 04/11/21 07/06/23 History Calcium/Magnesium/Zinc 1 each PO DAILY 07/08/21 07/06/23 History [Zpfdalt-Lqlxlfskt-Wqdy Tablet] Multivit-Min/FA/Lycopen/Lutein 1 each PO DAILY 07/08/21 07/06/23 History [Centrum Silver Tablet] Gibson-3 Fatty Acids/Fish Oil [Fish 1 each PO DAILY 07/08/21 07/06/23 History Oil 1,000 mg Softgel] Vitamin D3 (Unknown Dose) 1 tab PO DAILY 07/08/21 07/06/23 History HYDROcodone/APAP 5-325MG [Saltese 1 tab PO Q4HR PRN 3 Days #18 tab 04/26/22 07/06/23 Rx 5-325] Famotidine [Pepcid] 20 mg PO BID 06/30/23 07/06/23 History Tamsulosin [Flomax] 0.4 mg PO DAILY 06/30/23 07/06/23 History Vitamin B-12 (Unknown Dose) 1 tab PO DAILY 06/30/23 07/06/23 History Allergies Allergy/AdvReac Type Severity Reaction Status Date / Time adhesive Allergy Rash/Hives Verified 06/30/23 10:49 adhesive tape Allergy blisters Verified 06/30/23 10:49 Physical Exam Vitals: Vital Signs Temp Pulse Resp BP Pulse Ox 09/05/24 15:02 98.1 F 84 16 110/68 95 Intake and Output 09/05/24 09/05/24 09/05/24 06:59 14:59 22:59 Other: Weight 126.722 kg Sleep Note - Sleep Data ESS Total: 15 - Sleep Note Sleep Note: Temperature: 98.1 F Pulse Rate: 84 Respiratory Rate: 16 Blood Pressure: 110/68 SpO2: 95 Height: 5 ft 10.5 in Weight: 126.722 kg BMI: Neck Circumference: 21
== END ==
LOC: 3 N SLEEP 14:35
PROVIDERS: ATTEND Internal Medicine
DX: G47.33 Obstructive sleep apnea (adult) (pediatric) (principal); E66.9 Obesity, unspecified; I25.10 Atherosclerotic heart disease of native coronary artery without angina pectoris; I10 Essential (primary) hypertension; E78.5 Hyperlipidemia, unspecified; F12.90 Cannabis use, unspecified, uncomplicated; Z68.39 Body mass index [BMI] 39.0-39.9, adult; Z99.89 Dependence on other enabling machines and devices; Z96.652 Presence of left artificial knee joint; Z96.643 Presence of artificial hip joint, bilateral; Z87.891 Personal history of nicotine dependence; Z91.09 Other allergy status, other than to drugs and biological substances; Z91.048 Other nonmedicinal substance allergy status
CPT/HCPCS: 99211

== ENCOUNTER 2024-10-03 19:41 | Outpatient (CLI) | payer MEDICARE, OTHER ==
--- NOTE | 2024-10-10 13:55 | P.PCN ---
Description of Procedure: CLINICAL: Titration with positive air pressure has been done for correction of respiratory abnormalities during sleep. DESCRIPTION OF PROCEDURE: The standard montage for clinical polysomnography included the electroencephalogram, the electrocardiogram, the mentalis surface electromyography and Lead II cardiography. The respiratory battery consisted of measurements of nasal /buccal air flow, pressure transducer measurements from the nose, thoracic and /or abdominal effort and intercostal surface electromyography. Video monitoring has been done to check for any parasomnia events. Nocturnal oxyhemoglobin saturations were obtained by finger oximetry. Step-eubanks titration with positive airway pressure was utilized to control respiratory events. Raw data of sleep recording has been reviewed and is adequate. RESULTS: Sleep efficiency was slightly decreased to 82.6%. Latency to sleep onset was short 5.0 minutes.]. Sleep architecture showed stage N1 was short 1.6%, Delta sleep was normal 6.4%, REM sleep was slightly decreased to 17.6%. Heart rate was minimum 48 BPM, maximum 82 BPM, average 60 BPM. EMG showed 44.8 periodic limb movements per hour with 0.9 micriarousals per hour. PAP titration have been done with CPAP up to the pressure 11 cm H2O. The best results were at the pressure 11 cm H2O. Apnea hypopnea index reduced to 0. IMPRESSION: 1. Obstructive sleep apnea hypopnea syndrome on controle with PAP treatment. 2. Significant periodic limb movements have been documented. Please see other impressions from consultation. PLAN: 1. The patient will have treatment with positive air pressure equipment with the level of pressure AutoPap 511 cm H2O and should use it every night for the whole night. 2. Watching and losing weight. 3. Sleep hygiene with regular time in bed for at least 8 hours. 4. No driving if feeling any sleepiness. 5. I will see the patient for follow up visit to explain the results of the test, recommendations, check compliance with treatment and make any necessary adjustment related to mask fitting, pressure and humidification. 6. Please check iron profile including ferritin level. Low level of iron may increase risk for periodic limb movements Thank you very much for allowing me to participate in the management of your patient. Sincerely, Gerry Rincon MD, PhD, FAASM Diplomat of [place] [employer] Sleep Medicine Board of [place] [employer] Deaf/Hard Of Hearing Specialist [facility] [place] cc: Jenny Perez MD
== END 2024-10-04 05:45 | disposition home or self-care (01) ==
LOC: 3 N SLEEP 19:41
PROVIDERS: ATTEND Internal Medicine
DX: G47.33 Obstructive sleep apnea (adult) (pediatric) (principal); G47.61 Periodic limb movement disorder; F12.90 Cannabis use, unspecified, uncomplicated; Z99.89 Dependence on other enabling machines and devices; Z87.891 Personal history of nicotine dependence; Z91.048 Other nonmedicinal substance allergy status
CPT/HCPCS: 95811

== ENCOUNTER → 2024-10-09 | Outpatient (CLI) | payer MEDICARE, OTHER ==
[2024-10-09 13:28] LABS: African American GFR (CKD) >90 (>60 ml/min/1.73 sqM); Blood Urea Nitrogen 27 mg/dL (9-20); Non-African American GFR(CKD) >90 (>60 ml/min/1.73 sqM)
--- NOTE | 2024-10-09 15:27 | CT ---
CT urogram HISTORY: Unspecified abdominal pain. COMPARISON: CT abdomen and pelvis dated 02/23/2021. TECHNIQUE: Multiple axial images were obtained through the abdomen and pelvis before and after the un eventful administration of nonionic IV contrast. Postcontrast delayed images were obtained. FINDINGS: Lung bases are clear. The gallbladder is markedly contracted but is otherwise normal and there is no distention or biliary ductal dilatation. There are no focal masses within the liver, pancreas, or spleen and there is no organomegaly. There is a small stable adenoma of the right adrenal gland. Kidneys excrete contrast promptly and symmetrically and there is no solid renal mass, hydronephrosis or filling defect within the renal collecting systems, ureters or urinary bladder. There is a 10 mm n onobstructing right renal calculus and additional smaller 5 mm obstructing right renal calculus. Ther e are no left renal calcifications. There is a stable 10 cm cyst in the midpole left kidney with a sm all punctate calcification. There are 2 additional stable cysts of the right kidney is stable seconda ry smaller cyst in the left kidney. The bowel loops are normal in caliber and there is no dilatation or obstruction. No inflammatory claus nges are identified in the bowel wall or mesentery. There is no free intraperitoneal air or fluid. There is no pelvic mass, free fluid, abscess or adenopathy. There are bilateral hip effusions. There is advanced degenerative disc disease in the lumbar spine an d visualized lower thoracic spine with degenerative scoliosis. IMPRESSION: 1. 2 nonobstructing right renal calcifications 2. Stable large cortical cysts of both kidneys. 3. Small stable adenoma of the right adrenal gland. 4. No acute changes within the abdomen or pelvis [facility], , 10/09/2024 3:25 PM
== END | disposition home or self-care (01) ==
LOC: RADCTMAIN 12:36
PROVIDERS: ATTEND Urology
DX: N20.0 Calculus of kidney (principal); D35.01 Benign neoplasm of right adrenal gland; N28.89 Other specified disorders of kidney and ureter; N28.1 Cyst of kidney, acquired
CPT/HCPCS: 82565; 84520; 74178; 36415; 74400; Q9967

== ENCOUNTER 2024-12-24 19:24 | Outpatient (CLI) | payer MEDICARE, OTHER ==
--- NOTE | 2025-01-03 11:25 | P.PCN ---
Description of Procedure: CLINICAL: Titration with positive air pressure has been done for correction of respiratory abnormalities during sleep. DESCRIPTION OF PROCEDURE: The standard montage for clinical polysomnography included the electroencephalogram, the electrocardiogram, the mentalis surface electromyography and Lead II cardiography. The respiratory battery consisted of measurements of nasal /buccal air flow, pressure transducer measurements from the nose, thoracic and /or abdominal effort and intercostal surface electromyography. Video monitoring has been done to check for any parasomnia events. Nocturnal oxyhemoglobin saturations were obtained by finger oximetry. Step-eubanks titration with positive airway pressure was utilized to control respiratory events. Raw data of sleep recording has been reviewed and is adequate. RESULTS: Sleep efficiency was slightly decreased to 85.1%. Latency to sleep onset was normal 11.5 minutes.]. Sleep architecture showed stage N1 was normal 8.0%, Delta sleep was absent 0%, REM sleep was normal at 20.9%. Heart rate was minimum 59 BPM, maximum 71 BPM, average 64 BPM. EMG showed 22.2 periodic limb movements per hour with 0 micriarousals per hour. PAP titration have been done with CPAP up to the pressure 15 cm H2O. The best results were at the pressure 13 cm H2O. Apnea hypopnea index reduced to 0. IMPRESSION: 1. Obstructive sleep apnea hypopnea syndrome on controle with PAP treatment. 2. Significant periodic limb movements have been documented. Please see other impressions from consultation. PLAN: 1. The patient will have treatment with positive air pressure equipment with the level of pressure AutoPap 715 cm H2O and should use it every night for the whole night. 2. Watching weight. 3. Sleep hygiene with regular time in bed for at least 8 hours. 4. No driving if feeling any sleepiness. 5. I will see the patient for follow up visit to explain the results of the test, recommendations, check compliance with treatment and make any necessary adjustment related to mask fitting, pressure and humidification. 6. Please check iron profile including ferritin level. Low level of iron may increase risk for periodic limb movements Thank you very much for allowing me to participate in the management of your patient. Sincerely, Gerry Rincon MD, PhD, FAASM Diplomat of [place] [employer] Sleep [employer] of [place] [employer] Production [employer] [facility] [place] cc: Jenny Perez MD
== END 2024-12-25 05:20 | disposition home or self-care (01) ==
LOC: 3 N SLEEP 19:24
PROVIDERS: ATTEND Internal Medicine
DX: G47.33 Obstructive sleep apnea (adult) (pediatric) (principal); G47.61 Periodic limb movement disorder; F12.90 Cannabis use, unspecified, uncomplicated; Z91.048 Other nonmedicinal substance allergy status; Z87.891 Personal history of nicotine dependence; Z99.89 Dependence on other enabling machines and devices
CPT/HCPCS: 95811

== ENCOUNTER 2024-12-25 13:52 | Emergency (ER) | payer MEDICARE, OTHER ==
[2024-12-25 14:12] VITALS: BP 117/74; PULSE 91; RESP 16; TEMP 98
[2024-12-25] MEDS: PROPARACAINE 0.5% OPHTH DROPS 15 ML BTL BOTH EYES STA (14:21)
--- NOTE | 2024-12-25 14:31 | ED ---
General Adult HPI - General Chief complaint: Eye Problems Stated complaint: Eye Pain Time Seen by Provider: 12/25/24 13:55 Source: patient Mode of arrival: EMS Limitations: no limitations - History of Present Illness Initial comments: Dictation was produced using [employer] dictation software. please excuse any grammatical, word or spelling errors. Chief Complaint: 69-year-old male with conjunctivitis History of Present Illness: Patient 69-year-old male presents emergency department with conjunctivitis states that he was at a sleep study this morning. States that there were probes that were held to his head with adhesive. States that when the adhesives were removed there was alcohol solution that was used to remove them. Patient was discharged from a sleep study. On the way home he started to perspire. States that some of his sweat got into his eyes cause some burning bilaterally. States that he has some blurring of his vision. Called E [facility] brought to the ER. The ROS documented in this emergency department record has been reviewed and confirmed by me. Those systems with pertinent positive or negative responses have been documented in the HPI. All other systems are other negative and/or noncontributory. - Related Data Home Medications Medication Instructions Recorded Confirmed Spironolactone [Aldactone] 25 mg PO DAILY 09/26/14 07/06/23 Aspirin [Adult Low Dose Aspirin EC] 81 mg PO DAILY 09/19/15 07/06/23 Celecoxib [CeleBREX] 200 mg PO DAILY 03/10/17 07/06/23 Atorvastatin [Lipitor] 20 mg PO HS 05/31/18 07/06/23 lisinopriL [Zestril] 10 mg PO HS 05/31/18 07/06/23 Metoprolol Succinate (ER) [Toprol 50 mg PO BID 10/19/18 07/06/23 XL] Loratadine 10 mg PO DAILY 04/11/21 07/06/23 Calcium/Magnesium/Zinc 1 each PO DAILY 07/08/21 07/06/23 [Lavnbxs-Mcdhfepqs-Qitk Tablet] Multivit-Min/FA/Lycopen/Lutein 1 each PO DAILY 07/08/21 07/06/23 [Centrum Silver Tablet] Tyler-3 Fatty Acids/Fish Oil [Fish 1 each PO DAILY 07/08/21 07/06/23 Oil 1,000 mg Softgel] Vitamin D3 (Unknown Dose) 1 tab PO DAILY 07/08/21 07/06/23 Famotidine [Pepcid] 20 mg PO BID 06/30/23 07/06/23 Tamsulosin [Flomax] 0.4 mg PO DAILY 06/30/23 07/06/23 Vitamin B-12 (Unknown Dose) 1 tab PO DAILY 06/30/23 07/06/23 Previous Rx's Medication Instructions Recorded HYDROcodone/APAP 5-325MG [Narka 1 tab PO Q4HR PRN 3 Days #18 tab 04/26/22 5-325] Allergies Allergy/AdvReac Type Severity Reaction Status Date / Time adhesive Allergy Rash/Hives Verified 12/25/24 14:05 adhesive tape Allergy blisters Verified 12/25/24 14:05 Review of Systems ROS Statement: Those systems with pertinent positive or pertinent negative responses have been documented in the HPI. ROS Other: All systems not noted in ROS Statement are negative. Past Medical History Past Medical History: Coronary Artery Disease (CAD), Eye Disorder, GERD/Reflux, Hyperlipidemia, Hypertension, Musculoskeletal Disorder, Osteoarthritis (OA), Skin Disorder, Sleep Apnea/CPAP/BIPAP Additional Past Medical History / Comment(s): slight glaucoma janet eyes, Hx kidney stones, R great toe bunion, psoriasis, uses CPAP. Restless legs - not diagnosed. Snoring, arthritis. History of Any Multi-Drug Resistant Organisms: None Reported Past Surgical History: Appendectomy, Back Surgery, Heart Catheterization With Stent, Joint Replacement, Orthopedic Surgery Additional Past Surgical History / Comment(s): PTCA with stent x1, EGD and colonoscopy, L knee arthroscopy, lithrotripsy, Surg to remove kidney stone, laminectomy low back 1984, has had laser sx to janet eyes, cervical fusion. Lt elbow surg. Bilat Total hips. 2 ANEURYSMS - 1 IN ILIAC AREA AND 1 IN STOMACH - NOT SURE WHERE. r. elbbow cyst removal. Past Anesthesia/Blood Transfusion Reactions: No Reported Reaction Additional Past Anesthesia/Blood Transfusion Reaction / Comment(s): Pt has not recieved any blood transfusion. Date of Last Stent Placement:: 2011 Past Psychological History: Anxiety, Depression Smoking Status: Former smoker Past Alcohol Use History: None Reported Past Drug Use History: Marijuana - Past Family History Father Family Medical History: COPD, Coronary Artery Disease (CAD), Myocardial Infarction (CT) Mother Family Medical History: COPD, Coronary Artery Disease (CAD) Additional Family Medical History / Comment(s): ADRENAL ANEURYSM General Exam - General Exam Comments Initial Comments: General: Well-appearing, nontoxic, no acute distress. Head: Normocephalic, atraumatic Eyes: PERRLA, EOMI, mild conjunctivitis bilaterally ENT: Airway patent Chest: Nonlabored breathing Skin: No visual rash, normal skin tone Neuro: Alert and oriented 3 Musculoskeletal: No gross abnormalities Limitations: no limitations Course Vital Signs 12/25/24 13:56 Temperature 98 F Pulse Rate 91 Respiratory 16 Rate Blood Pressure 117/74 O2 Sat by Pulse 95 Oximetry - Reevaluation(s) Reevaluation #1: 12/25/24 14:30 Symptoms resolved after application of proparacaine Reevaluation #2: 12/25/24 15:31 Patient states that after several minutes after proparacaine application his symptoms started to feel like they are returning. It was recommended to place Peter lens for eye flushing. Patient was not able to tolerate Peter lens and requested that Peter lens not be placed. Reevaluation #3: 12/25/24 15:55 Case discussed with on-call custom feed mill operator, Dr. Moody. Recommended that patient be prescribed erythromycin ointment 3 times daily. Likely suffering from chemical keratitis from the alcohol wipes. He advised patient follow-up in his office in 2 to 3 days Medical Decision Making - Medical Decision Making Was pt. sent in by a medical professional or institution (CAMILA Mitchell, [employer], urgent care, hospital, or senior living...) When possible be specific @ -No Did you speak to anyone other than the patient for history (EMS, parent, family, police, friend...)? What history was obtained from this source @ -No Did you review nursing and triage notes (agree or disagree)? Why? @ -I reviewed and agree with nursing and triage notes Were old charts reviewed (outside hosp., previous admission, EMS record, old EKG, old radiological studies, urgent care reports/EKG's, senior living records)? Report findings @ -No old charts were reviewed Differential Diagnosis (chest pain, altered mental status, abdominal pain women, abdominal pain men, vaginal bleeding, musculoskeletal, weakness, fever, dyspnea, syncope, headache, dizziness, GI bleed, back pain, seizure, CVA, palpatations, mental health)? @ -Chemical conjunctivitis, glaucoma, corneal abrasion EKG interpreted by me (3pts min.). @ -None done X-rays interpreted by me (1pt min.). @ -None done CT interpreted by me (1pt min.). @ -None done U/S interpreted by me (1pt. min.). @ -None done What testing was considered but not performed or refused? (CT, X-rays, U/S, labs)? Why? @ -None What meds were considered but not given or refused? Why? @ -None Was smoking cessation discussed for >3mins.? @ -No Were there social determinants of health that impacted care today? How? (Homelessness, low income, unemployed, alcoholism, drug addiction, transportation, low edu. Level, literacy, decrease access to med. care, prison, rehab)? @ -No Was there de-escalation of care discussed even if they declined (Discuss DNR or withdrawal of care, Hospice)? DNR status @ -No What co-morbidities impacted this encounter? (DM, HTN, Smoking, COPD, CAD, Cancer, CVA, ARF, Chemo, Hep., AIDS, mental health diagnosis, sleep apnea, morbid obesity)? @ -None Was patient admitted / discharged? Hospital course, mention meds given and route, prescriptions, significant lab abnormalities, going to OR and other pertinent info. @ -69-year-old male presents emergency department with chemical conjunctivitis secondary to alcohol residue mixed with sweat they currently reside. Vital signs are stable. Patient has mild conjunctivitis to his eyes. Patient did report relief with proparacaine however his symptoms were difficult to control. Attempt was made to place Peter lens however he did not tolerate it and absolutely refused. Case discussed with ophthalmology as described above. Erythromycin ointment was placed by nurse and nurse states that patient just wiped out the ointment. Patient was extremely unhappy states that he is disappointed because his pain is not completely resolved. He was told as per ophthalmology that his symptoms may persist for 1 to 2 days however should slowly improve. Patient given outpatient referral to ophthalmology. Did you discuss the management of the patient with other professionals (professionals i.e. , PA, [employer] OFF[employer]ER HEAD, lab, RT, psych nurse, social media editor, manager foreign, teacher, health officer, casework manager)? Give summary @ -No Was critical care preformed (if so, how long)? @ -No Undiagnosed new problem with uncertain prognosis? @ -No Drug Therapy requiring intensive monitoring for toxicity (Heparin, Nitro, Insulin, Cardizem)? @ -No Were any procedures done? @ -No Diagnosis/symptom? Acute, or Chronic, or Acute on Chronic? Uncomplicated ( without systemic symptoms) or Complicated (systemic symptoms)? @ -Chemical conjunctivitis Side effects of treatment? @ -No Exacerbation, Progression, or Severe Exacerbation? @ -No Poses a threat to life or bodily function? How? (Chest pain, USA, CT, pneumonia, PE, COPD, DKA, ARF, appy, cholecystitis, CVA, Diverticulitis, Homicidal, Suicidal, threat to staff... and all critical care pts) @ -yes Disposition Clinical Impression: Chemical conjunctivitis Disposition: HOME SELF-CARE Condition: Fair Instructions (If sedation given, give patient instructions): Conjunctivitis (ED) Is patient prescribed a controlled substance at d/c from ED?: No Referrals: Ashish Moody MD [REFERRING] - 1-2 days Time of Disposition: 16:10
[2024-12-25] MEDS: ERYTHROMYCIN 5 MG/GM OPHTH OINT 1 GM TUBE BOTH EYES STA (16:05)
--- NOTE | 2024-12-25 16:32 | ED ---
Disposition Clinical Impression: Chemical conjunctivitis Disposition: HOME SELF-CARE Condition: Fair Instructions (If sedation given, give patient instructions): Conjunctivitis (ED) Is patient prescribed a controlled substance at d/c from ED?: No Referrals: Aj Moody MD [STAFF PHYSICIAN] - 1-2 days
== END 2024-12-25 16:47 | disposition home or self-care (01) ==
LOC: EC 13:52
DX: H10.213 Acute toxic conjunctivitis, bilateral (principal); Z87.891 Personal history of nicotine dependence; Z88.8 Allergy status to other drugs, medicaments and biological substances
CPT/HCPCS: 99283

== ENCOUNTER → 2025-01-10 | Outpatient (CLI) | payer MEDICARE, OTHER ==
[2025-01-10 08:27] LABS: African American GFR (CKD) >90 (>60 ml/min/1.73 sqM); Blood Urea Nitrogen 22 mg/dL (9-20); Non-African American GFR(CKD) >90 (>60 ml/min/1.73 sqM)
--- NOTE | 2025-01-10 09:57 | CT ---
EXAMINATION TYPE: CT angio abdomen pelvis CT DLP: 3750.4 mGycm, Automated exposure control for dose reduction was used. DATE OF EXAM: 01/10/2025 9:32 AM COMPARISON:CT urogram 10/09/2024, CT pelvis 12/02/2023, 06/03/2023, CT abdomen and pelvis 05/25/2023 CLINICAL INDICATION:Male, 69 years old with history of I71.40 ABDOMINAL AORTIC ANEURYSM, WITHOUT RUPT URE; aortic aneurysm TECHNIQUE: Multiple thin slice sub-millimeter images were obtained through the abdomen and pelvis bef ore and after administration of contrast. Patient was given Isovue 370, 100 cc intravenously. 3-D r econstructed images and maximum intensity projection images were obtained of the abdomen and pelvis. FINDINGS: CTA Abdomen and pelvis: Similar mild fusiform aneurysmal dilatation of the infrarenal abdominal aorta measuring up to 3.2 cm. Unchanged aneurysmal dilatation of the right common iliac artery measuring 2 .3 cm and the left common cardiac artery measuring 2.0 cm. Additional stable right internal iliac art fran fusiform aneurysm measuring up to 1.6 cm and additional stable left internal iliac artery fusifor m aneurysm measuring up to 1.5 cm. Moderate atherosclerotic plaquing is identified within the abdomi nal aorta. No evidence for intramural hematoma or dissection of the abdominal aorta or its branches. The origins of the superior mesenteric artery, renal arteries, inferior mesenteric artery, and maddy c axis are patent. There is again a separate origin of the left gastric artery directly from the aort a. Accessory right renal artery. Atherosclerotic plaquing with some mural thrombus formation is iden tified in the common iliac arteries. The bilateral internal and external iliac arteries are patent. The visualized bilateral common femoral arteries are patent. The visualized bilateral superficial and deep femoral arteries are patent. VISCERA: The liver, spleen, adrenal glands, kidneys, pancreas, and gallbladder are not optimally enha nced due the arterial phase utilized. LIVER: Unremarkable GALLBLADDER AND BILE DUCTS: Unremarkable. PANCREAS: Unremarkable. SPLEEN: Unremarkable. ADRENAL GLANDS: Unremarkable. KIDNEYS AND URETERS: No evidence of hydronephrosis. No left renal calculi. Grouped approximately 4 ca lculi within the lower pole of the right kidney with largest measuring up to 6 mm. Similar bilateral renal cysts with largest involving the inferior pole of the right kidney measuring up to 6.7 cm. Larg est within the left kidney involves the upper pole measuring up to 9.6 cm. These appear relatively si mple with some trace calcification within the left large cyst. No follow-up recommended. PELVIS BLADDER: Mildly distended. No gross evidence for abnormality within limitations of streak artifact fr om hip prosthesis. REPRODUCTIVE: Limited evaluation due to streak artifact from hip prosthesis. ABDOMEN & PELVIS STOMACH AND BOWEL: Stomach and duodenum are unremarkable. No focal bowel wall thickening or surroundi ng inflammatory changes identified. No evidence of bowel obstruction. PERITONEUM: No evidence of pneumoperitoneum or free fluid. VASCULATURE: No evidence of aortic aneurysm. MUSCULOSKELETAL: No acute osseous abnormalities. Postsurgical changes from bilateral hip arthroplasty . This creates streak artifact which limits evaluation of the pelvis. Advanced spondylitic changes th roughout the visualized spine. Osteopenia. LYMPH NODES: No evidence for lymphadenopathy. SOFT TISSUE/ABDOMINAL WALL: Unremarkable LOWER CHEST: Minimal bilateral lower lobe linear atelectasis. Stable anterior right middle lobe 3.8 m m subareolar nodule back to at least 2022 and considered benign due to stability. IMPRESSION: 1. Stable infrarenal abdominal aortic aneurysm measuring up to 3.2 cm. Stable bilateral common iliac artery aneurysms measuring 2.3 cm on the right and 2.0 cm on the left. Additional stable bilateral in ternal iliac artery aneurysms measuring 1.6 cm on the right and 1.5 cm on the left. No evidence for i ntramural hematoma or dissection. 2. Nonobstructing right renal calculi with multiple bilateral renal cysts. No follow-up recommended. [facility], , 01/10/2025 9:55 AM
== END | disposition home or self-care (01) ==
LOC: RADCTMAIN 07:43
PROVIDERS: ATTEND Internal Medicine Interventional Cardiology
DX: I71.43 Infrarenal abdominal aortic aneurysm, without rupture (principal); I72.3 Aneurysm of iliac artery; N20.0 Calculus of kidney; N28.1 Cyst of kidney, acquired; Z86.79 Personal history of other diseases of the circulatory system
CPT/HCPCS: 82565; 84520; 36415; 74174; Q9967